=== PATIENT | male | born 1940 | race Caucasian/White ===

== ENCOUNTER → 2018-02-19 | Outpatient (CLI) | payer MEDICARE ==
[2018-02-19 13:50] LABS: ANION GAP 7 MEQ/L (8-16); BLOOD UREA NITROGEN 18 MG/DL (7-18); CARBON DIOXIDE LEVEL 30 MEQ/L (21-32); CHLORIDE LEVEL 108 MEQ/L (98-107); CREATININE FOR GFR 1.25 MG/DL (0.70-1.30); GLOMERULAR FILTRATION RATE 59.5 (>42); GLUCOSE, FASTING 70 MG/DL (70-100); POTASSIUM SERUM 4.5 MEQ/L (3.5-5.1); SODIUM LEVEL 145 MEQ/L (136-145)
== END ==
LOC: M SMT 09:07
DX: Z00.00 Encounter for general adult medical examination without abnormal findings (principal)
CPT/HCPCS: 80048

== ENCOUNTER → 2018-02-23 | Outpatient (CLI) | payer MEDICARE ==
[~2018-02-23] MED LIST: PROHANCE 279.3MG/ML 5ML VIAL (A9576) As Ordered
== END ==
LOC: M RAD 10:58
DX: D07.5 Carcinoma in situ of prostate (principal); K57.30 Diverticulosis of large intestine without perforation or abscess without bleeding; K40.90 Unilateral inguinal hernia, without obstruction or gangrene, not specified as recurrent
CPT/HCPCS: A9576

== ENCOUNTER → 2018-04-23 | Outpatient (CLI) | payer MEDICARE | LOC: M SMT PRO 08:43 | DX: R97.20 Elevated prostate specific antigen [PSA] (principal); D07.5 Carcinoma in situ of prostate | CPT/HCPCS: G0416 ==

== ENCOUNTER → 2018-05-07 | Outpatient (REF) | payer MEDICARE ==
[2018-05-07 17:51] LABS: APPEARANCE, URINE CLEAR (CLEAR); BACTERIA, URINE AUTO NEGATIVE (NEGATIVE); BILIRUBIN, URINE AUTO NEGATIVE (NEGATIVE); BLOOD, URINE BLOOD 2+ (NEGATIVE); COLOR, URINE YELLOW (YELLOW); GLUCOSE, URINE (UA) AUTO NEGATIVE (NEGATIVE); KETONE, URINE AUTO NEGATIVE (NEGATIVE); LEUKOCYTE ESTERASE, URINE AUTO NEGATIVE (NEGATIVE); MUCUS, URINE SMALL (NEGATIVE); NITRITE, URINE AUTO NEGATIVE (NEGATIVE); PROTEIN, URINE AUTO NEGATIVE (NEGATIVE); RBC, URINE AUTO 9 /HPF (0-3); SPECIFIC GRAVITY URINE AUTO 1.017 (1.002-1.035); SQUAMOUS EPITHELIAL CELL UR AU 0 /HPF (0-6); UROBILINOGEN, URINE AUTO 0.2 mg/dL (0.0-2.0); WBC, URINE AUTO 1 /HPF (0-3)
== END ==
LOC: M SMT 16:41
DX: R31.0 Gross hematuria (principal)
CPT/HCPCS: 81001

== ENCOUNTER 2018-07-02 10:32 | Observation (INO) | payer MEDICARE ==
[~2018-07-02] VITALS: Ht 170.2 cm; Wt 79.1 kg
[~2018-07-02 10:32] MED LIST changes: +ACET50TA PO; +ASPI81TA51 PO; +CLOP75TA2 PO; +DOXY100C PO; +FINA5TAB2 PO; +NORCOTAB PO; +OMEP20CA3 PO; -PROHANCE 279.3MG/ML 5ML VIAL (A9576) As Ordered; +RAMI5CAP PO; +SIMV20TA2 PO; +SIMV80TA13 PO; +TERA5CA PO; +ZOCO40TA PO
--- NOTE | 2018-07-02 10:54 | REP ---
Clinical: Acute cerebrovascular accident Comparison: 05/09/2017 . Findings: Age-related atrophy and microvascular ischemic changes are appreciated. The ventricles and sulci are symmetric. Preciado-white differentiation is maintained. There is no evidence for acute intracranial hemorrhage, mass/mass effect, pathology or infarction. No extra-axial fluid collection. Paranasal sinuses are clear. Calvarium is intact. There is a hematoma within the scalp overlying the right posterior occiput. Impression: Age related atrophy and microvascular ischemic changes. No acute intracranial hemorrhage, infarction, or mass/mass effect. Right posterior scalp hematoma. Electronically Signed by Jose Arreguin MD 07/02/2018 10:46 A
[2018-07-02] MEDS ORDERED: TOBRSUS41 (10:56)
[2018-07-02] MEDS ORDERED: RANI-280 (10:56)
[2018-07-02 11:11] LABS: BASO # 0.1 10^3/uL (0.0-0.2); BASO % 0.8 % (0.0-1.0); EOS # 0.3 10^3/uL (0.0-0.50); EOS % 4.4 % (0.0-3.0); HEMATOCRIT 43.1 % (42.0-52.0); HEMOGLOBIN 14.7 g/dl (13.5-17.5); LYMPH # 1.7 10^3/uL (1.5-4.5); LYMPH % 26.3 % (24.0-44.0); MEAN CORPUSCULAR HEMOGLOBIN 32.2 pg (27.0-33.0); MEAN CORPUSCULAR HGB CONC 34.1 g/dl (32.0-36.5); MEAN CORPUSCULAR VOLUME 94.3 fl (80.0-96.0); MONO # 0.7 10^3/uL (0.0-0.8); MONO % 11.3 % (0.0-5.0); NEUTROPHILS # 3.6 10^3/uL (1.8-7.7); NEUTROPHILS % 56.9 % (36.0-66.0); PLATELET COUNT, AUTOMATED 229 10^3/uL (150-450); RED BLOOD COUNT 4.57 10^6/uL (4.30-6.10); WHITE BLOOD COUNT 6.4 10^3/uL (4.0-10.0)
[2018-07-02 11:23] LABS: INR 1.02; PROTHROMBIN TIME 13.5 SECONDS (12.1-14.4)
[2018-07-02 11:24] LABS: PARTIAL THROMBOPLASTIN TIME 30.7 SECONDS (25.4-37.6)
--- NOTE | 2018-07-02 11:33 | ECGEPIP ---
Stationary ECG Study [facility] - ED Test Date: 2018-07-02 Pat Name: FREDY KUNZ Department: Room: - Gender: M [employer] Tr[employer]: TC : 1940 Requested By: Lara Aguilar Order Number: [id number] Reading MD: Antonio Ramírez Measurements Intervals [place] Rate: 52 P: 31 NJ: 233 QRS: -46 QRSD: 95 T: 0 QT: 436 QTc: 408 Interpretive Statements SINUS BRADYCARDIA WITH FIRST DEGREE AV BLOCK LEFT AXIS DEVIATION NSTTW ABNORMALITIES SIMILAR TO 11/25/17 Electronically Signed On 07-02-2018 11:33:04 EST by Antonio Ramírez
[2018-07-02 11:43] LABS: BLOOD UREA NITROGEN 24 MG/DL (7-18); CARBON DIOXIDE LEVEL 28 MEQ/L (21-32); CHLORIDE LEVEL 108 MEQ/L (98-107); CPK CREATINE PHOSPHOKINASE 66 U/L (39-308); CREATININE FOR GFR 1.21 MG/DL (0.70-1.30); GLOMERULAR FILTRATION RATE > 60.0 (>42); GLUCOSE, FASTING 100 MG/DL (70-100); MB/CK RELATIVE INDEX 3.33 (< OR =4); POTASSIUM SERUM 3.9 MEQ/L (3.5-5.1); SODIUM LEVEL 141 MEQ/L (136-145); TROPONIN I < 0.02 NG/ML (< 0.10)
[2018-07-02] MEDS ORDERED: TOBRSUS41 OS (12:36)
[2018-07-02] MEDS ORDERED: CLOP75TA2 PO (12:36)
[2018-07-02] MEDS ORDERED: ASPI1TAB PO (12:36)
[2018-07-02] MEDS ORDERED: RAMI1CAP24 PO (12:36)
[2018-07-02] MEDS ORDERED: RANI1TAB6 PO (12:36)
[2018-07-02] MEDS ORDERED: SIMV40TA2 PO (12:36)
[2018-07-02] MEDS ORDERED: VITAD1000T PO (12:37)
--- NOTE | 2018-07-02 12:41 | REP ---
PORTABLE CHEST X-RAY: Single view. HISTORY: CVA. COMPARISON STUDY: May 09, 2017. FINDINGS: The lungs are symmetrically aerated and free of infiltrate. Pleural angles are sharp. An azygos lobe is noted in the right apex as before. Heart is not enlarged. EKG electrodes are seen. IMPRESSION: No acute disease. Electronically Signed by Javi Sanchez MD 07/02/2018 04:12 P
--- NOTE | 2018-07-02 13:56 | REP ---
MRI BRAIN WITHOUT CONTRAST: HISTORY: Question cerebellar infarct. Comparison is made with today's CT study. TECHNIQUE: Axial and sagittal imaging planes are utilized for T1- and T2-weighted scans. Sequences include spin-echo, fast spin echo, FLAIR, and diffusion weighted sequences. MRI findings: No bony calvarial lesion is seen. The area of soft tissue swelling in the right occipital scalp seen on CT is noted on MR. Craniocervical junction and upper cervical cord are normal in appearance. There is no MR evidence of significant paranasal sinus disease. No intraorbital abnormality is seen. There is mild generalized volume loss. Small vessel atherosclerotic changes are seen in the periventricular white matter of the frontal lobes bilaterally. There is an old lacunar infarct in the left thalamus medially as seen on CT. There is a small old cortical infarct in the left superior cerebellum. This does not show restricted diffusion on the diffusion weighted scans. A right cerebellar hemisphere lacunar infarct is seen inferiorly. This is also old. There is no evidence of restricted diffusion on diffusion-weighted scans to suggest acute ischemia, above or below the tentorium. There is no evidence of intracranial hemorrhage or mass. IMPRESSION: Old lacunar and cortical infarcts in the left thalamus, the left superior cerebellum, and the right inferior cerebellum. No acute infarction seen. Electronically Signed by Javi Sanchez MD 07/02/2018 04:16 P
--- NOTE | 2018-07-02 13:58 | REP ---
MR ANGIOGRAPHY THE BRAIN WITHOUT CONTRAST: HISTORY: Question cerebellar infarction. Comparison is made with today's MRI and CT scans. TECHNIQUE: 3D [id number] MR angiography of the brain is acquired in the usual fashion and maximal intensity projection images were generated in rotational format about the vertical and horizontal axes. In addition, source axial T1-weighted images are viewed in cine mode. MR ANGIOGRAPHIC FINDINGS: The distal vertebral arteries are patent and right dominant. Basilar artery is a little tortuous but widely patent. There is a persistent origin for the left posterior cerebral artery. The P1 segment of the proximal posterior cerebral artery on the left is narrower in association with this. The distal internal carotid arteries are unremarkable. The left A1 segment is quite hypoplastic visible only on source images but patent. The anterior cerebral arteries are both patent from the anterior communicator. Anterior and middle cerebral arteries appear otherwise intact. There is no visible mooney aneurysm or arteriovenous malformation. IMPRESSION: Persistent origin left posterior cerebral, hypoplastic A1 segment on the left. Otherwise unremarkable MR angiography the brain. Electronically Signed by Javi Sanchez MD 07/02/2018 04:16 P
--- NOTE | 2018-07-02 15:12 | HPE ---
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 He had woke up this morning, making a pot of coffee when he had severe temporal headache and with the onset of vertigo. He said that he felt like he was spinning around the room and he caught himself and sat down and came to the emergency room (ER) for evaluation. Initial CT of the head was negative and by the time he was in the ER, he was asymptomatic. Dr. Castro who is our neurologist recommended to keep the patient for an MRI and followup. The patient denies any associated chest pain or palpitations when he had the event and will be admitted for further management. PAST MEDICAL HISTORY: 1. Left cerebellar infarct in May of 2017. 2. History of coronary artery disease status post myocardial infarction (GA). 3. Hypertension. 4. Hyperlipidemia. 5. Gastroesophageal reflux disease (GERD). 6. History of benign prostatic hypertrophy (BPH) status post transurethral resection. ALLERGIES: He has no known drug allergies. FAMILY HISTORY: Noncontributory. SOCIAL HISTORY: The patient denies tobacco, alcohol, or illicit drugs. MEDICATIONS: He takes at home are as follows: - aspirin 81 mg orally daily - Plavix 75 mg orally daily - ramipril 5 mg orally at bedtime - ranitidine one tablet orally twice daily - simvastatin 40 mg orally daily - tobramycin one drop to the left eye four times a day - vitamin D 1000 units orally daily REVIEW OF SYSTEMS: Negative for all 10 major systems except for what is mentioned in the history of present illness (HPI). VITAL SIGNS: Blood pressure is 165/74, heart rate is 54 and regular, respiratory rate 18, temperature 97.3, oxygen saturation 99% on room air. Head is normocephalic, atraumatic. Neck is supple with no jugular venous distention (JVD). Lungs are clear to auscultation. S1, S2 audible. No murmurs appreciated. Abdomen is soft. Positive bowel sounds. No pitting edema. Skin is intact. On neurologic examination, no focal deficits were noted. The patient has no vertical or horizontal nystagmus. LABORATORY DATA: WBC 6.4, hemoglobin 14.7, hematocrit 43.1, platelets are 229,000. Sodium 141, potassium 3.9, chloride 108, CO2 28, anion gap 5, BUN of 24, creatinine 1.21, troponin is less than 0.02, glucose is 100. IMPRESSION: Transient ischemic attack (TIA). PLAN: The patient is to be admitted under observation status to the medical/surgical floor with remote telemetry. We will have neurology see the patient in the morning and we will get the MRI they requested. We will continue his preadmission medications and follow him in the medical/surgical floor.
[2018-07-02 18:13] VITALS: BP 172/92
[2018-07-02] MEDS: TOBRADEX OPHTH SUSP 2.5 ML OS SCH ×2 (19:41→20:54)
[2018-07-02] MEDS: FAMOTIDINE 20 MG TAB PO SCH (20:52)
[2018-07-02] MEDS: RAMIPRIL 5 MG CAP PO SCH (20:54)
[2018-07-02] MEDS: ASPIRIN 81 MG ENTERIC TAB PO SCH (20:54)
[2018-07-02 22:00] VITALS: BP 147/71
[2018-07-03] VITALS (7 sets, daily range): BP systolic 122–156; BP diastolic 63–83
[2018-07-03 06:21] LABS: BLOOD UREA NITROGEN 21 MG/DL (7-18); CALCIUM LEVEL 8.5 MG/DL (8.8-10.2); CARBON DIOXIDE LEVEL 26 MEQ/L (21-32); CHLORIDE LEVEL 109 MEQ/L (98-107); CREATININE FOR GFR 1.13 MG/DL (0.70-1.30); GLOMERULAR FILTRATION RATE > 60.0 (>42); GLUCOSE, FASTING 96 MG/DL (70-100); POTASSIUM SERUM 3.8 MEQ/L (3.5-5.1); SODIUM LEVEL 142 MEQ/L (136-145)
[2018-07-03] MEDS: FAMOTIDINE 20 MG TAB PO SCH ×2 (08:04→20:18)
[2018-07-03] MEDS: CLOPIDOGREL 75 MG TAB PO SCH (08:04)
[2018-07-03] MEDS: VITAMIN D 1,000 INTERNATIONAL UNITS TABLET PO SCH (08:04)
[2018-07-03] MEDS: TOBRADEX OPHTH SUSP 2.5 ML OS SCH ×4 (08:05→20:18)
--- NOTE | 2018-07-03 08:55 | CR ---
DATE OF CONSULTATION: 07/02/2018 REFERRING PHYSICIAN: Dr. Agustina Crane REASON FOR CONSULTATION: Episode of dizziness and imbalance. HISTORY OF PRESENT ILLNESS: Janes Menjivar is a 78-year-old man with history of left cerebellar ischemic stroke in May 2017, coronary artery disease, hypertension, dyslipidemia who woke up around 6:00 a.m. and had no problems. He went to work at [employer]. He was making coffee around 10:00 a.m. and he suddenly felt dizzy and intense sensation of falling and imbalance. He was stumbling. He called his who brought him to emergency department. He also had mild headache at that time. His symptoms resolved after 20 minutes on their own. He denies any seizures, loss of consciousness, neck pain, back pain, dysphagia, dysarthria, diplopia or urinary incontinence. The patient states that he had exactly same symptoms when he had his stroke in May 2017. The patient had stopped taking Plavix for a prostate biopsy and he started taking Plavix 7 days after prostate biopsy, but he started having urethral bleeding. He stopped Plavix for 1 month and restarted taking it around and has been taking Plavix and aspirin since then. The patient has chronically elevated PSA and had multiple biopsies of his prostate gland and they have ruled out prostate cancer. His PSA ranges between 15 - 20. PAST MEDICAL HISTORY: Left cerebellar ischemic stroke in May 2017, coronary artery disease status post capital [place], hypertension, dyslipidemia, acid reflux, benign prostate enlargement with chronically high PSA 15-20 with negative multiple biopsies. ALLERGIES: None. FAMILY HISTORY: Noncontributory. SOCIAL HISTORY: He denies smoking, alcohol or illicit drugs. CURRENT MEDICATIONS: Aspirin 81 mg by mouth daily, Plavix 75 mg by mouth daily, ramipril 5 mg by mouth daily, Zantac 150 mg by mouth twice a day, simvastatin 40 mg by mouth daily, tobramycin one drop left eye four times a day, vitamin D3 1000 units by mouth daily. REVIEW OF SYSTEMS: All systems were reviewed and found to be noncontributory except as mentioned in history of present illness. PHYSICAL EXAMINATION: Temperature 96.7, pulse 64, respiratory 16, blood pressure 167/81, 100% saturation on room air. Heart: Regular rate and rhythm. Lungs: Clear to auscultation. Abdomen: Soft, nontender, nondistended. No pedal edema. No musculoskeletal abnormalities or rash. No signs of meningeal irritation. No tremor, dysmetria or ataxia. The patient is awake, alert, oriented to place, person and time. Normal speech, comprehension and repetition. Extraocular muscles are intact. No facial weakness. Tongue and uvula are midline. Visual fox are full to confrontation. Pupils are 5 mm bilaterally reactive to light. Recent and distant memory is intact. 5/5 strength in all four extremities. Deep tendon flexes are 2+ throughout. Gait is normal. Normal sensation. No dysmetria or ataxia. DIAGNOSTIC STUDIES: His MRI scan of brain was reviewed and showed old bilateral cerebellar ischemic strokes, left thalamic lacunar stroke without acute disease. MRA brain was unremarkable. MRA of neck in May 2017 showed 30% left internal carotid artery stenosis with normal blood vessels otherwise. ASSESSMENT: 1. Suspected transient ischemic attack. 2. History of bilateral cerebellar and left thalamic lacunar strokes. 3. 30% left internal carotid artery based on MRA in May 2017. PLAN: 1. Echocardiogram with bubble study to rule out PFO and atrial septal defect. 2. Continue telemetry monitoring. 3. Aspirin 81 mg by mouth daily and Plavix 75 mg by mouth daily. 4. Simvastatin 40 mg by mouth daily. 5. Carotid ultrasound. 6. Follow with our office in 2-4 weeks after hospital discharge.
[2018-07-03] MEDS ORDERED: PREVNAR 13 VACCINE SYRINGE (CPT CODE:90670) IM ONE (09:00)
--- NOTE | 2018-07-03 11:42 | REP ---
Clinical: Transient ischemic attack . Technique: Preciado scale and color Doppler evaluation using linear high frequency transducer Findings: Two-dimensional preciado scale and color images demonstrate mild atheromatous mixed plaquing along the common carotid arteries extending to the bulbs/ proximal internal carotid arteries. Color Doppler interrogation demonstrates biphasic arterial wave patterns and normal velocities with scattered spectral broadening. Normal flow direction is appreciated in the bilateral vertebral arteries. RIGHT (cm/s) LEFT (cm/s) ICA peak systolic velocity 60.3 75.1 ICA diastolic velocity 20.0 13.4 ECA peak systolic velocity 66.2 128.8 CCA peak systolic velocity 76.9 84.2 ICA/CCA ratio 1.27 0.71 Impression: No hemodynamically significant areas of narrowing or stenosis appreciated. Based on set standards narrowing falls within the less than 50% range. Electronically Signed by Jose Arreguin MD 07/03/2018 11:33 A
--- NOTE | 2018-07-03 15:25 | IPNPDOC ---
Text Note Date of Service The patient was seen on 07/03/18. NOTE Subjective: Pt states dizziness resolved. AGUILAR resolved as well. No weakness. Objective: Vitals: (see below) General: No acute distress, laying comfortably in bed. HEENT: Moist mucous membranes. Neck: No JVD or lymphadenopathy Cardiac: RRR, No murmurs Pulm: Clear to auscultation b/l. No wheezing, rhonchi Abd: NT/ND + BS Ext: No edema or cyanosis Neuro: Strength 5/5 BUE and BLE. CN 2-12 intact. F to N intact Negative pronator drift. Negative Babinki. AAO x 3 Labs (see below) Images: MRI Brain 07/02/18 IMPRESSION: Old lacunar and cortical infarcts in the left thalamus, the left superior cerebellum, and the right inferior cerebellum. No acute infarction seen. Assessment/Plan 1. Dizziness/AGUILAR resolved. ? TIA. States he has not been taking his aspirin consistently at home. Restart ASA, cont plavix/statin. Echo with bubble study per Neuro. Will need outpt f/u with neuro and cardio. 2.H/o CAD s/p PCI cont home meds 3. HTN controlled. cont current meds 4.HLD on statin 5. H/o GERD 6. H/o BPH s/p TURP. DVT prophy: Enoxaparin.a VS,Fishbone, I+O VS, Fishbone, I+O Laboratory Tests 07/03/18 05:21 Calcium Level 8.5 L Vital Signs Date Time Temp Pulse Resp B/P (MAP) Pulse Ox O2 Delivery O2 Flow Rate FiO2 07/03/18 12:05 74 144/77 (99) 73 136/63 (87) 07/03/18 06:00 97.6 16 94 Room Air I&O- Last 24 Hours up to 6 AM 07/03/18 06:00 Intake Total 1110 ml Output Total 100 ml Balance 1010 ml CLARENCE RICH MD Jul 03, 2018 15:25
[2018-07-03] MEDS: ASPIRIN 81 MG ENTERIC TAB PO SCH (20:17)
[2018-07-03] MEDS: RAMIPRIL 5 MG CAP PO SCH (20:18)
[2018-07-03] MEDS ORDERED: SIMVASTATIN 40 MG TAB PO SCH (21:00)
[2018-07-04 04:10] VITALS: BP_SYST 111; BP_SYST 123; BP_SYST 142; BP_DIAS 66; BP_DIAS 72; BP_DIAS 73
[2018-07-04 06:00] VITALS: BP 137/67
[2018-07-04] MEDS ORDERED: NS 1,000 ML IV ONE (08:00)
[2018-07-04] MEDS: CLOPIDOGREL 75 MG TAB PO SCH (08:49)
[2018-07-04] MEDS: TOBRADEX OPHTH SUSP 2.5 ML OS SCH ×2 (08:49→12:45)
[2018-07-04] MEDS: FAMOTIDINE 20 MG TAB PO SCH (08:49)
[2018-07-04] MEDS: VITAMIN D 1,000 INTERNATIONAL UNITS TABLET PO SCH (08:49)
--- NOTE | 2018-07-04 09:24 | ECHO ---
DATE OF PROCEDURE: 07/03/2018 AGE: 78 GENDER: Male HEIGHT: 67 inches WEIGHT: 174 pounds BODY SURFACE AREA: 1.91 meters squared INPATIENT: 4 [facility] 4202 REFERRING PHYSICIAN: Dr. Dany San INDICATION: Transient ischemic attack (TIA), question cardiac source. MEASUREMENTS: 2-D measurements: RV - 4.0 cm LV - 4.2 cm Septum 1.1 cm Posterior wall 1.1 cm Aortic root 4.1 cm LA - 3.7 cm LVEF 75% Doppler measurements: AV - 1.3 meters per second LVOT - 1.1 meters per second LVOT diameter 2.0 cm MV- E 50, A 100, E:E ratio 0.5 E prime 4.5, E/E prime ratio 11.1 PCWP- 11.3 PV - 0.9 meters per second Pulmonary artery acceleration time 92 milliseconds RVSP 38 mmHg IVC - not clearly visualized, estimated central venous pressure of 5-7 mmHg by standard convention. COMMENTS: Normal sinus rhythm without intraventricular conduction disturbance. M-mode and two-dimensional echocardiography was performed with pulsed, continuous wave, color flow, and tissue Doppler studies. We also performed saline contrast bubble study. Normal left ventricular size, wall thickness and hyperkinetic wall motion. Normal left atrial size and assessment of LV diastolic function and estimated mean left atrial pressure. Right heart chambers upper limits of normal with Doppler evidence of mild pulmonary hypertension. Aortic valvular sclerosis without stenosis and only trace insufficiency. Mildly dilated aortic root but normal proximal ascending aortic diameter. Mild mitral annular thickening with adequate leaflet excursion and no mitral regurgitation. No apparent intracardiac mass or pericardial effusion. Contrast bubble study showed no sign of right to left heart shunting on two bolus injections with good contrast and filling of the right heart chambers with imaging the left atrium from the apical long axis projection. Unable to detect any potential cardiac source of embolic material. If a cardiac source is still seriously suspect, would recommend a transesophageal echocardiogram. RICH
--- NOTE | 2018-07-04 14:02 | DS.PDOC ---
Discharge Summary General Date of Admission Jul 02, 2018 at 14:02 Date of Discharge 07/04/18 Attending Physician: CLARENCE RICH MD Specialist/Consultants Involve: LEE ANN ONTIVEROS MD Discharge Summary PROCEDURES PERFORMED DURING STAY: None. ADMITTING/DISCHARGE DIAGNOSES: 1. Dizziness/headache likely secondary to TIA 2. History of CAD status post PCI 3. Hypertension 4. Hyperlipidemia 5. GERD 6. History of BPH status post TURP COMPLICATIONS/CHIEF COMPLAINT: Headache/dizziness HISTORY OF PRESENT ILLNESS/HOSPITAL COURSE: This is a 70-year-old male past history of CAD, hypertension, hyperlipidemia presents with dizziness and headache. Patient states he was ambulating when he developed sudden onset of dizziness as well as left parietal headache. Patient states he has not been taking his aspirin at home. Patient states symptoms have since resolved. He's had multiple TIAs in the past. Patient has been evaluated by neurology with recommendations for continuing aspirin and Plavix. Patient did have an echocardiogram with no PFO or overt thrombus. Patient is hemodynamically stable with no focal deficits. MRI brain negative for CVA. 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 Patient is agreeable. Patient is hemodynamically stable and will be discharged home today. Patient has been seen by physical therapy with recommendations for outpatient vestibular physical therapy. Patient has been given prescription. DISCHARGE MEDICATIONS: Please see below. ALLERGIES: Please see below. PHYSICAL EXAMINATION ON DISCHARGE: Vitals: (see below) General: No acute distress, laying comfortably in bed. HEENT: Moist mucous membranes. Neck: No JVD or lymphadenopathy Cardiac: RRR, No murmurs Pulm: Clear to auscultation b/l. No wheezing, rhonchi Abd: NT/ND + BS Ext: No edema or cyanosis Neuro: Strength 5/5 BUE and BLE. CN 2-12 intact. F to N intact Negative pronator drift. Negative Babinki. AAO x 3 LABORATORY DATA: Please see below. IMAGING: MRI Brain 07/02/18 IMPRESSION: Old lacunar and cortical infarcts in the left thalamus, the left superior cerebellum, and the right inferior cerebellum. No acute infarction seen. PROGNOSIS: Fair ACTIVITY: As tolerated. DIET: Low-sodium DISCHARGE PLAN/DISPOSITION: Home DISCHARGE INSTRUCTIONS: 1. Follow-up with PCP, cardiology, neurology in 1-2 weeks. Return to ED if symptoms worsen. DISCHARGE CONDITION: Stable. TIME SPENT ON DISCHARGE: Greater than 30 minutes. Vital Signs/I&Os Vital Signs Date Time Temp Pulse Resp B/P (MAP) Pulse Ox O2 Delivery O2 Flow Rate FiO2 07/04/18 06:00 98.1 61 15 137/67 (90) 96 Room Air I&O- Last 24 Hours up to 6 AM 07/04/18 06:00 Intake Total 1270 ml Output Total 700 ml Balance 570 ml Discharge Medications Scheduled Aspirin (Aspirin 81) 81 Mg Tab, 81 MG PO QHS, (Reported) Clopidogrel Bisulfate (Clopidogrel) 75 Mg Tab, 75 MG PO DAILY, (Reported) Ramipril (Ramipril) 5 Mg Cap, 5 MG PO QHS, (Reported) Ranitidine HCl (Ranitidine [address]) 150 Mg Tab, 1 TAB PO BID, (Reported) Simvastatin - High Dose (Simvastatin) 40 Mg Tab, 40 MG PO DAILY, (Reported) Tobramycin/Dexamethasone (Tobradex 0.3-0.1 %) 1 Candy Candy, 1 DROP OS QID, (Reported) Vitamin D (Vitamin D3) 1,000 Units Tab, 1,000 UNITS PO DAILY, (Reported) Allergies Coded Allergies: No Known Drug Allergy (Verified Allergy, Unknown, 10/09/12) CLARENCE RICH MD Jul 04, 2018 14:02
== END 2018-07-04 13:40 | disposition home or self-care (01) ==
LOC: M ED 10:32 → M ED INP 14:02 → M MSPAV 18:10
PROVIDERS: ADMIT Internal Medicine; ATTEND Internal Medicine
DX: R42 Dizziness and giddiness (principal); G45.9 Transient cerebral ischemic attack, unspecified; I25.10 Atherosclerotic heart disease of native coronary artery without angina pectoris; Z98.61 Coronary angioplasty status; I10 Essential (primary) hypertension; E78.5 Hyperlipidemia, unspecified; K21.9 Gastro-esophageal reflux disease without esophagitis; Z79.82 Long term (current) use of aspirin; Z79.899 Other long term (current) drug therapy
CPT/HCPCS: 36415; 70450; 70544; 70551; 71045; 80048; 82550; 82553; 84484; 85025; 85610; 85730; 86850; 86900; 86901; 93005; 93041; 93306; 93880; 94760; 97162; 99285; G0378

== ENCOUNTER 2018-08-12 07:56 | Day surgery (SDC) | payer MEDICARE ==
[~2018-08-12] VITALS: Ht 170.2 cm; Wt 80.0 kg
[~2018-08-12 07:56] MED LIST changes: +ASPI1TAB PO; +NS 1,000 ML IV ONE; +RAMI1CAP24 PO; +RANI-280; +RANI1TAB6 PO; +SIMV40TA2 PO; +TOBRSUS41; +TOBRSUS41 OS; +VITAD1000T PO
[2018-08-12] MEDS ORDERED: LIDOCAINE 2% INJ 100 MG/5 ML SDV (FOR ANES.) As Ordered ONE (08:57)
[2018-08-12] MEDS ORDERED: PROPOFOL 200 MG/20 ML VIAL As Ordered ONE (08:57)
--- NOTE | 2018-08-12 09:35 | ROOR ---
Patient Name: Janes Menjivar Procedure Date: 08/12/2018 9:15 AM Date of : 1940 Age: 78 Room: [facility] Gender: Male Note Status: Finalized Procedure: Colonoscopy Indications: Screening for colorectal malignant neoplasm Providers: Monty Linares Jr, MD Referring MD: LORELEI RICH Requesting Provider: Medicines: Propofol per Anesthesia Complications: No immediate complications. Procedure: Pre-Anesthesia Assessment: - Prior to the procedure, a History and Physical was performed, and patient medications and allergies were reviewed. The patient is competent. The risks and benefits of the procedure and the sedation options and risks were discussed with the patient. All questions were answered and informed consent was obtained. Patient identification and proposed procedure were verified by the physician and the nurse in the pre-procedure area and in the procedure room. Mental Status Examination: alert and oriented. Airway Examination: normal oropharyngeal airway and neck mobility. Respiratory Examination: clear to auscultation. CV Examination: normal. ASA Grade Assessment: II - A patient with mild systemic disease. After reviewing the risks and benefits, the patient was deemed in satisfactory condition to undergo the procedure. The anesthesia plan was to use moderate sedation / analgesia (conscious sedation). Immediately prior to administration of medications, the patient was re-assessed for adequacy to receive sedatives. The heart rate, respiratory rate, oxygen saturations, blood pressure, adequacy of pulmonary ventilation, and response to care were monitored throughout the procedure. The physical status of the patient was re-assessed after the procedure. The Colonoscope was introduced through the anus and advanced to the cecum, identified by appendiceal orifice and ileocecal valve. The colonoscopy was performed without difficulty. The patient tolerated the procedure well. The quality of the bowel preparation was adequate. Findings: Multiple small and large-mouthed diverticula were found in the sigmoid colon. A diminutive polyp was found in the ascending colon. The polyp was hyperplastic. The polyp was removed with a cold snare. Resection and retrieval were complete. The rectum, recto-sigmoid colon, descending colon, transverse colon, hepatic flexure, appendiceal orifice and ileocecal valve appeared normal. Impression: - Diverticulosis in the sigmoid colon. - One diminutive polyp in the ascending colon, removed with a cold snare. Resected and retrieved. - The rectum, recto-sigmoid colon, descending colon, transverse colon, hepatic flexure, appendiceal orifice and ileocecal valve are normal. Recommendation: - Discharge patient to home (ambulatory). - Repeat colonoscopy in 5-10 years for surveillance based on pathology results. Mnoty Linares MD Monty Linares Jr, MD 08/12/2018 9:34:47 AM This report has been signed electronically. Number of Addenda: 0 Note Initiated On: 08/12/2018 9:15 AM Estimated Blood Loss: Estimated blood loss: none.
[2018-08-12 09:55] VITALS: BP 145/83
== END 2018-08-12 10:18 | disposition home or self-care (01) ==
LOC: M OPP 07:56
PROVIDERS: ATTEND Surgery
DX: D12.2 Benign neoplasm of ascending colon (principal); K57.30 Diverticulosis of large intestine without perforation or abscess without bleeding; Z12.11 Encounter for screening for malignant neoplasm of colon

== ENCOUNTER → 2018-12-10 | Outpatient (REF) | payer MEDICARE ==
[~2018-12-10] MED LIST changes: -ACET50TA PO; -ASPI1TAB PO; +ASPI81TA26 PO; +HYDR-3715 PO; +MAPA500T17 PO; -NORCOTAB PO; -NS 1,000 ML IV ONE; -TERA5CA PO; +TERA5CAP60 PO
[2018-12-10 19:20] LABS: APPEARANCE, URINE CLEAR (CLEAR); BACTERIA, URINE AUTO NEGATIVE (NEGATIVE); BILIRUBIN, URINE AUTO NEGATIVE (NEGATIVE); BLOOD, URINE BLOOD NEGATIVE (NEGATIVE); COLOR, URINE YELLOW (YELLOW); GLUCOSE, URINE (UA) AUTO NEGATIVE (NEGATIVE); KETONE, URINE AUTO NEGATIVE (NEGATIVE); LEUKOCYTE ESTERASE, URINE AUTO NEGATIVE (NEGATIVE); NITRITE, URINE AUTO NEGATIVE (NEGATIVE); PROTEIN, URINE AUTO NEGATIVE (NEGATIVE); RBC, URINE AUTO 0 /HPF (0-3); SPECIFIC GRAVITY URINE AUTO 1.012 (1.002-1.035); SQUAMOUS EPITHELIAL CELL UR AU 0 /HPF (0-6); UROBILINOGEN, URINE AUTO 0.2 mg/dL (0.0-2.0); WBC, URINE AUTO 1 /HPF (0-3)
== END ==
LOC: M SMT 16:47
PROVIDERS: ATTEND Urology
DX: R31.9 Hematuria, unspecified (principal)
CPT/HCPCS: 81001; 87086; G0463

== ENCOUNTER → 2019-01-28 | Outpatient (REF) | payer MEDICARE ==
[2019-01-28 14:17] LABS: APPEARANCE, URINE CLEAR (CLEAR); BACTERIA, URINE AUTO NEGATIVE (NEGATIVE); BILIRUBIN, URINE AUTO NEGATIVE (NEGATIVE); BLOOD, URINE BLOOD NEGATIVE (NEGATIVE); COLOR, URINE YELLOW (YELLOW); GLUCOSE, URINE (UA) AUTO NEGATIVE (NEGATIVE); KETONE, URINE AUTO NEGATIVE (NEGATIVE); LEUKOCYTE ESTERASE, URINE AUTO NEGATIVE (NEGATIVE); NITRITE, URINE AUTO NEGATIVE (NEGATIVE); PROTEIN, URINE AUTO NEGATIVE (NEGATIVE); RBC, URINE AUTO 0 /HPF (0-3); SQUAMOUS EPITHELIAL CELL UR AU 0 /HPF (0-6); UROBILINOGEN, URINE AUTO 0.2 mg/dL (0.0-2.0); WBC, URINE AUTO 1 /HPF (0-3)
== END ==
LOC: M SMT 13:29
PROVIDERS: ATTEND Urology
DX: N50.812 Left testicular pain (principal)
CPT/HCPCS: 81001; 87086; G0463

== ENCOUNTER → 2019-02-04 | Outpatient (CLI) | payer MEDICARE ==
--- NOTE | 2019-02-04 11:02 | REP ---
Clinical: Left testicular pain. Technique: Real time garcia scale and color Doppler evaluation using linear high frequency transducer. Findings: The bilateral testicles are normal in contour, size, echogenicity, and vascularity without evidence for testicular torsion, infectious/inflammatory process or mass lesion. The bilateral epididymi demonstrate cystic changes with right epididymal cysts measuring up to 2.0 cm and left epididymal cysts measuring up to 5 mm. No hydrocele. No varicocele. Right testicle measures 4.4 x 2.3 x 2.8 cm. Left testicle measures 4.5 x 2.5 x 3.0 cm. There is heterogeneous thickening and echogenicity involving the left spermatic cord raising the possibility of acute / chronic vasitis and correlation may be warranted. Impression: Bilateral epididymal cysts (right greater than left) Cannot exclude left-sided vasitis Electronically Signed by Jose Arreguin MD 02/04/2019 10:54 A
== END ==
LOC: M RAD 10:07
PROVIDERS: ATTEND Urology
DX: N50.812 Left testicular pain (principal); N50.3 Cyst of epididymis

== ENCOUNTER → 2019-09-14 | Outpatient (REF) | payer MEDICARE ==
[~2019-09-14] MED LIST changes: +CHOL100029 PO; +RANI-397 PO; -RANI1TAB6 PO; -SIMV40TA2 PO; +SIMV40TA20 PO; -VITAD1000T PO
[2019-09-14 14:27] LABS: APPEARANCE, URINE CLEAR (CLEAR); BACTERIA, URINE AUTO NEGATIVE (NEGATIVE); BILIRUBIN, URINE AUTO NEGATIVE (NEGATIVE); BLOOD, URINE BLOOD NEGATIVE (NEGATIVE); COLOR, URINE YELLOW (YELLOW); GLUCOSE, URINE (UA) AUTO NEGATIVE (NEGATIVE); KETONE, URINE AUTO NEGATIVE (NEGATIVE); LEUKOCYTE ESTERASE, URINE AUTO NEGATIVE (NEGATIVE); NITRITE, URINE AUTO NEGATIVE (NEGATIVE); PROTEIN, URINE AUTO NEGATIVE (NEGATIVE); RBC, URINE AUTO 0 /HPF (0-3); SPECIFIC GRAVITY URINE AUTO 1.008 (1.002-1.035); SQUAMOUS EPITHELIAL CELL UR AU 0 /HPF (0-6); UROBILINOGEN, URINE AUTO 0.2 mg/dL (0.0-2.0); WBC, URINE AUTO 1 /HPF (0-3)
[2019-09-15 14:07] LABS: PSA TOTAL 16.7 ng/mL (0.0-4.0)
== END ==
LOC: M LABSMT 09:12
PROVIDERS: ATTEND Nurse Practitioner Women's Health
DX: R31.0 Gross hematuria (principal); R97.20 Elevated prostate specific antigen [PSA]

== ENCOUNTER → 2019-11-11 | Outpatient (REF) | payer MEDICARE ==
[2019-11-11 11:09] LABS: CALCIUM LEVEL 9.6 MG/DL (8.8-10.2); CREATININE FOR GFR 1.29 MG/DL (0.70-1.30); GLOMERULAR FILTRATION RATE 57.2 (>42)
== END ==
LOC: M LABSMT 08:25
PROVIDERS: ATTEND Nurse Practitioner Women's Health
DX: R97.20 Elevated prostate specific antigen [PSA] (principal)

== ENCOUNTER → 2019-11-16 | Outpatient (CLI) | payer MEDICARE | LOC: M LABSMTC 12:38 | PROVIDERS: ATTEND Family Medicine | DX: Z20.828 Contact with and (suspected) exposure to other viral communicable diseases (principal) | CPT/HCPCS: C9803; U0003 ==

== ENCOUNTER → 2019-12-01 | Outpatient (REF) | payer MEDICARE ==
[~2019-12-01] MED LIST changes: +FLOM0.4C39 PO
== END ==
LOC: M SMT 18:03
PROVIDERS: ATTEND Urology
DX: R31.0 Gross hematuria (principal)

== ENCOUNTER 2019-12-03 19:07 | Emergency (ER) | payer MEDICARE ==
[~2019-12-03] VITALS: Ht 170.2 cm; Wt 82.0 kg
[~2019-12-03 19:07] MED LIST changes: -FLOM0.4C39 PO
[2019-12-03] MEDS ORDERED: FLOM0.4C39 PO (19:11)
[2019-12-03] MEDS ORDERED: NS 1,000 ML IV ONE (20:00)
[2019-12-03 20:30] LABS: BASO % 0.4 % (0.0-1.0); EOS # 0.2 10^3/uL (0.0-0.5); EOS % 1.6 % (0.0-3.0); HEMATOCRIT 42.2 % (42.0-52.0); HEMOGLOBIN 14.3 g/dl (13.5-17.5); LYMPH # 1.4 10^3/uL (1.5-5.0); LYMPH % 14.7 % (24.0-44.0); MEAN CORPUSCULAR HEMOGLOBIN 31.4 pg (27.0-33.0); MEAN CORPUSCULAR HGB CONC 33.9 g/dl (32.0-36.5); MEAN CORPUSCULAR VOLUME 92.5 fl (80.0-96.0); MONO # 0.8 10^3/uL (0.0-0.8); MONO % 8.8 % (0.0-5.0); NEUTROPHILS # 6.9 10^3/uL (1.5-8.5); NEUTROPHILS % 74.1 % (36.0-66.0); PLATELET COUNT, AUTOMATED 245 10^3/uL (150-450); RED BLOOD COUNT 4.56 10^6/uL (4.30-6.10); WHITE BLOOD COUNT 9.3 10^3/uL (4.0-10.0)
[2019-12-03] MEDS ORDERED: ISOVUE-370 76% 100ML VIAL As Ordered ONE (20:36)
[2019-12-03 20:42] LABS: INR 1.01
[2019-12-03 20:43] LABS: PARTIAL THROMBOPLASTIN TIME 30.7 SECONDS (25.0-38.4)
[2019-12-03 20:55] LABS: ALBUMIN 3.5 GM/DL (3.2-5.2); BILIRUBIN,DIRECT 0.1 MG/DL (0.0-0.2); BILIRUBIN,TOTAL 0.3 MG/DL (0.2-1.0); TOTAL PROTEIN 6.7 GM/DL (6.4-8.2)
--- NOTE | 2019-12-03 21:40 | REPVR ---
PROCEDURE INFORMATION: Exam: CT Abdomen And Pelvis Without And With Contrast Exam date and time: 12/03/2019 9:07 PM Age: 79 years old Clinical indication: Other: Hematuria; Additional info: Nicolás hematuria; With delayed images please TECHNIQUE: Imaging protocol: Computed tomography of the abdomen and pelvis without and with intravenous contrast. Radiation optimization: All CT scans at this facility use at least one of these dose optimization techniques: automated exposure control; mA and/or kV adjustment per patient size (includes targeted exams where dose is matched to clinical indication); or iterative reconstruction. Contrast material: ISOVUE 370; Contrast volume: 100 ml; Contrast route: IV; COMPARISON: CT ABD PELVIS W/O CONTRAST 11/25/2017 11:35 AM FINDINGS: Liver: 2.4 cm fluid density cyst in the left hepatic lobe. Small subcentimeter low density lesion in the right hepatic lobe, too small to characterize though statistically representing cyst. Gallbladder and bile ducts: Unremarkable. No ductal dilation. Pancreas: Unremarkable. No ductal dilation. Spleen: Unremarkable. Adrenals: Unremarkable. Kidneys and ureters: No hydronephrosis or stones. Stomach and bowel: Small to moderate sized hiatal hernia. No small bowel obstruction. Colonic diverticulosis without evidence of acute diverticulitis. Appendix: No evidence of appendicitis. Intraperitoneal space: No pneumoperitoneum. No significant fluid collection. Vasculature: Atherosclerotic calcifications of the aorta and major branches. 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 Ectasia of the infrarenal abdominal aorta measuring up to 2.3 cm in maximal transverse diameter. Lymph nodes: No enlarged lymph nodes. Bladder: Small degree of pneumaturia within the urinary bladder. Mild diffuse wall thickening of the urinary bladder. Small right bladder wall diverticulum. Reproductive: Enlarged prostate gland protruding into the base of the bladder. Bones/joints: Multilevel degenerative changes of the visualized spine. No acute osseous lesion or fracture. Soft tissues: Unremarkable. IMPRESSION: 1. No evidence of hydronephrosis or nephrolithiasis. 2. Mild diffuse wall thickening of the urinary bladder. Correlate clinically with urinalysis to exclude cystitis. 3. Small degree of pneumaturia within the urinary bladder. Correlate clinically with history of recent catheterization. 4. Enlarged prostate gland protruding into the base of the bladder. 5. 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 6. Other findings, as above. Electronically signed by: Atif Hemphill On 12/03/2019 21:40:27 PM
[2019-12-03 21:45] VITALS: BP 159/94
--- NOTE | 2019-12-05 12:01 | ED PDOC ---
Post-Departure Follow-Up dr dyer and gallito faith faxed formal report of ct abd/p for fu Houston Hopkins MD Dec 05, 2019 12:01
[2019-12-08] MEDS ORDERED: PANT40TA3 (03:50)
== END 2019-12-03 22:12 | disposition home or self-care (01) ==
LOC: M ED 19:07
DX: R31.9 Hematuria, unspecified (principal); K21.9 Gastro-esophageal reflux disease without esophagitis; Z79.899 Other long term (current) drug therapy; Z79.82 Long term (current) use of aspirin
CPT/HCPCS: 36415; 74178; 80047; 80076; 81001; 83690; 85025; 85610; 85730; 86850; 86900; 86901; 93041; 96360; 96361; 99284; Q9967

== ENCOUNTER 2019-12-08 03:40 | Emergency (ER) | payer MEDICARE ==
[~2019-12-08] VITALS: Ht 170.2 cm; Wt 77.7 kg
[~2019-12-08 03:40] MED LIST changes: +FLOM0.4C39 PO
[2019-12-08] MEDS ORDERED: CLOP75TA2 (03:50)
[2019-12-08] MEDS ORDERED: PANT40TA29 PO (03:50)
[2019-12-08] MEDS ORDERED: ISOVUE-370 76% 100ML VIAL As Ordered ONE (04:03)
[2019-12-08 04:06] LABS: BASO % 0.5 % (0.0-1.0); EOS # 0.2 10^3/uL (0.0-0.5); EOS % 2.4 % (0.0-3.0); HEMATOCRIT 39.9 % (42.0-52.0); HEMOGLOBIN 13.5 g/dl (13.5-17.5); LYMPH # 1.8 10^3/uL (1.5-5.0); LYMPH % 20.6 % (24.0-44.0); MEAN CORPUSCULAR HEMOGLOBIN 31.6 pg (27.0-33.0); MEAN CORPUSCULAR HGB CONC 33.8 g/dl (32.0-36.5); MEAN CORPUSCULAR VOLUME 93.4 fl (80.0-96.0); MONO # 0.8 10^3/uL (0.0-0.8); MONO % 8.7 % (0.0-5.0); NEUTROPHILS # 5.9 10^3/uL (1.5-8.5); NEUTROPHILS % 67.3 % (36.0-66.0); PLATELET COUNT, AUTOMATED 253 10^3/uL (150-450); RED BLOOD COUNT 4.27 10^6/uL (4.30-6.10); WHITE BLOOD COUNT 8.8 10^3/uL (4.0-10.0)
[2019-12-08 04:19] LABS: INR 1.09; PROTHROMBIN TIME 13.8 SECONDS (11.8-14.0)
[2019-12-08 04:20] LABS: PARTIAL THROMBOPLASTIN TIME 28.9 SECONDS (25.0-38.4)
[2019-12-08 04:30] VITALS: BP 149/80
[2019-12-08] MEDS ORDERED: ONDANSETRON 4MG/2ML VIAL IV ONE (04:30)
--- NOTE | 2019-12-08 04:42 | REPVR ---
PROCEDURE INFORMATION: Exam: CT Angiography Head With Contrast Exam date and time: 12/08/2019 3:53 AM Age: 79 years old Clinical indication: Pain; Headache; Additional info: CVA -headache possible posterior CVA TECHNIQUE: Imaging protocol: Computed tomography angiography of the head with intravenous contrast. 3D rendering: MIP and/or 3D reconstructed images were created by the technologist. Radiation optimization: All CT scans at this facility use at least one of these dose optimization techniques: automated exposure control; mA and/or kV adjustment per patient size (includes targeted exams where dose is matched to clinical indication); or iterative reconstruction. Contrast material: ISO; Contrast volume: 85 ml; Contrast route: AC; COMPARISON: CT Head without contrast 07/02/2018 10:34 AM FINDINGS: Anterior cerebral arteries: Hypoplastic left A1 segment with prominent anterior communicating artery. 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 Right middle cerebral artery: No occlusion or significant stenosis. No aneurysm. Right posterior cerebral artery: No occlusion or significant stenosis. No aneurysm. Right vertebral artery: Dominant right vertebral artery. Left internal carotid artery: Intracranial segment is patent with no significant stenosis or occlusion. No aneurysm. Left middle cerebral artery: No occlusion or significant stenosis. No aneurysm. Left posterior cerebral artery: Hypoplastic left P1 segment with prominent posterior communicating artery. Left vertebral artery: No occlusion or significant stenosis. No aneurysm. Basilar artery: No occlusion or significant stenosis. No aneurysm. IMPRESSION: No occlusion or significant stenosis. 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 Electronically signed by: Atul Sosa On 12/08/2019 04:41:54 AM
--- NOTE | 2019-12-08 04:45 | REPVR ---
PROCEDURE INFORMATION: Exam: CT Angiography Neck With Contrast Exam date and time: 12/08/2019 3:53 AM Age: 79 years old Clinical indication: Pain; Headache; Additional info: Headache, possible posterior CVA TECHNIQUE: Imaging protocol: Computed tomography angiography of the neck with intravenous contrast. 3D rendering: MIP and/or 3D reconstructed images were created by the technologist. Radiation optimization: All CT scans at this facility use at least one of these dose optimization techniques: automated exposure control; mA and/or kV adjustment per patient size (includes targeted exams where dose is matched to clinical indication); or iterative reconstruction. Contrast material: ISO; Contrast volume: 85 ml; Contrast route: AC; COMPARISON: No relevant prior studies available. FINDINGS: Right common carotid artery: No stenosis. No dissection or occlusion. Right internal carotid artery: No stenosis of the extracranial segment. No dissection or occlusion. Right external carotid artery: No occlusion or stenosis of the origin. Right vertebral artery: Dominant right vertebral artery. Left common carotid artery: No stenosis. No dissection or occlusion. Left internal carotid artery: Atherosclerotic disease of the proximal left internal carotid artery without hemodynamically significant stenosis. Left external carotid artery: No occlusion or stenosis of the origin. Left vertebral artery: No stenosis. No dissection or occlusion. Bones/joints: Multilevel degenerative disease and facet hypertrophy of the cervical spine. Mild anterolisthesis of C4 on C5, degenerative in nature. Stenosis of the spinal canal and neural foramina at several levels Soft tissues: Normal. No significant soft tissue swelling. Lungs: Biapical paraseptal emphysema. IMPRESSION: No acute findings. REFERENCES: NASCET CRITERIA. The degree of internal carotid artery stenosis is based on NASCET criteria. Normal is no stenosis. Mild is less than 50% stenosis. Moderate is 50-69% stenosis. Severe is 70% to 99% stenosis. Total occlusion is no detectable patent lumen. Electronically signed by: Atul Sosa On 12/08/2019 04:45:19 AM
--- NOTE | 2019-12-08 04:49 | REPVR ---
PROCEDURE INFORMATION: Exam: CT Head Without Contrast Exam date and time: 12/08/2019 3:53 AM Age: 79 years old Clinical indication: Pain; Headache not specified; Additional info: CVA - nursing interventions must not delay CT TECHNIQUE: Imaging protocol: Computed tomography of the head without contrast. Radiation optimization: All CT scans at this facility use at least one of these dose optimization techniques: automated exposure control; mA and/or kV adjustment per patient size (includes targeted exams where dose is matched to clinical indication); or iterative reconstruction. COMPARISON: CT Head without contrast 07/02/2018 10:34 AM FINDINGS: Brain: Encephalomalacia in the bilateral cerebellar hemispheres, more pronounced on the right. Old lacunar infarct in the left thalamus. Old lacunar infarct is also noted in the right caudate head. Generalized parenchymal atrophy and evidence of microvascular ischemic disease involving the periventricular and subcortical white matter bilaterally. Ventricles: Normal. No ventriculomegaly. Bones/joints: Age-indeterminate bilateral nasal fractures. Sinuses: Visualized sinuses are unremarkable. No fluid levels. Mastoid air cells: Visualized mastoid air cells are well aerated. Soft tissues: Unremarkable. IMPRESSION: No acute intracranial pathology. Chronic changes. Electronically signed by: Atul Sosa On 12/08/2019 04:49:10 AM
[2019-12-08 04:59] LABS: CK-MB VALUE MASS 1.7 NG/ML (<3.6); CPK CREATINE PHOSPHOKINASE 76 U/L (39-308); MB/CK RELATIVE INDEX 2.24 (< OR =4); TROPONIN I < 0.02 NG/ML (< 0.10)
[2019-12-08 05:00] VITALS: BP 149/74
[2019-12-08] MEDS ORDERED: HYDROMORPHONE HCL 0.5 MG/ 0.5 ML SYRINGE (J1170 PER 1) IV PRN (05:15)
[2019-12-08] MEDS ORDERED: METOCLOPRAMIDE INJ 10MG/2ML VIAL (J2765 PER 1) IV ONE (05:15)
[2019-12-08] MEDS ORDERED: ASPIRIN 81 MG CHEW TABLET PO ONE (05:30)
--- NOTE | 2019-12-08 07:08 | REPVR ---
PROCEDURE INFORMATION: Exam: MR Head Without Contrast Exam date and time: 12/08/2019 5:20 AM Age: 79 years old Clinical indication: Dizziness; Additional info: Vertigo/ headache/ posterior CVA TECHNIQUE: Imaging protocol: MR of the head without contrast. COMPARISON: MRI-Brain without Contrast 07/02/2018 1:01 PM FINDINGS: Brain: Restricted diffusion involving right cerebellar hemisphere and right aspect of the cerebellar vermis compatible with acute infarct. Encephalomalacia in the bilateral cerebellar hemispheres. Old lacunar infarct in the left thalamus. Mild generalized parenchymal atrophy and evidence of microvascular ischemic disease involving the periventricular and subcortical white matter bilaterally. Ventricles: Normal. No ventriculomegaly. Bones/joints: Unremarkable. Sinuses: Normal as visualized. No acute sinusitis. Mastoid air cells: Normal as visualized. No mastoid effusion. Orbits: Unremarkable. Soft tissues: Unremarkable. IMPRESSION: Acute right cerebellar are infarct. Electronically signed by: Atul Sosa On 12/08/2019 07:07:48 AM
[2019-12-08 08:00] VITALS: BP 143/83
[2019-12-08 08:47] LABS: ALBUMIN 3.2 GM/DL (3.2-5.2); ALT/SGPT 24 U/L (12-78); BILIRUBIN,DIRECT 0.1 MG/DL (0.0-0.2); BILIRUBIN,TOTAL 0.4 MG/DL (0.2-1.0); TOTAL PROTEIN 6.3 GM/DL (6.4-8.2)
--- NOTE | 2019-12-08 10:14 | REP ---
CHEST, SINGLE VIEW: Single view of the chest is performed and compared to a prior study of 07/02/2018. The heart is upper limits of normal in size. There is no acute infiltrate. There are minor fibrotic changes. There is tortuosity of the thoracic aorta. The mediastinal silhouette is unchanged. Azygos lobe is again noted on the right. IMPRESSION: No acute pulmonary disease. Electronically Signed by Amos Preciado MD 12/08/2019 07:38 P
--- NOTE | 2019-12-08 14:40 | ECGEPIP ---
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
[2020-04-10] MEDS ORDERED: ATOR1TAB21 PO (06:42)
[2020-05-15] MEDS ORDERED: BUTA1CAP PO (18:27)
== END 2019-12-08 08:05 | disposition short-term general hospital (02) ==
LOC: M ED 03:40
DX: I63.9 Cerebral infarction, unspecified (principal); I44.0 Atrioventricular block, first degree; I50.9 Heart failure, unspecified; I10 Essential (primary) hypertension; K21.9 Gastro-esophageal reflux disease without esophagitis; Z79.899 Other long term (current) drug therapy; Z79.82 Long term (current) use of aspirin; Z79.01 Long term (current) use of anticoagulants; Z87.891 Personal history of nicotine dependence
CPT/HCPCS: 70450; 70496; 70498; 70551; 71045; 80047; 80076; 81001; 82550; 82553; 84484; 85025; 85610; 85730; 86850; 86900; 86901; 93005; 93041; 94760; 96374; 96375; 99291; J1170; J2405; J2765; Q9967

== ENCOUNTER 2020-04-10 06:33 | Emergency (ER) | payer MEDICARE ==
[~2020-04-10] VITALS: Ht 170.2 cm; Wt 83.3 kg
[~2020-04-10 06:33] MED LIST changes: +CLOP75TA2; +PANT40TA29
[2020-04-10] MEDS ORDERED: ATOR1TAB21 (06:42)
[2020-04-10] MEDS ORDERED: KETOROLAC 30 MG/ML 1ML VIAL IV ONE (07:45)
[2020-04-10 08:53] LABS: BASO % 0.2 % (0.0-1.0); EOS # 0.1 10^3/uL (0.0-0.5); EOS % 0.9 % (0.0-3.0); HEMATOCRIT 43.6 % (42.0-52.0); HEMOGLOBIN 14.5 g/dl (13.5-17.5); LYMPH # 1.2 10^3/uL (1.5-5.0); LYMPH % 14.5 % (24.0-44.0); MEAN CORPUSCULAR HEMOGLOBIN 30.5 pg (27.0-33.0); MEAN CORPUSCULAR HGB CONC 33.3 g/dl (32.0-36.5); MEAN CORPUSCULAR VOLUME 91.8 fl (80.0-96.0); MONO # 0.7 10^3/uL (0.0-0.8); MONO % 8.6 % (0.0-5.0); NEUTROPHILS # 6.2 10^3/uL (1.5-8.5); NEUTROPHILS % 75.4 % (36.0-66.0); PLATELET COUNT, AUTOMATED 221 10^3/uL (150-450); RED BLOOD COUNT 4.75 10^6/uL (4.30-6.10); WHITE BLOOD COUNT 8.2 10^3/uL (4.0-10.0)
[2020-04-10 09:20] LABS: ALBUMIN 4.2 GM/DL (3.2-5.2); BILIRUBIN,DIRECT 0.2 MG/DL (0.0-0.2); BILIRUBIN,TOTAL 0.7 MG/DL (0.2-1.0); TOTAL PROTEIN 7.7 GM/DL (6.4-8.2)
[2020-04-10] MEDS ORDERED: LIDOCAINE 2% 5ML JELLY UROJET TOP ONE (09:45)
[2020-04-10] MEDS ORDERED: LIDOCAINE 2% 5ML JELLY UROJET TOP PRN (10:15)
--- NOTE | 2020-04-10 10:34 | REPVR ---
PROCEDURE INFORMATION: Exam: CT Abdomen And Pelvis Without Contrast Exam date and time: 04/10/2020 8:49 AM Age: 80 years old Clinical indication: Abdominal pain; Flank; Right; Additional info: R flank pain TECHNIQUE: Imaging protocol: Computed tomography of the abdomen and pelvis without contrast. Radiation optimization: All CT scans at this facility use at least one of these dose optimization techniques: automated exposure control; mA and/or kV adjustment per patient size (includes targeted exams where dose is matched to clinical indication); or iterative reconstruction. COMPARISON: 1. CT ABD PELVIS W/O FOL BY WIT 12/03/2019 8:56 PM 2. MRI PELVIS W/O FOLL WITH CON 02/23/2018 11:42:[address] ABD PELVIS W/O CONTRAST 11/25/2017 11:35:26 AM FINDINGS: Lungs: There is minimal bibasilar atelectasis or scar. Coronary and aortic atherosclerosis is seen. There is a moderate sized hiatal hernia with paraesophageal component. Liver: 2.4 cm subcapsular simple cyst in the left lobe of the liver. 1.0 cm simple cyst in the right liver. Gallbladder and bile ducts: Normal. No calcified stones. No ductal dilation. Pancreas: Normal. No ductal dilation. Spleen: Normal. No splenomegaly. Adrenals: Normal. No mass. Kidneys and ureters: There is bilateral perinephric fat stranding, particularly inferiorly. Mild bilateral hydronephrosis and hydroureter. No ureteral calculi are seen. Stomach and bowel: There is a large amount of stool in the cecum. No bowel dilatation to indicate obstruction. Numerous colonic diverticula without gross focal features of diverticulitis. No bowel dilatation to indicate obstruction. No pneumatosis. Appendix: Appendix is not seen. Mild fat stranding and minimal fluid inferior to the cecum, of uncertain etiology. Intraperitoneal space: Unremarkable. No free air. No significant fluid collection. Vasculature: There is calcified atherosclerotic plaque in the abdominal aorta and medium-sized arteries in the abdomen and pelvis. No aortic aneurysm. Aneurysmal dilatation of the left common iliac artery at 1.8 cm. Aneurysmal dilatation of the left external iliac artery at 1.4 cm Lymph nodes: Unremarkable. No enlarged lymph nodes. Urinary bladder: Bladder is distended. There is a small amount of air located anterior superiorly in the bladder. Minimal fat stranding adjacent to the bladder. Reproductive: The prostate is enlarged, indenting the bladder base. Tiny focus of air in the right prostate of uncertain etiology. Bones/joints: There is multilevel degenerative disc and facet disease. Small sclerotic lesion in the acetabula and right proximal femur, most likely bone islands in the absence of a known primary tumor. Minimal levoconvex thoracolumbar scoliosis. Soft tissues: Small noninflamed fat containing left inguinal hernia. IMPRESSION: 1. Distended bladder with small amount of air again seen in the bladder suggesting recent instrumentation. 2. Enlarged prostate again seen, with tiny focus of air now seen in the right prostate of uncertain etiology. For recommend correlation with recent intervention or biopsy. In the absence of recent intervention or biopsy, prostatitis is possible. 3. Small simple cysts in the liver. 4. Mild bilateral hydronephrosis and hydroureter, but no ureteral calculi are seen. Mild bilateral perinephric fat stranding. 5. Mild fat stranding and minimal fluid inferior to the cecum, of uncertain etiology. 6. Atherosclerosis, with continued aneurysmal dilatation of the left common iliac and external iliac arteries. 7. Moderate sized hiatal hernia with paraesophageal component. Electronically signed by: Kaylin Norman On 04/10/2020 10:33:31 AM
--- NOTE | 2020-04-10 12:09 | SMCUROLCON ---
Urology Consultation General Date of Consultation 04/10/20 Reason For Consultation This patient is seen for Flank Pain. History of Present Illness This is an 80 y/o M w/ a PMH significant for HL, GERD, BPH, elevated PSAs (s/p negative prostate biopsies), CAD (s/p MD), and CVD (s/p CVA), presenting to the ER w/ flank pain and inability to void. The patient notes that he had been fine the past few months w/o gross hematuria. Suddenly he was unable to void. Several attempts were made by nursing in the ED to place coude catheters w/o success. We were called for assistance. Past Medical History Medical History see HPI Surgical Hstory cataract 2008 leg & arm surgery 1997 T&A Cystoscopy and Transurethral resection of the prostate 06/2012 Finger tip reatachment 2012 right eye retina 2013 MRI Fusion Prostate Bx 2016 Medications Current Medications Current Medications Medications (Trade) Dose Ordered Sig/Lenka Route PRN Reason Start Time Stop Time Status Last Admin Dose Admin Lidocaine HCl (Lidocaine 2% Urojet) APPLY TO CATHETER TIP ASDIRECTED PRN TOP FOR EACH CATHETERIZATION 04/10/20 10:15 04/10/20 10:36 Allergies Allergies: Coded Allergies: No Known Drug Allergies (Verified Allergy, Unknown, 12/03/19) Review of Systems General: Reports: Normal Appetite; Denies: Fatigue, Malaise Constitutional: Denies: Fever, Chills, Sweats, Weakness, Malaise Skin: Denies: Rash, Lesions, Breakdown, Nail Changes Pulmonary: Denies: Dyspnea, Cough Cardiovascular: Denies Chest Pain, Denies Palpitations Gastrointestinal: Reports: Abdominal Pain (suprapubic) Genitourinary: Reports: Retention Psych: Reports: Mood Normal Physical Examination General Exam: Alert, Cooperative, Mild Distress Chest Exam: Normal air movement Heart Exam: Regular Rhythm Male Exam circumcised phallus w/ blood at the meatus Skin Exam: Nl turgor and temperature Neuro Exam: Normal Speech Psych Exam: Mood NL Vital Signs/I&O Vital Signs Date Time Temp Pulse Resp B/P (MAP) Pulse Ox O2 Delivery O2 Flow Rate FiO2 04/10/20 11:45 73 162/81 (108) 99 04/10/20 11:30 97.9 04/10/20 06:34 18 Room Air Laboratory Data 24H Labs Laboratory Tests 2 04/10/20 07:13: Immature Granulocyte % (Auto) 0.4, Neutrophils (%) (Auto) 75.4H, Lymphocytes (%) (Auto) 14.5L, Monocytes (%) (Auto) 8.6H, Eosinophils (%) (Auto) 0.9, Basophils (%) (Auto) 0.2, Neutrophils # (Auto) 6.2, Lymphocytes # (Auto) 1.2L, Monocytes # (Auto) 0.7, Eosinophils # (Auto) 0.1, Basophils # (Auto) 0.0, Nucleated Red Blood Cells % (auto) 0.0, Total Bilirubin 0.7, Direct Bilirubin 0.2, Aspartate Amino Transf (AST/SGOT) 22, Alanine Aminotransferase (ALT/SGPT) 27, Alkaline Phosphatase 68, Total Protein 7.7, Albumin 4.2, Albumin/Globulin Ratio 1.2, Lipase 61L 04/10/20 08:31: POC Glucose (Misc Panel) 107H, POC Sodium (Misc Panel) 137, POC Potassium (Misc Panel) 3.9, POC Chloride (Misc Panel) 100, POC Total CO2 (Misc Panel) 23.0, POC Blood Urea Nitrogen (Misc Panel 18, POC Ionized Calcium (Misc Panel) 4.5, POC Creatinine (Misc Panel) 1.7H, POC Hematocrit (Misc Panel) 48.0 CBC/BMP Laboratory Tests 04/10/20 07:13 Assessment This is an 80 y/o M w/ BPH and urinary retention. I attempted to insert an 18Fr coude catheter w/o success, meeting resistance at the level of the prostate. Since I could not place this, I recommended bedside cystoscopy w/ catheter placement over a wire. After a discussion of the risks and benefits, informed consent was signed. After this was done, cystoscopy was performed and an 18Fr [place] tip catheter was placed over a wire (see operative report). The patient tolerated this well. Plan - 18Fr houl[place] tip catheter placed over a wire after cystoscopy performed - assuming catheter drains well, ok for discharge home - patient will need to keep the catheter for 3-4 wks - recommend putting him on 7 days of abx - f/u in urology clinic in 3-4 wks for catheter removal and voiding trial JADON MORALES MD Apr 10, 2020 12:09
[2020-04-10 12:45] VITALS: BP 145/69
--- NOTE | 2020-04-17 08:35 | RO ---
DATE OF OPERATION: 04/10/2020 PREOPERATIVE DIAGNOSIS: Urinary retention. POSTOPERATIVE DIAGNOSIS: Urinary retention, benign prostatic hyperplasia, urethral false passage. PROCEDURE: Cystoscopy, complex Martinez catheter placement over a wire. SURGEON: Ifeanyi Wilkerson MD SALES NEGOTIATOR: None. ANESTHESIA: Local. OPERATIVE INDICATIONS: This is an 80-year-old male who presented to the emergency room with urinary retention. Several attempts were made to place a coude catheter without success. Due to concern for false passage, it was recommended he undergo a cystoscopy. DESCRIPTION OF PROCEDURE: The patient was prepped and draped in the usual sterile fashion in supine position. At this point, a flexible cystoscope was inserted into the urethral meatus and advanced down towards the bladder. Of note, the patient had a posterior false passage. I was able to navigate the cystoscope pass the false passage and through the urethral lumen. Ultimately, at the level of the prostate, he had trilobar benign prostatic hyperplasia with a very prominent median lobe. He had kissing lobes that made it difficult to see my way into the bladder. Ultimately, I was able to navigate past the obstructing lobes of the prostate and into the bladder. Once I was in the bladder, the urine appeared to be clear and the bladder appeared to be severely dilated. At this point, a guidewire was advanced into the bladder and the cystoscope was removed. I utilized the guidewire to advance an 18-[place]-tip catheter over the wire into the bladder. Once the catheter was held, the balloon was filled with 10 mL of sterile water and then the wire was removed. The catheter was connected to gravity drainage and clear urine drained initially. This marked the conclusion of the procedure. Of note, once the bladder had completely drained, the urine did turn a little red from trauma to the prostate from the catheterizations. At this point, the procedure was concluded. ESTIMATED BLOOD LOSS: 10 mL. COMPLICATIONS: None. SPECIMENS: None. PLAN: The patient will be monitored for another hour in the emergency room and if the catheter drains well, he can discharge home with the catheter in place. He should have the catheter in place for at least 3-4 weeks for healing of the urethra. We will have him follow up in the urology clinic for a voiding trial. RICH
== END 2020-04-10 12:55 | disposition home or self-care (01) ==
LOC: M ED 06:33
DX: R33.9 Retention of urine, unspecified (principal); N13.30 Unspecified hydronephrosis; N40.1 Benign prostatic hyperplasia with lower urinary tract symptoms; I70.8 Atherosclerosis of other arteries; K21.9 Gastro-esophageal reflux disease without esophagitis; I11.9 Hypertensive heart disease without heart failure; Z87.891 Personal history of nicotine dependence
CPT/HCPCS: 52000; 74176; 80047; 80076; 83690; 85025; 93041; 99285; J1885

== ENCOUNTER 2020-05-09 19:57 | Emergency (ER) | payer MEDICARE ==
[~2020-05-09] VITALS: Ht 170.2 cm; Wt 80.5 kg
[~2020-05-09 19:57] MED LIST changes: +ATOR1TAB21
[2020-05-09] MEDS ORDERED: CIPR500S PO (20:13)
[2020-05-09] MEDS ORDERED: FLOM0.4C39 PO (20:13)
--- NOTE | 2020-05-09 22:36 | SMCUROLCON ---
Urology Consultation General Date of Consultation 05/09/20 Reason For Consultation This patient is seen for Unable To Pee. History of Present Illness The patient is a 80-year-old male with a past medical history for urinary retention, BPH and difficulty catheterizing. He presented to the hospital about a month ago with difficulty voiding and a Martinez catheter was inserted in the operating room after several failed attempts on the floor. Martinez catheter was left in place for about a month and was removed 2 days ago. Initially, the patient was able to void fairly well but Yesterday the patient began having more problems voiding and presented to the emergency room today and retention. The emergency room staff tried one time to catheterize the patient and when this was not able to be done, they called urology consult. Past Medical History Medical History Cataracts, CVA, cardiac disorder, heart attack, Coronary artery disease Hypercholesterolemia Hypertension Respiratory disorders Pneumonia Gastrointestinal disorders GERD History of diverticulitis History of abdominal surgery Appendectomy Gastric reflux BPH with retention, elevated PSA Prior prostate biopsies Kidney stones Urinary tract infection Nocturia Musculoskeletal disorders Arthritis Orthopedic surgery left arm Previous fractures arm leg and hand Surgical Hstory Orthopedic surgery, TURP Abdominal surgery for appendectomy Social History Drugs: denies Allergies Allergies: Coded Allergies: No Known Drug Allergies (Verified Allergy, Unknown, 12/03/19) Review of Systems General: Reports: Normal Appetite; Denies: Fatigue, Malaise Constitutional: Denies: Fever, Chills, Sweats, Weakness, Malaise Eyes: Denies: Pain, Vision change ENT: Denies: Head Aches, Sore Throat, Epistaxis Skin: Denies: Rash, Lesions, Breakdown, Nail Changes Pulmonary: Denies: Dyspnea, Cough Cardiovascular: Denies Chest Pain, Denies Palpitations Gastrointestinal: Reports: Other Symptoms (GERD) Genitourinary: Reports: Retention, Other Symptoms (nocturia) Hematologic: Denies: Bruising, Bleeding Excessively Endocrine: Denies: Polydipsia, Polyphagia, Polyuria Musculoskeletal: Denies: Neck Pain, Back Pain Neurological: Denies: Weakness, Numbness, Incoordination, Change in Speech Psych: Reports: Mood Normal; Denies: Anxiety, Depression Physical Examination General Exam: Alert, No Acute Distress EYE EXAM: PERRLA, Conjunctiva & lids normal, EOMI; No: Sclera icteric ENT EXAM: Atraumatic, Mucous membr. moist/pink, Pharynx Normal Neck Exam: Supple; No: JVD, thyromegaly Chest Exam: Clear to auscultation, Normal air movement Heart Exam: Rate Normal, Regular Rhythm, Normal S1, Normal S2; No: Murmurs, Rubs Abdomen Exam: Normal Bowel Sounds, Soft; No: Tenderness, Hepatospenomegaly Male Exam: Normal Genital Exam Extremity Exam: Normal Pulses; No: Clubbing, Cyanosis, Edema Skin Exam: Nl turgor and temperature; No: Rash, Breakdown Neuro Exam: Normal Gait, Normal Speech, Cranial Nerves 3-12 NL, Reflexes 2+ Psych Exam: Mental status NL, Mood NL, Oriented x 3 Vital Signs/I&O Vital Signs Date Time Temp Pulse Resp B/P (MAP) Pulse Ox O2 Delivery O2 Flow Rate FiO2 05/09/20 20:44 05/09/20 20:01 99.9 109 20 91 Room Air Assessment Urinary retention with obstructive uropathy Plan Martinez catheter 16 Samoan coud was able to be inserted into the bladder and 800 mL of urine restrained. The patient will be sent home with this catheter and will follow up in the clinic. At some point he will need a cystoscopic evaluation to determine the cause of the retention and evaluate the bladder for hematuria. Time Spent on Consult: Time Spent / Consult (Minutes): 65 GERI CACERES MD May 09, 2020 22:36
[2020-05-09 23:04] VITALS: BP 130/70
== END 2020-05-09 23:06 | disposition home or self-care (01) ==
LOC: M ED 19:57
DX: R33.9 Retention of urine, unspecified (principal); N40.0 Benign prostatic hyperplasia without lower urinary tract symptoms; I25.10 Atherosclerotic heart disease of native coronary artery without angina pectoris; Z79.899 Other long term (current) drug therapy; Z79.82 Long term (current) use of aspirin; Z79.01 Long term (current) use of anticoagulants

== ENCOUNTER 2020-05-15 18:14 | Emergency (ER) | payer MEDICARE ==
[~2020-05-15] VITALS: Ht 170.2 cm; Wt 76.4 kg
[~2020-05-15 18:14] MED LIST changes: +CIPR500S PO
[2020-05-15] MEDS ORDERED: BUTA1CAP (18:27)
--- NOTE | 2020-05-15 19:48 | REPVR ---
PROCEDURE INFORMATION: Exam: US Scrotum Exam date and time: 05/15/2020 7:34 PM Age: 80 years old Clinical indication: Swelling, testicles or scrotum; Scrotum pain; Additional info: Pain swelling left R/O torsion TECHNIQUE: Imaging protocol: Real-time ultrasound of the scrotum and contents with color Doppler and image documentation. COMPARISON: Scrotal, US 02/04/2019 10:27 AM FINDINGS: Right testicle measures 4.4 x 2.5 by 2.4 cm in size. Right testicle appears homogeneous with no focal mass. Normal Doppler flow is present within the right testicle. Left testicle measures 4.4 x 2.1 by 3.1 cm in size. Left testicle appears homogeneous with no focal mass. Normal Doppler flow is present within the left testicle. Right and left epididymis have normal Doppler flow with heterogeneous echotexture. Right epididymal cyst measures 15 mm Physiologic fluid volume within the scrotal sac. No bowel-containing hernia sac within the scrotum. Scrotal dermal edema is suspected. IMPRESSION: No intra testicular pathology or evidence of torsion Heterogeneous echotexture of the epididymi without increased Doppler flow to suggest epididymitis. Incidental right epididymal cyst. Scrotal skin edema on the left side. No evidence of abscess. Electronically signed by: Jerardo Leonard On 05/15/2020 19:48:08 PM
[2020-05-15 20:52] LABS: BASO # 0.1 10^3/uL (0.0-0.2); HEMATOCRIT 37.6 % (42.0-52.0); HEMOGLOBIN 12.2 g/dl (13.5-17.5); LYMPH # 2.2 10^3/uL (1.5-5.0); LYMPH % 31.1 % (24.0-44.0); MEAN CORPUSCULAR HEMOGLOBIN 30.2 pg (27.0-33.0); MEAN CORPUSCULAR HGB CONC 32.4 g/dl (32.0-36.5); MEAN CORPUSCULAR VOLUME 93.1 fl (80.0-96.0); MONO % 14.6 % (0.0-5.0); NEUTROPHILS # 3.5 10^3/uL (1.5-8.5); NEUTROPHILS % 49.5 % (36.0-66.0); PLATELET COUNT, AUTOMATED 230 10^3/uL (150-450); RED BLOOD COUNT 4.04 10^6/uL (4.30-6.10)
[2020-05-15] MEDS ORDERED: ACETAMINOPHEN 500 MG TAB PO ONE (21:00)
[2020-05-15 21:25] LABS: ALBUMIN 3.3 GM/DL (3.2-5.2); BILIRUBIN,DIRECT 0.1 MG/DL (0.0-0.2); BILIRUBIN,TOTAL 0.3 MG/DL (0.2-1.0); CALCIUM LEVEL 8.9 MG/DL (8.8-10.2); CREATININE FOR GFR 1.47 MG/DL (0.70-1.30); GLOMERULAR FILTRATION RATE 49.1 (>35); POTASSIUM SERUM 3.6 MEQ/L (3.5-5.1); TOTAL PROTEIN 6.2 GM/DL (6.4-8.2)
[2020-05-15] MEDS ORDERED: DOXY-350 PO (21:26)
[2020-05-15] MEDS ORDERED: DOXYCYCLINE HYCLATE 100MG TABLET PO ONE (21:30)
[2020-05-15 21:40] VITALS: BP 148/69
== END 2020-05-15 21:41 | disposition home or self-care (01) ==
LOC: M ED 18:14
DX: N50.812 Left testicular pain (principal); I10 Essential (primary) hypertension; E78.5 Hyperlipidemia, unspecified; K21.9 Gastro-esophageal reflux disease without esophagitis; Z79.01 Long term (current) use of anticoagulants; Z87.891 Personal history of nicotine dependence

== ENCOUNTER 2020-05-29 07:35 | Observation (INO) | payer MEDICARE ==
[~2020-05-29] VITALS: Ht 170.2 cm; Wt 77.4 kg
[~2020-05-29 07:35] MED LIST changes: -ATOR1TAB21; +ATOR1TAB21 PO; +BUTA1CAP PO; +DOXY-350 PO; -PANT40TA29; +PANT40TA29 PO
[2020-05-29 08:09] LABS: BASO % 0.3 % (0.0-1.0); EOS # 0.2 10^3/uL (0.0-0.5); EOS % 2.6 % (0.0-3.0); HEMATOCRIT 39.6 % (42.0-52.0); HEMOGLOBIN 12.8 g/dl (13.5-17.5); LYMPH # 1.4 10^3/uL (1.5-5.0); LYMPH % 23.4 % (24.0-44.0); MEAN CORPUSCULAR HEMOGLOBIN 30.3 pg (27.0-33.0); MEAN CORPUSCULAR HGB CONC 32.3 g/dl (32.0-36.5); MEAN CORPUSCULAR VOLUME 93.8 fl (80.0-96.0); MONO # 0.5 10^3/uL (0.0-0.8); NEUTROPHILS # 3.8 10^3/uL (1.5-8.5); NEUTROPHILS % 65.4 % (36.0-66.0); PLATELET COUNT, AUTOMATED 248 10^3/uL (150-450); RED BLOOD COUNT 4.22 10^6/uL (4.30-6.10); WHITE BLOOD COUNT 5.8 10^3/uL (4.0-10.0)
[2020-05-29 08:18] LABS: INR 1.02; PARTIAL THROMBOPLASTIN TIME 27.8 SECONDS (24.2-38.5); PROTHROMBIN TIME 13.6 SECONDS (12.5-14.3)
--- NOTE | 2020-05-29 08:19 | REPVR ---
PROCEDURE INFORMATION: Exam: CT Head Without Contrast Exam date and time: 05/29/2020 7:59 AM Age: 80 years old Clinical indication: Altered mental status/memory loss; Additional info: CVA - nursing interventions must not delay CT TECHNIQUE: Imaging protocol: Computed tomography of the head without contrast. Radiation optimization: All CT scans at this facility use at least one of these dose optimization techniques: automated exposure control; mA and/or kV adjustment per patient size (includes targeted exams where dose is matched to clinical indication); or iterative reconstruction. Other technique: STROKE PROTOCOL was implemented. COMPARISON: CT Head without contrast 12/08/2019 4:16 AM FINDINGS: Brain: There are cortical defects in the cerebellar hemispheres bilaterally, some of which could be acute/subacute, but with most appearing to be chronic infarcts. An additional chronic infarct is seen in the medial left thalamus on image 15 of series 201. 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 [place] Stroke Program Early CT Score (ASPECTS score) = 10. Cerebral ventricles: No ventriculomegaly. Bones/joints: Unremarkable. No acute fracture. Paranasal sinuses: Visualized sinuses are unremarkable. No fluid levels. Mastoid air cells: Visualized mastoid air cells are well aerated. Soft tissues: Unremarkable. Other findings: No acute intracerebral traumatic injury. No acute intracerebral bleed. IMPRESSION: 1. There are cortical defects in the cerebellar hemispheres bilaterally, some of which could be acute/subacute infarcts, but with most appearing to be chronic infarcts. An additional chronic infarct is seen in the medial left thalamus on image 15 of series 201. 2. No acute intracerebral traumatic injury. No acute intracerebral bleed. 3. 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 4. [place] Stroke Program Early CT Score (ASPECTS score) = 10. Electronically signed by: Ty Maria On 05/29/2020 08:19:37 AM
--- NOTE | 2020-05-29 08:21 | REP ---
INDICATION: CVA COMPARISON: 12/08/2019 TECHNIQUE: Portable AP view of the chest FINDINGS: The mediastinum and cardiac silhouette are stable and within normal limits for portable technique. The lung fox are clear without acute consolidation, effusion, or pneumothorax. Skeletal structures are intact. IMPRESSION: No acute cardiopulmonary process appreciated. <Electronically signed by Jose Arreguin > 05/29/20 [id number]
[2020-05-29 08:32] LABS: CK-MB VALUE MASS 1.8 NG/ML (<3.6); CPK CREATINE PHOSPHOKINASE 54 U/L (39-308); MB/CK RELATIVE INDEX 3.33 (< OR =4); TROPONIN I < 0.02 NG/ML (< 0.10)
[2020-05-29] MEDS ORDERED: ASPIRIN 81 MG CHEW TABLET PO ONE (08:45)
[2020-05-29] MEDS ORDERED: ELIQ5TAB PO (08:53)
[2020-05-29] MEDS ORDERED: D200CAP PO (08:53)
[2020-05-29] MEDS ORDERED: OXYB5TAB10 PO (08:53)
[2020-05-29] MEDS ORDERED: RAMI1CAP22 PO (08:53)
[2020-05-29] MEDS: TAMSULOSIN 0.4 MG CAP PO SCH (09:00)
[2020-05-29] MEDS: oxyBUTYnin 5 MG TAB PO SCH ×2 (09:00→20:21)
[2020-05-29] MEDS: PANTOPRAZOLE 40MG TAB (PROTONIX) PO SCH (09:00)
[2020-05-29] MEDS ORDERED: ISOVUE-370 76% 100ML VIAL As Ordered ONE ×2 (10:39→12:34)
--- NOTE | 2020-05-29 11:04 | HPEPDOC ---
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 Brumfield. He presents to the emergency room with similar symptoms that he had last year when he had his cerebellar infarct with dizziness and posterior headaches. He had woke up this morning, and felt dizzy without any prodrome and nauseous at the same time, which lasted for an hour or so. 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 He denied any loss of consciousness. Initial CT of the head showed cortical defects in the cerebellar hemispheres bilaterally, some of which could be acute/subacute infarcts, but with most appearing to be chronic infarcts. An additional chronic infarct is seen in the medial left thalamus on image 15 of series 201. PAST MEDICAL HISTORY: 1. Left cerebellar infarct 2. History of coronary artery disease 3. Hypertension. 4. Hyperlipidemia. 5. Gastroesophageal reflux disease (GERD). 6. History of benign prostatic hypertrophy (BPH) status post transurethral resection, now with a chronic Martinez. 7. A. fib ALLERGIES: He has no known drug allergies. FAMILY HISTORY: Noncontributory. SOCIAL HISTORY: The patient denies tobacco, alcohol, or illicit drugs. MEDICATIONS: He takes at home are as follows: - aspirin 81 mg orally daily -Eliquis 5 twice a day - ramipril 5 mg orally at bedtime - ranitidine one tablet orally twice daily - simvastatin 40 mg orally daily - tobramycin one drop to the left eye four times a day - vitamin D 1000 units orally daily REVIEW OF SYSTEMS: Negative for all 10 major systems except for what is mentioned in the history of present illness (HPI). Physical examination Head is normocephalic, atraumatic. Neck is supple with no jugular venous distention (JVD). Lungs are clear to auscultation.. No rhonchi, no rales S1, S2 audible. No murmurs appreciated., Regular and rhythm Abdomen is soft. Positive bowel sounds., No guarding no rigidity No pitting edema. Skin is intact. On neurologic examination, no focal deficits were noted. The patient has no vertical or horizontal nystagmus. Cranial nerves II-12 are grossly normal. Strength equal bilateral upper and lower extremities LABORATORY DATA: Reviewed Imaging/CT head 1.There are cortical defects in the cerebellar hemispheres bilaterally, some of which could be acute/subacute infarcts, but with most appearing to be chronic infarcts. An additional chronic infarct is seen in the medial left thalamus on image 15 of series 201. 2. No acute intracerebral traumatic injury. No acute intracerebral bleed. 3. 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 Assessment and plan This is a 80-year-old male with a past medical history of multiple CVAs, comes to the hospital because he woke up with dizziness and posterior headaches and he describes these symptoms to the similar symptoms off his cerebellar stroke which she had in 2017. He is currently admitted for possible TIA/CVA 1. TIA. Given his stable symptomatology of up cerebellar stroke 3 years back. [facility]. He has been given aspirin in the ER which will be continued. His Eliquis also will be continued as he has a history of A. fib. Lipid panel will be done along with A1c and TSH. He has been started on high intensity statin. MRI and the CTA of the head has been ordered. He has been put on aspiration, fall precautions. He was not a candidate of TPA because of his symptoms, resolution. Aspiration and fall precautions. Speech and swallow evaluation. PT, OT has been consulted. Asthma. 2. Proximal A. fib. The patient recently had a loop recorder done by Dr. Brumfield and as per him, he was told that he has an abnormal rhythm and has been started on Eliquis. He did not take any of the doses so far and will be started on that here. An EKG has been ordered and a 2-D echo. Also has been ordered. He is likely bradycardic and no need of any rate control medications. 3. Previous history of CVAs. Respective modification and the current workup as documented above. DVT complexes. He is already on full dose and accommodation Restart home medications and not contraindicated Disposition. Anticipate length of stay is less than 2 midnights and he'll be admitted as observation. Vital Signs Vital Signs Date Time Temp Pulse Resp B/P (MAP) Pulse Ox O2 Delivery O2 Flow Rate FiO2 05/29/20 10:20 46 20 96 Room Air 05/29/20 10:15 153/72 (99) 05/29/20 08:11 96.6 Laboratory Data Labs 24H Laboratory Tests 2 05/29/20 07:55: Immature Granulocyte % (Auto) 0.3, Neutrophils (%) (Auto) 65.4, Lymphocytes (%) (Auto) 23.4L, Monocytes (%) (Auto) 8.0H, Eosinophils (%) (Auto) 2.6, Basophils (%) (Auto) 0.3, Neutrophils # (Auto) 3.8, Lymphocytes # (Auto) 1.4L, Monocytes # (Auto) 0.5, Eosinophils # (Auto) 0.2, Basophils # (Auto) 0.0, Nucleated Red Blood Cells % (auto) 0.0, Prothrombin Time 13.6, Prothromb Time International R atio 1.02, Activated Partial Thromboplast Time 27.8, POC Glucose (Misc Panel) 112H, POC Sodium (Misc Panel) 141, POC Potassium (Misc Panel) 4.1, POC Chloride (Misc Panel) 106, POC Total CO2 (Misc Panel) 24.0, POC Blood Urea Nitrogen (Misc Panel 20, POC Ionized Calcium (Misc Panel) 4.9, POC Creatinine (Misc Panel) 1.1, POC Hematocrit (Misc Panel) 39.0, Total Creatine Kinase 54, Creatine Kinase MB 1 .8, Creatine Kinase MB Relative Index 3.33, Troponin I < 0.02 05/29/20 07:58: POC Troponin I (Misc) 0.00 05/29/20 08:57: Coronavirus (COVID-19)(PCR) NEGATIVE CBC/BMP Laboratory Tests 05/29/20 07:55 Home Medications Scheduled Apixaban (Eliquis) 5 Mg Tablet, 5 MG PO BID NEW MED, NOT STARTED Atorvastatin Calcium (Atorvastatin Calcium) 20 Mg Tablet, 20 MG PO DAILY Cholecalciferol (Vitamin D3) (Vitamin D3) 50 Mcg Capsule, 2,000 UNITS PO DAILY Oxybutynin Chloride (Oxybutynin Chloride) 5 Mg Tablet, 5 MG PO BID Pantoprazole Sodium (Pantoprazole Sodium) 40 Mg Tablet.dr, 40 MG PO DAILY Ramipril (Ramipril) 2.5 Mg Capsule, 2.5 MG PO QHS Tamsulosin HCl (Flomax) 0.4 Mg Capsule, 0.4 MG PO DAILY Scheduled PRN Butalb/Acetaminophen/Caffeine (Fdwyaq-Eqqaudjf-Jbhp 50-300-40) 1 Each Capsule, 1 CAP PO TID PRN for HEADACHE Allergies Coded Allergies: No Known Drug Allergies (Verified Allergy, Unknown, 12/03/19) A-FIB/CHADSVASC A-FIB History Current/History of A-Fib/PAF?: Yes Current PO Anticoag Therapy: Yes JD RASCON MD May 29, 2020 11:03
[2020-05-29 12:06] LABS: CHOLESTEROL LEVEL 166 MG/DL (<200); CHOLESTEROL RISK RATIO 3.018 (<5); HDL CHOLESTEROL 55 MG/DL (>40); LDL CHOLESTEROL 92 MG/DL (<100); NON-HDL-C 111 MG/DL; THYROID STIMULATING HORMONE 0.462 uIU/ML (0.358-3.740); TRIGLYCERIDES LEVEL 93 MG/DL (<150)
[2020-05-29 12:22] LABS: HEMOGLOBIN A1c 5.6 %
--- NOTE | 2020-05-29 13:07 | REPVR ---
PROCEDURE INFORMATION: Exam: CT Angiography Neck With Contrast Exam date and time: 05/29/2020 12:36 PM Age: 80 years old Clinical indication: Other: TIA TECHNIQUE: Imaging protocol: Computed tomography angiography of the neck with intravenous contrast. 3D rendering (Not supervised by radiologist): MIP and/or 3D reconstructed images were created by the technologist. Radiation optimization: All CT scans at this facility use at least one of these dose optimization techniques: automated exposure control; mA and/or kV adjustment per patient size (includes targeted exams where dose is matched to clinical indication); or iterative reconstruction. Contrast material: ISOVUE 370; Contrast volume: 75 ml; Contrast route: INTRAVENOUS (IV); COMPARISON: CT ANGIO NECK 12/08/2019 4:18 AM FINDINGS: Right common carotid artery: No stenosis. No dissection or occlusion. Right internal carotid artery: There are calcific atherosclerotic changes of the right carotid bulb. No stenosis of the extracranial segment. No dissection or occlusion. Right external carotid artery: No occlusion or stenosis of the origin. Right vertebral artery: No stenosis. No dissection or occlusion. Left common carotid artery: No stenosis. No dissection or occlusion. Left internal carotid artery: There are calcific atherosclerotic changes of the left carotid bulb. No stenosis of the extracranial segment. No dissection or occlusion. Left external carotid artery: No occlusion or stenosis of the origin. Left vertebral artery: No stenosis. No dissection or occlusion. Thyroid: The thyroid gland appears heterogeneous with a focal 7 mm left lobe hypodensity. Bones/joints: No acute fracture. Soft tissues: Normal. No significant soft tissue swelling. IMPRESSION: No significant intracranial arterial stenosis. COMMENTS: Consistent with the [employer]'s Incidental Findings Committee white paper (J Am Juan Radiol 2015): In patients aged 35 years and older with an incidental thyroid nodule equal to or greater than 1.[address], MRI or extrathyroidal US, further evaluation with dedicated thyroid US is recommended for patients with normal life expectancy and without comorbidities. For smaller nodules without suspicious features, no further evaluation or follow up is recommended. REFERENCES: NASCET CRITERIA. The degree of internal carotid artery stenosis is based on NASCET criteria. Normal is no stenosis. Mild is less than 50% stenosis. Moderate is 50-69% stenosis. Severe is 70% to 99% stenosis. Total occlusion is no detectable patent lumen. Electronically signed by: Elena Patel On 05/29/2020 13:08:07 PM
--- NOTE | 2020-05-29 13:10 | REPVR ---
PROCEDURE INFORMATION: Exam: CT Angiography Head With Contrast Exam date and time: 05/29/2020 12:36 PM Age: 80 years old Clinical indication: Other: TIA TECHNIQUE: Imaging protocol: Computed tomography angiography of the head with intravenous contrast. 3D rendering (Not supervised by radiologist): MIP and/or 3D reconstructed images were created by the technologist. Radiation optimization: All CT scans at this facility use at least one of these dose optimization techniques: automated exposure control; mA and/or kV adjustment per patient size (includes targeted exams where dose is matched to clinical indication); or iterative reconstruction. Contrast material: ISOVUE 370; Contrast volume: 75 ml; Contrast route: INTRAVENOUS (IV); COMPARISON: CT ANGIO HEAD 12/08/2019 4:18 AM FINDINGS: ANTERIOR CIRCULATION: Right internal carotid artery: Unremarkable. Intracranial segment is patent with no significant stenosis. No aneurysm. Right middle cerebral artery: Unremarkable. No occlusion or significant stenosis. No aneurysm. Right anterior cerebral artery: Unremarkable. No occlusion or significant stenosis. No aneurysm. Left internal carotid artery: Unremarkable. Intracranial segment is patent with no significant stenosis. No aneurysm. Left middle cerebral artery: Unremarkable. No occlusion or significant stenosis. No aneurysm. Left anterior cerebral artery: Unremarkable. No occlusion or significant stenosis. No aneurysm. POSTERIOR CIRCULATION: Right vertebral artery: Unremarkable. No occlusion or significant stenosis. No aneurysm. Left vertebral artery: Unremarkable. No occlusion or significant stenosis. No aneurysm. Basilar artery: Unremarkable. No occlusion or significant stenosis. No aneurysm. Right posterior cerebral artery: Unremarkable. No occlusion or significant stenosis. No aneurysm. Left posterior cerebral artery: Unremarkable. No occlusion or significant stenosis. No aneurysm. Brain: No definite mass, mass effect, or midline shift. Cerebral ventricles: No ventriculomegaly. Bones/joints: Unremarkable. No acute fracture. Soft tissues: Unremarkable. IMPRESSION: No large vessel stenosis or occlusion. Electronically signed by: Elena Patel On 05/29/2020 13:10:05 PM
[2020-05-29 13:15] VITALS: BP 156/71
[2020-05-29 14:00] VITALS: BP 130/80
[2020-05-29 14:01] VITALS: BP 145/79
[2020-05-29 18:00] VITALS: BP 132/80
--- NOTE | 2020-05-29 18:33 | REPVR ---
PROCEDURE INFORMATION: Exam: MR Head Without Contrast Exam date and time: 05/29/2020 6:01 PM Age: 80 years old Clinical indication: Altered mental status/memory loss; Other: Acute vs subacute infarct with neurological symptoms TECHNIQUE: Imaging protocol: MR of the head without contrast. COMPARISON: MRI-Brain without Contrast 12/08/2019 6:37 AM FINDINGS: Brain: There is a tiny acute ischemic infarct present in the posterior right cerebellar hemisphere cortex on frame 5 image 1 of series 404 and series 403. Multiple small chronic infarcts are additionally present in both cerebellar hemispheres. No acute intracerebral bleed. Mild age-appropriate cerebral atrophy with mild patchy periventricular leukomalacia in both cerebral hemispheres, consistent most likely with chronic underlying small vessel ischemic disease. The position, size and shape of the cerebellar tonsils are normal. The vestibulocochlear complexes bilaterally are normal. Normal base of skull vasculature flow voids. The mesial temporal lobes and hippocampal regions are normal. Cerebral ventricles: Normal. No ventriculomegaly. Bones/joints: Unremarkable. Paranasal sinuses: Normal as visualized. No acute sinusitis. Mastoid air cells: Normal as visualized. No mastoid effusion. Orbits: Unremarkable. Soft tissues: Unremarkable. IMPRESSION: 1. There is a tiny acute ischemic infarct present in the posterior right cerebellar hemisphere cortex on frame 5 image 1 of series 404 and series 403. Multiple small chronic infarcts are additionally present in both cerebellar hemispheres. 2. No acute intracerebral bleed. 3. Mild age-appropriate cerebral atrophy with mild patchy periventricular leukomalacia in both cerebral hemispheres, consistent most likely with chronic underlying small vessel ischemic disease Electronically signed by: Ty Maria On 05/29/2020 18:33:39 PM
--- NOTE | 2020-05-29 18:43 | REPVR ---
PROCEDURE INFORMATION: Exam: MR Angiogram Head Without Contrast, Arteries Exam date and time: 05/29/2020 6:01 PM Age: 80 years old Clinical indication: Other: Acute vs subacute infarct with neurological symptoms TECHNIQUE: Imaging protocol: MR angiogram head without contrast. Exam focused on the arteries. 3D rendering (Not supervised by radiologist): MIP and/or 3D reconstructed images were created by the technologist. COMPARISON: MRA BRAIN W/O CONTRAST 07/02/2018 12:52 PM FINDINGS: ANTERIOR CIRCULATION: Right internal carotid artery: Intracranial segment is patent with no significant stenosis. No aneurysm. Right middle cerebral artery: No occlusion or significant stenosis. No aneurysm. Right anterior cerebral artery: No occlusion or significant stenosis. No aneurysm. Left internal carotid artery: Intracranial segment is patent with no significant stenosis. No aneurysm. Left middle cerebral artery: No occlusion or significant stenosis. No aneurysm. 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 The remainder of the left anterior cerebral artery is supplied via the anterior communicating artery from the normal right anterior cerebral artery, seen on frame 3 of image 1 series 203. No occlusion or significant stenosis. No aneurysm. POSTERIOR CIRCULATION: Right vertebral artery: No occlusion or significant stenosis. No aneurysm. Left vertebral artery: No occlusion or significant stenosis. No aneurysm. Basilar artery: No occlusion or significant stenosis. No aneurysm. Right posterior cerebral artery: No occlusion or significant stenosis. No aneurysm. Left posterior cerebral artery: No occlusion or significant stenosis. No aneurysm. IMPRESSION: No intracerebral arterial stenosis or occlusion. In particular in spite of the numerous chronic infarcts present in the cerebellar hemispheres bilaterally, the posterior cerebral arteries appear normal. Electronically signed by: Ty Maria On 05/29/2020 18:43:40 PM
[2020-05-29] MEDS: APIXABAN 5 MG TAB (ELIQUIS) PO SCH (20:21)
[2020-05-29] MEDS ORDERED: ATORVASTATIN 20 MG TAB PO SCH (21:00)
--- NOTE | 2020-05-29 21:53 | ECGEPIP ---
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
[2020-05-29 22:00] VITALS: BP 152/87
[2020-05-30] VITALS: BP 136/66
[2020-05-30 04:00] VITALS: BP 137/67
[2020-05-30 08:28] LABS: HEMATOCRIT 40.8 % (42.0-52.0); HEMOGLOBIN 13.6 g/dl (13.5-17.5); MEAN CORPUSCULAR HEMOGLOBIN 31.1 pg (27.0-33.0); MEAN CORPUSCULAR HGB CONC 33.3 g/dl (32.0-36.5); MEAN CORPUSCULAR VOLUME 93.2 fl (80.0-96.0); PLATELET COUNT, AUTOMATED 267 10^3/uL (150-450); RED BLOOD COUNT 4.38 10^6/uL (4.30-6.10); WHITE BLOOD COUNT 6.1 10^3/uL (4.0-10.0)
[2020-05-30] MEDS: TAMSULOSIN 0.4 MG CAP PO SCH (08:34)
[2020-05-30] MEDS: APIXABAN 5 MG TAB (ELIQUIS) PO SCH (08:34)
[2020-05-30] MEDS: PANTOPRAZOLE 40MG TAB (PROTONIX) PO SCH (08:34)
[2020-05-30] MEDS: oxyBUTYnin 5 MG TAB PO SCH (08:35)
[2020-05-30 08:55] LABS: BLOOD UREA NITROGEN 15 MG/DL (7-18); CALCIUM LEVEL 9.3 MG/DL (8.8-10.2); CARBON DIOXIDE LEVEL 25 MEQ/L (21-32); CHLORIDE LEVEL 109 MEQ/L (98-107); CREATININE FOR GFR 1.16 MG/DL (0.70-1.30); GLOMERULAR FILTRATION RATE > 60.0 (>35); GLUCOSE, FASTING 128 MG/DL (70-100); POTASSIUM SERUM 4.1 MEQ/L (3.5-5.1); SODIUM LEVEL 140 MEQ/L (136-145)
[2020-05-30] MEDS ORDERED: ASPIRIN 81 MG ENTERIC TAB PO SCH (09:00)
[2020-05-30] MEDS ORDERED: ATOR1TAB21 PO (10:38)
--- NOTE | 2020-05-30 11:15 | DS.PDOC ---
Discharge Summary General Date of Admission May 29, 2020 at 07:36 Date of Discharge May 30, 2020 Primary Care Physician: Jesús Obrien Attending Physician: JD RASCON MD Discharge Summary PROCEDURES PERFORMED DURING STAY: [None]. ADMITTING DIAGNOSES: 1. TIA 2. Paroxysmal AF 3. Previous Hx CVAs 4. Urinary retention s/p catheter placement DISCHARGE DIAGNOSES: 1. TIA 2. Paroxysmal AF 3. Previous Hx CVAs 4. Urinary retention s/p catheter placement COMPLICATIONS/CHIEF COMPLAINT: Transient Ischemic Attack. 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 Brumfield. He presents to the emergency room with similar symptoms that he had last year when he had his cerebellar infarct with dizziness and posterior headaches. He had woke up this morning, and felt dizzy without any prodrome and nauseous at the same time, which lasted for an hour or so. 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 He denied any loss of consciousness. Initial CT of the head showed cortical defects in the cerebellar hemispheres bilaterally, some of which could be acute/subacute infarcts, but with most appearing to be chronic infarcts. An additional chronic infarct is seen in the medial left thalamus on image 15 of series 201. HOSPITAL COURSE: The patient was admitted for TIA workup. MRI findings were significant for tiny acute ischemic infarct present in the posterior right cerebellar hemisphere cortex consistent with previous CVA in 12/2019. The patient was started on Eliquis and Atorvastatin was increased to 40mg. On hospital day #2 his symptoms had completely improved and he passed occupational therapy evaluation. He was discharged home with plan to follow up with his neuro logist within the next 14 days. DISCHARGE MEDICATIONS: Please see below. ALLERGIES: Please see below. PHYSICAL EXAMINATION ON DISCHARGE: VITAL SIGNS: Please see below. GENERAL: alert and oriented, in no apparent distress, pleasant and conversant in full sentences. HEENT: PERRL, EOMI, Oral mucous membranes are moist without lesions. NECK: The patient has no noted JVD. No adenopathy is appreciated. No thyromegaly CHEST/LUNGS: Lungs are clear bilaterally without rhonchi, rales, or wheezes. The re is no subcutaneous air appreciated. There is no tenderness to the chest wall. HEART:Regular rate and rhythm. No murmurs, rubs, or gallops are appreciated. Distal pulses are 2+. No carotid bruits appreciated. ABDOMEN: Soft, nontender, and nondistended. Bowel sounds are positive. No organomegaly is appreciated. No masses are appreciated. There are no peritoneal signs. There is no [place] sign. EXTREMITIES: No peripheral edema. There is no focal long bone tenderness or deformity. SKIN: The patients skin is warm and dry, without rashes or lesions. PSYCHIATRIC: AAO x 3, normal mood/affect NEUROLOGIC: The patient has 5/5 strength to the upper and lower extremities bilaterally. Sensation is intact throughout. Deep tendon reflexes are 2+ in all four extremities. There are no deficits to the cranial nerves. Pewn-yr-[id number] was without abnormality, gyiukc-[id number] test was normal LABORATORY DATA: Please see below. IMAGING: CT HEAD: IMPRESSION: 1. There are cortical defects in the cerebellar hemispheres bilaterally, some of which could be acute/subacute infarcts, but with most appearing to be chronic infarcts. An additional chronic infarct is seen in the medial left thalamus on image 15 of series 201. 2. No acute intracerebral traumatic injury. No acute intracerebral bleed. 3. 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 4. [place] Stroke Program Early CT Score (ASPECTS score) = 10. CXR: FINDINGS: The mediastinum and cardiac silhouette are stable and within normal limits for portable technique. The lung fox are clear without acute consolidation, effusion, or pneumothorax. Skeletal structures are intact. IMPRESSION: No acute cardiopulmonary process appreciated. MRA BRAIN: FINDINGS: ANTERIOR CIRCULATION: Right internal carotid artery: Intracranial segment is patent with no significant stenosis. No aneurysm. Right middle cerebral artery: No occlusion or significant stenosis. No aneurysm. Right anterior cerebral artery: No occlusion or significant stenosis. No aneurysm. Left internal carotid artery: Intracranial segment is patent with no significant stenosis. No aneurysm. Left middle cerebral artery: No occlusion or significant stenosis. No aneurysm. 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 The remainder of the left anterior cerebral artery is supplied via the anterior communicating artery from the normal right anterior cerebral artery, seen on frame 3 of image 1 series 203. No occlusion or significant stenosis. No aneurysm. POSTERIOR CIRCULATION: Right vertebral artery: No occlusion or significant stenosis. No aneurysm. Left vertebral artery: No occlusion or significant stenosis. No aneurysm. Basilar artery: No occlusion or significant stenosis. No aneurysm. Right posterior cerebral artery: No occlusion or significant stenosis. No aneurysm. Left posterior cerebral artery: No occlusion or significant stenosis. No aneurysm. IMPRESSION: No intracerebral arterial stenosis or occlusion. In particular in spite of the numerous chronic infarcts present in the cerebellar hemispheres bilaterally, the posterior cerebral arteries appear normal. NECK CTA: FINDINGS: Right common carotid artery: No stenosis. No dissection or occlusion. Right internal carotid artery: There are calcific atherosclerotic changes of the right carotid bulb. No stenosis of the extracranial segment. No dissection or occlusion. Right external carotid artery: No occlusion or stenosis of the origin. Right vertebral artery: No stenosis. No dissection or occlusion. Left common carotid artery: No stenosis. No dissection or occlusion. Left internal carotid artery: There are calcific atherosclerotic changes of the left carotid bulb. No stenosis of the extracranial segment. No dissection or occlusion. Left external carotid artery: No occlusion or stenosis of the origin. Left vertebral artery: No stenosis. No dissection or occlusion. Thyroid: The thyroid gland appears heterogeneous with a focal 7 mm left lobe hypodensity. Bones/joints: No acute fracture. Soft tissues: Normal. No significant soft tissue swelling. IMPRESSION: No significant intracranial arterial stenosis. CT ANGIO HEAD: FINDINGS: ANTERIOR CIRCULATION: Right internal carotid artery: Unremarkable. Intracranial segment is patent with no significant stenosis. No aneurysm. Right middle cerebral artery: Unremarkable. No occlusion or significant stenosis. No aneurysm. Right anterior cerebral artery: Unremarkable. No occlusion or significant stenosis. No aneurysm. Left internal carotid artery: Unremarkable. Intracranial segment is patent with no significant stenosis. No aneurysm. Left middle cerebral artery: Unremarkable. No occlusion or significant stenosis. No aneurysm. Left anterior cerebral artery: Unremarkable. No occlusion or significant stenosis. No aneurysm. POSTERIOR CIRCULATION: Right vertebral artery: Unremarkable. No occlusion or significant stenosis. No aneurysm. Left vertebral artery: Unremarkable. No occlusion or significant stenosis. No aneurysm. Basilar artery: Unremarkable. No occlusion or significant stenosis. No aneurysm. Right posterior cerebral artery: Unremarkable. No occlusion or significant stenosis. No aneurysm. Left posterior cerebral artery: Unremarkable. No occlusion or significant stenosis. No aneurysm. Brain: No definite mass, mass effect, or midline shift. Cerebral ventricles: No ventriculomegaly. Bones/joints: Unremarkable. No acute fracture. Soft tissues: Unremarkable. IMPRESSION: No large vessel stenosis or occlusion. MRI BRAIN: FINDINGS: Brain: There is a tiny acute ischemic infarct present in the posterior right cerebellar hemisphere cortex on frame 5 image 1 of series 404 and series 403. Multiple small chronic infarcts are additionally present in both cerebellar hemispheres. No acute intracerebral bleed. Mild age-appropriate cerebral atrophy with mild patchy periventricular leukomalacia in both cerebral hemispheres, consistent most likely with chronic underlying small vessel ischemic disease. The position, size and shape of the cerebellar tonsils are normal. The vestibulocochlear complexes bilaterally are normal. Normal base of skull vasculature flow voids. The mesial temporal lobes and hippocampal regions are normal. Cerebral ventricles: Normal. No ventriculomegaly. Bones/joints: Unremarkable. Paranasal sinuses: Normal as visualized. No acute sinusitis. Mastoid air cells: Normal as visualized. No mastoid effusion. Orbits: Unremarkable. Soft tissues: Unremarkable. IMPRESSION: 1. There is a tiny acute ischemic infarct present in the posterior right cerebellar hemisphere cortex on frame 5 image 1 of series 404 and series 403. Multiple small chronic infarcts are additionally present in both cerebellar hemispheres. 2. No acute intracerebral bleed. 3. Mild age-appropriate cerebral atrophy with mild patchy periventricular leukomalacia in both cerebral hemispheres, consistent most likely with chronic underlying small vessel ischemic disease PROGNOSIS: fair ACTIVITY: [As tolerated]. DIET: as tolerated DISCHARGE PLAN: home DISPOSITION: . DISCHARGE INSTRUCTIONS: 1. follow up with your Neurologist within 14 days ITEMS TO FOLLOWUP ON ON OUTPATIENT: 1. Echocardiogram results DISCHARGE CONDITION: [Stable]. TIME SPENT ON DISCHARGE: Greater than 40 minutes. Vital Signs/I&Os Vital Signs Date Time Temp Pulse Resp B/P (MAP) Pulse Ox O2 Delivery O2 Flow Rate FiO2 05/30/20 04:00 98.7 70 18 137/67 95 Room Air I&O- Last 24 Hours up to 6 AM 05/30/20 06:00 Intake Total 1230 ml Output Total 2050 ml Balance -820 ml Laboratory Data Labs 24H Laboratory Tests 2 05/30/20 08:09: Nucleated Red Blood Cells % (auto) 0.0, Anion Gap 6L, Glomerular Filtration Rate > 60.0, Calcium Level 9.3 CBC/BMP Laboratory Tests 05/30/20 08:09 Discharge Medications Scheduled Apixaban (Eliquis) 5 Mg Tablet, 5 MG PO BID, (Reported) NEW MED, NOT STARTED Atorvastatin Calcium (Atorvastatin Calcium) 20 Mg Tablet, 40 MG PO DAILY Cholecalciferol (Vitamin D3) (Vitamin D3) 50 Mcg Capsule, 2,000 UNITS PO DAILY, (Reported) Oxybutynin Chloride (Oxybutynin Chloride) 5 Mg Tablet, 5 MG PO BID, (Reported) Pantoprazole Sodium (Pantoprazole Sodium) 40 Mg Tablet.dr, 40 MG PO DAILY, (Reported) Ramipril (Ramipril) 2.5 Mg Capsule, 2.5 MG PO QHS, (Reported) Tamsulosin HCl (Flomax) 0.4 Mg Capsule, 0.4 MG PO DAILY, (Reported) Scheduled PRN Butalb/Acetaminophen/Caffeine (Chgpwb-Kvofeges-Fuik 50-300-40) 1 Each Capsule, 1 CAP PO TID PRN for HEADACHE, (Reported) Allergies Coded Allergies: No Known Drug Allergies (Verified Allergy, Unknown, 12/03/19) GME ATTESTATION GME ATTESTATION My faculty preceptor for this patient encounter was physically present during the encounter and was fully available. All aspects of the patient interview, examination, medical decision making process, and medical care plan development were reviewed and approved by the faculty preceptor. The faculty preceptor is aware and concurs with the plan as stated in the body of this note and will a ttest to such by his/her cosignature. ATTENDING NOTE Patient was seen and examined by me personally with the students and the residents. Agree with the above assessment and plan. CHECO PARRA MD May 30, 2020 11:15 JD RASCON MD Jun 01, 2020 11:34
--- NOTE | 2020-05-30 19:26 | ECGEPIP ---
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
--- NOTE | 2020-06-01 12:48 | ECHO ---
DATE OF PROCEDURE: 05/29/2020 Age: 80 Gender: Male Height: 67 inches Weight: 77.4 kg REFERRING PHYSICIAN: Tom Khoury M.D. INDICATION: Syncope. MEASUREMENTS: 2D Measurements: Aortic root 3.9 cm Left atrium 3.5 cm Intraventricular septum 1.11 cm Posterior wall 1.09 cm Left ventricle diastole 4.0 cm Doppler Measurements: Mild aortic regurgitation No aortic stenosis No mitral regurgitation No mitral stenosis Very mild tricuspid regurgitation No pulmonic regurgitation Aortic valve velocity 133 cm/s LVOT velocity 90.2 cm/s Mitral E velocity 68.9 cm/s Mitral A velocity 99.9 cm/s Estimated right ventricular systolic pressure 27-32 mmHg Estimated right atrial pressure 5-10 mmHg Pulmonary artery acceleration time 135 msec MITRAL ANNULAR TISSUE DOPPLER E prime septal 4.9 cm/s, E prime lateral 8.2 cm/s DESCRIPTION: Rhythm was sinus. Image quality was poor to fair. This was a 2D, M- mode, color flow Doppler, and pulsed wave Doppler examination including mitral annular tissue Doppler. CONCLUSIONS: 1. Normal left ventricle internal dimensions and wall thickness. Normal regional left ventricular (LV) wall motion and wall thickening. Normal left ventricular (LV) systolic function. Left ventricular ejection fraction (LVEF) 60% by visual estimate. Grade 1 left ventricular (LV) diastolic dysfunction (impaired relaxation filling pattern). 2. Normal right ventricle size and systolic function. Normal estimated right ventricle systolic pressure. 3. No pericardial effusion. 4. Mild dilatation of the aortic root at the level of the sinus of Valsalva (3.9 cm). 5. Mild aortic valve sclerosis of a 3-cuspid aortic valve. Mild aortic regurgitation. No aortic stenosis. 6. Otherwise normal appearing echocardiogram Doppler findings. [facility]
== END 2020-05-30 11:53 | disposition home or self-care (01) ==
LOC: EDBD 07:35 → M ED 07:35 → M ED INP 07:36 → ENRESERV 12:49 → M MSPAV 13:45
PROVIDERS: ADMIT Internal Medicine; ATTEND Internal Medicine
DX: G45.9 Transient cerebral ischemic attack, unspecified (principal); I48.0 Paroxysmal atrial fibrillation; Z86.73 Personal history of transient ischemic attack (TIA), and cerebral infarction without residual deficits; R33.9 Retention of urine, unspecified; I10 Essential (primary) hypertension; E78.49 Other hyperlipidemia; K21.9 Gastro-esophageal reflux disease without esophagitis; N40.0 Benign prostatic hyperplasia without lower urinary tract symptoms; Z79.01 Long term (current) use of anticoagulants; Z79.82 Long term (current) use of aspirin; Z79.899 Other long term (current) drug therapy; I25.10 Atherosclerotic heart disease of native coronary artery without angina pectoris
CPT/HCPCS: 36415; 70450; 70496; 70498; 70544; 70551; 71045; 80047; 80048; 80061; 82550; 82553; 83036; 84443; 84484; 85025; 85027; 85610; 85730; 92610; 93005; 93041; 93306; 94760; 99285; G0378; Q9967; U0002

== ENCOUNTER → 2020-08-01 | Outpatient (CLI) | payer MEDICARE ==
[~2020-08-01] MED LIST changes: +D200CAP PO; +ELIQ5TAB PO; +OXYB5TAB10 PO; +RAMI1CAP22 PO
[2020-08-01 14:31] LABS: BASO % 0.6 % (0.0-1.0); EOS # 0.2 10^3/uL (0.0-0.5); EOS % 3.4 % (0.0-3.0); HEMATOCRIT 44.3 % (42.0-52.0); HEMOGLOBIN 14.6 g/dl (13.5-17.5); LYMPH # 2.1 10^3/uL (1.5-5.0); LYMPH % 39.6 % (24.0-44.0); MEAN CORPUSCULAR HEMOGLOBIN 31.5 pg (27.0-33.0); MEAN CORPUSCULAR VOLUME 95.7 fl (80.0-96.0); MONO # 0.6 10^3/uL (0.0-0.8); NEUTROPHILS # 2.4 10^3/uL (1.5-8.5); NEUTROPHILS % 44.2 % (36.0-66.0); PLATELET COUNT, AUTOMATED 212 10^3/uL (150-450); RED BLOOD COUNT 4.63 10^6/uL (4.30-6.10); WHITE BLOOD COUNT 5.4 10^3/uL (4.0-10.0)
[2020-08-01 14:49] LABS: CALCIUM LEVEL 9.4 MG/DL (8.8-10.2); CREATININE FOR GFR 1.29 MG/DL (0.70-1.30); GLOMERULAR FILTRATION RATE 57.1 (>35); POTASSIUM SERUM 4.3 MEQ/L (3.5-5.1)
== END ==
LOC: M PLALAB 09:40
PROVIDERS: ATTEND Internal Medicine Cardiovascular Disease
DX: I48.3 Typical atrial flutter (principal)

== ENCOUNTER 2020-09-03 14:25 | Emergency (ER) | payer MEDICARE ==
[~2020-09-03] VITALS: Ht 170.2 cm; Wt 74.1 kg
--- NOTE | 2020-09-03 15:05 | REP ---
INDICATION: fall, blood thinners. COMPARISON: 05/29/2020. TECHNIQUE: CT BRAIN PERFORMED IN THE AXIAL PLANE. CORONAL RECONSTRUCTION IMAGES ARE PERFORMED. FINDINGS: There is stable mild atrophy. There is no midline shift or mass effect. Old left thalamic lacunar infarct is stable. There are periventricular small vessel ischemic changes which are stable. There is no acute intracranial hemorrhage or extra-axial fluid collection. There is no midline shift or mass effect. The calvarium is intact. There are vascular calcifications in the carotid siphons. There is fluid in the superior aspect of the right maxillary sinus. There is a possible fracture of the anterior wall the right maxillary sinus seen on the most inferior image. The inferior aspect of the right maxillary sinus is not visualized. Mild opacification of inferior ethmoid sinuses. IMPRESSION: No acute intracranial hemorrhage. Chronic changes. Fluid in the right maxillary sinus. There is a possible fracture of the anterior wall the right maxillary sinus seen on the most inferior image. Correlate clinically. <Electronically signed by Amos Preciado > 09/03/20 [id number]
--- NOTE | 2020-09-03 15:11 | REP ---
INDICATION: fall, blood thinners. COMPARISON: 09/30/2011. TECHNIQUE: CT cervical spine performed in the axial plane, with sagittal and coronal reconstruction images performed. FINDINGS: There is no acute compression fracture or malalignment. There is no prevertebral soft tissue swelling. There is mild spurring diffusely, with a more moderate degree of spurring of the C5 and C6 vertebral bodies. There is mild disc space narrowing at all levels with a more moderate degree of disc space narrowing at C6-7.. There is normal cervical lordosis. There is no abnormal density in the spinal canal. IMPRESSION: No evidence of acute fracture or dislocation.Degenerative disc changes. <Electronically signed by Amos Preciado > 09/03/20 [id number]
--- NOTE | 2020-09-03 16:07 | REP ---
INDICATION: fall COMPARISON: None. TECHNIQUE: AP, lateral, bilateral oblique views right wrist. FINDINGS: Osteopenia and degenerative changes are appreciated. There is an irregular appearance along the lateral contour of the triquetrum raising the possibility of acute or old injury and correlation with point of tenderness and mechanism of injury is recommended. IMPRESSION: Osteopenia and degenerative changes. Cannot exclude acute versus old injury involving the triquetrum. <Electronically signed by Jose Arreguin > 09/03/20 [id number]
[2020-09-03] MEDS ORDERED: PHENYLEPHRINE 0.5% NASAL SPRAY 15 ML ONE (16:55)
[2020-09-03] MEDS ORDERED: ACETAMINOPHEN 325 MG TAB PO ONE (17:30)
[2020-09-03] MEDS ORDERED: AUGM875T28 PO (17:49)
[2020-09-03 18:15] VITALS: BP 175/88
== END 2020-09-03 18:25 | disposition home or self-care (01) ==
LOC: M ED 14:25
DX: S02.401A Maxillary fracture, unspecified side, initial encounter for closed fracture (principal); S62.111A Displaced fracture of triquetrum [cuneiform] bone, right wrist, initial encounter for closed fracture; W01.0XXA Fall on same level from slipping, tripping and stumbling without subsequent striking against object, initial encounter; Y92.009 Unspecified place in unspecified non-institutional (private) residence as the place of occurrence of the external cause; Y93.9 Activity, unspecified; Y99.9 Unspecified external cause status; M85.831 Other specified disorders of bone density and structure, right forearm; Z87.898 Personal history of other specified conditions; Z79.899 Other long term (current) drug therapy; Z79.01 Long term (current) use of anticoagulants

== ENCOUNTER 2020-11-08 19:14 | Emergency (ER) | payer MEDICARE ==
[~2020-11-08] VITALS: Ht 165.1 cm; Wt 79.2 kg
[~2020-11-08 19:14] MED LIST changes: +AUGM875T28 PO
--- NOTE | 2020-11-08 19:42 | REPVR ---
PROCEDURE INFORMATION: Exam: CT Head Without Contrast Exam date and time: 11/08/2020 7:24 PM Age: 80 years old Clinical indication: Pain; Headache; Additional info: HX stroke/aguilar TECHNIQUE: Imaging protocol: Computed tomography of the head without contrast. Radiation optimization: All CT scans at this facility use at least one of these dose optimization techniques: automated exposure control; mA and/or kV adjustment per patient size (includes targeted exams where dose is matched to clinical indication); or iterative reconstruction. Other technique: STROKE PROTOCOL was implemented. COMPARISON: 1. CT Head without contrast 09/03/2020 2:[address] ANGIO HEAD 05/29/2020 12:28:13 PM FINDINGS: Brain: The brain demonstrates diffuse volume loss. There is white matter hypodensity most consistent with chronic small vessel ischemic change. No visible evolving territorial infarct. No hemorrhage. Chronic bilateral cerebellar infarcts are again demonstrated. Chronic lacunar infarcts in the right caudate nucleus and left thalamus, as before. Cerebral ventricles: The ventricles are mildly enlarged in keeping with volume loss. Bones/joints: Unremarkable. No acute fracture. Paranasal sinuses: Mild polypoid mucosal thickening in the right maxillary sinus. Mastoid air cells: Visualized mastoid air cells are well aerated. Orbital cavity: Thinning of the lenses of the globes consistent with prior lens surgery. Vasculature: Ectatic appearance of the right carotid terminus, stable. Soft tissues: Unremarkable. IMPRESSION: No acute intracranial abnormality seen. ASSESSMENT: ASPECTS ([place] Stroke Program Early CT Score) is 10. Electronically signed by: Monie Valentino On 11/08/2020 19:42:13 PM
--- NOTE | 2020-11-08 20:16 | REPVR ---
PROCEDURE INFORMATION: Exam: XR Chest Exam date and time: 11/08/2020 8:06 PM Age: 80 years old Clinical indication: Other: CVA TECHNIQUE: Imaging protocol: XR of the chest. Views: 1 view. COMPARISON: CR PORTABLE CHEST X-RAY 05/29/2020 8:11 AM FINDINGS: Tubes, catheters and devices: A loop recorder device projects over the heart. Lungs: There is an azygos lobe. No consolidation seen. Pleural spaces: Unremarkable. No pleural effusion. No pneumothorax. Heart/Mediastinum: There is a hiatal hernia. Vasculature: The aorta is tortuous. Stable. Bones/joints: The thoracic spine demonstrates diffuse idiopathic skeletal hyperostosis. IMPRESSION: No evidence of acute cardiopulmonary disease. Electronically signed by: Monie Valentino On 11/08/2020 20:15:48 PM
[2020-11-08 20:20] LABS: BASO % 0.6 % (0.0-1.0); EOS # 0.2 10^3/uL (0.0-0.5); EOS % 3.7 % (0.0-3.0); HEMATOCRIT 40.3 % (42.0-52.0); HEMOGLOBIN 13.6 g/dl (13.5-17.5); LYMPH # 2.2 10^3/uL (1.5-5.0); LYMPH % 34.9 % (24.0-44.0); MEAN CORPUSCULAR HEMOGLOBIN 31.9 pg (27.0-33.0); MEAN CORPUSCULAR HGB CONC 33.7 g/dl (32.0-36.5); MEAN CORPUSCULAR VOLUME 94.4 fl (80.0-96.0); MONO # 0.8 10^3/uL (0.0-0.8); MONO % 13.1 % (2.0-8.0); NEUTROPHILS # 2.9 10^3/uL (1.5-8.5); NEUTROPHILS % 47.4 % (36.0-66.0); PLATELET COUNT, AUTOMATED 222 10^3/uL (150-450); RED BLOOD COUNT 4.27 10^6/uL (4.30-6.10); WHITE BLOOD COUNT 6.2 10^3/uL (4.0-10.0)
[2020-11-08 20:31] LABS: INR 1.03; PROTHROMBIN TIME 13.7 SECONDS (12.5-14.3)
[2020-11-08 20:32] LABS: PARTIAL THROMBOPLASTIN TIME 32.8 SECONDS (24.2-38.5)
[2020-11-08 20:55] LABS: ALBUMIN 3.4 GM/DL (3.2-5.2); ALT/SGPT 21 U/L (12-78); BILIRUBIN,DIRECT < 0.1 MG/DL (0.0-0.2); BILIRUBIN,TOTAL 0.3 MG/DL (0.2-1.0); BLOOD UREA NITROGEN 24 MG/DL (7-18); CALCIUM LEVEL 9.1 MG/DL (8.8-10.2); CARBON DIOXIDE LEVEL 27 MEQ/L (21-32); CHLORIDE LEVEL 111 MEQ/L (98-107); CPK CREATINE PHOSPHOKINASE 79 U/L (39-308); GLOMERULAR FILTRATION RATE 47.9 (>35); GLUCOSE, FASTING 109 MG/DL (70-100); MB/CK RELATIVE INDEX 2.53 (< OR =4); SODIUM LEVEL 143 MEQ/L (136-145); TOTAL PROTEIN 6.3 GM/DL (6.4-8.2); TROPONIN I < 0.02 NG/ML (< 0.10)
[2020-11-08 21:11] LABS: ERYTHROCYTE SEDIMENTATION RATE 5 mm/hr (0-20)
--- NOTE | 2020-11-08 22:19 | REPVR ---
PROCEDURE INFORMATION: Exam: MR Head Without Contrast Exam date and time: 11/08/2020 9:15 PM Age: 80 years old Clinical indication: Pain; Headache; Other: Sharp stabbing; Additional info: Headache, possible recurrent CVA TECHNIQUE: Imaging protocol: MR of the head without contrast. COMPARISON: MRI-Brain without Contrast 05/29/2020 5:14 PM FINDINGS: Brain: Chronic lacunar infarct in the left thalamus and bilateral cerebellum. Mild chronic microvascular ischemic changes. Cerebral ventricles: Normal. No ventriculomegaly. Bones/joints: Unremarkable. Paranasal sinuses: Normal as visualized. No acute sinusitis. Mastoid air cells: Normal as visualized. No mastoid effusion. Orbital cavity: Bilateral cataract surgery. Soft tissues: Unremarkable. Other findings: No hemorrhage. IMPRESSION: No acute intracranial abnormality. Electronically signed by: Edwin Castillo On 11/08/2020 22:18:12 PM
[2020-11-08 23:45] VITALS: BP 158/72
--- NOTE | 2020-11-09 04:21 | ECGEPIP ---
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
== END 2020-11-08 23:49 | disposition home or self-care (01) ==
LOC: M ED 19:14
DX: R51.9 Headache, unspecified (principal); I44.0 Atrioventricular block, first degree; I10 Essential (primary) hypertension; I48.91 Unspecified atrial fibrillation; I25.10 Atherosclerotic heart disease of native coronary artery without angina pectoris; E78.5 Hyperlipidemia, unspecified; Z79.899 Other long term (current) drug therapy; Z79.01 Long term (current) use of anticoagulants

== ENCOUNTER → 2020-11-14 | Outpatient (REF) | payer MEDICARE ==
[2020-11-14 14:01] LABS: APPEARANCE, URINE CLEAR (CLEAR); BACTERIA, URINE AUTO NEGATIVE (NEGATIVE); BILIRUBIN, URINE AUTO NEGATIVE (NEGATIVE); BLOOD, URINE BLOOD NEGATIVE (NEGATIVE); COLOR, URINE YELLOW (YELLOW); GLUCOSE, URINE (UA) AUTO NEGATIVE (NEGATIVE); KETONE, URINE AUTO NEGATIVE (NEGATIVE); LEUKOCYTE ESTERASE, URINE AUTO NEGATIVE (NEGATIVE); NITRITE, URINE AUTO NEGATIVE (NEGATIVE); PROTEIN, URINE AUTO NEGATIVE (NEGATIVE); RBC, URINE AUTO 0 /HPF (0-3); SPECIFIC GRAVITY URINE AUTO 1.009 (1.002-1.035); SQUAMOUS EPITHELIAL CELL UR AU 0 /HPF (0-6); UROBILINOGEN, URINE AUTO 0.2 mg/dL (0.0-2.0); WBC, URINE AUTO 1 /HPF (0-3)
== END ==
LOC: M SMT 13:04
PROVIDERS: ATTEND Nurse Practitioner Women's Health
DX: R31.0 Gross hematuria (principal)
CPT/HCPCS: 81001; 87086; G0463

== ENCOUNTER 2021-04-30 22:25 | Emergency (ER) | payer MEDICARE ==
[~2021-04-30] VITALS: Ht 170.2 cm; Wt 73.6 kg
[~2021-04-30 22:25] MED LIST changes: -DOXY100C PO; +DOXY100C3 PO
--- OUTSIDE RECORDS SUMMARY | 2021-04-30 22:33 | CCD | Continuity of Care Document ---
Author Author Janes OBRIEN RPA Organization Unknown Address [address] [facility] [address] [place] [address] Phone [phone] Problems Active Problems Provider Date Generalized atherosclerosis Arvind Obrien RPA Onset: Mixed hyperlipidemia Arvind Obrien RPA Onset: 9 Gastroesophageal reflux disease Arvind Obrien RPA Onset : 09/21/2009 Malignant tumor of prostate Arvind Obrien RPA Onset: Vitamin D deficiency Arvind Obrien RPA Onset: 0 Impaired renal function disorder Arvind Obrien RPA Onse t: 06/12/2011 Old myocardial infarction Arvind Obrien RPA Onset: 03/2017 Erectile dysfunction due to general medical condition Arvind Obrien RPA Onset: 05/14/2017 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 kelsie mary grace Arvind Obrien RPA Onset: 05/14/2017 Note: 05/09/17 Transient cerebral ischemia Arvind Obrien RPA Onset: Social History Type Date Description Comments Sex Unknown ETOH Use alcohol use: never used Tobacco Use Start: Unknown End: Unknown Patient is a former smoker Seat Belt/Car Seat yes Allergies and adverse reactions Description No Known Drug Allergies Medications Active Medications SIG Qnty Indications Ordering Provide r Date Fioricet 50-300-40mg Capsules 1-2 tablets three x day as needed 30caps Hola Astorga D.O., FAA FP 05/11/2020 Clotrimazole 1% Cream Apply Topically To Penis Head Twice Daily For 2 Weeks 30units Hola min D.O., FAAFP 03/13/2020 Tums 500mg Chewtabs 1 PO tid 100units Hola J. Fish, D.O., FAAFP 12/19/2019 Vitamin D 1000Unit Tablets 1 by mouth every day OTC [facility] Pantoprazole Sodium 40mg Tablets D R Take 1 Tablet By Mouth Daily 90tabs Hola Astorga D.O., FA [facility] 10/12/2019 Prevnar 13 Suspension injection x 1 .500ml Hola Astorga D.O., FAAFP 12/04/2017 Shingrix 50mcg Suspension Rec injection 1units Hola Atsorga D.O., FAAFP 12/04/2017 Viagra 100mg Tablets 1 by mouth every day as needed 14tabs Hola Astorga D.O., [facility] 03/2017 Ramipril 5mg Capsules 1 by mouth every day Unknown Aspirin [address] 1 by mouth every day Unknown Flomax 0.4mg Capsules take one capsule by mouth at bedtime Unknown Eliquis 5mg Tablets 1 by mouth twice a day Unknown Atorvastatin Calcium 20mg Tablets 1 by mouth every day Unknown Medications Administered in Office Medication SIG Qnty Indications Ordering Provider Date Injection (SC)/(Im) Injection Arvind Obrien, [place] 03/15/2019 Injection (SC)/(Im) Injection Arvind Obrien, RPA 04/24/2010 Injection (SC)/(Im) Injection Arvind Obrien, RPA 02/05/2010 Injection (SC)/(Im) Injection Hola Astorga D.O., [facility] 05/07/2009 Immunizations CPT Code Status Date Vaccine Lot # [id number] Given 03/13/2020 Influenza Virus Vaccine, Quadrivalent, Slit Virus, Im Use 3Y & Up [id number] 04631 Given 03/15/2019 Influenza Virus Vaccine, Quadrivalent, Slit Virus, Im Use 3Y & Up [id number] 64917 Given 04/13/2017 Influenza Virus Vaccine, Quadrivalent, Slit Virus, Im Use 3Y & Up [id number] 66727 Given 04/30/2016 Pneumococcal Immunization [id number] 63173 Given 04/30/2016 Influenza Virus Vaccine, Quadrivalent, Slit Virus, Im Use 3Y & Up [id number] 26086 Given 04/24/2010 Influenza Virus Vac. Split Virus Individuals 3 Years And Above [id number] 11180 Given 02/05/2010 Tdap Tetanus,Dip htheria Toxoids/Acellular Pertussis 7Yrs Or Older [id number] 44130 Given 05/07/2009 Influenza Virus Vac. Split Virus Individuals 3 Years And Above [id number] Vital Signs Date Vital Result Comment 09/07/2020 9:29am BP Systolic 130 mmHg BP Diastolic 64 mmHg Body Temperature 97.5 F Heart Rate 77 /min Respiratory Rate 16 /min Height 67 inches 5'7" Weight 175.00 lb Leonard Body Weight 148 lb BMI (Body Mass Index) 27.4 kg/m2 O2 % BldC Oximetry 96 % 07/30/2020 10:44am BP Systolic 138 mmHg BP Diastolic 80 mmHg Body Temperature 97.7 F Heart Rate 93 /min Respiratory Rate 16 /min Height 67 inches 5'7" Weight 171.00 lb Leonard Body Weight 148 lb BMI (Body Mass Index) 26.8 kg/m2 O2 % BldC Oximetry 97 % Results Test Acquired Date Facility Test Result H/L Range Note Prothrombin Time/Inr 11/08/2020 [facility] ( Interface) [phone] Prothrombin Time 13.7 seconds Normal 12.5-14.3 Inr 1.03 Normal 1 Laboratory test finding 11/08/2020 [facility] (Interface) [phone] Partial Thromboplastin Time 32.8 seconds Normal 24 .2-38.5 Cardiac Marker Panel 11/08/2020 [facility] ( Interface) [phone] CPK Creatine Phosphokinase 79 U/L Normal 39-30 8 CK-MB Value Mass 2.0 NG/ML Normal <3.6 MB/CK Relative Index 2.53 Normal < Or =4 2 Troponin I < 0.02 NG/ML Normal < 0.10 3 Liver Profile 11/08/2020 [facility] (I nterface) [phone] Ast/Sgot 16 U/L Normal 7-37 Alt/SGPT 21 U/L Normal 12-78 Alkaline Phosphatase 50 U/L Normal 45-117 Bilirubin,Total 0.3 mg/dL Normal 0.2-1.0 Bilirubin,Direct < 0.1 mg/dL Normal 0.0-0.2 Total Protein 6.3 GM/DL Low 6.4-8.2 Albumin 3.4 GM/DL Normal 3.2-5.2 Albumin/Globulin Ratio 1.2 Normal Basic Metabolic Profile 11/08/2020 [facility] (Interface) [phone] Glucose, Fasting 109 mg/dL High 70-100 Blood Urea Nitrogen 24 mg/dL High 7-18 Creatinine For GFR 1.50 mg/dL High 0.70-1.30 Glomerular Filtration Rate 47.9 Normal >35 4 Sodium Level 143 mEq/L Normal 136-145 Potassium Serum 4.0 mEq/L Normal 3.5-5.1 Chloride Level 111 mEq/L High 98-107 Carbon Dioxide Level 27 mEq/L Normal 21-32 Anion Gap 5 mEq/L Low 8-16 Calcium Level 9.1 mg/dL Normal 8.8-10.2 CBC With Differential 11/08/2020 [facility] (Interface) [phone] White Blood Count 6.2 10 Normal 4.0-10.0 Red Blood Count 4.27 10 Low 4.30-6.10 Hemoglobin 13.6 g/dL Normal 13.5-17.5 Hematocrit 40.3 % Low 42.0-52.0 Mean Corpuscular Volume 94.4 fl Normal 80.0-96.0 Mean Corpuscular Hemoglobin 31.9 pg Normal 27.0-33.0 Mean Corpuscular HGB Conc 33.7 g/dL Normal 32.0-36.5 Red Cell Distribution Width 13.1 % Normal 11.5-14.5 Platelet Count, Automated 222 10 Normal 150-450 Neutrophils % 47.4 % Normal 36.0-66.0 Lymph % 34.9 % Normal 24.0-44.0 [facility] [place] % 13.1 % High 2.0-8.0 Eos % 3.7 % High 0.0-3.0 Baso % 0.6 % Normal 0.0-1.0 Immature Granulocyte % 0.3 % Normal 0-3.0 Nucleated Red Blood Cell % 0.0 % Normal 0-0 Neutrophils # 2.9 10 Normal 1.5-8.5 Lymph # 2.2 10 Normal 1.5-5.0 [facility] [place] [facility] # 0.8 10 Normal 0.0-0.8 Eos # 0.2 10 Normal 0.0-0.5 Baso # 0.0 10 Normal 0.0-0.2 Laboratory test finding 11/08/2020 [facility] (Interface) [phone] Erythrocyte Sedimentation Rate 5 mm/hr Normal 0 -20 1 THERAPUTIC HUMAN INR VALUES INDICATIONS NORMAL RANGES PROPHYLAXIS/TREATMENT OF: VENOUS THROMBOSIS 2.0-3.0 PULMONARY EMBOLISM 2.0-3.0 PREVENTION OF SYSTEMIC EMBOLISM FROM: TISSUE HEART VALVES 2.0-3.0 ACUTE MYOCARDIAL INFARCTION 2.0-3.0 VALVULAR HEART DISEASE 2.0-3.0 ATRIAL FIBRILLATION 2.0-3.0 MECHANICAL VALVES(HIGH RISK) 2.5-3.5 RECURRENT MYOCARDIAL INFARCTION 2.5-3.5 2 DIAGNOSIS CRITERIA MMB ng/ml Relative Index (RI) NON-AMI < or = 5 N/A MARTIN ZONE > 5 < or = 4 AMI > 5 > 4 3 Troponin I Reference Interva l for Sambazon LOCI: 99th Percentile= 0.00-0.045 ng/ml Risk Stratification: <= 0.10 ng/ml Decreased Risk for Adverse Clinical Events. 0.10-1.50 ng/ml Increased Risk for Adv erse Clinical Events. Evaluation of additional criterion and/or repeat testing in 2-6 hours is suggested to rule out myocardial damage. >= 1.50 ng/ml Indicative of Myocardial Injury. 4 Units are mL/min/1.73 m2 Chronic Kidney Disease Staging per NKF: Stage I & II GFR >=60 Normal to Mildly Decreased Stage III GFR 30-59 Moderately Decreased Stage IV GFR 15-29 Severely Decreased Stage V GFR <15 Very Little GFR Left ESRD GFR <15 on HOSPITAL ATTENDANT Procedures Date Code Description Status 04/12/2021 02163 Destruction Benign L esion Other Than Skin Tags(Actinic Keratoses) Completed Medical Devices Description No Information Available Encounters Description No Information Available Assessments Date Code Description Provider 04/12/2021 B07.0 Plantar wart Arvind Obrien, RPA 04/12/2021 M67.40 Ganglion cyst Arvind Obrien, [place] Plan of Treatment No Information Available Functional Status Description No Information Available Mental Status Description No Information Available Referrals Description No Information Available
--- OUTSIDE RECORDS SUMMARY | 2021-04-30 22:33 | CCD | Continuity of Care Document ---
Author Author Janes OBRIEN RPA Organization Unknown Address [address] [facility] [address] [place] [address] Phone [phone] Problems Active Problems Provider Date Generalized atherosclerosis Arvind Obrein RPA Onset: Mixed hyperlipidemia Arvind Obrien RPA Onset: 9 Gastroesophageal reflux disease Arvind Obrien RPA Onset : 09/21/2009 Malignant tumor of prostate Arvind Obrien RPA Onset: Vitamin D deficiency Arvind Obrien RPA Onset: 0 Impaired renal function disorder Arvind Obrein RPA Onse t: 06/12/2011 Old myocardial infarction [...] Twice Daily For 2 Weeks 30units Hola imn D.O., FAAFP 03/13/2020 Tums 500mg Chewtabs 1 PO tid 100units [facility] 12/19/2019 Vitamin D 1000Unit Tablets 1 by mouth every day OTC [facility]., [facility] Pantoprazole Sodium 40mg Tablets D R Take 1 Tablet By Mouth Daily 90tabs Hola Astorga D.O., [facility] 10/12/2019 Prevnar 13 Suspension injection x 1 .500ml Hola Astorga D.O., FAAFP 12/04/2017 Shingrix 50mcg Suspension Rec injection 1units Hola Astorga D.O., FAAFP 12/04/2017 Viagra 100mg Tablets 1 by mouth every day as needed 14tabs Hola Astorga D.O., [facility] 03/2017 Ramipril 5mg Capsules 1 by mouth [...] 02/05/2010 Injection (SC)/(Im) Injection Hola Astorga D.O., [facility] 05/07/2009 Immunizations CPT Code Status Date Vaccine Lot # [id number] Given 04/12/2021 Influenza Virus Vaccine, Quadrivalent, Slit Virus, Im Use 3Y & Up [id number] 44364 Given 03/13/2020 Influenza Virus Vaccine, Quadrivalent, Slit Virus, Im Use 3Y & Up [id number] 99086 Given 03/15/2019 Influenza Virus Vaccine, Quadrivalent, Slit Virus, Im Use 3Y & Up [id number] 60881 Given 04/13/2017 Influenza Virus Vaccine, Quadrivalent, Slit Virus, Im Use 3Y & Up [id number] 80844 Given 04/30/2016 Pneumococcal Immunization [id number] 63511 Given 04/30/2016 Influenza Virus Vaccine, Quadrivalent, Slit Virus, Im Use 3Y & Up [id number] 47852 Given 04/24/2010 Influenza Virus Vac. Split Virus Individuals 3 Years And Above [id number] 48448 Given 02/05/2010 Tdap Tetanus,Dip htheria Toxoids/Acellular Pertussis 7Yrs Or Older [id number] 80669 Given 05/07/2009 Influenza Virus Vac. Split Virus Individuals 3 Years And Above [id number] Vital Signs Date Vital Result Comment 04/29/2021 1:34pm BP Systolic 130 mmHg BP Diastolic 74 mmHg Body Temperature 97.0 F Heart Rate 66 /min Respiratory Rate 16 /min Height 67 inches 5'7" Weight 171.00 lb [place] Body Weight 148 lb BMI (Body Mass Index) 26.8 kg/m2 04/12/2021 9:56am BP Systolic 110 mmHg BP Diastolic 72 mmHg Body Temperature 97.2 F Heart Rate 73 /min Respiratory Rate 16 /min Height 67 inches 5'7" Weight 170.00 lb [place] Body Weight 148 lb BMI (Body Mass Index) 26.6 kg/m2 O2 % BldC Oximetry 97 % Results Test Acquired Date Facility Test Result H/L Range Note Prothrombin Time/Inr 11/08/2020 [facility] ( Interface) [phone] Prothrombin Time 13.7 seconds Normal 12.5-14.3 Inr 1.03 Normal 1 Laboratory test finding 11/08/2020 [facility] (Interface) [phone] Partial Thromboplastin Time 32.8 seconds Normal 24 .2-38.5 Cardiac Marker Panel 11/08/2020 [facility] ( Interface) [phone] CPK Creatine Phosphokinase 79 U/L Normal 39-30 8 CK-MB Value Mass 2.0 NG/ML Normal <3.6 MB/CK Relative Index 2.53 Normal < Or =4 2 Troponin I < 0.02 NG/ML Normal < 0.10 3 Liver Profile 11/08/2020 [facility] (I nterface) [phone] Ast/Sgot 16 U/L Normal 7-37 Alt/SGPT 21 U/L Normal 12-78 Alkaline Phosphatase 50 U/L Normal 45-117 Bilirubin,Total 0.3 mg/dL Normal 0.2-1.0 Bilirubin,Direct < 0.1 mg/dL Normal 0.0-0.2 Total Protein 6.3 GM/DL Low 6.4-8.2 Albumin 3.4 GM/DL Normal 3.2-5.2 Albumin/Globulin Ratio 1.2 Normal Basic Metabolic Profile 11/08/2020 [facility] (Interface) [phone] Glucose, Fasting 109 mg/dL High 70-100 Blood [...] mg/dL Normal 8.8-10.2 CBC With Differential 11/08/2020 [facility] (Interface) [phone] White Blood Count 6.2 10 Normal 4.0-10.0 [...] 36.0-66.0 Lymph % 34.9 % Normal 24.0-44.0 [place]ble % 13.1 % High 2.0-8.0 Eos % 3.7 % High 0.0-3.0 Baso % 0.6 % Normal 0.0-1.0 Immature Granulocyte % 0.3 % Normal 0-3.0 Nucleated Red Blood Cell % 0.0 % Normal 0-0 Neutrophils # 2.9 10 Normal 1.5-8.5 Lymph # 2.2 10 Normal 1.5-5.0 Kimble # 0.8 10 Normal 0.0-0.8 Eos # 0.2 10 Normal 0.0-0.5 Baso # 0.0 10 Normal 0.0-0.2 Laboratory test finding 11/08/2020 [facility] ([facility]) [phone] Erythrocyte Sedimentation Rate 5 mm/hr Normal 0 [...] 3 Troponin I Reference Interva l for Car Throttle LOCI: 99th Percentile= 0.00-0.045 ng/ml Risk Stratification: [...] Little GFR Left ESRD GFR <15 on LEATHER TACKER Procedures Date Code Description Status 04/12/2021 21565 Destruction Benign L esion Other Than Skin Tags(Actinic Keratoses) Completed Medical Devices Description No Information Available Encounters Description No Information Available Assessments Date Code Description Provider 04/29/2021 B07.0 Arvind Paz, RPA 04/12/2021 B07.0 Arvind Paz, RPA 04/12/2021 M67.40 Ganglion cyst Arvind Obrien, [place] 04/12/2021 Z23 Encounter for immunization Arvind Go, RPA Plan of Treatment No Information Available Functional Status Description No Information Available Mental Status Description No Information Available Referrals Description No Information Available
--- OUTSIDE RECORDS SUMMARY | 2021-04-30 22:33 | CCD ---
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 Active confirmed 076655492 Problem Elevated PSA R97.20 Active confirmed 5603974 05 Problem 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 Active confirmed 93776 01 Problem Penile irritation N48.89 Active confirmed 37 2906181 Problem Erectile dysfunction N52.9 Active confirmed 469651610 Problem Gross hematuria R31.0 Active confirmed 1979 70728 Problem Seborrheic keratoses L82.1 Active confirmed 552309091 Problem Urinary retention R33.9 Active confirmed 26 9277788 Problem Melanocytic nevi of trunk D22.5 Active confirmed 804612752 Problem Hematuria R31.9 Active confirmed 65237568 Problem Erectile dysfunction due to diseases classified elsewhere N52.1 Active confirmed 015336121 Problem Left testicular pain N50.812 Active confirmed 73500382 Problem Benign prostatic hyperplasia without lower urina ry tract symptoms N40.0 Active confirmed 981889208 ALLERGIES No Known Allergies ENCOUNTERS from 1940 to 2021-01-29 Encounter Location Date Provider Diagnosis [facility] [address] [phone] [place] [address] Jan, Willa Seals IMMUNIZATIONS No Information SOCIAL HISTORY Sex Assigned At : Social History Observation Description Sex Assigned At Unknown REASON FOR REFERRAL No Information VITAL SIGNS No information MEDICATIONS Medication SIG (Take, Route, Frequency, Duration) Notes Start Da te End Date Status Aspirin 81 81 MG 1 tablet Orally Once a day for 30 day(s) Active Finasteride 5 MG 1 tablet Orally Once a day for 90 day(s) November, Active Vitamin D 1000 UNIT 1 tablet Orally Once a day for 30 day(s) Active Flomax 0.4 MG 1 capsule Orally Once a day Sep, Active Cipro 500 MG 1 tablet 1 hr prior to your cystoscopy Orally as directe d Not-Taking Gentamicin Sulfate 40 MG/ML as directed 80 mg/2 ml Inj ection prior to MRI Fusion Bx Apr, Not-Taking Vitamin B12 100 MCG as directed Orally Active Nystatin 741092 UNIT/GM 1 application to affected area Externall y Twice a day Dec, Not-Taking Atorvastatin Calcium 20 MG 1 tablet Orally Once a day for 30 day(s) Not-Taking Omeprazole 40 MG 1 capsule Orally Once a day Sep, Not-Taking Zantac 150 MG 1 tablet at bedtime Orally twice a day 2018 Not-Taking Tums 500 MG 1 tablet Orally Once a day for 30 day(s) Active Sildenafil Citrate 100 MG 1 tablet as needed Orally Once a day Dec, Not-Taking Plavix 75 MG 1 tablet Orally Once a day Sep, Not-Taking Ramipril 5 MG 1 capsule Orally Once a day Active Pantoprazole Sodium 40 MG 1 tablet Orally Once a day for 30 day(s) Active Eliquis 5 MG as directed Orally twice daily Active PROCEDURES No Information RESULTS No Results REASON FOR VISIT appt MEDICAL (GENERAL) HISTORY Type Description Date Medical History [place] Medical History hypercholsterolemeia Medical History GERD Medical History Impotence of organic origin Medical History Impaired renal function Medical History Vitamin D Deficiency Medical History BPH Medical History Generalized Atherosclerosis Medical History Blood Poisoning Medical History Left leg and ar fx 1997 Medical History Kidney Stone Medical History TIA'S Medical History ABLASION Surgical History cataract 2008 Surgical History leg & arm surgery 1997 Surgical History T&A Surgical History Cystoscopy and Transurethral resection o f the prostate 06/2012 Surgical History Finger tip reatachment 2012 Surgical History right eye retina 2013 Surgical History mri fusion bx 04/25/16 Surgical History MRI Fusion Bx [id number] Surgical History cystoscopy 12/02/2019 Hospitalization History surgery related Hospitalization History [place] 08/08/1982 Hospitalization History Infection post-prostate biopsy 1999 Hospitalization History TIA 05/2017 Hospitalization History TIA 06/2018 Goals Section No Information Health Concerns No Information MEDICAL EQUIPMENT No Information MENTAL STATUS No Information FUNCTIONAL STATUS No Information ASSESSMENTS No Information PLAN OF TREATMENT Medication Medication Name Sig Start Date Stop Date Finasteride 5 MG 1 tablet Orally Once a day for 90 day(s) November Insurance Providers Payer Name Payer Address Payer Phone Insured Name Patient Relati onship to Insured Coverage Start Date Coverage End Date MEDICARE COMPLETE [employer] [address] [address] [facility] [id number] FREDY MENJIVAR self
--- OUTSIDE RECORDS SUMMARY | 2021-04-30 22:33 | CCD | Continuity of Care Document ---
Author Author Pacer/Icd Janes Cunningham Organization Unknown Address [address] [place] [address], [place] [address] Phone Unavailable Care Team Providers Care Detacher Name Role Phone Arvind Obrien AUTM [phone] Lobito Pelaez MD AUTM [phone] Ki Merlos MD AUTM [phone] Problems Active Problems Provider Date Coronary arteriosclerosis Iris Jones PA-C Onset: 2010 Old myocardial infarction Iris Jones PA-C Onset: 2010 Electrocardiogram abnormal Iris Jones PA-C Onset: 06/09 Pure hypercholesterolemia Iris Jones PA-C Onset: 2010 Dietary management surveillance Iris Jones PA-C Onset: 01/20/2018 Cerebral artery occlusion Iris Jones PA-C Onset: 2019 Atrial flutter Onset: 07/19/2020 Electrocardiogram abnormal Onset: 2020 Transient cerebral ischemia Onset: 07/19 Social History Type Date Description Comments Sex Unknown ETOH Use Does not consume alcohol Tobacco Use Start: Unknown End: Unknown Patient is a former smoker up to 1ppd for 25 years, quit 1982 Smoking Status Reviewed: 01/10/21 Patient is a former smoker up to 1ppd for 25 years, quit 1982 Exercise Type/Frequency Walks daily 4 hours x 5days a week, 5 to 7 miles a day Exercise Type/Frequency Does yardwork sporadical ly snow blowing and shoveling Exercise Limitations Joint Pain left knee, left ankle, right shoulder Allergies and adverse reactions Description No Known Drug Allergies Medications Active Medications SIG Qnty Indications Ordering Provide r Date Eliquis 5mg Tablets Take 1 Tablet By Mouth Twice Daily 180tabs I48.3 Ryan Brumfield MD 05/28/2020 Ramipril 2.5mg Capsules Take 1 Capsule By Mouth Every Night AT Bedtime 90caps I25.10 Ryan Brumfield MD 04/27/2020 Atorvastatin Calcium 20mg Tablets 1 by mouth every night at bedtime Unknown 04/2020 Calcium Carbonate 1250(500Ca) mg C hewtabs chew one tab as needed Unknown 0 Vitamin D (Cholecalciferol) 25mcg (1000 Ut) Tablets 1 by mouth every day Unknown 020 Pantoprazole Sodium 40mg Tablets D R 1 by mouth every day Unknown 01/18/2020 Nitrostat 0.4mg Tablets Sub 1 sl every 5min x3 as needed for chest pain 25tabs I25.10 Reji Whitehead MD 04/04/2010 Aspir-[address] 1 po qd Ryan Brumfield MD 03/22/2009 Immunizations Description No Information Available Vital Signs Date Vital Result Comment 01/10/2021 11:36am Weight 169.00 lb Home Weight 163lb Height 67 inches 5'7" BMI (Body Mass Index) 26.5 kg/m2 Heart Rate 52 /min Regular Respiratory Rate 16 /min BP Systolic Right Arm 128 mmHg sitting, regular c uff BP Diastolic Right Arm 74 mmHg sitting, regular cuff BP Systolic Left Arm 132 mmHg sitting BP Diastolic Left Arm 74 mmHg sitting 09/05/2020 11:12am Weight 173.00 lb Home Weight 168lb home weight Height 67 inches 5'7" BMI (Body Mass Index) 27.1 kg/m2 Heart Rate 76 /min Regular Respiratory Rate 16 /min BP Systolic Right Arm 124 mmHg sitting, regular c uff BP Diastolic Right Arm 74 mmHg sitting, regular cuff Results Description No Information Available Procedures Date Code Description Status 04/24/2021 57482 Implantable Loop Recorder System , Review And Report Completed 03/20/2021 41046 Implantable Loop Recorder System , Review And Report Completed 02/14/2021 34549 Implantable Loop Recorder System , Review And Report Completed 01/14/2021 28814 Implantable Loop Recorder System , Review And Report Completed 01/10/2021 45164 Office/Outpatient Established Mo d MDM 30-39 Min Completed 01/10/2021 73090 ECG 12-Lead Completed 11/09/2020 87224 Implantable Loop Recorder System , Review And Report Completed Medical Devices Description No Information Available Encounters Type Date Location Provider Dx Diagnosis Office Visit 01/10/2021 11:30a Main Office Iris Jones PA-C I25.1 0 Athscl heart disease of [place] coronary artery w/o ang pctrs I25.2 Old myocardial infarction I48.3 Typical atrial flutter I63.9 Cerebral infarction, unspeci fied 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 R94.31 Abnormal electrocardiogram [ ECG] [EKG] E78.00 Pure hypercholesterolemia, u nspecified Assessments Date Code Description Provider 04/24/2021 Z95.818 Presence of other cardiac implan ts and grafts [facility] 03/20/2021 Z95.818 Presence of other cardiac implan ts and grafts [facility] 02/14/2021 Z95.818 Presence of other cardiac implan ts and grafts [facility] 01/14/2021 Z95.818 Presence of other cardiac implan ts and grafts [facility] 01/10/2021 I25.10 Atherosclerotic heart disease of [place] coronary artery with Iris Jones PA-C 01/10/2021 I25.2 Old myocardial infarction Iris Jones PA-C 01/10/2021 I48.3 Typical atrial flutter Iris mariscal PA-C 01/10/2021 I63.9 Cerebral infarction, unspecified Iris Jones PA-C 01/10/2021 Z95.818 Presence of other cardiac implan ts and grafts GERBER WongC 01/10/2021 R94.31 Abnormal electrocardiogram [ECG] [EKG] Iris Jones PA-C 01/10/2021 E78.00 Pure hypercholesterolemia, unspe cified GERBER WongC 11/09/2020 Z95.818 Presence of other cardiac implan ts and grafts [facility] Plan of Treatment Future Appointment(s):* 05/28/2021 7:00 am - [facility] at Main Office * 07/15/2021 10:45 am - Iris Jones PA-C at Main Office 01/10/2021 - Iris Jones PA-C* I25.10 Atherosclerotic heart disease of [place] coronary artery with* New Labs:* Comprehensive Metabolic Profil, Scheduled: 01/10/21 * Complete Blood Count, Scheduled: 01/10/21 * Lipid Panel, Scheduled: 01/10/21 * I25.2 Old myocardial infarction * I48.3 Typical atrial flutter* New Labs:* Comprehensive Metabolic Profil, Scheduled: 01/10/21 * Complete Blood Count, Scheduled: 01/10/21 * Magnesium Level, Scheduled: 01/10/21 * I63.9 Cerebral infarction, unspecified * Z95.818 Presence of other cardiac implants and grafts * R94.31 Abnormal electrocardiogram [ECG] [EKG] * E78.00 Pure hypercholesterolemia, unspecified* New Labs:* Comprehensive Metabolic Profil, Scheduled: 01/10/21 * Lipid Panel, Scheduled: 01/10/21 * All * Follow up:* 6 month follow up. Functional Status Functional Condition Comment Date Status Independent with all ADL's Activ e Mental Status Description No Information Available Referrals Description No Information Available
--- OUTSIDE RECORDS SUMMARY | 2021-04-30 22:33 | CCD | Continuity of Care Document ---
Author Author Janes OBRIEN RPA Organization Unknown Address [address] [facility] [address] [place] [address] Phone [phone] Problems Active Problems Provider Date Generalized atherosclerosis [...] PO tid 100units [facility] 12/19/2019 Vitamin D 1000Unit Tablets 1 by mouth every day OTC [facility] Astorga [facility]., [facility] Pantoprazole Sodium 40mg Tablets D R Take 1 Tablet By Mouth Daily 90tabs Hola Astorga D.O., [facility] 10/12/2019 Prevnar 13 Suspension injection x 1 .500ml Hola Astorga D.O., [facility] 12/04/2017 Shingrix 50mcg Suspension Rec injection 1units Hola Astorga D.O., [facility] 12/04/2017 Viagra 100mg Tablets 1 by mouth every day as needed 14tabs Hola Astorga D.O., [facility] 03/2017 Ramipril 5mg Capsules 1 by [...] 02/05/2010 Injection (SC)/(Im) Injection Hola Astorga D.O., [facility] 05/07/2009 Immunizations CPT Code Status Date Vaccine Lot # 13087 Given 04/12/2021 Influenza Virus Vaccine, Quadrivalent, Slit Virus, Im Use 3Y & Up [id number] 93241 Given 03/13/2020 Influenza Virus Vaccine, Quadrivalent, Slit Virus, Im Use 3Y & Up [id number] 37208 Given 03/15/2019 Influenza Virus Vaccine, Quadrivalent, Slit Virus, Im Use 3Y & Up [id number] 57355 Given 04/13/2017 Influenza Virus Vaccine, Quadrivalent, Slit Virus, Im Use 3Y & Up [id number] 72179 Given 04/30/2016 Pneumococcal Immunization [id number] 78059 Given 04/30/2016 Influenza Virus Vaccine, Quadrivalent, Slit Virus, Im Use 3Y & Up [id number] 47181 Given 04/24/2010 Influenza Virus Vac. Split Virus Individuals 3 Years And Above [id number] 36966 Given 02/05/2010 Tdap Tetanus,Dip htheria Toxoids/Acellular Pertussis 7Yrs Or Older [id number] 82246 Given 05/07/2009 Influenza Virus Vac. Split Virus Individuals 3 Years And Above [id number] Vital Signs Date Vital Result Comment 04/29/2021 1:34pm BP Systolic 130 mmHg BP Diastolic 74 mmHg Body Temperature 97.0 F Heart Rate 66 /min Respiratory Rate 16 /min Height 67 inches 5'7" Weight 171.00 lb [place] Body Weight 148 lb BMI (Body Mass Index) 26.8 kg/m2 04/12/2021 9:56am BP Systolic 110 mmHg BP Diastolic 72 mmHg Body Temperature 97.2 F Heart Rate 73 /min Respiratory Rate 16 /min Height 67 inches 5'7" Weight 170.00 lb [place] Body Weight 148 lb BMI (Body Mass Index) 26.6 kg/m2 O2 % BldC Oximetry 97 % Results Test Acquired Date Facility Test Result H/L Range Note Prothrombin Time/Inr 11/08/2020 [facility] ( Interface) [phone] Prothrombin Time 13.7 seconds Normal 12.5-14.3 Inr 1.03 Normal 1 Laboratory test finding 11/08/2020 [facility] (Interface) [phone] Partial Thromboplastin Time 32.8 seconds Normal 24 .2-38.5 Cardiac Marker Panel 11/08/2020 [facility] ( Interface) [phone] CPK Creatine Phosphokinase 79 U/L Normal 39-30 8 CK-MB Value Mass 2.0 NG/ML Normal <3.6 MB/CK Relative Index 2.53 Normal < Or =4 2 Troponin I < 0.02 NG/ML Normal < 0.10 3 Liver Profile 11/08/2020 [facility] (I nterface) [phone] Ast/Sgot 16 U/L Normal 7-37 Alt/SGPT 21 U/L Normal 12-78 Alkaline Phosphatase 50 U/L Normal 45-117 Bilirubin,Total 0.3 mg/dL Normal 0.2-1.0 Bilirubin,Direct < 0.1 mg/dL Normal 0.0-0.2 Total Protein 6.3 GM/DL Low 6.4-8.2 Albumin 3.4 GM/DL Normal 3.2-5.2 Albumin/Globulin Ratio 1.2 Normal Basic Metabolic Profile 11/08/2020 [facility] (Interface) [phone] Glucose, Fasting 109 mg/dL High 70-100 Blood [...] mg/dL Normal 8.8-10.2 CBC With Differential 11/08/2020 [facility] (Interface) [phone] White Blood Count 6.2 10 Normal 4.0-10.0 [...] 36.0-66.0 Lymph % 34.9 % Normal 24.0-44.0 [place] % 13.1 % High 2.0-8.0 Eos % 3.7 % High 0.0-3.0 Baso % 0.6 % Normal 0.0-1.0 Immature Granulocyte % 0.3 % Normal 0-3.0 Nucleated Red Blood Cell % 0.0 % Normal 0-0 Neutrophils # 2.9 10 Normal 1.5-8.5 Lymph # 2.2 10 Normal 1.5-5.0 [place] # 0.8 10 Normal 0.0-0.8 Eos # 0.2 10 Normal 0.0-0.5 Baso # 0.0 10 Normal 0.0-0.2 Laboratory test finding 11/08/2020 [facility] ([facility]) [phone] Erythrocyte Sedimentation Rate 5 mm/hr Normal 0 [...] 3 Troponin I Reference Interva l for [address] LOCI: 99th Percentile= 0.00-0.045 ng/ml Risk Stratification: [...] Little GFR Left ESRD GFR <15 on CLINICAL REHABILITATION LIAISON Procedures Date Code Description Status 04/12/2021 38210 Destruction Benign L esion Other Than Skin [...]
--- OUTSIDE RECORDS SUMMARY | 2021-04-30 22:33 | CCD | Continuity of Care Document ---
Author Author Janes [facility] Organization Unknown Address [address], [address] [place] [address] Phone [phone] Care Team Providers Care Nurse Transplant Name Role Phone Arvind Obrien AUTM [phone] Problems Description No Information Available Social History Type Date Description Comments Sex Unknown ETOH Use Denies alcohol use Tobacco Use Start: Unknown End: Unknown Patient is a former smoker quit 1982 Sun Exposure minimum amount of sun exposure Sun Exposure Has never used tanning bed Sun Exposure Has experienced blistering from sunburns Sun Exposure Uses > 30 SPF Allergies, Adverse Reactions, Alerts Description No Known Drug Allergies Medications Active Medications SIG Qnty Indications Ordering Provide r Date Doxycycline Hyclate 100mg Tablets 2 tabs by mouth today 2tabs S80.862A Yoana Portillo, F.N.P. 2018 Ramipril Unknown Simvastatin Unknown Ranitidine HCL Unknown Clopidogrel Bisulfate Unknown Aspirin Unknown Vitamin D3 Unknown Tylenol Unknown Immunizations Description No Information Available Vital Signs Date Vital Result Comment 01/23/2021 5:54pm BP Systolic 122 mmHg BP Diastolic 70 mmHg Weight 166.00 lb Respiratory Rate 18 /min 02/14/2020 7:56am BP Systolic 132 mmHg BP Diastolic 66 mmHg Body Temperature 98.3 F Results Description No Information Available Procedures Date Code Description Status 01/23/2021 84459 Destruction Benign L esions Other Than Skin Tags Or Cutan Vascular Completed Medical Devices Description No Information Available Encounters Description No Information Available Assessments Date Code Description Provider 01/23/2021 L82.1 Other seborrheic keratosis Phyl ANGELO Tobar 01/23/2021 R20.8 Other disturbances of skin sensa tion ANGELO Balderas Plan of Treatment Future Appointment(s):* 01/28/2022 10:00 am - NURA Prasad at Main Office 01/23/2021 - ANGELO Balderas* L82.1 Other seborrheic keratosis* Comments: * LN2 today to 3 SK's due to tenderness.Discussed that the areas treated will get red, bubble up/blister, maybe get a little weepy, form a scab then heal. * R20.8 Other disturbances of skin sensation* Comments:* See above. * Follow up:* Yearly/PRN - [facility] Functional Status Description No Information Available Mental Status Description No Information Available Referrals Description No Information Available
--- OUTSIDE RECORDS SUMMARY | 2021-04-30 22:33 | CCD | Continuity of Care Document ---
Author Author Pacer/Icd Janes Cunningham Organization Unknown Address [address] [place] [address], [facility] [place] [address] Phone Unavailable Care Team Providers Care Tire Regrooving Machine Operator Name Role Phone Arvind Obrien AUTM [phone] Lobito Pelaez MD AUTM [phone] Ki Merlos MD AUTM [phone] Problems Active Problems Provider Date Coronary arteriosclerosis [...] Pain left knee, left ankle, right shoulder Allergies, Adverse Reactions, Alerts Description No Known Drug Allergies Medications Active Medications SIG Qnty Indications Ordering Provide r Date Eliquis 5mg Tablets 1 by mouth twice a day 180tabs I48.3 Ryan Brumfield MD 05/28/2020 Ramipril [...] Information Available Procedures Date Code Description Status 03/20/2021 12347 Implantable Loop Recorder System , Review And Report Completed 02/14/2021 52938 Implantable Loop Recorder System , Review And Report Completed 01/14/2021 50697 Implantable Loop Recorder System , Review And Report Completed 01/10/2021 36788 Office/Outpatient Established Mo d MDM 30-39 Min Completed 01/10/2021 11609 ECG 12-Lead Completed 11/09/2020 63479 Implantable Loop Recorder System , Review And Report Completed Medical Devices Description No Information Available Encounters Type Date Location Provider Dx Diagnosis Office Visit 01/10/2021 11:30a Main Office Iris Jones PA-C I25.1 0 Athscl heart disease of [place] coronary artery w/o ang pctrs I25.2 Old myocardial infarction I48.3 Typical atrial flutter I63.9 Cerebral infarction, unspeci fied 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 R94.31 Abnormal electrocardiogram [ ECG] [EKG] E78.00 Pure hypercholesterolemia, u nspecified Assessments Date Code Description Provider 03/20/2021 Z95.818 Presence of other cardiac implan ts and grafts [facility] 02/14/2021 Z95.818 Presence of other cardiac implan ts and grafts [facility] 01/14/2021 Z95.818 Presence of other cardiac implan ts and grafts [facility] 01/10/2021 I25.10 Atherosclerotic heart disease of [place] coronary artery with Iris Jones PA-C 01/10/2021 I25.2 Old myocardial infarction Iris Jones PA-C 01/10/2021 I48.3 Typical atrial flutter Iris mariscal PA-C 01/10/2021 I63.9 Cerebral infarction, unspecified GERBER WongC 01/10/2021 Z95.818 Presence of other cardiac implan ts and grafts GERBER WongC 01/10/2021 R94.31 Abnormal electrocardiogram [ECG] [EKG] Iris Jones PA-C 01/10/2021 E78.00 Pure hypercholesterolemia, unspe cified GERBER WongC 11/09/2020 Z95.818 Presence of other cardiac implan ts and grafts [facility] Plan of Treatment Future Appointment(s):* 04/23/2021 7:00 am - [facility] at Main Office * 07/15/2021 10:45 am - Iris Jones PA-C at Main Office 01/10/2021 - Iris Jones PA-C* I25.10 Atherosclerotic heart disease of [place] coronary artery with* New Labs:* Comprehensive Metabolic [...]
--- OUTSIDE RECORDS SUMMARY | 2021-04-30 22:33 | CCD | Continuity of Care Document ---
Author Author Pacer/Icd Janes Cunningham Organization Unknown Address [address] [place] [address], [facility] [place] [address] Phone Unavailable Care Team Providers Care Drafter Civil (Cad) Name Role Phone Arvind Obrien AUTM [phone] Lobito Pelaez MD AUTM [phone] Ki Merlos MD AUTM [phone] Problems Active Problems Provider Date Coronary arteriosclerosis [...] Ryan Brumfield MD 05/28/2020 Ramipril 2.5mg Capsules 1 by mouth every night at bedtime 90caps I25.10 Ryan Brumfield MD 04/27/2020 Atorvastatin [...] Information Available Procedures Date Code Description Status 02/14/2021 10624 Implantable Loop Recorder System , Review And Report Completed 01/14/2021 30803 Implantable Loop Recorder System , Review And Report Completed 01/10/2021 66328 Office/Outpatient Established Mo d MDM 30-39 Min Completed 01/10/2021 38719 ECG 12-Lead Completed 11/09/2020 05286 Implantable Loop Recorder System , Review And Report Completed 09/05/2020 22913 Office/Outpatient Established Lo w MDM 20-29 Min Completed 09/05/2020 80513 ECG 12-Lead Completed 08/28/2020 78643 Implantable Loop Recorder System , Review And Report Completed Medical Devices Description No Information Available Encounters Type Date Location Provider Dx Diagnosis Office Visit 01/10/2021 11:30a Main Office Iriskamryn Jones PA-C I25.1 0 Athscl heart disease of [place] coronary artery w/o ang pctrs I25.2 Old myocardial infarction I48.3 Typical atrial flutter I63.9 Cerebral infarction, unspeci fied 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 R94.31 Abnormal electrocardiogram [ ECG] [EKG] E78.00 Pure hypercholesterolemia, u nspecified Office Visit 09/05/2020 11:15a Main Office Iriskamryn Jones PA-C I48.3 Typical atrial flutter Assessments Date Code Description Provider 02/14/2021 Z95.818 Presence of other cardiac implan ts and grafts [facility] 01/14/2021 Z95.818 Presence of other cardiac implan ts and grafts [facility] 01/10/2021 I25.10 Atherosclerotic heart disease of [place] coronary artery with Iris Jones, PA-C 01/10/2021 I25.2 Old myocardial infarction Iris Jones, PA-C 01/10/2021 I48.3 Typical atrial flutter Iriskamryn mariscal, PA-C 01/10/2021 I63.9 Cerebral infarction, unspecified Iris Jones, PA-C 01/10/2021 Z95.818 Presence of other cardiac implan ts and grafts Iris Jiang Symmarlynw, PA-C 01/10/2021 R94.31 Abnormal electrocardiogram [ECG] [EKG] Iris Grantw, PA-C 01/10/2021 E78.00 Pure hypercholesterolemia, unspe cified Iris Jones, PA-C 11/09/2020 Z95.818 Presence of other cardiac implan ts and grafts [facility] 09/05/2020 I48.3 Typical atrial flutter Iris Kamryn Raza menow, PA-C 08/28/2020 Z95.818 Presence of other cardiac implan ts and grafts [facility] Plan of Treatment Future Appointment(s):* 03/20/2021 7:00 am - [facility] at Main Office * 07/15/2021 10:45 am - Iris Jones PA-C at Main Office 01/10/2021 - Iris Jones PA-C* I25.10 Atherosclerotic heart disease of [place] coronary artery with* New Labs:* Comprehensive Metabolic [...]
--- OUTSIDE RECORDS SUMMARY | 2021-04-30 22:33 | CCD | Continuity of Care Document ---
Author Author Janes OBRIEN RPA Organization Unknown Address [address] [facility] [address] [place] [address] Phone [phone] Problems Active Problems Provider Date Generalized atherosclerosis [...] PO tid 100units Hola J. Fish, D.O., [facility] 12/19/2019 Vitamin D 1000Unit Tablets 1 by mouth every day OTC Hola Astorga D.O., [facility] Pantoprazole Sodium 40mg Tablets D R Take 1 Tablet By Mouth Daily 90tabs Hola Astorga D.O., [facility] 10/12/2019 Prevnar 13 Suspension injection x 1 .500ml Hola Astorga D.O., [facility] 12/04/2017 Shingrix 50mcg Suspension Rec injection 1units Hola Astorga D.O., [facility] 12/04/2017 Viagra 100mg Tablets 1 by mouth every day as needed 14tabs Hola Astorga D.O., [facility] 03/2017 Ramipril 5mg Capsules 1 by mouth [...] 02/05/2010 Injection (SC)/(Im) Injection Hola Astorga D.O., [facility] 05/07/2009 Immunizations CPT Code Status Date Vaccine Lot # 12571 Given 04/12/2021 Influenza Virus Vaccine, Quadrivalent, Slit Virus, Im Use 3Y & Up [id number] 05340 Given 03/13/2020 Influenza Virus Vaccine, Quadrivalent, Slit Virus, Im Use 3Y & Up [id number] 15861 Given 03/15/2019 Influenza Virus Vaccine, Quadrivalent, Slit Virus, Im Use 3Y & Up [id number] 31961 Given 04/13/2017 Influenza Virus Vaccine, Quadrivalent, Slit Virus, Im Use 3Y & Up [id number] 10354 Given 04/30/2016 Pneumococcal Immunization [id number] 68321 Given 04/30/2016 Influenza Virus Vaccine, Quadrivalent, Slit Virus, Im Use 3Y & Up [id number] 80036 Given 04/24/2010 Influenza Virus Vac. Split Virus Individuals 3 Years And Above [id number] 60336 Given 02/05/2010 Tdap Tetanus,Dip htheria Toxoids/Acellular Pertussis 7Yrs Or Older [id number] 73769 Given 05/07/2009 Influenza Virus Vac. Split Virus Individuals 3 Years And Above [id number] Vital Signs Date Vital Result Comment 04/12/2021 9:56am BP Systolic 110 mmHg BP Diastolic 72 mmHg Body Temperature 97.2 F Heart Rate 73 /min Respiratory Rate 16 /min Height 67 inches 5'7" Weight 170.00 lb [place] Body Weight 148 lb BMI (Body Mass Index) 26.6 kg/m2 O2 % BldC Oximetry 97 % 09/07/2020 9:29am BP Systolic 130 mmHg BP Diastolic 64 mmHg Body Temperature 97.5 F Heart Rate 77 /min Respiratory Rate 16 /min Height 67 inches 5'7" Weight 175.00 lb [place] Body Weight 148 lb BMI (Body Mass Index) 27.4 kg/m2 O2 % BldC Oximetry 96 % Results Test Acquired Date Facility Test Result H/L Range Note Prothrombin Time/Inr 11/08/2020 [facility] ( Interface) [phone] Prothrombin Time 13.7 seconds Normal 12.5-14.3 Inr 1.03 Normal 1 Laboratory test finding 11/08/2020 [facility] (Interface) [phone] Partial Thromboplastin Time 32.8 seconds Normal 24 .2-38.5 Cardiac Marker Panel 11/08/2020 [facility] ( Interface) [phone] CPK Creatine Phosphokinase 79 U/L Normal 39-30 8 CK-MB Value Mass 2.0 NG/ML Normal <3.6 MB/CK Relative Index 2.53 Normal < Or =4 2 Troponin I < 0.02 NG/ML Normal < 0.10 3 Liver Profile 11/08/2020 [facility] (I nterface) [phone] Ast/Sgot 16 U/L Normal 7-37 Alt/SGPT 21 U/L Normal 12-78 Alkaline Phosphatase 50 U/L Normal 45-117 Bilirubin,Total 0.3 mg/dL Normal 0.2-1.0 Bilirubin,Direct < 0.1 mg/dL Normal 0.0-0.2 Total Protein 6.3 GM/DL Low 6.4-8.2 Albumin 3.4 GM/DL Normal 3.2-5.2 Albumin/Globulin Ratio 1.2 Normal Basic Metabolic Profile 11/08/2020 [facility] (Interface) [phone] Glucose, Fasting 109 mg/dL High 70-100 Blood [...] mg/dL Normal 8.8-10.2 CBC With Differential 11/08/2020 [facility] (Interface) [phone] White Blood Count 6.2 10 Normal 4.0-10.0 [...] 36.0-66.0 Lymph % 34.9 % Normal 24.0-44.0 Emanuel % 13.1 % High 2.0-8.0 Eos % 3.7 % High 0.0-3.0 Baso % 0.6 % Normal 0.0-1.0 Immature Granulocyte % 0.3 % Normal 0-3.0 Nucleated Red Blood Cell % 0.0 % Normal 0-0 Neutrophils # 2.9 10 Normal 1.5-8.5 Lymph # 2.2 10 Normal 1.5-5.0 Emanuel # 0.8 10 Normal 0.0-0.8 Eos # 0.2 10 Normal 0.0-0.5 Baso # 0.0 10 Normal 0.0-0.2 [facility] [phone] Erythrocyte Sedimentation Rate 5 mm/hr Normal 0 [...] 3 Troponin I Reference Interva l for [employer] LOCI: 99th Percentile= 0.00-0.045 ng/ml Risk Stratification: [...] Little GFR Left ESRD GFR <15 on FLIGHT PARAMEDIC Procedures Date Code Description Status 04/12/2021 28826 Destruction Benign L esion Other Than Skin Tags(Actinic Keratoses) Completed Medical Devices Description No Information Available Encounters Description No Information Available Assessments Date Code Description Provider 04/12/2021 B07.0 Plantar wart Arvind Obrien, [place] 04/12/2021 M67.40 Ganglion cyst Arvind Obrien RPA 04/12/2021 Z23 Encounter for immunization Arvind Go RPA Plan of Treatment Future Appointment(s):* 04/26/2021 9:30 am - Arvind Obrien RPA at [facility] Functional Status Description No Information Available Mental Status Description No Information Available Referrals Description No Information Available
--- OUTSIDE RECORDS SUMMARY | 2021-04-30 22:35 | CCD ---
Author Author [facility] Organization [facility] Address Unknown Phone Unavailable Care Team Providers Care Screedman/Laborer Name Role Phone RudywAllison Unavailable Unavailable Symenow, Allison Simmons PA Unavailable Unavailable Symenow, Allison MOSELEY Unavailable Unavailable Symenow, Allison MOSELEY Unavailable Unavailable Symenow, Allison Simmons PA Unavailable Unavailable SymenowAllison PA Unavailable Unavailable SymenowAllison PA Unavailable Unavailable SymenowAllison Unavailable Unavailable SymenowAllison PA Unavailable Unavailable Symenow, Allison Simmons PA Unavailable Unavailable SymenoAllison bal PA Unavailable Unavailable SymenoAllison bal PA Unavailable Unavailable ChenteenoAllison bal PA Unavailable Unavailable SymenoAllison bal PA Unavailable Unavailable Symenow, Allison Simmons PA Unavailable Unavailable SymenoAllison bal PA Unavailable Unavailable SymenoAllison bal PA Unavailable Unavailable SymenowAllison PA Unavailable Unavailable Symenow, Allison Simmons PA Unavailable Unavailable Symenow, Allison Iris PA Unavailable Unavailable Symenow, Allison Iris PA Unavailable Unavailable Symenow, Allison Iris PA Unavailable Unavailable Symenow, Allison Iris PA Unavailable Unavailable Symenow, Allison Iris PA Unavailable Unavailable Symenow, Allison Iris PA Unavailable Unavailable Symenow, Allison Iris PA Unavailable Unavailable Symenow, Allison Iris PA Unavailable Unavailable Symenow, Allison Iris PA Unavailable Unavailable Symenow, Allison Iris PA Unavailable Unavailable Symenow, Allison Iris PA Unavailable Unavailable Symenow, Allison Iris PA Unavailable Unavailable Symenow, Allison Iris PA Unavailable Unavailable Symenow, Allison Iris PA Unavailable Unavailable Symenow, Allison Iris PA Unavailable Unavailable Blankenship, Kaylin Maricruz PA Unavailable Unavailable Blankenship, Kaylin Maricruz PA Unavailable Unavailable Blankenship, Kaylin Maricruz PA Unavailable Unavailable Blankenship, Kaylin Maricruz PA Unavailable Unavailable Blankenship, Kaylin Maricruz PA Unavailable Unavailable Blankenship, Kaylin Maricruz PA Unavailable Unavailable Blankenship, Kaylin Maricruz PA Unavailable Unavailable Blankenship, Kaylin Maricruz PA Unavailable Unavailable Blankenship, Kaylin Maricruz PA Unavailable Unavailable Blankenship, Kaylin Maricruz PA Unavailable Unavailable Lobito Pelaez MD Unavailable Unavailable Lobito Pelaez MD Unavailable Unavailable Lobito Pelaez MD Unavailable Unavailable Lobito Pelaez MD Unavailable Unavailable Lobito Pelaez MD Unavailable Unavailable Lobito Pelaez MD Unavailable Unavailable Lobito Pelaez MD Unavailable Unavailable Lobito Pelaez MD Unavailable Unavailable Lobito Pelaez MD Unavailable Unavailable Lobito Pelaez MD Unavailable Unavailable Lobito Pelaez MD Unavailable Unavailable Lobito Pelaez MD Unavailable Unavailable Lobito Pelaez MD Unavailable Unavailable Lobito Pelaez MD Unavailable Unavailable Lobito Pelaez MD Unavailable Unavailable Lobito Pelaez MD Unavailable Unavailable Lobito Pelaez MD Unavailable Unavailable Lobito Pelaez MD Unavailable Unavailable Lobito Pelaez MD Unavailable Unavailable Lobito Pelaez MD Unavailable Unavailable Lobito Pelaez MD Unavailable Unavailable Lobito Pelaez MD Unavailable Unavailable Lobito Pelaez MD Unavailable Unavailable Lobito Pelaez MD Unavailable Unavailable Lobito Pelaez MD Unavailable Unavailable Lobito Pelaez MD Unavailable Unavailable Lobito Pelaez MD Unavailable Unavailable Lobito Pelaez MD Unavailable Unavailable Lobito Pelaez MD Unavailable Unavailable Lobito Pelaez MD Unavailable Unavailable Lobito Pelaez MD Unavailable Unavailable Lobito Pelaez MD Unavailable Unavailable Lobito Pelaez MD Unavailable Unavailable Lobito Pelaez MD Unavailable Unavailable Lobito Pelaez MD Unavailable Unavailable Lobito Pelaez MD Unavailable Unavailable Lobito Pelaez MD Unavailable Unavailable Lobito Pelaez MD Unavailable Unavailable Lobito Pelaez MD Unavailable Unavailable Lobito Pelaez MD Unavailable Unavailable Lobito Pelaez MD Unavailable Unavailable Lobito Pelaez MD Unavailable Unavailable Lobito Pelaez MD Unavailable Unavailable Lobito Pelaez MD Unavailable Unavailable Lobito Pelaez MD Unavailable Unavailable Lobito Pelaez MD Unavailable Unavailable Lobito Pelaez MD Unavailable Unavailable Lobito Pelaez MD Unavailable Unavailable Lobito Pelaez MD Unavailable Unavailable Lobito Pelaez MD Unavailable Unavailable MigKi alfred MD Unavailable Unavaila ble MigeedKi MD Unavailable Unavaila ble MigeedKi MD Unavailable Unavaila ble MigeedKi MD Unavailable Unavaila ble MigeedKi MD Unavailable Unavaila ble MigeedKi MD Unavailable Unavaila ble MigeedKi MD Unavailable Unavaila ble MigeedKi MD Unavailable Unavaila ble MigeedKi MD Unavailable Unavaila ble MigeedKi MD Unavailable Unavaila ble MigeedKi MD Unavailable Unavaila ble MigeedKi MD Unavailable Unavaila ble MigeedKi MD Unavailable Unavaila ble MigeedKi MD Unavailable Unavaila ble MigeedKi MD Unavailable Unavaila alina MigKi alfred MD Unavailable Unavaila ble MigKi alfred MD Unavailable Unavaila ble MigeedKi MD Unavailable Unavaila alina MigeedKi MD Unavailable Unavaila ble MigeedKi MD Unavailable Unavaila ble MigeedKi MD Unavailable Unavaila ble MigeedKi MD Unavailable Unavaila ble MigeedKi MD Unavailable Unavaila ble MigeedKi MD Unavailable Unavaila ble MigeedKi MD Unavailable Unavaila ble MigeedKi MD Unavailable Unavaila ble MigeedKi MD Unavailable Unavaila ble MigeedKi MD Unavailable Unavaila ble MigeedKi MD Unavailable Unavaila ble MigeedKi MD Unavailable Unavaila ble MigeedKi MD Unavailable Unavaila ble MigeedKi MD Unavailable Unavaila ble MigeedKi MD Unavailable Unavaila ble MigeedKi MD Unavailable Unavaila ble MigeedKi MD Unavailable Unavaila ble MigeedKi MD Unavailable Unavaila ble MigeedKi MD Unavailable Unavaila ble MigeedKi MD Unavailable Unavaila ble MigeedKi MD Unavailable Unavaila ble MigeedKi MD Unavailable Unavaila ble MigeedKi MD Unavailable Unavaila ble MigeedKi MD Unavailable Unavaila ble MigeedKi MD Unavailable Unavaila ble MigeedKi MD Unavailable Unavaila ble MigeedKi MD Unavailable Unavaila ble MigeedKi MD Unavailable Unavaila ble MigeedKi MD Unavailable Unavaila ble MigeedKi MD Unavailable Unavaila ble MigeedKi MD Unavailable Unavaila ble TOWNSEND, Jeanmarie EDWARD RPA Unavailable Unavailable TOWNSEND, G EDWARD RPA Unavailable Unavailable TOWNSEND, G EDWARD RPA Unavailable Unavailable TOWNSEND, G EDWARD RPA Unavailable Unavailable TOWNSEND, G EDWARD RPA Unavailable Unavailable TOWNSEND, G EDWARD RPA Unavailable Unavailable TOWNSEND, G EDWARD RPA Unavailable Unavailable TOWNSEND, G EDWARD RPA Unavailable Unavailable TOWNSEND, G EDWARD RPA Unavailable Unavailable TOWNSEND, G EDWARD RPA Unavailable Unavailable TOWNSEND, G EDWARD RPA Unavailable Unavailable TOWNSEND, G EDWARD RPA Unavailable Unavailable TOWNSEND, G EDWARD RPA Unavailable Unavailable TOWNSEND, G EDWARD RPA Unavailable Unavailable TOWNSEND, G EDWARD RPA Unavailable Unavailable TOWNSEND, G EDWARD RPA Unavailable Unavailable TOWNSEND, G EDWARD RPA Unavailable Unavailable TOWNSEND, G EDWARD RPA Unavailable Unavailable TOWNSEND, G EDWARD RPA Unavailable Unavailable TOWNSEND, G EDWARD RPA Unavailable Unavailable TOWNSEND, G EDWARD RPA Unavailable Unavailable TOWNSEND, G EDWARD RPA Unavailable Unavailable TOWNSEND, G EDWARD RPA Unavailable Unavailable TOWNSEND, G EDWARD RPA Unavailable Unavailable TOWNSEND, G EDWARD RPA Unavailable Unavailable TOWNSEND, G EDWARD RPA Unavailable Unavailable TOWNSEND, G EDWARD RPA Unavailable Unavailable TOWNSEND, G EDWARD RPA Unavailable Unavailable TOWNSEND, G EDWARD RPA Unavailable Unavailable TOWNSEND, G EDWARD RPA Unavailable Unavailable TOWNSEND, G EDWARD RPA Unavailable Unavailable TOWNSEND, G EDWARD RPA Unavailable Unavailable TOWNSEND, G EDWARD RPA Unavailable Unavailable TOWNSEND, G EDWARD RPA Unavailable Unavailable TOWNSEND, G EDWARD RPA Unavailable Unavailable ANTECOL, Gerhard PATEL MD Unavailable Unavailable ANTECOL, Gerhard PATEL MD Unavailable Unavailable ANTECOL, Gerhard PATEL MD Unavailable Unavailable ANTECOL, Gerhard PATEL MD Unavailable Unavailable ANTECOL, Gerhard PATEL MD Unavailable Unavailable ANTECOL, Gerhard PATEL MD Unavailable Unavailable ANTECOL, Gerhard PATEL MD Unavailable Unavailable ANTECOLGerhard MD Unavailable Unavailable ANTECOL, Gerhard PATEL MD Unavailable Unavailable ANTECOLGerhard MD Unavailable Unavailable ANTECOL, Gerhard PATEL MD Unavailable Unavailable ANTECOL, Gerhard PATEL MD Unavailable Unavailable ANTECOL, Gerhard PATEL MD Unavailable Unavailable ANTECOLGerhard MD Unavailable Unavailable ANTECOLGerhard MD Unavailable Unavailable ANTECOLGerhard MD Unavailable Unavailable ANTECOLGerhard MD Unavailable Unavailable ANTECOLGerhard MD Unavailable Unavailable ANTECOLGerhard MD Unavailable Unavailable ANTECOL, Gerhard PATEL MD Unavailable Unavailable ANTECOL, Gerhard PATEL MD Unavailable Unavailable ANTECOL, Gerhard PATEL MD Unavailable Unavailable ANTECOL, Gerhard PATEL MD Unavailable Unavailable ANTECOLGerhard MD Unavailable Unavailable ANTECOL, Gerhard PATEL MD Unavailable Unavailable ANTECOL, Gerhard PATEL MD Unavailable Unavailable ANTECOLGerhard MD Unavailable Unavailable ANTECOL, Gerhard PATEL MD Unavailable Unavailable ANTECOL, Gerhard PATEL MD Unavailable Unavailable ANTECOL, Gerhard PATEL MD Unavailable Unavailable ANTECOL, Gerhard PATEL MD Unavailable Unavailable ANTECOL, Gerhard PATEL MD Unavailable Unavailable ANTECOL, Gerhard PATEL MD Unavailable Unavailable ANTECOL, Gerhard PATEL MD Unavailable Unavailable ANTECOL, Gerhard PATEL MD Unavailable Unavailable ANTECOL, Gerhard PATEL MD Unavailable Unavailable ANTECOL, Gerhard PATEL MD Unavailable Unavailable ANTECOL, Gerhard PATEL MD Unavailable Unavailable ANTECOL, Gerhard PATEL MD Unavailable Unavailable ANTECOL, Gerhard PATEL MD Unavailable Unavailable ANTECOL, Gerhard PATEL MD Unavailable Unavailable ANTECOL, Gerhard PATEL MD Unavailable Unavailable ANTECOL, Gerhard PATEL MD Unavailable Unavailable ANTECOL, Gerhard PATEL MD Unavailable Unavailable ANTECOL, Gerhard PATEL MD Unavailable Unavailable ANTECOL, Gerhard PATEL MD Unavailable Unavailable ANTECOL, Gerhard PATEL MD Unavailable Unavailable ANTECOL, Gerhard PATEL MD Unavailable Unavailable ANTECOL, Gerhard PATEL MD Unavailable Unavailable ANTECOL, Gerhard PATEL MD Unavailable Unavailable ANTECOL, Gerhard PATEL MD Unavailable Unavailable ANTECOL, Gerhard PATEL MD Unavailable Unavailable ANTECOL, Gerhard PATEL MD Unavailable Unavailable ANTECOL, Gerhard PATEL MD Unavailable Unavailable Camille, D Arvind PA Unavailable Unavailable Camille, D Arvind PA Unavailable Unavailable Camille, D Arvind PA Unavailable Unavailable Camille, D Arvind PA Unavailable Unavailable Camille, D Arvind PA Unavailable Unavailable Camille, D Arvind PA Unavailable Unavailable Camille, D Arvind PA Unavailable Unavailable Camille, D Arvind PA Unavailable Unavailable Camille, D Arvind PA Unavailable Unavailable Camille, D Arvind PA Unavailable Unavailable Camille, D Arvind PA Unavailable Unavailable Camille, D Arvind PA Unavailable Unavailable Camille, D Arvind PA Unavailable Unavailable Camille, D Arvind PA Unavailable Unavailable Camille, D Arvind PA Unavailable Unavailable Camille, D Arvind PA Unavailable Unavailable Camille, D Arvind PA Unavailable Unavailable Camille, D Arvind PA Unavailable Unavailable Camille, D Arvind PA Unavailable Unavailable Camille, D Arvind PA Unavailable Unavailable Camille, D Arvind PA Unavailable Unavailable Camille, D Arvind PA Unavailable Unavailable Camille, D Arvind PA Unavailable Unavailable Camille, D Arvind PA Unavailable Unavailable Camille, D Arvind PA Unavailable Unavailable Camille, D Arvind PA Unavailable Unavailable Camille, D Arvind PA Unavailable Unavailable Camille, D Arvind PA Unavailable Unavailable Camille, D Arvind PA Unavailable Unavailable Camille, D Arvind PA Unavailable Unavailable Camille, D Arvind PA Unavailable Unavailable Camille, D Arvind PA Unavailable Unavailable Camille, D Arvind PA Unavailable Unavailable Camille, D Arvind PA Unavailable Unavailable Camille, D Arvind PA Unavailable Unavailable Camille, D Arvind PA Unavailable Unavailable Camille, D Arvind PA Unavailable Unavailable Camille, D Arvind PA Unavailable Unavailable Camille, D Arvind PA Unavailable Unavailable Camille, D Arvind PA Unavailable Unavailable Camille, D Arvind PA Unavailable Unavailable Camilel, D Arvind PA Unavailable Unavailable Camille, D Arvind PA Unavailable Unavailable Camille, D Arvind PA Unavailable Unavailable Camille, D Arvind PA Unavailable Unavailable Camille, D Arvind PA Unavailable Unavailable Camille, D Arvind PA Unavailable Unavailable Camille, D Arvind PA Unavailable Unavailable Camille, D Arvind PA Unavailable Unavailable Camille, D Arvind PA Unavailable Unavailable Camille, D Arvind PA Unavailable Unavailable Camille, D Arvind PA Unavailable Unavailable Camille, D Arvind PA Unavailable Unavailable Camille, D Arvind PA Unavailable Unavailable Camille, D Arvind PA Unavailable Unavailable Camille, D Arvind PA Unavailable Unavailable Camille, D Arvind PA Unavailable Unavailable Camille, D Arvind PA Unavailable Unavailable Cmaille, D Arvind PA Unavailable Unavailable Camille, D Arvind PA Unavailable Unavailable Camille, D Arvind PA Unavailable Unavailable Camille, D Arvind PA Unavailable Unavailable Camille, D Arvind PA Unavailable Unavailable Camille, D Arvind PA Unavailable Unavailable Camille, D Arvind PA Unavailable Unavailable Camille, D Arvind PA Unavailable Unavailable Camille, D Arvind PA Unavailable Unavailable Loveless, A Eva GUARD RAIL INSTALLER Unavailable Unavailable Loveless, A Eva GUARD RAIL INSTALLER Unavailable Unavailable Loveless, A Eva GUARD RAIL INSTALLER Unavailable Unavailable Loveless, A Eva GUARD RAIL INSTALLER Unavailable Unavailable Loveless, A Eva GUARD RAIL INSTALLER Unavailable Unavailable Loveless, A Eva GUARD RAIL INSTALLER Unavailable Unavailable Loveless, A Eva GUARD RAIL INSTALLER Unavailable Unavailable Loveless, A Eva GUARD RAIL INSTALLER Unavailable Unavailable Loveless, A Eva GUARD RAIL INSTALLER Unavailable Unavailable Loveless, A Eva GUARD RAIL INSTALLER Unavailable Unavailable Loveless, A Eva GUARD RAIL INSTALLER Unavailable Unavailable Loveless, A Eva GUARD RAIL INSTALLER Unavailable Unavailable Loveless, A Eva GUARD RAIL INSTALLER Unavailable Unavailable Loveless, A Eva GUARD RAIL INSTALLER Unavailable Unavailable Loveless, A Eva GUARD RAIL INSTALLER Unavailable Unavailable Loveless, A Eva GUARD RAIL INSTALLER Unavailable Unavailable Loveless, A Eva GUARD RAIL INSTALLER Unavailable Unavailable Loveless, A Eva GUARD RAIL INSTALLER Unavailable Unavailable Loveless, A Eva GUARD RAIL INSTALLER Unavailable Unavailable Loveless, A Eva GUARD RAIL INSTALLER Unavailable Unavailable Loveless, A Eva GUARD RAIL INSTALLER Unavailable Unavailable Loveless, A Eva GUARD RAIL INSTALLER Unavailable Unavailable Loveless, A Eva GUARD RAIL INSTALLER Unavailable Unavailable Loveless, A Eva GUARD RAIL INSTALLER Unavailable Unavailable Loveless, A Eva GUARD RAIL INSTALLER Unavailable Unavailable Loveless, A Eva GUARD RAIL INSTALLER Unavailable Unavailable Loveless, A Eva GUARD RAIL INSTALLER Unavailable Unavailable Loveless, A Eva GUARD RAIL INSTALLER Unavailable Unavailable Loveless, A Eva GUARD RAIL INSTALLER Unavailable Unavailable Loveless, A Eva GUARD RAIL INSTALLER Unavailable Unavailable Loveless, A Eva GUARD RAIL INSTALLER Unavailable Unavailable Re-disclosure Warning The records that you are about to access may contain information from federally-assisted alcohol or drug abuse programs. If such information is present, then the following federally mandated warning applies: This information has been disclosed to you from records protected by federal confidentiality rules (42 CFR part 2). The federal rules prohibit you from making any further disclosure of this information unless further disclosure is expressly permitted by the written consent of the person to whom it pertains or as otherwise permitted by 42 CFR part 2. A general authorization for the release of medical or other information is NOT sufficient for this purpose. The Federal rules restrict any use of the information to criminally investigate or prosecute any alcohol or drug abuse patient.The records that you are about to access may contain highly sensitive health information, the redisclosure of which is protected by Article 27-F of the [facility] Public Health law. If you continue you may have access to information: Regarding HIV / AIDS; Provided by facilities licensed or operated by the [facility] Office of Mental Health; or Provided by the [facility] Office for People With Developmental Disabilities. If such information is present, then the following [facility] mandated warning applies: This information has been disclosed to you from confidential records which are protected by state law. State law prohibits you from making any further disclosure of this information without the specific written consent of the person to whom it pertains, or as otherwise permitted by law. Any unauthorized further disclosure in violation of state law may result in a fine or mcfp sentence or both. A general authorization for the release of medical or other information is NOT sufficient authorization for further disc losure. Allergies and Adverse Reactions Type Description Substance Reaction Status Data Source(s ) Propensity to adverse reactions NO KNOWN ALLERGIES NO KNOWN ALLERGIES [facility] Family History Family Member Name Family Member Gender Family Member Status Date o f Status Description Data Source(s) Unknown Unknown Problem MEDENT ([facility] Unknown Unknown Problem [facility]ENT ([facility]) Unknown Unknown Problem [facility] ([facility] Unknown Male Problem MEDENT ([facility]) Encounters Encounter Providers Location Date Indications Data Source(s ) Outpatient Attender: Germaine Merlos MDAdmitter: Germaine velez MD ES1-[email or web address].CVAU 04/30/2021 07:49:00 AM EDT - 04/30/2021 04:50:00 PM EDT [facility] Patient discharged. Outpatient Attender: Germaine Merlos MDReferrer: Germaine MORE.PAT 04/25/2021 09:42:31 AM EDT - 04/25/2021 10:54:36 AM EDT [facility] Outpatient Referrer: Germaine MORE.PAT 09:26:12 AM EDT - 04/25/2021 09:26:21 AM EDT [facility] Outpatient Attender: SOLIS TOWNSEND RPA 02/09 09:03:09 AM EDT - 02/09/2021 09:36:49 AM EDT [facility] ([facility] ) [place] [address] [facility] [facility] [address] 01/29/2021 12:00:00 AM EDT eCW1 ([facility]) Outpatient Attender: Germaine Merlos MDAdmitter: Germaine velez MD [id number].CVLISSETH 01/14/2021 07:54:21 AM EDT [facility] Outpatient Attender: Iris MOSELEY Main Office 01/10/2021 11:30:00 AM EDT MEDENT ([facility]) Outpatient Attender: Germaine Merlos MDAdmitter: Germaine velez MD ES1-SJ.CVAU 12/20/2020 10:49:56 AM EDT [facility] Outpatient Attender: Germaine Merlos MDAdmitter: Germaine velez MD ES1-SJ.CVAU 12/05/2020 12:13:05 PM EDT [facility] Unknown [address] [facility] [address] 11/15/2020 12:00:00 AM EDT eCW1 ([facility]) Outpatient [address] [facility] [place] [address] 11/14/2020 12:00:00 AM EDT eCW1 ([facility]) Outpatient Attender: Maricruz Land essie 09/25/2020 08:50:00 AM EDT MEDENT ([facility]) Outpatient Attender: Iris MOSELEY Main Office 09/05/2020 10:15:00 AM EST [facility] ([facility]) [place] [address] [place] [address] 08/24/2020 12:00:00 AM EST eCW1 ([facility]) Outpatient Attender: Germaine Merlos MDAdmitter: Germaine velez MD ES1-SJ.CVAU 08/20/2020 05:39:00 AM EST - 08/20/2020 01:30:00 PM EST [facility] Patient discharged. Outpatient Referrer: Germaine Merlos MD MOB-MOB.PAT 04/2021 09:07:42 AM EST - 08/15/2020 09:07:46 AM EST [facility] Outpatient [address] [place] [address] 08/10/2020 12:00:00 AM EST eCW1 ([facility]) Unknown [address] [place] [address] 08/01/2020 12:00:00 AM EST eCW1 ([facility]) Outpatient Attender: Arvind MOSELEY [place] Office 09:40:00 AM EST MEDENT ([facility] Outpatient Attender: rIis MOSELEY Main Office 07/23/2020 12:00:00 PM EST MEDENT ([facility]) Outpatient Attender: Lobito Pelaez MD Main office - [place] 07/13/2020 12:45:00 PM EST MEDENT ([facility] Outpatient [address] [facility], [facility] [address] 07/04/2020 12:00:00 AM EST [facility]CW1 [facility] (Cysto1) Urology [address] [place] [address] 06/04/2020 12:00:00 AM EST eCW1 ([facility] Outpatient Attender: Arvind MOSELEY [place] Office 10:00:00 AM EST [facility] ([facility] Outpatient Attender: JORGE BRUMFIELD MD Main Office 05/28/2020 07:15:00 AM EST MEDENT ([facility]) Outpatient Attender: Arvind MOSELEY [place] Office 08:15:00 AM EST [facility] ([facility] [place] [address] [facility] [address] [place] [address] 05/15/2020 12:00:00 AM EST eCW1 ([facility] Outpatient Attender: Arvind MOSELEY [place] Office 12/2019 12:00:00 PM EST [facility] ([facility] Unknown [address] [facility] [facility] [address] 05/10/2020 12:00:00 AM EST eCW1 ([facility]) Outpatient Attender: Arvind MOSELEY [place] Office 10/2019 10:00:00 AM EST [facility] ([facility] [place] [address] [facility] [address] [place] [address] 05/07/2020 12:00:00 AM EST eCW1 ([facility]) Unknown [address] [facility] [address] 05/07/2020 12:00:00 AM EST eCW1 ([facility]) [place] [address] [facility] [address] 04/23/2020 12:00:00 AM EDT eCW1 ([facility]) Outpatient Attender: Arvind MOSELEY [place] Office 06/2020 03:45:00 PM EDT MEDENT ([facility] Outpatient Attender: Arvind MOSELEY [place] Office 01/2020 02:00:00 PM EDT MEDENT ([facility] Outpatient Attender: Eva Lopes NP [id number] 03/15/2020 12:00:00 AM EDT - 03/15/2020 02:30:32 PM EDT 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 IIV4 04/12/2021 09:55:00 AM EDT completed [facility] ([facility] 207 10/09/2020 12:00:00 AM EDT completed <td I D="[id number]">Covid-19 (Moderna)</td><td>10/09/2020, 09/07/2020</td><td></td> [facility] COVID-19 VACCINE Moderna 10/09/2020 12:00:00 AM EDT completed [employer] Vaccine Series Complete: YESThis Data wa s Submitted to [facility] Via [employer]. COVID-19 VACCINE, [id number], LNP-S (MODERNA)/PF 10/09/2020 1 2:00:00 AM EDT completed [facility] 207 09/07/2020 12:00:00 AM EST completed <td I D="[id number]">Covid-19 (Moderna)</td><td>10/09/2020, 09/07/2020</td><td></td> [facility] COVID-19 VACCINE Moderna 09/07/2020 12:00:00 AM EST completed [facility] Vaccine Series Complete: NOThis Data was Submitted to [facility]. COVID-19 VACCINE, MRNA-1273, LNP-S (MODERNA)/PF 09/07/2020 1 2:00:00 AM EST completed [facility] New in 2013. IIV4 03/13/2020 09:37:00 AM EDT completed MEDENT ([facility] Medications Medication Brand Name Start Date Product Form Dose Route Admi nistrative Instructions Pharmacy Instructions Status Indications Reaction Description Data Source(s) Finasteride 5 MG Oral Tablet Finasteride 5 MG 11/14/2020 12:00:00 A M EDT 1.0 {tablet} active Finasteride 5 MG eCW1 ( [facility]) Finasteride 5 MG Oral Tablet Finasteride 5 MG 11/14/2020 12:00:00 A M EDT 1.0 {tablet} active Finasteride 5 MG eCW1 ( [facility]) Finasteride 5 MG Oral Tablet Finasteride 5 MG 11/14/2020 12:00:00 A M EDT 1.0 {tablet} active Finasteride 5 MG eCW1 ( [facility]) lidocaine (PF) (XYLOCAINE-MPF) 1 % injection [id number] 07:53:26 AM EST active As needed, Start ing Thu08/20/20 at 0753, Intra-Procedure [facility] Medication administered onsite 2 ML Midazolam 1 MG/ML Injection midazolam (VERSED) in jection midazolam (VERSED) injection 08/20/2020 07:40:44 AM EST active As needed, Starting Thu08/20/20 at 0740, Intra-Procedure [facility] Medication administered onsite fentaNYL Citrate (PF) (SUBLIMAZE) injection 3056-6406-03 08/20/2020 07:40:36 AM EST active As neede d, Starting 08/20/20 at 0740, Intra-Procedure [facility] Medication administered onsite Doxycycline Monohydrate 100 MG Oral Capsule Doxycycline Pocahontas hydrate 07/30/2020 12:00:00 AM EST ORAL completed [facility] ([facility] apixaban 5 MG Oral Tablet [Eliquis] Eliquis 05/28/2020 12:00:00 AM EST active [facility] ([facility]) Acetaminophen 300 MG / butalbital 50 MG / Caffeine 40 MG Oral Capsule [Fioricet] Fioricet 05/11/2020 12:00:00 AM EST active MED[facility] ([facility] Ciprofloxacin 500 MG Oral Tablet Ciprofloxacin HCL 05/09/2020 12:00 :00 AM EST ORAL completed [facility] ([facility] Ramipril 2.5 MG Oral Capsule Ramipril 04/27/2020 12:00:00 AM EDT active MED[facility] ([facility]) Bardia Leg Bag 04/23/2020 12:00:00 AM EDT com pleted MEDENT ([facility] Sulfamethoxazole 800 MG / Trimethoprim 160 MG Oral Tablet [B actrim] Bactrim DS 04/16/2020 12:00:00 AM EDT ORAL completed MED[facility] ([facility] Fluconazole 150 MG Oral Tablet [Diflucan] Diflucan 04/16/2020 1 2:00:00 AM EDT ORAL completed [facility] ([facility] Clotrimazole 10 MG/ML Topical Cream Clotrimazole 03/13/2020 12:00:00 AM EDT active MEDENT ([facility] Oxybutynin chloride 5 MG Oral Tablet Oxybutynin Chloride 02/2020 12:00:00 AM EDT ORAL completed MED[facility] ([facility] atorvastatin 20 MG Oral Tablet Atorvastatin Calcium 20 MG Oral Tablet (LIPITOR) Atorvastatin Calcium 20 MG Oral Tablet (LIPITOR) 01/17/2020 12:00:00 AM EDT 20 mg Oral active Take 1 tablet by mouth e [facility] atorvastatin 20 MG Oral Tablet Atorvastatin Calcium 20 MG Oral Tablet (LIPITOR) Atorvastatin Calcium 20 MG Oral Tablet (LIPITOR) 12/12/2019 12:00:00 AM EDT 20 mg Oral active Take 1 tablet by mouth e [facility] Insurance Providers Payer name Policy type / Coverage type Policy ID Covered alliance party ID Covered alliance party's relationship to villa Policy Villa Plan Information UHC UNITED MEDICARE COMPLETE G [id number] Self [id number] [facility] - Medicare Blue Ppo Commercial [id number] Self [facility] Medicare Blue U/W Commercial [id number] Self [id number] [facility] Medicare Blue U/W Commercial [id number] Self [facility] Medicare Blue U/W Commercial [id number] Self [id number] [facility] Medicare Blue U/W Commercial [id number] Self [id number] [facility] Medicare Blue U/W Commercial [id number] Self [id number] [employer] Commercial [id number] Self [id number] [employer] Commercial [id number] Self [facility] MEDICARE [id number] 1 [facility] MEDICARE [id number] Chyna [id number] [facility] Commercial [id number] Self [facility] Commercial [id number] Self [id number] MEDICARE COMPLETE [id number] UHC UNITED MEDICARE COMPLETE G [id number] Self [id number] Medicare Advantage Medigap Part B [id number] Self [id number] Medicare Advantage Commercial [id number] Self [id number] MEDICARE COMPLETE [id number] SP [id number] [facility] MEDICARE [id number] xxxxxxxxx [id number] [facility] MEDICARE [id number] Chyna [id number] INSURANCE COVID-19 COVID Chyna C OVID [employer] [id number] Self [id number] INSURANCE COVID-19 [id number] xOVID 2 [id number] INSURANCE COVID-19 COVID [facility] C OVID [facility] Commercial [id number] Self [id number] MEDICARE [id number] SP [id number] A [facility] Commercial [id number] Self [id number] [facility] Commercial [id number] Self [id number] MEDICARE COMPLETE-[facility] O [id number] S [id number] [facility] Commercial [id number] Self [facility] O [id number] S [id number] MEDICARE COMPLETE [id number] SP [id number] MEDICARE COMPLETE [id number] SP [id number] [employer] P [id number] S [id number] [employer] P [id number] S [id number] MEDICARE COMPLETE [id number] SP [id number] MEDICARE COMPLETE [id number] SP [id number] MEDICARE COMPLETE-[facility] O [id number] S [id number] [facility] [id number] Self [id number] ANS-Medicare Part B [id number] ANSI-Medicare Part B [id number] ANS-Medicare Part B [id number] ANSI-Medicare Part B [id number] [employer] Medicare Commercial [id number] Self [id number] [facility] [employer] Commercial [id number] Self [id number] [facility] Commercial [id number] Self [id number] ANS-Medicare Part B [id number] ANSI-Medicare Part B [id number] ANSI-Medicare Part B [id number] ANSI-Medicare Part B [id number] ANSI-Medicare Part B [id number] ANSI-Medicare Part B [id number] ANSI-Medicare Part B [id number] ANSI-Medicare Part B [id number] ANSI-Medicare Part B [id number] [facility]) Commercial [id number] Self [id number] [facility]) Commercial [id number] Self [id number] [facility]/Medicare Solu Commercial [id number] Self [id number] [facility]/Medicare Solu Commercial [id number] Self [id number] Problems, Conditions, and Diagnoses Code Display Name Description Problem Type Effective Dates Data Source(s) I48.0 Paroxysmal atrial fibrillation Paroxysmal atrial fibri llation Diagnosis 04/30/2021 07:49:00 AM EDT [facility] U07.1 COVID-19 COVID-19 Diagnosis 04/25/2021 09:26:12 AM ED T [facility] I48.4 Atypical atrial flutter Atypical atrial flutter Diagno sis 02/13/2021 10:06:37 AM EDT [facility] I48.3 Typical atrial flutter Typical atrial flutter Diagnosi s 12/14/2020 08:17:40 AM EDT [facility] I63.50 Cerebral infarction due to u nspecified occlusion or stenosis of unspecified cerebral artery Cerebral infarction due to unspecified o cclusion or stenosis of unspecified cerebral artery Diagnosis 03/16/2020 11:13:59 AM EDT [facility] I48.3 Typical atrial flutter Typical atrial flutter [id number] 08/03/2020 12:00:00 AM EST [facility] [id number] Transient cerebral ischemia Transient cerebral ischemi a Problem 07/19/2020 12:00:00 AM EST MED[facility] ([facility]) [id number] Electrocardiogram abnormal Electrocardiogram abnormal Problem 07/19/2020 12:00:00 AM EST MED[facility] ([facility]) [id number] Atrial flutter Atrial flutter Problem 07/19/2020 12:00: 00 AM EST MED[facility] ([facility]) [id number] Paroxysmal atrial fibrillation Paroxysmal atrial fibri llation Problem 07/13/2020 12:00:00 AM EST MEDENT ([facility], ) R33.9 Urinary retention Urinary retention Problem 05/07/2020 12:00:00 AM EST eCW1 ([facility]) Surgeries/Procedures Procedure Description Date Indications Data Source(s) ECG ROUTINE ECG W/LEAST 12 LDS TRCG ONLY W/O I&R <td>E CG 12- LEAD</td><td>Routine</td><td>04/25/2021 10:46 AM EDT</td><td> Paroxysmal atrial fibrillation</td><td></td> 04/25/2021 10:46:53 AM EDT Paroxysmal atrial fibrillation [facility] Paroxysmal atrial fibrillation BLOOD COUNT COMPLETE AUTOMATED <td>CBC</td><td>Routine </td><td>04/25/2021 10:40 AM EDT</td><td> Paroxysmal atrial fibrillation</td><td> </td> 04/25/2021 10:40:00 AM EDT Paroxysmal atrial fibrillation [facility] Paroxysmal atrial fibrillation BLOOD TYPING ABO <td>TYPE AND SCREEN</td><td> Routine</td><td>04/25/2021 10:40 AM EDT</td><td> Paroxysmal atrial fibrillation</td><td> </td> 04/25/2021 10:40:00 AM EDT Paroxysmal atrial fibrillation [facility] Paroxysmal atrial fibrillation BASIC METABOLIC PANEL CALCIUM TOTAL <td>BASIC METABOLI C PANEL</td><td>Routine</td><td>04/25/2021 10:40 AM EDT</td><td> Paroxysmal atrial fibrillation</td><td> </td> 04/25/2021 10:40:00 AM EDT Paroxysmal atrial fibrillation [facility] Paroxysmal atrial fibrillation Implantable Loop Recorder System, Review And Report 04/24/2021 12:00:00 AM EDT MEDENT ([facility]) Destruction Benign Lesion Other Than Skin Tags(Actinic Kerat oses) 04/12/2021 12:00:00 AM EDT [facility] ([facility] Implantable Loop Recorder System, Review And Report 03/20/2021 12:00:00 AM EDT [facility] ([facility]) Implantable Loop Recorder System, Review And Report 02/14/2021 12:00:00 AM EDT [facility] ([facility]) DESTRUCTION BENIGN LESIONS UP TO 14 01/23/2021 12:00:0 0 AM EDT MEDENT ([facility]) Implantable Loop Recorder System, Review And Report 01/14/2021 12:00:00 AM EDT [facility] ([facility]) ECG ROUTINE ECG W/LEAST 12 LDS W/I&R 01/10/2021 12:00: 00 AM EDT MED[facility] ([facility]) OFFICE OUTPATIENT VISIT 25 MINUTES 01/10/2021 12:00:00 AM EDT MED[facility] ([facility]) Implantable Loop Recorder System, Review And Report 11/09/2020 12:00:00 AM EDT [facility] ([facility]) ECG ROUTINE ECG W/LEAST 12 LDS W/I&R 09/05/2020 12:00: 00 AM EST [facility] ([facility]) OFFICE OUTPATIENT VISIT 15 MINUTES 09/05/2020 12:00:00 AM EST [facility] ([facility]) Implantable Loop Recorder System, Review And Report 08/28/2020 12:00:00 AM EST [facility] ([facility]) EP STUDY <td>EP STUDY</td><td>Routine </td><td>08/20/2020 8:18 AM EST</td><td> Typical atrial flutter</td><td> </td> 08/20/2020 01:18:29 PM EST Typical atrial flutter [facility] Typical atrial flutter ECG ROUTINE ECG W/LEAST 12 LDS TRCG ONLY W/O I&R <td>E CG 12- LEAD</td><td>Routine</td><td>08/20/2020 6:17 AM EST</td><td></td><td></td> 08/20/2020 11:17:54 AM EST [facility] Implantable Loop Recorder System, Review And Report 07/24/2020 12:00:00 AM EST [facility] ([facility]) ECG ROUTINE ECG W/LEAST 12 LDS W/I&R 07/23/2020 12:00: 00 AM EST [facility] ([facility]) OFFICE OUTPATIENT VISIT 25 MINUTES 07/23/2020 12:00:00 AM EST [facility] ([facility]) uro PVR (Post Voiding Residual) Bladder Scan 12:00:00 AM EST eCW1 ([facility]) Implantable Loop Recorder System, Review And Report 06/22/2020 12:00:00 AM EST [facility] ([facility]) Medication: Lidocaine HCl 2% Jelly 5mL Intravesically 06/04/2020 12:00:00 AM EST eCW1 ([facility]) Implantable Loop Recorder System, Review And Report 05/21/2020 12:00:00 AM EST [facility] ([facility]) Implantable Loop Recorder System, Review And Report 04/18/2020 12:00:00 AM EDT [facility] ([facility]) Implantable Loop Recorder System, Review And Report 03/16/2020 12:00:00 AM EDT [facility] ([facility]) Results ID Date Data Source [id number] 04/30/2021 11:58:50 AM EDT [facility] Name Value Range Interpretation Code Description Data Patricio rce(s) Supporting Document(s) &PDF [facility] [id number]/[id number]GfxQVQMFe3LLpueSZgPUEBNMXIz 0b3 [file] [id number]+ZNplcHTbaBguFXLHWdMsBGM5BZqbRKGZSr3P ID Date Data Source [id number] 04/30/2021 10:20:05 AM EDT [facility] INFORMATIONPatient MRN Name Date of Age Gend*PT [id number] Fredy Kunz 1940 81 years M HOPPT Location Admission Date/Time Visit ID Attending Provider --- --- --- --- EPI ID CSN Admitting Provider [id number] ---Arterial Line PlacementPatient location during procedure: ORIndications for arterial line: hemodynamic monitoringStaffingPerformed by: Robbie MillerApproved by: Arvind Ken, DOCompleted: patient identified, risks and benefits discussed, surgical consentobtained, anesthesia consent obtained, monitors and equipment checked, pre-opevaluation completed, timeout performed, patient was prepped and draped in usualsterile fashion,Arterial Line InsertionSite prep: chlorhexidineAnesthesia: noneLaterality: leftLocation: radial arteryNeedle gauge: 20 GTechnique: Seldinger technique used and landmark techniqueNumber of attempts: 1AssessmentSutured: noDressing: dressing appliedPatient tolerance: tolerated well Name Value Range Interpretation Code Description Data [facility] rce(s) Supporting Document(s) ID Date Data Source [id number] 04/30/2021 10:19:18 AM EDT [facility] INFORMATIONPatient MRN Name Date of Age Gend*PT [id number] Fredy Kunz 1940 81 years M HOPPT Location Admission Date/Time Visit ID Attending Provider --- --- --- --- EPI ID CSN Admitting Provider [id number] ---AirwayPatient location during procedure: ORUrgency: electiveDifficult airway: noAdvanced airway equipment used: noStaffingPerformed by: Robbie MillerAnesthesiologist: Arvind Ken, DOIndications and Patient ConditionIndications for airway management: anesthesiaPreoxygenated: yesPatient position: sniffingIn-line stabilization: noMask ventilation: 1 - vent by maskFinal Airway/ApproachesFinal airway type: ETTNumber of attempts at final approach: 1Number of other approaches attempted: 0Final Airway DetailsFinal ETT airway: ETT - singleCuffed: yesTechnique used for successful ETT placement: direct laryngoscopy and regularstyletCricoid pressure: noRSI: noInsertion site: oralBlade type/size: MAC 3.5ETT size: 7.5 mmMeasured from: lipsETT to lips: 21 cmPlacement verified by: + [id number] view: grade I - full view of glottis Name Value Range Interpretation Code Description Data Patricio e(s) Supporting Document(s) ID Date Data Source [id number] 04/25/2021 04:27:33 PM EDT [facility] INFORMATIONPatient MRN Name Date of Age Gend*PT [id number] Fredy Kunz 1940 81 years M OPPT Location Admission Date/Time Visit ID Attending Provider --- --- --- Baldemar Merlos MD([id number]) EPI ID CSN Admitting Provider [id number] ---OUTPATIENT / OBSERVATIONAL SURGICAL OR INVASIVE PROCEDUREName: Fredy Kunz : 1940 Sex: male Care Provider: Radha ADAM Physician: Dr. Merlos.HISTORY OF PRESENT ILLNESS: 81 years old white male with a history of stroke,TIAs, BPH, CAD, osteoarthritis, atrial flutter s/p ablation on 08/20/2020 andparoxysmal atrial fibrillation who has been anticoagulated with Eliquis.Patient follows by Dr. Brumfield cardiology. He has implanted loop recorder.Patient tells me he is asymptomatic. Denies any palpitations, shortness ofbreath, chest pain, chest tightness, lightheadedness, dizziness, peripheraledema, PND or orthopnea. Subsequently he was referred to Dr. Merlos for cardiacintervention. All treatment options have been reviewed and he elected toundergo ABLATION, ARRHYTHMOGENIC FOCUS, FOR ATRIAL FIBRILLATION ECHOCARDIOGRAM,TRANSESOPHAGEAL on 04/30/2021.PAST MEDICAL HISTORY:Past Medical History:Diagnosis Date Atrial flutter, paroxysmal Blind right eye BPH (benign prostatic hyperplasia) Coronary artery disease Diverticulitis GERD (gastroesophageal reflux disease) Myocardial infarction 1982 Osteoarthritis Paroxysmal atrial fibrillation Status post placement of implantable loop recorder Stroke some memory loss TIA (transient ischemic attack) Tinnitus aurium, bilateralPAST SURGICAL HISTORY:Past Surgical History:Procedure Laterality Date ADENOIDECTOMY Bilateral APPENDECTOMY CATARACT EXTRACTION EXTRACAPSULAR W/ INTRAOCULAR LENS IMPLANTATION Bilateral EP STUDY N/A 08/20/2020 Procedure: ABLATION A-FLUTTER- Typical; Pt has T ILR; Surgeon: Baldemar Montana MD; Laterality: N/A; IMPLANT/EXPLANT LOOP RECORDER ORIF ANKLE FRACTURE Left ORIF WRIST FRACTURE Left PROSTATE BIOPSY TONSILLECTOMY TRANSURETHRAL RESECTION OF PROSTATEALLERGIES: No Known Drug AllergiesMEDICATIONS:Prior to Admission medicationsMedication Sig Start Date End Date Taking? Authorizing ProviderApixaban (ELIQUIS) 5 MG TABS tablet Take 5 mg by mouth 2 (two) times a dayHistorical Provider, Dimasalcium carbonate (TUMS) 500 MG chewable tablet Chew 1 tablet daily as neededfor heartburn Historical Provider, DIMASholecalciferol (Vitamin D3) 25 MCG (1000 UT) CAPS Take 1,000 Units by mouthdaily Historical Provider, finasteride (PROSCAR) 5 MG tablet Take 5 mg by mouth daily HistoricalProvider, ZACHultiple Vitamin (MULTI-VITAMIN DAILY PO) Take 1 tablet by mouth dailyHistorical Provider, nitroglycerin (NITROSTAT) 0.[address] 0.4 mg under the tongue every 5(five) minutes as needed for chest pain Historical Provider, MDpantoprazole (PROTONIX) 40 MG tablet Take 40 mg by mouth daily HistoricalProvider, MDramipril (ALTACE) 2.5 MG capsule Take 2.5 mg by mouth daily HistoricalProvider, MDtamsulosin (FLOMAX) 0.4 MG CAPS Take 0.4 mg by mouth daily HistoricalProvider, MDaspirin EC 81 MG EC tablet Take 81 mg by mouth daily 04/25/21 HistoricalProvider, MDatorvastatin (LIPITOR) 20 MG tablet Take 20 mg by mouth daily 04/25/21Historical Provider, Dimasalcium carbonate (OS-EMILY) 1250 (500 Ca) MG tablet Take 1 tablet by mouth daily04/25/21 Historical Provider, ROSARIOocial HistoryTobacco Use Smoking status: Former Smoker Packs/day: 1.00 Years: 25.00 Pack years: 25.00 Types: Cigarettes Quit date: 1982 Years since quittin.8 Smokeless tobacco: Never UsedSubstance Use Topics Alcohol use: Not Currently Drug use: NeverFamily HistoryProblem Relation Age of Onset Malig Hyperthermia Neg HxREVIEW OF SYSTEMS:Respiratory: Denies any shortness of breath, cough, yellow sputum production orwheezing.Cardiovascular: Denies any chest pain, pressure or tightness. Denies anyparoxysmal nocturnal dyspnea or orthopnea.GI: Denies nausea, vomiting, diarrhea, constipation or melena.Neurologic: Denies any numbness, tingling, tremors or syncope.Vascular: Denies any edema. Denies claudication.PHYSICAL EXAM:GENERAL: He is a 81 years old, pleasant white male, in no acute distress at timeof examination. Vitals on arrival to the office are BP 152/82 (BP Location: Leftupper arm, Patient Position: Sitting) | Pulse 57 | Ht 1.702 m (5' 7") | Wt77.8 kg (171 lb 9.6 oz) | SpO2 98% | BMI 26.88 kg/m Body mass index is 26.88kg/m ..Skin is pink, warm, and dry.NECK: He has a grade 3 airway. Neck is supple, midline, without cervicaladenopathy. No thyromegaly. No carotid bruits.MENTAL / NEUROLOGICAL STATUS: [id number]: Clear to auscultation. No wheezes, rhonchi or crackles.HEART: Rate bradycardic rhythm regular. S1, S2. No murmur, rub or gallop. Looprecorder and chest intact.ABDOMEN: Bowel sounds positive times four. Soft, non tender. No reboundtenderness. No hepatosplenomegaly. Negative CVAT.EXTREMITIES: Pulses are symmetrical. No edema.Anesthesia complications: [facility] :: 3/10 Managing Well (medical problems are well controlled,but are not regularly active beyond routine walking).Stop Bang Questionnaire - Total Score: 4ASSESSMENT: Primary Diagnosis/Indication: Paroxysmal atrial fibrillation.PLAN: Procedure: ABLATION, ARRHYTHMOGENIC FOCUS, FOR ATRIAL FIBRILLATIONECHOCARDIOGRAM, TRANSESOPHAGEAL on 04/30/2021.04/25/2021 4:27 Angie Shaikh document or parts of this document, were dictated using IdeaString software. A reasonable attempt at proofreading has beenmade to minimize errors. Please call with any questions or corrections. Name Value Range Interpretation Code Description Data Patricio rce(s) Supporting Document(s) ID Date Data Source [id number] 04/25/2021 10:53:03 AM EDT [facility] Name Value Range Interpretation Code Description Data Patricio rce(s) Supporting Document(s) [facility] [id number]6qFBlY8CcsPFpm4iuL8PnQ2BtDQBiNREQXN0BvHKz jb2 [file] eJjyplmTaxalmmTaxilmkTa/I4pRJy7uO8zKyHHHs9 sRWuqN0Yll2nM+B5Wu4TyuaFt4ZRD6Zgc1yQZQRdftKgKR6JP7hjN/HF3fiuPsgPhDmuPyiK93mHgmB6 jVlV1gWkWfgykXl1MVDJagqJsf0yQ0Bnq/fwSsIqAy5lVweAOzmJNOcna8r7FaEts0lUyJRgIIi0U1LO kOosDBpvfbJUnnXHe7Rq3b/1Gq6p9m/4zq27rM0V+d bl/ln3vx+d3Zffq+JgBTbgBezAAbwb/9dcg0qMZmvDSfxUXpyJVOsib/wn63L/3hM//DOOP/t/8Pm/de rFT+7bCM66ShgmK2CIP5RICsPj0deVUSEDujlYq2MluHYybv3wqn8fFuyy2yoU95kyaFU3y+lubE//R8 P/LEHqeF246gd9e8H+8D34taXOq/9ArL129cqqv5mk E08qssV/V7WSJiTXY1x2s97hS7km5sAZq0/rD/AAhlyHXIdcN+AF7K2/4//41yWGAE6k+hv9diy7vzRb 3zMMn6/aggm3Vmvt07A0IoVQ/mF/Y/3+TwuCTOsjz3Acf8/+5M6/5Splc9g2iR6/4ybuGVRjPQZ+pu03 Ik9OOAk/fqug/iR66U6a5/FfRvH8+0Vg/AeKf2r1wo QP/rlEpHtWk9g7oaQYZv+3Pj//t35rb9+pWPIkQ3h/lVpr7Q025I72usnWmpHTiEB2Rrrbfuxx2GAZ4Q ZkjIDvI8UaRCBAsA1T3Q4zN3P3S32wsOiTqUH6F878Mi1a5SCchsMJv/pROQ0lVNgpzpXmlZ35tQhMD+ 1Cm66rg7tHVtrRPZvNC0lhO0Cpcsnu5oN7Woc3bb8I EneFEKmUEy1Vf+Adf687B4kJ+VK4gz8Hbc4qLU1Nhi//8X6bY4pfjS56CZouHPA6zui5piSiPHvHaJwv 4+fYKx/5+VEMXEV0R4cvS0l63aa9T/Yqn+uzv3Fu/J+gs41n84swO5/fLX09Dxpy+vHYq+u3A48yvCfH s/f05Psm0Hod3OAcsgHp5pxfBaMsImenjH7fSjR5ry 9A7cTikvOipu0gK+IVB1kLX/07E4EnjsDicOF987+eLYz6/DwuwOkRQ7XBG+7T//drEPU4aJ2RW+/G4w VqgTS243q/KvLz9q/sgB1fohHjhnIQMF126WJ/NWUAC/IXbeue9SVhuMRdns5IsHmq0T7TsMR8IIsK1x QbFvlDfuldRqNu1HmyJjBv4FoxJmJq5NzhIoNxi0K7 ZwNYgNG/hzUVeXEqxG7SnZnO8C/ctu8aWfvo+L8L/1cxPJ93aPfi6M/Ue/NnK1FbJFwF5Z41pm/1bjp7 D+CEmr7ZS90zLAttvha2i/I2N6c4DjinYx91/tlwuOM/ck7zV4VCx0V0LnuN3Qr6GeAkq/M2y80ozCN0 tLMe+2L8VmJvNCzrYcz6uhJw+9Vv9izXY8zFvyxfAw RJkJLTfDPmFZH257MVqAgnYRa/atqrwgpswAvY+3+Nfi/kjQ2S570670Cjq/D3Uj2/HdnAt22b7uX+Xl ZZr/snd5/ng3ZRsmJpxja/xjjv+PTgkKY6zDkkSVx6SF4BEc8ygJf/qsv9i/E2L6H4q4O+/6ou94t/ck wC4r15L2d/dezVzDrMaa+yg7jdC5d76eivF/t9pNrz J0UzL5rzg/OMq/h7J1HfOU3UOcrTmbMreJpyWxJes1fOS0Fsxy9Pfjvz+00zi5Yd63VW6XY+fq2NbRcW nBDVVB63KPOctBFj5mg4ecL/gTgjjo1zt5Qvf1n6Eck99u3xl2pDy0l8cD8na+uPXM/Uo8adn1won735 vZrhtdi1V0h0B6U0r1p8VvRx008puUU8i4VI+b1nH+ THB9nEwu/kanBuHR7b3BJApy97Tu3mppKBfu2FWKf/TFd9uZn8y+aVZ/n/bpb8yUIz4vEU4ETYb/Rffu 9Z+S+5Z+G/9Dzr/vVcn2X/8nXPqn+2d6f6q3fuiP+c8oBwF06Edh7iz/vXRs/MzLN5eBs/F2z0+9dG+7 E22q+utLpPZ5a9UDp/iwINCpS0Nf92c5Vp2/qGyQJ2 9VEojx873U8UX4QKqsO2DmUyjSvQXFSN5/jT2FFfwPP3yMYCiCK/ro15919iyUDgUo5waXjGS2zZJdJ0 n8UiHXBuHD0/suJv6UjUSmnTBQug0xVHeHgLD0o+gDiOzqrOFUwjrS3T8e6G66tT34z2nWHqfO9dFMhh TWyV5ZaiKLI5rm5P2g4n3TUL2NZWh9cWQW30pZza2/ 1kHzul5moul8CpnuxkCK090FwQA/zpUbXvRRZ3jtBV6EmlxPrvS3kzg/M1bje7Wzv406A3nzGU9yrlFg 3+SUdKPxb0Z4c2d4NhcJL8QS/R42pJt/WMi8G1IaP6KmpdW2WAE49O2y7aetQzHWUgcxl4S4hUuEmNXA ye447IJrMA3NTYlSby3ZwiBs2c5nuhzlBPnDUfwS+j cF78jpB9fHj2N9i0gc7z/SqvP+/j06jki0HmXF35qjwJ5I+71AJCpJ4RuqqChaNf4c/TXuXYPvZqHl/l SEU2HffhDojkLybf3jK+2gP0s3fmH6M98fNOtQl1ztg5n/8645hX4vxJ9/d5gGEmjvmkVE9iFZz0/bvS q4ta4y7KLdddAl758QBzp08M9wxiKSDS02rhRSmqmZ v6vX29WbX5L35LMNv6L/AEVuCc/o8IboS4oSN2q+NP7x/50/tH/vT+kT/tx/rTfqynvfL8/Mj1/NyBj9 kMj3VEFG+I0rKOyM/jm21fdlDYeKt1h1aCGzfb/Jrv5oP9iXvjfo1u/9shf307shUhep416hnJ09gBfE p/6ZthZE1v77tqlg7lMkm6qsHetGzv1AgyiH9vU/Oa 86kibg09xsLmgPwOhmD/I6Hwlimlv1RK3Z+cj23Zlu/V5S6//BrjlTum5Mpcr9kod4lq9ipX4sysjt8X /PMJ8jjYKlxbNuvenIZSnv+58pWo8ebEpm2xzzt82VaQMClR4/Za4qBVp3/l8K8c/qMir8Z8xT/jawAL cPtXDv/Kl+StEwwRMbcpIdx577iFpJ/Ibep4tzXypV vwAm5/w9O/mxEawQV5grLr/cqj3/clN6vVLXf3D+1veARw+brewer+H+ABLK/qi9hip61sgVT2V7SOT9CkqL tc4QMhfYXZzQ24ZNrpLQXd4OSZiL5FF4ZzhLZ1QvDEMfbNQjjeh4R+YGB/MESAIVcgt/YHE/z8MUWpA1 PbS4rW4BleEu7ESqD8WEX/rXCC8owNzJ0/RINLY2D8 BjKZ5Z4v2ibqv8hXOXiUlzg9W9E/sFeh+L/ueSKc4fqeOJ7Ccx1mnV02dY4Me/57IK2Y3KfsqNeSBbza QnWgLupEuyimfIpLKrm7hwK8pPL3wPw3W2CYLMQZfxdYf2A0OriliFiD1R1qdMtQ+76A0TVp5h7elrAh /vg6914FZvF+PQcoyZ/F+Fd1uf/Gbt4n/djxr+pynw 55wiwdwrIWLj172ag5gJtll0RFR3/sX9Xl/mXY/ro09U4yYd2QEu1TrHR7gR7Y4E+qLvcvL+1f1eX+5T s4p8ezjkktq5EWb5gp/fT8dz+6f5LjhpVHD4+C7yiYTRbjd/fi7ocmUa4w1ijMazE8FFILHhV0K/dYwA 6yiM40moLf0SvvOkklIBBuI05W/scXnlCo7bgabJn2 H+Dx2p+e2xiz0i7VqOLtWkK7AEx2D7Qpq1eYDrp22/K7y54k6ECc0vu3ArMDNQnbxLN+2DkHqdYhzzFI jRN9YxDy5/QtxqMcqNq8M04XmI85r5/Y1xqyuVFnYOgags7gw/KcflS+15R51Cn5JV3lFqgt/KOh1zM6 ihZxL138aW3ra+2A3AoNK3G46SiUaS45JQlvYz4s8P nw6Oq/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/R0hsvtaWPj9/fGc+Jzje2O9x01m634tlkDd2Z7MSc0uHdbv1X/93xHGE+uLE/tJPWg7bMoq [file] WkNNNULc2Lg429VTWiGEVWEph+FxjifJHtiCtfWNTCMLXzPOvUVQQUT1C= ID Date Data Source [id number] 04/25/2021 07:37:02 PM EDT [facility] SPEC EXP DATE 05/01/2021ATI ENT ABO/Rh A POSITIVEANTIBODY SCREEN NEGATIVETESTING SITE PERFORMED AT [address] [place] [id number] Name Value Range Interpretation Code Description Data Patricio rce(s) Supporting Document(s) TYPE AND SCREEN [facility] ID Date Data Source [id number] 04/25/2021 04:10:19 PM EDT [facility] Name Value Range Interpretation Code Description Data Patricio rce(s) Supporting Document(s) SODIUM 142 mmol/L (136-145) [facility] POTASSIUM 4.4 mmol/L (3.6-5.2) [facility] CHLORIDE 108 mmol/L (100-108) [facility] CO2 28 mmol/L (22-31) [facility] ANION GAP 6 mmol/L (7-16) L [facility] UREA NITROGEN 24 mg/dL (7-24) [facility] CREATININE 1.25 mg/dL (0.80-1.30) [facility] BUN/CREAT RATIO 19.2 RATIO (10.0-20.0) [facility] GLUCOSE 96 mg/dL (70-99) [facility] CALCIUM 9.5 mg/dL (8.4-10.2) [facility] GFR 55 ml/min/1.73m2 (>59) L [facility] GFR ( AMER) >60 ml/min/1.73m2 (>59) [facility] GFR INTERPRETATION [facility] --NORMAL KIDNEY FUNCTION OR MILD DISEASE - GFR >OR= 60CHRONIC KIDNEY DISEASE - GFR 15 - 59RENAL FAILURE - GFR <15 Est. GFR calculation based on the MDRDstudy equation, which assumes a steadystate for creatinine. Est. GFR should notbe used for medication dosing. ID Date Data Source [id number] 04/25/2021 04:02:51 PM EDT [facility] Name Value Range Interpretation Code Description Data Patricio rce(s) Supporting Document(s) WBC 6.1 10*3/uL (4.1-11.0) [facility] [place] RBC 4.51 10*6/uL (4.60-6.10) L [facility] HGB 14.7 g/dL (13.5-18.0) [facility] HCT 43.3 % (41.0-53.0) [facility] MCV 96.0 fL (80.0-95.0) H [facility] MCH 32.7 pg (27.0-32.0) H [facility] MCHC 34.1 g/dL (32.0-36.0) [facility] RDW 13.4 % (10.5-14.5) [facility] PLT 253 10*3/uL (150-450) [facility] MPV 8.5 fL (7.1-10.7) [facility] ID Date Data Source [id number] 04/26/2021 06:57:07 AM EDT [facility] Name Value Range Interpretation Code Description Data Patricio rce(s) Supporting Document(s) SPECIMEN DESCRIPTION [facility] COVID 19 RESULT (NDET) [facility] NEGATIVE COVID-19 RESULTS DONOT PRECLUDE COVID-2019 INFECTION ANDSHOULD NOT BE USED THE SOLE BASISFOR PATIENT MANAGEMENT DECISIONS. COMMENT [facility] THE [place] 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- MEDIATEDAMPLIFICATIONTESTING PERFORMED ON [employer] FIRST TEST [facility] EMPLOYED IN [employer] [facility] SYMPTOMATIC [facility] DATE OF SYMPT ONSET [facility] H[facility]ED [facility] [place] [facility] CONGREGATE CARE SET [facility] ID Date Data Source URINE CULTURE 11/14/2020 12:00:00 AM EDT eC1 ([facility]) Name Value Range Interpretation Code Description Data Patricio rce(s) Supporting Document(s) Laboratory studies (set) URINE CULTU RE eCW1 ([facility]) ID Date Data Source UA URINALYSIS 11/14/2020 12:00:00 AM EDT eCW1 ([facility]) Name Value Range Interpretation Code Description Data Patricio rce(s) Supporting Document(s) Laboratory studies (set) UA URINALYS IS eCW1 ([facility]) ID Date Data Source [id number] 11/08/2020 07:59:00 PM EDT [facility] ([facility] Name Value Range Interpretation Code Description Data Patricio rce(s) Supporting Document(s) Erythrocyte sedimentation rate by Westergren method 5 mm/hr 0-20 Normal (applies to non-numeric results) [facility] ([facility] ID Date Data Source [id number] 11/08/2020 07:59:00 PM EDT [facility] ([facility] Name Value Range Interpretation Code Description Data Patricio rce(s) Supporting Document(s) White Blood Count 6.2 10 4.0-10.0 Normal (applies to non-numeri c results) [facility] ([facility] Red Blood Count 4.27 10 4.30-6.10 Below low normal MED [facility] ([facility] Hemoglobin 13.6 g/dL 13.5-17.5 Normal (applies to non-numeric resul ts) [facility] ([facility] Hematocrit 40.3 % 42.0-52.0 Below low normal [facility] ( [facility] Mean Corpuscular Volume 94.4 fl 80.0-96.0 Normal ( applies to non-numeric results) [facility] ([facility] ) Mean Corpuscular Hemoglobin 31.9 pg 27.0-33.0 Norm al (applies to non-numeric results) [facility] ([facility] ) Red Cell Distribution Width 13.1 % 11.5-14.5 Norm al (applies to non-numeric results) [facility] ([facility] ) Mean Corpuscular HGB Conc 33.7 g/dL 32.0-36.5 Normal (applies to non-numeric results) [facility] ([facility] ) Platelet Count, Automated 222 10 150-450 Normal (applies to non-numeric results) [facility] ([facility] ) Lymph % 34.9 % 24.0-44.0 Normal (applies to non-numeric resul ts) [facility] ([facility] Neutrophils % 47.4 % 36.0-66.0 Normal (applies to non-numeric re sults) [facility] ([facility] P[place] % 13.1 % 2.0-8.0 Above high normal [facility] ([facility] Eos % 3.7 % 0.0-3.0 Above high normal [facility] ([facility] Baso % 0.6 % 0.0-1.0 Normal (applies to non-numeric resul ts) [facility] ([facility] Nucleated Red Blood Cell % 0.0 % 0-0 Normal (applies to n on-numeric results) [facility] ([facility] Immature Granulocyte % 0.3 % 0-3.0 Normal (applies to non-n umeric results) [facility] ([facility] Neutrophils # 2.9 10 1.5-8.5 Normal (applies to non-numeric re sults) [facility] ([facility] Lymph # 2.2 10 1.5-5.0 Normal (applies to non-numeric resul ts) [facility] ([facility] [place] # 0.8 10 0.0-0.8 Normal (applies to non-numeric resul ts) [facility] ([facility] Eos # 0.2 10 0.0-0.5 Normal (applies to non-numeric resul ts) [facility] ([facility] Baso # 0.0 10 0.0-0.2 Normal (applies to non-numeric resul ts) [facility] ([facility] ID Date Data Source [id number] 11/08/2020 07:59:00 PM EDT [facility] ([facility] Name Value Range Interpretation Code Description Data Patricio rce(s) Supporting Document(s) Glucose, Fasting 109 mg/dL 70-100 Above high normal [facility] ([facility] Blood Urea Nitrogen 24 mg/dL 7-18 Above high normal [facility] ([facility] Glomerular Filtration Rate 47.9 Normal (applies to n on-numeric results) [facility] ([facility] <content>Units are mL/min/1.73 m2</content>
<content></content>
<content>Chronic Kidney Disease Staging per NKF:</content>
<content></content>
<content>Stage I & II GFR >=60 Normal to Mildly Decreased</content>
<content>Stage III GFR 30- 59 Moderately Decreased</content>
<content>Stage IV GFR 15-29 Severely Decreased</content>
<content>Stage V GFR <15 Very Little GFR Left</content>
<content>ESRD GFR <15 on SHEET METAL PATTERN CUTTER</content>
<content></content> Creatinine For GFR 1.50 mg/dL 0.70-1.30 Above high normal [facility] ([facility] Sodium Level 143 meq/L 136-145 Normal (applies to non-numeric res ults) [facility] ([facility] Potassium Serum 4.0 meq/L 3.5-5.1 Normal (applies to non-numeric results) [facility] ([facility] Chloride Level 111 meq/L 98-107 Above high normal [facility] ([facility] Carbon Dioxide Level 27 meq/L 21-32 Normal (applies to non-num antoine results) [facility] ([facility] Anion Gap 5 meq/L 8-16 Below low [facility] Calcium Level 9.1 mg/dL 8.8-10.2 Normal (applies to non-numeric re sults) [facility] ID Date Data Source [id number] 11/08/2020 07:59:00 PM EDT [facility] ([facility] Name Value Range Interpretation Code Description Data Patricio rce(s) Supporting Document(s) Alt/SGPT 21 U/L 12-78 Normal (applies to non-numeric resul ts) [facility] ([facility] Ast/Sgot 16 U/L 7-37 Normal (applies to non-numeric resul ts) [facility] ([facility] Bilirubin,Total 0.3 mg/dL 0.2-1.0 Normal (applies to non-numeric results) [facility] ([facility] Bilirubin,Direct Laboratory test result 0.0-0.2 Normal ( applies to non-numeric results) [facility] ([facility] Alkaline Phosphatase 50 U/L 45-117 Normal (applies to non-num antoine results) [facility] ([facility] Total Protein 6.3 GM/DL 6.4-8.2 Below low normal [facility] ([facility] Albumin 3.4 GM/DL 3.2-5.2 Normal (applies to non-numeric resul ts) [facility] Albumin/Globulin Ratio 1.2 Normal (applies to non-n umeric results) [facility] ID Date Data Source [id number] 11/08/2020 07:59:00 PM EDT [facility] ([facility] Name Value Range Interpretation Code Description Data Patricio rce(s) Supporting Document(s) CPK Creatine Phosphokinase 79 U/L 39-308 Lyly l (applies to non-numeric results) [facility] ([facility] CK-MB Value Mass 2.0 ng/mL Normal (applies to non-numeric results) [facility] ([facility] MB/CK Relative Index 2.53 Normal (applies to non-num antoine results) [facility] ([facility] <content>DIAGNOSIS CRITERIA</content>
<content>MMB ng/ml Relative Index (RI)</content>
<content>NON-AMI < or = 5 N/A</content>
<content>MARTIN ZONE > 5 < or = 4</content>
<content>AMI > 5 > 4</content>
<content></content> Troponin I Laboratory test result Normal (applies to non-n umeric results) [facility] ([facility] <content>Troponin I Reference Interval f or Siemens [place] LOCI:</content>
<content></content>
<content>99th Percentile= 0.00-0.045 ng/ml</content>
<content></content>
<content>Risk Stratification:</content>
<content><= 0.10 ng/ml Decreased Risk for Adverse Clinical</content>
<content>Events.</content>
<content>0.10-1.50 ng/ml Increased Risk for Adverse Clinical</content>
<content>Events. Evaluation of additional</content>
<content>criterion and/or repeat testing in 2-6</content>
<content>hours is suggested to rule out myocardial</content>
<content>damage.</content>
<content>>= 1.50 ng/ml Indicative of Myocardial Injury.</content>
<content></content> ID Date Data Source [id number] 11/08/2020 07:59:00 PM EDT [facility] Name Value Range Interpretation Code Description Data Patricio rce(s) Supporting Document(s) aPTT in Platelet poor plasma by Coagulation assay 32.8 s 24.2-38.5 Normal (applies to non-numeric results) [facility] ID Date Data Source [id number] 11/08/2020 07:59:00 PM EDT [facility] ([facility] Name Value Range Interpretation Code Description Data Patricio rce(s) Supporting Document(s) Inr 1.03 Normal (applies to non-numeric resul ts) [facility] THERAPUTIC HUMAN INR VALUES INDICATIONS NORMAL RANGES PROPHYLAXIS/TREATMENT OF: VENOUS THROMBOSIS 2.0-3.0 PULMONARY EMBOLISM 2.0-3.0 PREVENTION OF SYSTEMIC EMBOLISM FROM: TISSUE HEART VALVES 2.0-3.0 ACUTE MYOCARDIAL INFARCTION 2.0-3.0 VALVULAR HEART DISEASE 2.0-3.0 ATRIAL FIBRILLATION 2.0-3.0 MECHANICAL VALVES(HIGH RISK) 2.5-3.5 RECURRENT MYOCARDIAL INFARCTION 2.5-3.5 Prothrombin Time 13.7 s 12.5-14.3 Normal (applies to non-numeric results) [facility] ([facility] ID Date Data Source [id number] 08/23/2020 12:00:00 AM EST [facility] Willa Seals Np Patient Name: FREDY KUNZ [id number] Date of : 1940[address] Date of Exam: 08/23/2020JUANITA Lay [id number]#: Fax: [phone] EXAM: US PELVIC COMPLETECLINICAL INFORMATION: Left groin pain while lifting. Evaluate for leftinguinal hernia.FINDINGS:Exam performed with and without Valsalva maneuver.In the left inguinal canal, the canal diameter was 1.1 cm at rest and 1.2cm during Valsalva in AP dimension. No bowel herniation or visible mass.There is no adenopathy evident.IMPRESSION:No evidence of inguinal hernia. Only 1 mm change in AP diameter of theinguinal canal with Valsalva maneuver. No mass, bowel loop or otherfinding in the region of the inguinal canal.Accredited by the [place] in General Ultrasound.Jason Maria, MANJEET/Korin you for referring FREDY KUNZ to our office. Electronically Signed - JASON MARIA MD 08/24/20 12:37 Name Value Range Interpretation Code Description Data Patricio rce(s) Supporting Document(s) ID Date Data Source [id number] 08/20/2020 08:45:27 AM EST [facility] Name Value Range Interpretation Code Description Data Patricio rce(s) Supporting Document(s) &PDF [facility] RBZZGq4dLkGWLfXj64/IFVsvFLAlt1HtAUetVKg7ULhzSBLzY9GwrSkzFEIBXo7DKfidRQwCIYXDSYKb vci [file] AR4R9TNXfvE0tJAX2cOUr2/6i7tkYYEDp/v9//8 [file] supervisor intermediates/ZKPdLBM5/lEgTDCzPRfpZhdqrPsFvwN4X5FlgS0 +T4jxUOwTHlFxNhesmXGOf33Ahfd+i825p2Hf+S7+/7Wmkv+56DuU9bVxG89h9vo/WLUZ0btlpQyaa2k vefldH+Staci/z30amLDeNNaOo4tJZzsJ+20yEcWVy58lhGHStSbzwBKIu/YOz/DntWhF+W20L4AAtFX4U [file] YkSzOW1YDp9GCgT5CVA4hBTbQt8RNIMtPIYSUmIdHO7ISLp= ID Date Data Source [id number] 08/20/2020 08:24:19 AM EST [facility] NT INFORMATIONPatient MRN Name Date of Age Gend*PT [id number] Fredy Kunz 1940 80 years M HOPPT Location Admission Date/Time Visit ID Attending Provider08/20/20 0539 --- Baldemar Merlos MD([id number]) EPI ID CSN Admitting Provider [id number] Baldemar Merlos MD([id number])Inpatient History & PhysicalThomas Carlton KunzMRN:[id number]: Here for flutter RFAPast Medical History:Past Medical History:Diagnosis Date Arthritis right shoulder and left knee Stroke 11 TIAs, 2 classified strokes per patientPast Surgical History:No past surgical history on file.Medications:No medications prior to admission.Allergies:Patient has no known drug allergies.Family History:No family history on file.Social History:Social HistoryTobacco Use Smoking status: Not on fileSubstance Use Topics Alcohol use: Not on file Drug use: Not on fileReview of Systems:Pertinent positives as mentioned in the HPI. Denies recent fever, chills, orchange in appetite. Denies unilateral weakness, numbness, slurred speech, orfacial droop. Denies any hematemesis, hematochezia, or melena. Denies nausea,vomiting, diarrhea, or abdominal pain. All other systems were reviewed and theremainder are negative.Physical Exam:Vital Signs: Temp: [97.6 F] 97.6 FHeart Rate: [69] 69Resp: [16] 16BP: (163)/(82) 163/82A 9 body area/organ physical examination was performed.General: patient in NAD.HEENT: NC/AT, sclerae anicteric, moist mucous membranes.Neck: Supple. No thyromegaly was appreciated.Lungs: CTAB, without rales, rhonchi, or wheezes.CV: Regular rate & rhythm, no murmurs, rubs, or gallops. Normal S1/S2. The JVPis <8 cm while sitting upright.Abd: Soft, NT, ND.Extremities: No pitting edema, cyanosis or clubbing.Skin: Warm & dry, without jaundice or bruising.Psych: A&O x3, affect appropriate.Assessment:Highly sx typical atrial flutterCVAHematuriaSp ILRPlan:1. Atrial fluter RFAProcedure was discussed with patient / family risks, benefits, andalternatives explained. Potential risks include but not limited to pain,bleeding, infection, injury to any body system or organ between the skin andheart (including the skin, subcutaneous tissue, blood vessels, abdominal organs,heart, and lungs), phrenic nerve injury and diaphragmatic paralysis, possibleneed for a heart surgery or pacemaker implantation, heart attack, stroke, oreven .Signature: Baldemar Merlos, MDDate: August 20, 2020Time: 6:35 AM Name Value Range Interpretation Code Description Data Patricio e(s) Supporting Document(s) ID Date Data Source [id number] 08/20/2020 07:36:24 AM EST [facility] Name Value Range Interpretation Code Description [facility] EKG [facility] [id number] [file] [id number]= ID Date Data Source [id number] 08/15/2020 08:55:00 AM EST [facility] Name Value Range Interpretation Code Description Data Patricio rce(s) Supporting Document(s) SARS coronavirus 2 RNA Not Detected [place] This lab was ordered by [facility] and reported by [facility]. ID Date Data Source [id number] 08/16/2020 03:08:29 PM EST [facility] iv[facility] KIM Name Value Range Interpretation Code Description Data Patricio rce(s) Supporting Document(s) SARS-COV-2 [facility] JUDY Not DetectedReference range: Not Detecte d This nucleic acid amplification test was developed and its performance characteristics determined by [employer]. Nucleic acid amplification tests include RT-PCR and TMA. This test has not been FDA cleared or approved. This test has been authorized by FDA under an Emergency Use Authorization (EUA). This test is only authorized for the duration of time the declaration that circumstances exist justifying the authorization of the emergency use of in vitro diagnostic tests for detection of SARS-CoV-2 virus and/or diagnosis of COVID-19 infection under section 564(b)(1) of the Act, 21 U.S.C. 360bbb-3(b) (1), unless the authorization is terminated or revoked sooner. When diagnostic testing is negative, the possibility of a false negative result should be considered in the context of a patient's recent exposures and the presence of clinical signs and symptoms consistent with COVID- 19. An individual without symptoms of COVID- 19 and who is not shedding S ARS-CoV-2 virus would expect to have a negative (not detected) result in this assay. Performed At: [employer] [facility] [place] [place] [id number] Alvin Vincent PhD Ph:[phone] ID Date Data Source [id number] 08/01/2020 05:48:00 PM EST [facility] ([facility]) Name Value Range Interpretation Code Description Data Patricio rce(s) Supporting Document(s) White Blood Count 5.4 4.0-10.0 [facility] ([facility]) Red Blood Count 4.63 4.30-10.6 [facility] ([facility]) Platelets 212 172-450 [facility] Hemoglobin 14.6 [facility] ([facility]) Hematocrit 44.3 [facility] ([facility]) ID Date Data Source [id number] 08/01/2020 05:48:00 PM EST [facility] ([facility]) Name Value Range Interpretation Code Description Data Patricio rce(s) Supporting Document(s) Glucose 95 70-100 [facility] Blood Urea Nitrogen 24 7-18 [facility] ([facility]) Creatinine 1.29 0.70-1.30 [facility] ([facility]) Sodium 142 136-145 [facility] Potassium 4.3 3.5-5.1 [facility] ([facility] Calcium 9.4 8.2-9.6 [facility] ([facility]) Chloride 105 98-107 [facility] ([facility] Carbon Dioxide 31 21-32 [facility] ([facility]) Glomerular filtration rate/1.73 sq M.pre dicted [Volume Rate/Area] in Serum or Plasma by Creatinine-based formula (MDRD) 57.1 [facility] ([facility]) ID Date Data Source [id number] 08/01/2020 12:00:00 AM EST [facility] Arvind Obrien Rpa Patient Name: FREDY KUNZ [id number] [facility] Date of : 1940[place] [address] Date of Exam: 08/01/2020#: Fax: [phone] EXAM: US SCROTUM & CONTENTSCLINICAL INFORMATION: Persistent left- sided pain.Comparison 05/15/2020 which showed mild left scrotal edema.The right testicle measures 3.6 x 2.6 x 3.1 cm and the left measures 4.7 x2 x 2.6 cm.The right right testicular parenchymal echo pattern appears somewhathypoechoic compared to the left. This represents a subtle change comparedto the prior exam. In addition, color Doppler imaging shows decreasedDoppler signal on the right compared to the left, also representing achange from the prior exam. There is an unchanged right-sidedspermatocele. There is no evidence of hydrocele or varicocele.The right testicular RI is .55 and the left is .56.IMPRESSION:The right testicle has decreased in size compared to the prior exam. Inaddition, Doppler signal on the right is decreased compared to the leftwith a hypoechoic appearing echo pattern compared to the left and comparedto the prior exam. The finding is somewhat confusing since the patien hasleft- sided pain. I suppose the abnormality could be on the left consistentwith left- sided orchitis, however, I am equally concerned over theright-sided findings which indicate a decrease blood supply compared to theprior exam. This all needs to be correlated clinically with considerationmade for urological consultation. A STAT report was generated at the timeof this dictation and sent to the attention of the the patient's healthcareprovider, MrSharonda Samuels Trent day.Accredited by the [employer] in General Ultrasound.CJ Handy/Korin arciniega for referring FREDY KUNZ to our office. Electronically Signed - ALDAIR GARG DO 08/01/20 10:02 Name Value Range Interpretation Code Description Data Patricio rce(s) Supporting Document(s) ID Date Data Source [id number] 07/30/2020 10:56:00 AM EST [facility] Name Value Range Interpretation Code Description Data Patricio rce(s) Supporting Document(s) Color Urine Laboratory test result M EDSAV ([facility] Appearance of Urine Laboratory test result [facility] ([facility] PH Urine 5.5 5.0-8.0 [facility] Glucose Urine Laboratory test result [facility] ([facility] Specific [place] 1.020 1.00-1.03 [facility] ([facility] Blood Urine Laboratory test result M ALISON ([facility] Bilirubin.total [Presence] in Urine by Test strip Laboratory test res ult [facility] ([facility] Ketones Laboratory test result [facility] ([facility] Urobilinogen 0.2 EU/dl 0.2-1.0 [facility] ([facility] Nitrite Laboratory test result [facility] ([facility] Protein Urine Laboratory test result [facility] ([facility] Leukocytes Laboratory test result ME DENT [facility] ID Date Data Source [id number] 05/30/2020 10:06:00 AM EST [facility] ([facility]) Name Value Range Interpretation Code Description Data Patricio rce(s) Supporting Document(s) Calcium [Mass/volume] in Serum or Plasma 9.3 [facility] ([facility]) Sodium 140 [facility] Carbon dioxide, total [Moles/volume] in Serum or Plasma 25 [facility] ([facility]) Chloride [Moles/volume] in Serum or Plasma 109 [facility] ([facility]) Glucose 128 70-100 [facility] ([facility] Potassium [Moles/volume] in Serum or Plasma 4.1 [facility] ([facility]) Blood Urea Nitrogen 15 7-18 [facility] ([facility]) Creatinine 1.16 0.70-1.30 [facility] ([facility]) Glomerular filtration rate/1.73 sq M.pre dicted [Volume Rate/Area] in Serum or Plasma by Creatinine-based formula (MDRD) Laboratory test result [facility] ([facility]) ID Date Data Source [id number] 05/30/2020 10:06:00 AM EST [facility] ([facility]) Name Value Range Interpretation Code Description Data Patricio rce(s) Supporting Document(s) Red Blood Count 4.38 4.30-6.10 [facility] ([facility] White Blood Count 6.1 4.0-10.0 [facility] ([facility]) Platelets 267 150-450 [facility] ([facility]) Hemoglobin 13.6 [facility] ([facility]) Hematocrit 40.8 [facility] ([facility]) ID Date Data Source [id number] 05/29/2020 08:57:00 AM EST [facility] ([facility] Name Value Range Interpretation Code Description Data Patricio rce(s) Supporting Document(s) Laboratory test finding (navigational concept) Laboratory test r esult Normal (applies to non-numeric results) [facility] ([facility] A false negative result may occur if a s pecimen is improperly collected, transported or handled. False negative results may also occur if inadequate numbers of organisms are present in the specimen. As with any molecular test, mutations within the target regions of Xpert Xpress SARS-CoV-2 could affect primer and/or probe binding resulting in failure to detect the presence of virus. This test cannot rule out diseases caused by other bacterial or viral pathogens. DISCLAIMER: Testing was performed using the [employer] SARS-CoV-2 test. This test was developed and its performance characteristics determined by [employer]. This test has not been FDA cleared or approved. This test has been authorized by FDA under an Emergency Use Authorization (EUA). This test is only authorized for the duration of time the declaration that circumstances exist justifying the authorization of the emergency use of in vitro diagnostic tests for detection of SARS-CoV-2 virus and/or diagnosis of COVID-19 infection under section 564(b)(1) of the Act, 21 U.S.C. 360bbb-3(b)(1), unless the authorization is terminated or revoked sooner. ID Date Data Source [id number] 05/29/2020 08:57:00 AM EST [facility] ([facility] Name Value Range Interpretation Code Description Data Patricio rce(s) Supporting Document(s) Laboratory test finding (navigational concept) Laboratory test r esult Normal (applies to non-numeric results) [facility] ([facility] A false negative result may occur if a s pecimen is improperly collected, transported or handled. False negative results may also occur if inadequate numbers of organisms are present in the specimen. As with any molecular test, mutations within the target regions of Xpert Xpress SARS-CoV-2 could affect primer and/or probe binding resulting in failure to detect the presence of virus. This test cannot rule out diseases caused by other bacterial or viral pathogens. DISCLAIMER: Testing was performed using the [employer] SARS-CoV-2 test. This test was developed and its performance characteristics determined by [employer]. This test has not been FDA cleared or approved. This test has been authorized by FDA under an Emergency Use Authorization (EUA). This test is only authorized for the duration of time the declaration that circumstances exist justifying the authorization of the emergency use of in vitro diagnostic tests for detection of SARS-CoV-2 virus and/or diagnosis of COVID-19 infection under section 564(b)(1) of the Act, 21 U.S.C. 360bbb-3(b)(1), unless the authorization is terminated or revoked sooner. Coronavirus 2019 Nasopharygeal Laboratory test result [facility] ([facility] ID Date Data Source [id number] 05/29/2020 07:58:00 AM EST [facility] ([facility] Name Value Range Interpretation Code Description Data Patricio rce(s) Supporting Document(s) Laboratory test finding (navigational concept) 0.00 ng/mL 0 .00-0.08 Normal (applies to non-numeric results) [facility] ([facility] ID Date Data Source [id number] 05/29/2020 07:58:00 AM EST [facility] ([facility] Name Value Range Interpretation Code Description Data Patricio rce(s) Supporting Document(s) Laboratory test finding (navigational concept) 0.00 ng/mL 0 .00-0.08 Normal (applies to non-numeric results) [facility] ([facility] Troponin I.cardiac [Mass/volume] in Serum or Plasma Laboratory test result [facility] ([facility] ID Date Data Source [id number] 05/29/2020 07:55:00 AM EST [facility] ([facility] Name Value Range Interpretation Code Description Data Patricio rce(s) Supporting Document(s) Laboratory test finding (navigational concept) 39.0 % 3 8.0-51.0 Normal (applies to non-numeric results) [facility] ([facility] Laboratory test finding (navigational concept) 141 meq/L 1 36-145 Normal (applies to non-numeric results) [facility] ([facility] Laboratory test finding (navigational concept) 4.1 meq/L 3 .5-5.1 Normal (applies to non-numeric results) [facility] ([facility] Laboratory test finding (navigational concept) 112 mg/dL 7 0-105 Above high normal [facility] ([facility] ) Laboratory test finding (navigational concept) 24.0 MM/L 2 3.0-27.0 Normal (applies to non-numeric results) [facility] ([facility] Laboratory test finding (navigational concept) 106 meq/L 9 8-109 Normal (applies to non-numeric results) [facility] ([facility] Laboratory test finding (navigational concept) 4.9 mg/dL 4 .5-5.3 Normal (applies to non-numeric results) [facility] ([facility] Laboratory test finding (navigational concept) 1.1 mg/dL 0 .6-1.3 Normal (applies to non-numeric results) [facility] ([facility] Laboratory test finding (navigational concept) 20 mg/dL 8 -26 Normal (applies to non-numeric results) [facility] ([facility]) ID Date Data Source [id number] 05/29/2020 07:55:00 AM EST [facility] ([facility] Name Value Range Interpretation Code Description Data Patricio rce(s) Supporting Document(s) White Blood Count 5.8 10 4.0-10.0 Normal (applies to non-numeri c results) [facility] ([facility] Hemoglobin 12.8 g/dL 13.5-17.5 Below low normal [facility] ( [facility] Red Blood Count 4.22 10 4.30-6.10 Below low normal MED [facility] ([facility] Hematocrit 39.6 % 42.0-52.0 Below low normal [facility] ( [facility] Mean Corpuscular Hemoglobin 30.3 pg 27.0-33.0 Norm al (applies to non-numeric results) [facility] ([facility] ) Mean Corpuscular HGB Conc 32.3 g/dL 32.0-36.5 Normal (applies to non-numeric results) [facility] ([facility] ) Mean Corpuscular Volume 93.8 fl 80.0-96.0 Normal ( applies to non-numeric results) [facility] ([facility] ) Platelet Count, Automated 248 10 150-450 Normal (applies to non-numeric results) [facility] ([facility] ) Red Cell Distribution Width 13.5 % 11.5-14.5 Norm al (applies to non-numeric results) [facility] ([facility] ) Neutrophils % 65.4 % 36.0-66.0 Normal (applies to non-numeric re sults) [facility] ([facility] Lymph % 23.4 % 24.0-44.0 Below low normal [facility] ( [facility] Eos % 2.6 % 0.0-3.0 Normal (applies to non-numeric resul ts) [facility] ([facility] [place] % 8.0 % 0.0-5.0 Above high normal [facility] ([facility] Nucleated Red Blood Cell % 0.0 % 0-0 Normal (applies to n on-numeric results) [facility] ([facility] Immature Granulocyte % 0.3 % 0-3.0 Normal (applies to non-n umeric results) [facility] ([facility] Baso % 0.3 % 0.0-1.0 Normal (applies to non-numeric resul ts) [facility] ([facility] Lymph # 1.4 10 1.5-5.0 Below low normal [facility] ( [facility] [place] # 0.5 10 0.0-0.8 Normal (applies to non-numeric resul ts) [facility] ([facility] Neutrophils # 3.8 10 1.5-8.5 Normal (applies to non-numeric re sults) [facility] ([facility] Eos # 0.2 10 0.0-0.5 Normal (applies to non-numeric resul ts) [facility] ([facility] Baso # 0.0 10 0.0-0.2 Normal (applies to non-numeric resul ts) [facility] ([facility] ID Date Data Source [id number] 05/29/2020 07:55:00 AM EST [facility] ([facility] Name Value Range Interpretation Code Description Data Patricio rce(s) Supporting Document(s) Inr 1.02 Normal (applies to non-numeric resul ts) [facility] ([facility] THERAPUTIC HUMAN INR VALUES INDICATIONS NORMAL RANGES PROPHYLAXIS/TREATMENT OF: VENOUS THROMBOSIS 2.0-3.0 PULMONARY EMBOLISM 2.0-3.0 PREVENTION OF SYSTEMIC EMBOLISM FROM: TISSUE HEART VALVES 2.0-3.0 ACUTE MYOCARDIAL INFARCTION 2.0-3.0 VALVULAR HEART DISEASE 2.0-3.0 ATRIAL FIBRILLATION 2.0-3.0 MECHANICAL VALVES(HIGH RISK) 2.5-3.5 RECURRENT MYOCARDIAL INFARCTION 2.5-3.5 Prothrombin Time 13.6 s 12.5-14.3 Normal (applies to non-numeric results) [facility] ([facility] ID Date Data Source [id number] 05/29/2020 07:55:00 AM EST [facility] ([facility] Name Value Range Interpretation Code Description Data Patricio rce(s) Supporting Document(s) aPTT in Platelet poor plasma by Coagulation assay 27.8 s 24.2-38.5 Normal (applies to non-numeric results) [facility] ([facility] ID Date Data Source [id number] 05/29/2020 07:55:00 AM EST [facility] ([facility] Name Value Range Interpretation Code Description Data Patricio rce(s) Supporting Document(s) CK-MB Value Mass 1.8 ng/mL Normal (applies to non-numeric results) [facility] ([facility] CPK Creatine Phosphokinase 54 U/L 39-308 Lyly l (applies to non-numeric results) [facility] ([facility] ) MB/CK Relative Index 3.33 Normal (applies to non-num antoine results) JOSE ALEJANDRO ([facility] <content>DIAGNOSIS CRITERIA</content>
<content>MMB ng/ml Relative Index (RI)</content>
<content>NON-AMI < or = 5 N/A</content>
<content>MARTIN ZONE > 5 < or = 4</content>
<content>AMI > 5 > 4</content>
<content></content> Troponin I Laboratory test result Normal (applies to non-n umeric results) JOSE ALEJANDRO ([facility] <content>Troponin I Reference Interval f or Siemens [place] LOCI:</content>
<content></content>
<content>99th Percentile= 0.00-0.045 ng/ml</content>
<content></content>
<content>Risk Stratification:</content>
<content><= 0.10 ng/ml Decreased Risk for Adverse Clinical</content>
<content>Events.</content>
<content>0.10-1.50 ng/ml Increased Risk for Adverse Clinical</content>
<content>Events. Evaluation of additional</content>
<content>criterion and/or repeat testing in 2-6</content>
<content>hours is suggested to rule out myocardial</content>
<content>damage.</content>
<content>>= 1.50 ng/ml Indicative of Myocardial Injury.</content>
<content></content> ID Date Data Source [id number] 05/28/2020 11:23:00 AM EST JOSE ALEJANDRO ([facility] Name Value Range Interpretation Code Description Data Patricio rce(s) Supporting Document(s) Urine Culture, Routine Laboratory test result JOSE ALEJANDRO ([facility] SRC:URINE Bacteria identified in Urine by Culture Laboratory test result JOSE ALEJANDRO ([facility] SRC:URINE ID Date Data Source [id number] 05/28/2020 11:21:00 AM EST [facility] ([facility] Name Value Range Interpretation Code Description Data Patricio rce(s) Supporting Document(s) Color Urine Laboratory test result M EDENT ([facility] Appearance of Urine Laboratory test result [facility] ([facility] PH Urine 5.5 5.0-8.0 [facility] Specific [place] 1.020 1.00-1.03 [facility] ([facility] Bilirubin.total [Presence] in Urine by Test strip Laboratory test res ult [facility] ([facility] Glucose Urine Laboratory test result [facility] ([facility] Ketones Laboratory test result [facility] ([facility] Urobilinogen 0.2 EU/dl 0.2-1.0 [facility] ([facility] Blood Urine Laboratory test result M EDENT ([facility] Protein Urine Laboratory test result [facility] ([facility] Nitrite Laboratory test result [facility] ([facility] Leukocytes Laboratory test result Above high normal [facility] ([facility] ID Date Data Source [id number] 05/15/2020 08:44:00 PM EST [facility] ([facility] Name Value Range Interpretation Code Description Data Patricio rce(s) Supporting Document(s) Blood Urea Nitrogen 13 mg/dL 7-18 Normal (applies to non-nume alix results) [facility] ([facility] Glucose, Fasting 87 mg/dL 70-100 Normal (applies to non-numeric results) [facility] ([facility] Sodium Level 142 meq/L 136-145 Normal (applies to non-numeric res ults) [facility] ([facility] Creatinine For GFR 1.47 mg/dL 0.70-1.30 Above high normal [facility] ([facility] Glomerular Filtration Rate 49.1 Normal (applies to n on-numeric results) [facility] ([facility] <content>Units are mL/min/1.73 m2</content>
<content></content>
<content>Chronic Kidney Disease Staging per NKF:</content>
<content></content>
<content>Stage I & II GFR >=60 Normal to Mildly Decreased</content>
<content>Stage III GFR 30- 59 Moderately Decreased</content>
<content>Stage IV GFR 15-29 Severely Decreased</content>
<content>Stage V GFR <15 Very Little GFR Left</content>
<content>ESRD GFR <15 on SHEET METAL PATTERN CUTTER</content>
<content></content> Potassium Serum 3.6 meq/L 3.5-5.1 Normal (applies to non-numeric results) [facility] ([facility] Carbon Dioxide Level 26 meq/L 21-32 Normal (applies to non-num antoine results) [facility] ([facility] Chloride Level 109 meq/L 98-107 Above high normal [facility] ([facility] Anion Gap 7 meq/L 8-16 Below low normal [facility] ( [facility] Calcium Level 8.9 mg/dL 8.8-10.2 Normal (applies to non-numeric re sults) [facility] ([facility] ID Date Data Source [id number] 05/15/2020 08:44:00 PM EST [facility] ([facility] Name Value Range Interpretation Code Description Data Patricio rce(s) Supporting Document(s) Ast/Sgot 24 U/L 7-37 Normal (applies to non-numeric resul ts) [facility] ([facility] Alkaline Phosphatase 66 U/L 45-117 Normal (applies to non-num antoine results) [facility] ([facility] Alt/SGPT 28 U/L 12-78 Normal (applies to non-numeric resul ts) [facility] ([facility] Bilirubin,Total 0.3 mg/dL 0.2-1.0 Normal (applies to non-numeric results) [facility] ([facility] Total Protein 6.2 GM/DL 6.4-8.2 Below low normal MEDEN T ([facility] Bilirubin,Direct 0.1 mg/dL 0.0-0.2 Normal (applies to non-numeric results) [facility] ([facility] Albumin 3.3 GM/DL 3.2-5.2 Normal (applies to non-numeric resul ts) [facility] ([facility] Albumin/Globulin Ratio 1.1 Normal (applies to non-n umeric results) [facility] ([facility] ID Date Data Source [id number] 05/15/2020 08:44:00 PM EST [facility] ([facility] Name Value Range Interpretation Code Description Data Patricio rce(s) Supporting Document(s) White Blood Count 7.0 10 4.0-10.0 Normal (applies to non-numeri c results) [facility] ([facility] Hemoglobin 12.2 g/dL 13.5-17.5 Below low normal [facility] ( [facility] Hematocrit 37.6 % 42.0-52.0 Below low normal [facility] ( [facility] Red Blood Count 4.04 10 4.30-6.10 Below low normal [facility] ([facility] Mean Corpuscular HGB Conc 32.4 g/dL 32.0-36.5 Normal (applies to non-numeric results) [facility] ([facility] ) Red Cell Distribution Width 13.0 % 11.5-14.5 Norm al (applies to non-numeric results) [facility] ([facility] ) Mean Corpuscular Volume 93.1 fl 80.0-96.0 Normal ( applies to non-numeric results) [facility] ([facility] ) Mean Corpuscular Hemoglobin 30.2 pg 27.0-33.0 Norm al (applies to non-numeric results) [facility] ([facility] ) Platelet Count, Automated 230 10 150-450 Normal (applies to non-numeric results) [facility] ([facility] ) Neutrophils % 49.5 % 36.0-66.0 Normal (applies to non-numeric re sults) [facility] ([facility] [place] % 14.6 % 0.0-5.0 Above high normal [facility] ([facility] Eos % 0.0 % 0.0-3.0 Normal (applies to non-numeric resul ts) [facility] ([facility] Lymph % 31.1 % 24.0-44.0 Normal (applies to non-numeric resul ts) [facility] ([facility] Immature Granulocyte % 3.8 % 0-3.0 Above high normal [facility] ([facility] Neutrophils # 3.5 10 1.5-8.5 Normal (applies to non-numeric re sults) [facility] ([facility] Baso % 1.0 % 0.0-1.0 Normal (applies to non-numeric resul ts) [facility] ([facility] Nucleated Red Blood Cell % 0.0 % 0-0 Normal (applies to n on-numeric results) [facility] ([facility] [place] # 1.0 10 0.0-0.8 Above high normal [facility] ([facility] Lymph # 2.2 10 1.5-5.0 Normal (applies to non-numeric resul ts) [facility] ([facility] Eos # 0.0 10 0.0-0.5 Normal (applies to non-numeric resul ts) [facility] ([facility] Baso # 0.1 10 0.0-0.2 Normal (applies to non-numeric resul ts) MEDENT ([facility] ID Date Data Source [id number] 05/09/2020 11:07:00 AM EST MEDENT ([facility] Name Value Range Interpretation Code Description Data Patricio rce(s) Supporting Document(s) Bacteria identified in Urine by Culture Laboratory test result MEDENT ([facility] SRC: URINE Urine Culture, Routine Laboratory test result MEDENT ([facility] SRC: URINE ID Date Data Source [id number] 05/09/2020 10:59:00 AM EST MEDENT ([facility] Name Value Range Interpretation Code Description Data Patricio rce(s) Supporting Document(s) Specific [place] 1.015 1.00-1.03 MEDENT ([facility] Color Urine Laboratory test result M EDENT ([facility] Appearance of Urine Laboratory test result MEDENT ([facility] PH Urine 5.5 5.0-8.0 MEDENT ([facility] Glucose Urine Laboratory test result MEDENT ([facility] Bilirubin.total [Presence] in Urine by Test strip Laboratory test res ult MEDENT ([facility] Protein Urine Laboratory test result Above high normal MEDENT ([facility] Blood Urine Laboratory test result Above high normal MEDENT ([facility] Ketones Laboratory test result MEDENT ([facility] Nitrite Laboratory test result MEDENT ([facility] Urobilinogen 0.2 EU/dl 0.2-1.0 MEDENT ([facility] Leukocytes Laboratory test result Above high normal MEDENT ([facility] ID Date Data Source [id number] 04/16/2020 03:45:00 PM EDT MEDENT ([facility] Name Value Range Interpretation Code Description Data Patricio rce(s) Supporting Document(s) Urine Culture, Routine Laboratory test result Ab normal (applies to non-numeric results) MEDENT ([facility] ) SRC:PENILE DISCHARGE Bacteria identified in Urine by Culture Laboratory test result Abnormal (applies to non-numeric results) MED[facility] ([facility] SRC:PENILE DISCHARGE Antimicrobial Susceptibility Laboratory test result MEDENT ([facility] SRC:PENILE DISCHARGE ID Date Data Source [id number] 04/16/2020 03:45:00 PM EDT MEDENT ([facility] Name Value Range Interpretation Code Description Data Patricio rce(s) Supporting Document(s) Bacteria identified in Unspecified specimen by Culture Laborator y test result Abnormal (applies to non-numeric results) [facility] SRC:PENILE DISCHARGE Bacteria identified in Unspecified specimen by Aerobe culture Laboratory test result Abnormal (applies to non-numeric results) MEDENT ([facility] SRC:PENILE DISCHARGE Bacteria identified in Unspecified specimen by Culture Laborator y test result MEDENT ([facility] ) SRC:PENILE DISCHARGE Bacteria identified in Unspecified specimen by Culture Laborator y test result Abnormal (applies to non-numeric results) MEDENT ([facility] SRC:PENILE DISCHARGE Other Antibiotic [Susceptibility] Laboratory test result [facility] SRC:PENILE DISCHARGE ID Date Data Source [id number] 04/16/2020 03:45:00 PM EDT MEDENT ([facility] Name Value Range Interpretation Code Description Data Patircio rce(s) Supporting Document(s) Bacteria identified in Unspecified specimen by Aerobe culture Laboratory test result MEDENT ([facility] ID Date Data Source [id number] 04/16/2020 03:39:00 PM EDT MEDENT ([facility] Name Value Range Interpretation Code Description Data Patricio rce(s) Supporting Document(s) Appearance of Urine Laboratory test result MEDENT ([facility] Color Urine Laboratory test result M EDENT ([facility] Glucose Urine Laboratory test result MEDENT ([facility] Specific [place] 1.030 1.00-1.03 MEDENT ([facility] PH Urine 5.5 5.0-8.0 [facility] Ketones Laboratory test result MEDENT ([facility] Bilirubin.total [Presence] in Urine by Test strip Laboratory melissa t result Above high normal MEDENT ([facility] ) Blood Urine Laboratory test result Above high normal MEDENT ([facility] Urobilinogen 0.2 EU/dl 0.2-1.0 MEDENT ([facility] Nitrite Laboratory test result Above high normal MEDENT ([facility] Protein Urine Laboratory test result Above high normal MEDENT ([facility] Leukocytes Laboratory test result Above high normal MEDENT ([facility] ID Date Data Source [id number] 04/10/2020 08:31:00 AM EDT MEDENT ([facility] Name Value Range Interpretation Code Description Data Patricio rce(s) Supporting Document(s) Laboratory test finding (navigational concept) 107 mg/dL 7 0-105 Above high normal MEDENT ([facility] ) Laboratory test finding (navigational concept) 48.0 % 3 8.0-51.0 Normal (applies to non-numeric results) MEDENT ([facility] Laboratory test finding (navigational concept) 3.9 meq/L 3 .5-5.1 Normal (applies to non-numeric results) MEDENT ([facility] Laboratory test finding (navigational concept) 4.5 mg/dL 4 .5-5.3 Normal (applies to non-numeric results) MEDENT ([facility] Laboratory test finding (navigational concept) 137 meq/L 1 36-145 Normal (applies to non-numeric results) MEDENT ([facility] Laboratory test finding (navigational concept) 18 mg/dL 8 -26 Normal (applies to non-numeric results) MEDENT ([facility]) Laboratory test finding (navigational concept) 100 meq/L 9 8-109 Normal (applies to non-numeric results) MEDENT ([facility] Laboratory test finding (navigational concept) 23.0 MM/L 2 3.0-27.0 Normal (applies to non-numeric results) MEDENT ([facility] Laboratory test finding (navigational concept) 1.7 mg/dL 0 .6-1.3 Above high normal MEDENT ([facility] ) ID Date Data Source [id number] 03/16/2020 11:22:[address] [facility] Name Value Range Interpretation Code Description Data Patricio rce(s) Supporting Document(s) Progress Note [facility] [id number] lbm [file] [id number]+Anne [id number] [file] [id number] ID Date Data Source [id number] 03/13/2020 09:49:00 AM EDT JOSE ALEJANDRO ([facility] Name Value Range Interpretation Code Description Data Patricio rce(s) Supporting Document(s) Glu 90 mg/dL 70-110 [facility]SAV [facility] CHRONIC KIDNEY DISEASE STAGING PER NKF: MALE GFR INTERPRETATION: 20-49 YRS: >60 mL/min Normal 50-59 YRS: >56 mL/min Normal 60-69 YRS: >49 mL/min Normal 70-79 YRS: >42 mL/min Normal 80 and above >35 mL/min Normal FEMALE GRF INTERPRETATION: 20-39 YRS: >60 mL/min Normal 40-49 YRS: >58 mL/min Normal 50-59 YRS: >51 mL/min Normal 60-69 YRS: >45 mL/min Normal 70-79 YRS: >39 mL/min Normal 80 and above >32 mL/min Normal Creat 1.4 mg/dL 0.7-1.2 Above high normal MEDENT ([facility] CHRONIC KIDNEY DISEASE STAGING PER NKF: MALE GFR INTERPRETATION: 20-49 YRS: >60 mL/min Normal 50-59 YRS: >56 mL/min Normal 60-69 YRS: >49 mL/min Normal 70-79 YRS: >42 mL/min Normal 80 and above >35 mL/min Normal FEMALE GRF INTERPRETATION: 20-39 YRS: >60 mL/min Normal 40-49 YRS: >58 mL/min Normal 50-59 YRS: >51 mL/min Normal 60-69 YRS: >45 mL/min Normal 70-79 YRS: >39 mL/min Normal 80 and above >32 mL/min Normal BUN 21 mg/dL 02-25 MEDENT ([facility] CHRONIC KIDNEY DISEASE STAGING PER NKF: MALE GFR INTERPRETATION: 20-49 YRS: >60 mL/min Normal 50-59 YRS: >56 mL/min Normal 60-69 YRS: >49 mL/min Normal 70-79 YRS: >42 mL/min Normal 80 and above >35 mL/min Normal FEMALE GRF INTERPRETATION: 20-39 YRS: >60 mL/min Normal 40-49 YRS: >58 mL/min Normal 50-59 YRS: >51 mL/min Normal 60-69 YRS: >45 mL/min Normal 70-79 YRS: >39 mL/min Normal 80 and above >32 mL/min Normal BUN/Creatinine Ratio 15.6 CALC MEDENT ([facility] CHRONIC KIDNEY DISEASE STAGING PER NKF: MALE GFR INTERPRETATION: 20-49 YRS: >60 mL/min Normal 50-59 YRS: >56 mL/min Normal 60-69 YRS: >49 mL/min Normal 70-79 YRS: >42 mL/min Normal 80 and above >35 mL/min Normal FEMALE GRF INTERPRETATION: 20-39 YRS: >60 mL/min Normal 40-49 YRS: >58 mL/min Normal 50-59 YRS: >51 mL/min Normal 60-69 YRS: >45 mL/min Normal 70-79 YRS: >39 mL/min Normal 80 and above >32 mL/min Normal CL 105.5 mmol/L 98.0-107.0 MEDENT ([facility] CHRONIC KIDNEY DISEASE STAGING PER NKF: MALE GFR INTERPRETATION: 20-49 YRS: >60 mL/min Normal 50-59 YRS: >56 mL/min Normal 60-69 YRS: >49 mL/min Normal 70-79 YRS: >42 mL/min Normal 80 and above >35 mL/min Normal FEMALE GRF INTERPRETATION: 20-39 YRS: >60 mL/min Normal 40-49 YRS: >58 mL/min Normal 50-59 YRS: >51 mL/min Normal 60-69 YRS: >45 mL/min Normal 70-79 YRS: >39 mL/min Normal 80 and above >32 mL/min Normal Na 143 mmol/L 136-145 MEDENT ([facility] CHRONIC KIDNEY DISEASE STAGING PER NKF: MALE GFR INTERPRETATION: 20-49 YRS: >60 mL/min Normal 50-59 YRS: >56 mL/min Normal 60-69 YRS: >49 mL/min Normal 70-79 YRS: >42 mL/min Normal 80 and above >35 mL/min Normal FEMALE GRF INTERPRETATION: 20-39 YRS: >60 mL/min Normal 40-49 YRS: >58 mL/min Normal 50-59 YRS: >51 mL/min Normal 60-69 YRS: >45 mL/min Normal 70-79 YRS: >39 mL/min Normal 80 and above >32 mL/min Normal K 4.2 mmol/L 3.5-5.1 MEDENT ([facility] CHRONIC KIDNEY DISEASE STAGING PER NKF: MALE GFR INTERPRETATION: 20-49 YRS: >60 mL/min Normal 50-59 YRS: >56 mL/min Normal 60-69 YRS: >49 mL/min Normal 70-79 YRS: >42 mL/min Normal 80 and above >35 mL/min Normal FEMALE GRF INTERPRETATION: 20-39 YRS: >60 mL/min Normal 40-49 YRS: >58 mL/min Normal 50-59 YRS: >51 mL/min Normal 60-69 YRS: >45 mL/min Normal 70-79 YRS: >39 mL/min Normal 80 and above >32 mL/min Normal Co2 25.0 mmol/L 22.0-29.0 MEDENT ([facility] CHRONIC KIDNEY DISEASE STAGING PER NKF: MALE GFR INTERPRETATION: 20-49 YRS: >60 mL/min Normal 50-59 YRS: >56 mL/min Normal 60-69 YRS: >49 mL/min Normal 70-79 YRS: >42 mL/min Normal 80 and above >35 mL/min Normal FEMALE GRF INTERPRETATION: 20-39 YRS: >60 mL/min Normal 40-49 YRS: >58 mL/min Normal 50-59 YRS: >51 mL/min Normal 60-69 YRS: >45 mL/min Normal 70-79 YRS: >39 mL/min Normal 80 and above >32 mL/min Normal TP 6.5 g/dL 6.6-8.7 Below low normal [facility] ( [facility] CHRONIC KIDNEY DISEASE STAGING PER NKF: MALE GFR INTERPRETATION: 20-49 YRS: >60 mL/min Normal 50-59 YRS: >56 mL/min Normal 60-69 YRS: >49 mL/min Normal 70-79 YRS: >42 mL/min Normal 80 and above >35 mL/min Normal FEMALE GRF INTERPRETATION: 20-39 YRS: >60 mL/min Normal 40-49 YRS: >58 mL/min Normal 50-59 YRS: >51 mL/min Normal 60-69 YRS: >45 mL/min Normal 70-79 YRS: >39 mL/min Normal 80 and above >32 mL/min Normal CA 10.2 mg/dL 8.6-10.2 [facility] ([facility] CHRONIC KIDNEY DISEASE STAGING PER NKF: MALE GFR INTERPRETATION: 20-49 YRS: >60 mL/min Normal 50-59 YRS: >56 mL/min Normal 60-69 YRS: >49 mL/min Normal 70-79 YRS: >42 mL/min Normal 80 and above >35 mL/min Normal FEMALE GRF INTERPRETATION: 20-39 YRS: >60 mL/min Normal 40-49 YRS: >58 mL/min Normal 50-59 YRS: >51 mL/min Normal 60-69 YRS: >45 mL/min Normal 70-79 YRS: >39 mL/min Normal 80 and above >32 mL/min Normal A/G Ratio 1.9 CALC [facility] ([facility] CHRONIC KIDNEY DISEASE STAGING PER NKF: MALE GFR INTERPRETATION: 20-49 YRS: >60 mL/min Normal 50-59 YRS: >56 mL/min Normal 60-69 YRS: >49 mL/min Normal 70-79 YRS: >42 mL/min Normal 80 and above >35 mL/min Normal FEMALE GRF INTERPRETATION: 20-39 YRS: >60 mL/min Normal 40-49 YRS: >58 mL/min Normal 50-59 YRS: >51 mL/min Normal 60-69 YRS: >45 mL/min Normal 70-79 YRS: >39 mL/min Normal 80 and above >32 mL/min Normal Alb 4.3 g/dL 3.5-5.2 MEDENT ([facility] CHRONIC KIDNEY DISEASE STAGING PER NKF: MALE GFR INTERPRETATION: 20-49 YRS: >60 mL/min Normal 50-59 YRS: >56 mL/min Normal 60-69 YRS: >49 mL/min Normal 70-79 YRS: >42 mL/min Normal 80 and above >35 mL/min Normal FEMALE GRF INTERPRETATION: 20-39 YRS: >60 mL/min Normal 40-49 YRS: >58 mL/min Normal 50-59 YRS: >51 mL/min Normal 60-69 YRS: >45 mL/min Normal 70-79 YRS: >39 mL/min Normal 80 and above >32 mL/min Normal Alp 59.0 U/L 40-129 MEDENT ([facility] CHRONIC KIDNEY DISEASE STAGING PER NKF: MALE GFR INTERPRETATION: 20-49 YRS: >60 mL/min Normal 50-59 YRS: >56 mL/min Normal 60-69 YRS: >49 mL/min Normal 70-79 YRS: >42 mL/min Normal 80 and above >35 mL/min Normal FEMALE GRF INTERPRETATION: 20-39 YRS: >60 mL/min Normal 40-49 YRS: >58 mL/min Normal 50-59 YRS: >51 mL/min Normal 60-69 YRS: >45 mL/min Normal 70-79 YRS: >39 mL/min Normal 80 and above >32 mL/min Normal Alt (SGPT) 15 U/L 0-41 MEDENT ([facility] CHRONIC KIDNEY DISEASE STAGING PER NKF: MALE GFR INTERPRETATION: 20-49 YRS: >60 mL/min Normal 50-59 YRS: >56 mL/min Normal 60-69 YRS: >49 mL/min Normal 70-79 YRS: >42 mL/min Normal 80 and above >35 mL/min Normal FEMALE GRF INTERPRETATION: 20-39 YRS: >60 mL/min Normal 40-49 YRS: >58 mL/min Normal 50-59 YRS: >51 mL/min Normal 60-69 YRS: >45 mL/min Normal 70-79 YRS: >39 mL/min Normal 80 and above >32 mL/min Normal Globulin 2.2 CALC [facility] ([facility] CHRONIC KIDNEY DISEASE STAGING PER NKF: MALE GFR INTERPRETATION: 20-49 YRS: >60 mL/min Normal 50-59 YRS: >56 mL/min Normal 60-69 YRS: >49 mL/min Normal 70-79 YRS: >42 mL/min Normal 80 and above >35 mL/min Normal FEMALE GRF INTERPRETATION: 20-39 YRS: >60 mL/min Normal 40-49 YRS: >58 mL/min Normal 50-59 YRS: >51 mL/min Normal 60-69 YRS: >45 mL/min Normal 70-79 YRS: >39 mL/min Normal 80 and above >32 mL/min Normal Osmolality-Calculated 287.2 CALC MED ENT ([facility] CHRONIC KIDNEY DISEASE STAGING PER NKF: MALE GFR INTERPRETATION: 20-49 YRS: >60 mL/min Normal 50-59 YRS: >56 mL/min Normal 60-69 YRS: >49 mL/min Normal 70-79 YRS: >42 mL/min Normal 80 and above >35 mL/min Normal FEMALE GRF INTERPRETATION: 20-39 YRS: >60 mL/min Normal 40-49 YRS: >58 mL/min Normal 50-59 YRS: >51 mL/min Normal 60-69 YRS: >45 mL/min Normal 70-79 YRS: >39 mL/min Normal 80 and above >32 mL/min Normal Tbili 0.43 mg/dL 0.0-1.2 [facility] ([facility] CHRONIC KIDNEY DISEASE STAGING PER NKF: MALE GFR INTERPRETATION: 20-49 YRS: >60 mL/min Normal 50-59 YRS: >56 mL/min Normal 60-69 YRS: >49 mL/min Normal 70-79 YRS: >42 mL/min Normal 80 and above >35 mL/min Normal FEMALE GRF INTERPRETATION: 20-39 YRS: >60 mL/min Normal 40-49 YRS: >58 mL/min Normal 50-59 YRS: >51 mL/min Normal 60-69 YRS: >45 mL/min Normal 70-79 YRS: >39 mL/min Normal 80 and above >32 mL/min Normal Ast (Sgot) 18 U/L 0-40 MEDENT ([facility] CHRONIC KIDNEY DISEASE STAGING PER NKF: MALE GFR INTERPRETATION: 20-49 YRS: >60 mL/min Normal 50-59 YRS: >56 mL/min Normal 60-69 YRS: >49 mL/min Normal 70-79 YRS: >42 mL/min Normal 80 and above >35 mL/min Normal FEMALE GRF INTERPRETATION: 20-39 YRS: >60 mL/min Normal 40-49 YRS: >58 mL/min Normal 50-59 YRS: >51 mL/min Normal 60-69 YRS: >45 mL/min Normal 70-79 YRS: >39 mL/min Normal 80 and above >32 mL/min Normal eGFR 55 # MEDENT ( [facility] CHRONIC KIDNEY DISEASE STAGING PER NKF: MALE GFR INTERPRETATION: 20-49 YRS: >60 mL/min Normal 50-59 YRS: >56 mL/min Normal 60-69 YRS: >49 mL/min Normal 70-79 YRS: >42 mL/min Normal 80 and above >35 mL/min Normal FEMALE GRF INTERPRETATION: 20-39 YRS: >60 mL/min Normal 40-49 YRS: >58 mL/min Normal 50-59 YRS: >51 mL/min Normal 60-69 YRS: >45 mL/min Normal 70-79 YRS: >39 mL/min Normal 80 and above >32 mL/min Normal Anion Gap 16 mmol/L [facility] CHRONIC KIDNEY DISEASE STAGING PER NKF: MALE GFR INTERPRETATION: 20-49 YRS: >60 mL/min Normal 50-59 YRS: >56 mL/min Normal 60-69 YRS: >49 mL/min Normal 70-79 YRS: >42 mL/min Normal 80 and above >35 mL/min Normal FEMALE GRF INTERPRETATION: 20-39 YRS: >60 mL/min Normal 40-49 YRS: >58 mL/min Normal 50-59 YRS: >51 mL/min Normal 60-69 YRS: >45 mL/min Normal 70-79 YRS: >39 mL/min Normal 80 and above >32 mL/min Normal eGFR Non-Afr. Bolivian 47 # MEDENT ([facility] CHRONIC KIDNEY DISEASE STAGING PER NKF: MALE GFR INTERPRETATION: 20-49 YRS: >60 mL/min Normal 50-59 YRS: >56 mL/min Normal 60-69 YRS: >49 mL/min Normal 70-79 YRS: >42 mL/min Normal 80 and above >35 mL/min Normal FEMALE GRF INTERPRETATION: 20-39 YRS: >60 mL/min Normal 40-49 YRS: >58 mL/min Normal 50-59 YRS: >51 mL/min Normal 60-69 YRS: >45 mL/min Normal 70-79 YRS: >39 mL/min Normal 80 and above >32 mL/min Normal ID Date Data Source [id number] 03/13/2020 09:48:00 AM EDT MEDSAV ([facility] Name Value Range Interpretation Code Description Data Patricio rce(s) Supporting Document(s) Appearance of Urine Laboratory test result MEDENT ([facility] Color Urine Laboratory test result M EDENT ([facility] PH Urine 5.5 5.0-8.0 [facility] Specific [place] 1.020 1.00-1.03 MEDENT ([facility] Bilirubin.total [Presence] in Urine by Test strip Laboratory test res ult MEDENT ([facility] Glucose Urine Laboratory test result MEDENT ([facility] Ketones Laboratory test result MEDENT ([facility] Blood Urine Laboratory test result M EDENT ([facility] Protein Urine Laboratory test result MEDENT ([facility] Urobilinogen 0.2 EU/dl 0.2-1.0 MEDENT ([facility] Leukocytes Laboratory test result ME DENT ([facility] Nitrite Laboratory test result MEDENT ([facility] Procedure Social History Code Duration Value Status Description Data Source(s ) Alcohol intake 04/25/2021 12:00:00 AM EDT Ex-drinker (finding) comp leted Ex- drinker (finding) [facility] Smoking 01/10/2021 12:00:00 AM EDT Patient is a former smoker completed Patient is a former smoker MEDENT ([facility]) Smoking 09/25/2020 12:00:00 AM EDT Patient is a former smoker completed Patient is a former smoker MEDENT ([facility]) Tobacco use and exposure 08/20/2020 12:00:00 AM EST Never used co mpleted Never used [facility] Cigarette pack-years 08/20/2020 12:00:00 AM EST UNK completed [facility] Cigarettes smoked current (pack per day) - Reported 08/20/19 12:00:00 AM EST UNK completed [facility] Smoking 08/20/2020 12:00:00 AM EST Former smoker completed Former smoker [facility] Alcohol intake 08/20/2020 12:00:00 AM EST Not Currently completed [facility] Smoking 08/20/2020 12:00:00 AM EST Former smoker completed Former smoker [facility] Alcohol intake 03/16/2020 12:00:00 AM EDT Lifetime non-drinker (finding) completed Lifetime non-drinker (finding) [facility] Tobacco use and exposure 03/16/2020 12:00:00 AM EDT Never used co mpleted Never used [facility] Smoking 03/16/2020 12:00:00 AM EDT Never smoker completed Never s [facility] Vital Signs ID Date Data Source UNK Name Value Range Interpretation Code Description Data Source(s) Systolic blood pressure 130 mm[Hg] 130 mm[Hg] M ALISON ([facility] Diastolic blood pressure 74 mm[Hg] 74 mm[Hg] MEDENT ([facility] Body temperature 97.0 [degF] 97.0 [degF] MEDENT ([facility] Heart rate 66 /min 66 /min MEDENT ([facility] Respiratory rate 16 /min 16 /min MEDENT ( [facility] Body height 67 [in_i] 67 [in_i] MEDENT ([facility] 5'7" Body weight 171.00 [lb_av] 171.00 [lb_av] MEDEN T ([facility] [place] body weight 148 [lb_av] 148 [lb_av] MEDEN T ([facility] Body mass index (BMI) [Ratio] 26.8 kg/m2 26.8 k g/m2 MEDENT ([facility] Systolic blood pressure 152 mm[Hg] 152 mm[Hg] [facility] Diastolic blood pressure 82 mm[Hg] 82 mm[Hg] [facility] Heart rate 57 /min 57 /min [facility] Body height 170.2 cm 170.2 cm [facility] Body weight 77.837 kg 77.837 kg [facility] Body mass index (BMI) [Ratio] 26.88 kg/m2 26.88 kg/m2 [facility] Oxygen saturation in Arterial blood by Pulse oximetry 98 % 98 % [facility] Systolic blood pressure 110 mm[Hg] 110 mm[Hg] M EDENT ([facility] Diastolic blood pressure 72 mm[Hg] 72 mm[Hg] MEDENT ([facility] Body temperature 97.2 [degF] 97.2 [degF] MEDENT ([facility] Heart rate 73 /min 73 /min MED[facility] ([facility] Respiratory rate 16 /min 16 /min MEDENT ( [facility] Body height 67 [in_i] 67 [in_i] MEDENT ([facility] 5'7" Body weight 170.00 [lb_av] 170.00 [lb_av] MEDEN T ([facility] [place] body weight 148 [lb_av] 148 [lb_av] MEDEN T ([facility] Body mass index (BMI) [Ratio] 26.6 kg/m2 26.6 k g/m2 MEDENT ([facility] Oxygen saturation in Arterial blood by Pulse oximetry 97 % 97 % MEDENT ([facility] Systolic blood pressure 122 mm[Hg] 122 mm[Hg] M EDENT ([facility] Diastolic blood pressure 70 mm[Hg] 70 mm[Hg] MEDENT ([facility] Body weight 166.00 [lb_av] 166.00 [lb_av] MEDEN T ([facility]) Respiratory rate 18 /min 18 /min MEDENT ( [facility] Body mass index (BMI) [Ratio] 26.5 kg/m2 26.5 k g/m2 MEDENT ([facility]) Systolic blood pressure 132 mm[Hg] 132 mm[Hg] M EDENT ([facility]) sitting Body weight 169.00 [lb_av] 169.00 [lb_av] MEDEN T ([facility]) Body height 67 [in_i] 67 [in_i] [facility] [facility] Diastolic blood pressure 74 mm[Hg] 74 mm[Hg] MEDENT ([facility]) sitting, regular cuff Diastolic blood pressure 74 mm[Hg] 74 mm[Hg] MEDENT ([facility]) sitting Heart rate 52 /min 52 /min MEDENT ([facility]) Regular Respiratory rate 16 /min 16 /min MEDENT ( [facility]) Systolic blood pressure 128 mm[Hg] 128 mm[Hg] M EDENT ([facility]) sitting, regular cuff Body weight 171 [lb_av] 171 [lb_av] eCW1 ([facility]) Systolic blood pressure 175 mm[Hg] 175 mm[Hg] e CW1 ([facility]) Respiratory rate 18 /min 18 /min eCW1 ([facility]) Body temperature 98 [degF] 98 [degF] eCW1 ([facility]) Diastolic blood pressure 94 mm[Hg] 94 mm[Hg] eCW1 ([facility]) Body height 67 [in_i] 67 [in_i] eCW1 ([facility]) Body mass index (BMI) [Ratio] 26.78 kg/m2 26.78 kg/m2 eCW1 ([facility]) Heart rate 61 /min 61 /min eCW1 ([facility]) Body weight 162.00 [lb_av] 162.00 [lb_av] MEDEN T ([facility], [facility]) Body height 67 [in_i] 67 [in_i] MEDENT ([facility]) 5'7" Oxygen saturation in Arterial blood by Pulse oximetry 93 % 93 % MEDENT ([facility], [facility]) Body temperature 97.3 [degF] 97.3 [degF] MEDENT ([facility], [facility]) Body mass index (BMI) [Ratio] 25.4 kg/m2 25.4 k g/m2 MEDENT ([facility], [facility]) Heart rate 60 /min 60 /min MEDENT ([facility], [facility]) Respiratory rate 16 /min 16 /min MEDENT ( [facility], [facility]) Systolic blood pressure 160 mm[Hg] 160 mm[Hg] M EDENT ([facility], [facility]) Diastolic blood pressure 90 mm[Hg] 90 mm[Hg] MEDENT ([facility], [facility]) Systolic blood pressure 130 mm[Hg] 130 mm[Hg] M EDENT ([facility] Diastolic blood pressure 64 mm[Hg] 64 mm[Hg] MEDENT ([facility] Body temperature 97.5 [degF] 97.5 [degF] MEDENT ([facility] Heart rate 77 /min 77 /min MEDENT ([facility] Respiratory rate 16 /min 16 /min MEDENT ( [facility] Body height 67 [in_i] 67 [in_i] MEDENT ([facility] 5'7" Body weight 175.00 [lb_av] 175.00 [lb_av] MEDEN T ([facility] [place] body weight 148 [lb_av] 148 [lb_av] MEDEN T ([facility] Body mass index (BMI) [Ratio] 27.4 kg/m2 27.4 k g/m2 [facility] ([facility] Oxygen saturation in Arterial blood by Pulse oximetry 96 % 96 % [facility] ([facility] Body height 67 [in_i] 67 [in_i] [facility] ([facility]) 5'7" Body weight 75.298 kg 75.298 kg [facility] ([facility]) Body weight 166.00 [lb_av] 166.00 [lb_av] MEDEN T ([facility]) Body mass index (BMI) [Ratio] 26.0 kg/m2 26.0 k g/m2 [facility] ([facility]) [place] body weight 148 [lb_av] 148 [lb_av] MEDEN T ([facility]) Body surface area Derived from formula 1.87 m2 1.87 m2 [facility] ([facility]) Body weight 173.00 [lb_av] 173.00 [lb_av] MEDEN T ([facility]) Body height 67 [in_i] 67 [in_i] MEDENT ([facility]) 5'7" Body mass index (BMI) [Ratio] 27.1 kg/m2 27.1 k g/m2 [facility] Heart rate 76 /min 76 /min MEDENT ([facility]) Regular Respiratory rate 16 /min 16 /min MEDENT ( [facility]) Systolic blood pressure 124 mm[Hg] 124 mm[Hg] M EDENT ([facility]) sitting, regular cuff Diastolic blood pressure 74 mm[Hg] 74 mm[Hg] MEDENT ([facility]) sitting, regular cuff Systolic blood pressure 173 mm[Hg] 173 mm[Hg] [facility] Diastolic blood pressure 85 mm[Hg] 85 mm[Hg] [facility] Heart rate 99 /min 99 /min [facility] Body temperature 36.67 Michelle 36.67 Michelle [facility] Respiratory rate 16 /min 16 /min [facility] Oxygen saturation in Arterial blood by Pulse oximetry 95 % 95 % [facility] Body weight 74.39 kg 74.39 kg [facility] Body mass index (BMI) [Ratio] 25.69 kg/m2 25.69 kg/m2 [facility] Body height 170.2 cm 170.2 cm [facility] Body weight 171 [lb_av] 171 [lb_av] eCW1 ([facility]) Body height 67 [in_i] 67 [in_i] eCW1 ([facility]) Body mass index (BMI) [Ratio] 26.78 kg/m2 26.78 kg/m2 eCW1 ([facility]) Heart rate 66 /min 66 /min eCW1 ([facility]) Respiratory rate 18 /min 18 /min eCW1 ([facility]) Body temperature 96.5 [degF] 96.5 [degF] eCW1 ( [facility]) Systolic blood pressure 140 mm[Hg] 140 mm[Hg] e CW1 ([facility]) Diastolic blood pressure 78 mm[Hg] 78 mm[Hg] eCW1 ([facility]) Systolic blood pressure 138 mm[Hg] 138 mm[Hg] M EDENT ([facility] Diastolic blood pressure 80 mm[Hg] 80 mm[Hg] MEDENT ([facility] Body temperature 97.7 [degF] 97.7 [degF] MEDENT ([facility] Heart rate 93 /min 93 /min MEDENT ([facility] Respiratory rate 16 /min 16 /min MEDENT ( [facility] Body height 67 [in_i] 67 [in_i] MEDENT ([facility] 5'7" Body weight 171.00 [lb_av] 171.00 [lb_av] MEDEN T ([facility] [place] body weight 148 [lb_av] 148 [lb_av] MEDEN T ([facility] Body mass index (BMI) [Ratio] 26.8 kg/m2 26.8 k g/m2 MEDENT ([facility] Oxygen saturation in Arterial blood by Pulse oximetry 97 % 97 % MEDSAV ([facility] Diastolic blood pressure 78 mm[Hg] 78 mm[Hg] MEDENT ([facility]) sitting, regular cuff Systolic blood pressure 128 mm[Hg] 128 mm[Hg] M EDENT ([facility]) sitting Body weight 161.00 [lb_av] 161.00 [lb_av] MEDEN T ([facility]) Body height 67 [in_i] 67 [in_i] MEDENT ([facility]) 5'7" Body mass index (BMI) [Ratio] 25.2 kg/m2 25.2 k g/m2 MEDENT ([facility]) Heart rate 64 /min 64 /min MEDENT ([facility]) Regular Respiratory rate 16 /min 16 /min MEDENT ( [facility]) Systolic blood pressure 134 mm[Hg] 134 mm[Hg] M EDENT ([facility]) sitting, regular cuff Diastolic blood pressure 76 mm[Hg] 76 mm[Hg] MEDENT ([facility]) sitting Body weight 171 [lb_av] 171 [lb_av] eCW1 ([facility]) Body height 67 [in_i] 67 [in_i] eCW1 ([facility]) Body mass index (BMI) [Ratio] 26.78 kg/m2 26.78 kg/m2 eCW1 ([facility]) Heart rate 57 /min 57 /min eCW1 ([facility]) Respiratory rate 18 /min 18 /min eCW1 ([facility]) Body temperature 96.6 [degF] 96.6 [degF] eCW1 ( [facility]) Systolic blood pressure 142 mm[Hg] 142 mm[Hg] e CW1 ([facility]) Diastolic blood pressure 80 mm[Hg] 80 mm[Hg] eCW1 ([facility]) Body weight 171 [lb_av] 171 [lb_av] eCW1 ([facility]) Body height 67 [in_i] 67 [in_i] eCW1 ([facility]) Body mass index (BMI) [Ratio] 26.78 kg/m2 26.78 kg/m2 eCW1 ([facility]) Heart rate 80 /min 80 /min eCW1 ([facility]) Respiratory rate 18 /min 18 /min eCW1 ([facility]) Body temperature 97.4 [degF] 97.4 [degF] eCW1 ( [facility]) Systolic blood pressure 160 mm[Hg] 160 mm[Hg] e CW1 ([facility]) Diastolic blood pressure 76 mm[Hg] 76 mm[Hg] eCW1 ([facility]) Diastolic blood pressure 68 mm[Hg] 68 mm[Hg] MEDENT ([facility] Systolic blood pressure 126 mm[Hg] 126 mm[Hg] M EDENT ([facility] Body temperature 97.4 [degF] 97.4 [degF] MEDENT ([facility] [place] body weight 148 [lb_av] 148 [lb_av] MEDEN T ([facility] Heart rate 79 /min 79 /min MEDENT ([facility] Respiratory rate 16 /min 16 /min MEDENT ( [facility] Body height 67 [in_i] 67 [in_i] MEDENT ([facility] 5'7" Body mass index (BMI) [Ratio] 27.1 kg/m2 27.1 k g/m2 MEDENT ([facility] Oxygen saturation in Arterial blood by Pulse oximetry 95 % 95 % MEDENT ([facility] Body weight 173.00 [lb_av] 173.00 [lb_av] MEDEN T ([facility] Systolic blood pressure 130 mm[Hg] 130 mm[Hg] M EDENT ([facility] Diastolic blood pressure 68 mm[Hg] 68 mm[Hg] MEDENT ([facility] Heart rate 84 /min 84 /min MEDENT ([facility] Respiratory rate 16 /min 16 /min MEDENT ( [facility] Body height 67 [in_i] 67 [in_i] MEDENT ([facility] 5'7" Body weight 174.00 [lb_av] 174.00 [lb_av] MEDEN T ([facility] Body temperature 98.5 [degF] 98.5 [degF] MEDENT ([facility] Body mass index (BMI) [Ratio] 27.2 kg/m2 27.2 k g/m2 MEDENT ([facility] Oxygen saturation in Arterial blood by Pulse oximetry 95 % 95 % MEDENT ([facility] [place] body weight 148 [lb_av] 148 [lb_av] MEDEN T ([facility] Respiratory rate 16 /min 16 /min MEDENT ( [facility] Body height 67 [in_i] 67 [in_i] MEDENT ([facility] 5'7" Body weight 176.00 [lb_av] 176.00 [lb_av] MEDEN T ([facility] [place] body weight 148 [lb_av] 148 [lb_av] MEDEN T ([facility] Body mass index (BMI) [Ratio] 27.6 kg/m2 27.6 k g/m2 MEDENT ([facility] Oxygen saturation in Arterial blood by Pulse oximetry 97 % 97 % MEDENT ([facility] Systolic blood pressure 116 mm[Hg] 116 mm[Hg] M EDENT ([facility] Diastolic blood pressure 60 mm[Hg] 60 mm[Hg] MEDENT ([facility] Body temperature 98.3 [degF] 98.3 [degF] MEDENT ([facility] Heart rate 92 /min 92 /min MEDENT ([facility] Respiratory rate 16 /min 16 /min MEDENT ( [facility] Body weight 175.00 [lb_av] 175.00 [lb_av] MEDEN T ([facility] [place] body weight 148 [lb_av] 148 [lb_av] MEDEN T ([facility] Body mass index (BMI) [Ratio] 27.4 kg/m2 27.4 k g/m2 MEDENT ([facility] Oxygen saturation in Arterial blood by Pulse oximetry 96 % 96 % MEDENT ([facility] Heart rate 100 /min 100 /min MEDENT ([facility] Systolic blood pressure 108 mm[Hg] 108 mm[Hg] M EDENT ([facility] Diastolic blood pressure 64 mm[Hg] 64 mm[Hg] MEDENT ([facility] Body temperature 98.0 [degF] 98.0 [degF] MEDENT ([facility] Body height 67 [in_i] 67 [in_i] MEDENT ([facility] 5'7" Body weight 177 [lb_av] 177 [lb_av] eCW1 ([facility]) Body height 67 [in_i] 67 [in_i] eCW1 ([facility]) Body mass index (BMI) [Ratio] 27.72 kg/m2 27.72 kg/m2 eCW1 ([facility]) Heart rate 59 /min 59 /min eCW1 ([facility]) Respiratory rate 17 /min 17 /min eCW1 ([facility]) Body temperature 97.2 [degF] 97.2 [degF] eCW1 ( [facility]) Systolic blood pressure 118 mm[Hg] 118 mm[Hg] e CW1 ([facility]) Diastolic blood pressure mm[Hg] eCW1 ([facility]) Body height 67 [in_i] 67 [in_i] MEDENT ([facility] 5'7" Respiratory rate 16 /min 16 /min MEDENT ( [facility] Body weight 178.00 [lb_av] 178.00 [lb_av] MEDEN T ([facility] [place] body weight 148 [lb_av] 148 [lb_av] MEDEN T ([facility] Systolic blood pressure 112 mm[Hg] 112 mm[Hg] M EDENT ([facility] Heart rate 79 /min 79 /min MEDENT ([facility] Diastolic blood pressure 70 mm[Hg] 70 mm[Hg] MEDENT ([facility] Body temperature 98.2 [degF] 98.2 [degF] MEDENT ([facility] Body mass index (BMI) [Ratio] 27.9 kg/m2 27.9 k g/m2 MEDENT ([facility] Oxygen saturation in Arterial blood by Pulse oximetry 98 % 98 % MEDENT ([facility] Body weight 178.00 [lb_av] 178.00 [lb_av] MEDEN T ([facility] Systolic blood pressure 140 mm[Hg] 140 mm[Hg] M EDENT ([facility] Diastolic blood pressure 80 mm[Hg] 80 mm[Hg] MEDENT ([facility] Body height 67 [in_i] 67 [in_i] MEDENT ([facility] 5'7" [place] body weight 148 [lb_av] 148 [lb_av] MEDEN T ([facility] Body mass index (BMI) [Ratio] 27.9 kg/m2 27.9 k g/m2 MEDENT ([facility] Oxygen saturation in Arterial blood by Pulse oximetry 97 % 97 % MEDENT ([facility] Body temperature 98.3 [degF] 98.3 [degF] MEDENT ([facility] Heart rate 102 /min 102 /min MEDENT ([facility] Respiratory rate 16 /min 16 /min MEDENT ( [facility] Systolic blood pressure 130 mm[Hg] 130 mm[Hg] M EDENT ([facility] Diastolic blood pressure 70 mm[Hg] 70 mm[Hg] MEDENT ([facility] Body temperature 97.5 [degF] 97.5 [degF] MEDSAV ([facility] Heart rate 74 /min 74 /min MEDSAV ([facility] Respiratory rate 16 /min 16 /min MEDSAV ( [facility] Body height 67 [in_i] 67 [in_i] MEDENT ([facility] 5'7" Body weight 178.00 [lb_av] 178.00 [lb_av] MEDEN T ([facility] Oxygen saturation in Arterial blood by Pulse oximetry 98 % 98 % JOSE ALEJANDRO ([facility] [place] body weight 148 [lb_av] 148 [lb_av] MEDEN T ([facility] Body mass index (BMI) [Ratio] 27.9 kg/m2 27.9 k g/m2 JOSE ALEJANDRO ([facility] ID Date Data Source [id number] 03/26/2020 10:07:28 AM [facility] Name Value Range Interpretation Code Description Data Source(s) WEIGHT RECORDED 181 lb 181 lb [facility] Body height Measured 67 in 67 in [facility] Patient Treatment Plan of Care Planned Activity Planned Date Details Description Data Source (s) Finasteride 5 MG Oral Tablet 11/14/2020 12:00:00 AM EDT [facility] ([facility]) Finasteride 5 MG Oral Tablet 11/14/2020 12:00:00 AM EDT [facility] ([facility]) Finasteride 5 MG Oral Tablet 11/14/2020 12:00:00 AM [place] [id number] ([facility]) atorvastatin 20 MG Oral Tablet 01/17/2020 12:00:00 AM [facility] atorvastatin 20 MG Oral Tablet 12/12/2019 12:00:00 AM [facility]
[2021-04-30 22:56] VITALS: BP 143/84
--- OUTSIDE RECORDS SUMMARY | 2021-04-30 23:22 | CCD ---
Author Author [facility] Organization [facility] Address Unknown Phone Unavailable Care Team Providers Care Medical Art Therapist Name Role Phone RudywAllison Unavailable Unavailable Symenow, Allison Simmons PA Unavailable Unavailable Symenow, Allison MOSELEY Unavailable Unavailable Symenow, Allison MOSELEY Unavailable Unavailable Symenow, Allison Simmons PA Unavailable Unavailable SymenowAllison PA Unavailable Unavailable SymenowAlilson PA Unavailable Unavailable SymenowAllison Unavailable Unavailable SymenowAllison [...] Allison Iris PA Unavailable Unavailable Symenow, Allison Irsi PA Unavailable Unavailable Symenow, Allison Iris PA [...] Unavailable TOWNSEND, G EDWARD RPA Unavailable Unavailable TWONSEND, G EDWARD RPA Unavailable Unavailable TOWNSEND, G [...] Arvind PA Unavailable Unavailable Loveless, A Eva VIDEO PHOTOGRAPHER Unavailable Unavailable Loveless, A Eva VIDEO PHOTOGRAPHER Unavailable Unavailable Loveless, A Eva VIDEO PHOTOGRAPHER Unavailable Unavailable Loveless, A Eva VIDEO PHOTOGRAPHER Unavailable Unavailable Loveless, A Eva VIDEO PHOTOGRAPHER Unavailable Unavailable Loveless, A Eva VIDEO PHOTOGRAPHER Unavailable Unavailable Loveless, A Eva VIDEO PHOTOGRAPHER Unavailable Unavailable Loveless, A Eva VIDEO PHOTOGRAPHER Unavailable Unavailable Loveless, A Eva VIDEO PHOTOGRAPHER Unavailable Unavailable Loveless, A Eva VIDEO PHOTOGRAPHER Unavailable Unavailable Loveless, A Eva VIDEO PHOTOGRAPHER Unavailable Unavailable Loveless, A Eva VIDEO PHOTOGRAPHER Unavailable Unavailable Loveless, A Eva VIDEO PHOTOGRAPHER Unavailable Unavailable Loveless, A Eva VIDEO PHOTOGRAPHER Unavailable Unavailable Loveless, A Eva VIDEO PHOTOGRAPHER Unavailable Unavailable Loveless, A Eva VIDEO PHOTOGRAPHER Unavailable Unavailable Loveless, A Eva VIDEO PHOTOGRAPHER Unavailable Unavailable Loveless, A Eva VIDEO PHOTOGRAPHER Unavailable Unavailable Loveless, A Eva VIDEO PHOTOGRAPHER Unavailable Unavailable Loveless, A Eva VIDEO PHOTOGRAPHER Unavailable Unavailable Loveless, A Eva VIDEO PHOTOGRAPHER Unavailable Unavailable Loveless, A Eva VIDEO PHOTOGRAPHER Unavailable Unavailable Loveless, A Eva VIDEO PHOTOGRAPHER Unavailable Unavailable Loveless, A Eva VIDEO PHOTOGRAPHER Unavailable Unavailable Loveless, A Eva VIDEO PHOTOGRAPHER Unavailable Unavailable Loveless, A Eva VIDEO PHOTOGRAPHER Unavailable Unavailable Loveless, A Eva VIDEO PHOTOGRAPHER Unavailable Unavailable Loveless, A Eva VIDEO PHOTOGRAPHER Unavailable Unavailable Loveless, A Eva VIDEO PHOTOGRAPHER Unavailable Unavailable Loveless, A Eva VIDEO PHOTOGRAPHER Unavailable Unavailable Loveless, A Eva VIDEO PHOTOGRAPHER Unavailable Unavailable Re-disclosure Warning The records that [...] is protected by Article 27-F of the [facility] Public Health law. If you continue you may have access to information: Regarding HIV / AIDS; Provided by facilities licensed or operated by the [facility] Office of Mental Health; or Provided by the [facility] Office for People With Developmental Disabilities. If such information is present, then the following [facility] mandated warning applies: This information has been [...] law may result in a fine or usp sentence or both. A general authorization for the release of medical or other information is NOT sufficient authorization for further disc losure. Allergies and Adverse Reactions Type Description Substance Reaction Status Data Source(s ) Propensity to adverse reactions NO KNOWN ALLERGIES NO KNOWN ALLERGIES [facility] Family History Family Member Name Family Member Gender Family Member Status Date o f Status Description Data Source(s) Unknown Unknown Problem MEDENT ([facility]) Unknown Unknown Problem MEDENT ([facility]) Unknown Unknown Problem [facility] ([facility]) Unknown Male Problem MEDENT ([facility]) Encounters Encounter Providers Location Date Indications Data Source(s ) Outpatient Attender: Germaine Merlos MDAdmitter: Germaine velez MD ES1-SJ.CVAU 04/30/2021 07:49:00 AM EDT - 04/30/2021 04:50:00 PM EDT [facility] Patient discharged. Outpatient Attender: Germaine Merlos MDReferrer: Germaine MORE.PAT 04/25/2021 09:42:31 AM EDT - 04/25/2021 10:54:36 AM EDT [facility] Outpatient Referrer: Germaine MORE.PAT 09:26:12 AM EDT - 04/25/2021 09:26:21 AM EDT [facility] Outpatient Attender: SOLIS TOWNSEND RPA 02/09 09:03:09 AM EDT - 02/09/2021 09:36:49 AM EDT [facility] ([facility] ) Unknown [address] [facility] [address] 01/29/2021 12:00:00 AM EDT eCW1 ([facility]) Outpatient Attender: Germaine Merlos MDAdmitter: Germaine velez MD ES1-SJ.CVLISSETH 01/14/2021 07:54:21 AM EDT [facility] Outpatient Attender: Iris MOSELEY Main Office 01/10/2021 11:30:00 AM EDT MEDENT ([facility]) Outpatient Attender: Germaine Merlos MDAdmitter: Germaine velez MD ES1-SJ.CVAU 12/20/2020 10:49:56 AM EDT [facility] Outpatient Attender: Germaine Merlos MDAdmitter: Germaine velez MD ES1-SJ.CVAU 12/05/2020 12:13:05 PM EDT [facility] Unknown [address] [facility] [address] 11/15/2020 12:00:00 AM EDT eCW1 ([facility]) Outpatient [address] [facility] [address] 11/14/2020 12:00:00 AM EDT eCW1 ([facility]) Outpatient Attender: Maricruz Land essie 09/25/2020 08:50:00 AM EDT MEDENT ([facility]) Outpatient Attender: Iris MOSELEY Main Office 09/05/2020 10:15:00 AM EST MEDENT ([facility]) Unknown [address] [facility] [place] [address] 08/24/2020 12:00:00 AM EST eCW1 ([facility]) Outpatient Attender: Germaine Merlos MDAdmitter: Germaine velez MD ES1-SJ.CVAU 08/20/2020 05:39:00 AM EST - 08/20/2020 01:30:00 PM EST [facility] Patient discharged. Outpatient Referrer: Germaine Merlos MD MOB-MOB.PAT 04/2021 09:07:42 AM EST - 08/15/2020 09:07:46 AM EST [facility] Outpatient [address] [facility] [place] [address] 08/10/2020 12:00:00 AM EST eCW1 ([facility]) Unknown [address] [facility] [place] [address] 08/01/2020 12:00:00 AM EST eCW1 ([facility]) Outpatient Attender: Arvind MOSELEY [facility] 09:40:00 AM EST MEDENT ([facility] Outpatient Attender: Iris MOSELEY Main Office 07/23/2020 12:00:00 PM EST MEDENT ([facility]) Outpatient Attender: Lobito Pelaez MD Main office - [facility] 07/13/2020 12:45:00 PM EST MEDENT ([facility] Outpatient [address] [facility] [address] 07/04/2020 12:00:00 AM EST [facility]CW1 [facility] (Cysto1) Urology [address] [place] [address] 06/04/2020 12:00:00 AM EST eCW1 ([facility]) Outpatient Attender: Arvind MOSELEY [place] [facility] 10:00:00 AM EST MEDENT ([facility] Outpatient Attender: JORGE BRUMFIELD MD Main Office 05/28/2020 07:15:00 AM EST MEDENT ([facility]) Outpatient Attender: Arvind MOSELEY [place] [facility] 08:15:00 AM EST [facility] ([facility] [place] [address] [facility] [place] [address] 05/15/2020 12:00:00 AM EST eCW1 ([facility]) Outpatient Attender: Arvind MOSELEY [place] [facility] 12/2019 12:00:00 PM EST MEDENT ([facility] Unknown [address] [facility] [address] 05/10/2020 12:00:00 AM EST eCW1 ([facility]) Outpatient Attender: Arvind MOSELEY [place] [facility] 10/2019 10:00:00 AM EST [facility] ([facility] [place]patient [address] [facility] [place] [address] 05/07/2020 12:00:00 AM EST eCW1 ([facility]) Unknown [address] [facility] [address] 05/07/2020 12:00:00 AM EST eCW1 ([facility]) Unknown [address] [facility] [address] 04/23/2020 12:00:00 AM EDT eCW1 ([facility]) Outpatient Attender: Arvind MOSELEY [place] [facility] 06/2020 03:45:00 PM EDT MEDENT ([facility] Outpatient Attender: Arvind MOSELEY [place] [facility] 01/2020 02:00:00 PM EDT MEDENT ([facility] Outpatient Attender: Eva Lopes NP [id number] 03/15/2020 12:00:00 AM EDT - 03/15/2020 02:30:32 PM EDT 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 IIV4 04/12/2021 09:55:00 AM EDT completed MEDENT ([facility] 207 10/09/2020 12:00:00 AM EDT completed <td I D="[id number]">Covid-19 (Moderna)</td><td>10/09/2020, 09/07/2020</td><td></td> [facility] COVID-19 VACCINE Moderna 10/09/2020 12:00:00 AM EDT completed [facility] Vaccine Series Complete: YESThis Data wa s Submitted to [facility] Via [employer]. COVID-19 VACCINE, MRNA-1273, LNP-S (MODERNA)/PF 10/09/2020 1 2:00:00 AM EDT completed [facility] 207 09/07/2020 12:00:00 AM EST completed <td I D="[id number]">Covid-19 (Moderna)</td><td>10/09/2020, 09/07/2020</td><td></td> [facility] COVID-19 VACCINE Moderna 09/07/2020 12:00:00 AM EST completed [facility] Vaccine Series Complete: NOThis Data was Submitted to [facility] Via [employer] COVID-19 VACCINE, MRNA-1273, LNP-S (MODERNA)/PF 09/07/2020 1 2:00:00 AM EST completed [facility] New in 2013. IIV4 03/13/2020 09:37:00 AM EDT completed MEDENT ([facility] Medications Medication Brand Name Start Date Product Form Dose Route Admi nistrative Instructions Pharmacy Instructions Status Indications Reaction Description Data Source(s) Finasteride 5 MG Oral Tablet Finasteride 5 MG 11/14/2020 12:00:00 A M EDT 1.0 {tablet} active Finasteride 5 MG eCW1 ( [facility]) Finasteride 5 MG Oral Tablet Finasteride 5 MG 11/14/2020 12:00:00 A M EDT 1.0 {tablet} active Finasteride 5 MG eCW1 ( [facility]) Finasteride 5 MG Oral Tablet Finasteride 5 MG 11/14/2020 12:00:00 A M EDT 1.0 {tablet} active Finasteride 5 MG eCW1 ( [facility]) lidocaine (PF) (XYLOCAINE-MPF) 1 % injection [id number] 07:53:26 AM EST active As needed, Start ing Thu08/20/20 at 0753, Intra-Procedure [facility] Medication administered onsite 2 ML Midazolam 1 MG/ML Injection midazolam (VERSED) in jection midazolam (VERSED) injection 08/20/2020 07:40:44 AM EST active As needed, Starting Thu08/20/20 at 0740, Intra-Procedure [facility] Medication administered onsite fentaNYL Citrate (PF) (SUBLIMAZE) injection 4994-3558-75 08/20/2020 07:40:36 AM EST active As neede d, Starting 08/20/20 at 0740, Intra-Procedure [facility] Medication administered onsite Doxycycline Monohydrate 100 MG Oral Capsule Doxycycline Rosebud hydrate 07/30/2020 12:00:00 AM EST ORAL completed MEDENT ([facility] apixaban 5 MG Oral Tablet [Eliquis] Eliquis 05/28/2020 12:00:00 AM EST active MEDENT ([facility]) Acetaminophen 300 MG / butalbital 50 MG / Caffeine 40 MG Oral Capsule [Fioricet] Fioricet 05/11/2020 12:00:00 AM EST active MED[facility] ([facility] Ciprofloxacin 500 MG Oral Tablet Ciprofloxacin HCL 05/09/2020 12:00 :00 AM EST ORAL completed [facility] ([facility] Ramipril 2.5 MG Oral Capsule Ramipril 04/27/2020 12:00:00 AM EDT active MEDENT ([facility]) Bardia Leg Bag 04/23/2020 12:00:00 AM EDT [...] Clotrimazole 03/13/2020 12:00:00 AM EDT active MEDENT ([facility] Oxybutynin chloride 5 MG Oral Tablet Oxybutynin Chloride 02/2020 12:00:00 AM EDT ORAL completed MEDENT ([facility] atorvastatin 20 MG Oral Tablet Atorvastatin Calcium 20 MG Oral Tablet (LIPITOR) Atorvastatin Calcium 20 MG Oral Tablet (LIPITOR) 01/17/2020 12:00:00 AM EDT 20 mg Oral active Take 1 tablet by mouth e [facility] atorvastatin 20 MG Oral Tablet Atorvastatin Calcium 20 MG Oral Tablet (LIPITOR) Atorvastatin Calcium 20 MG Oral Tablet (LIPITOR) 12/12/2019 12:00:00 AM EDT 20 mg Oral active Take 1 tablet by mouth e [facility] Insurance Providers Payer name Policy type / Coverage type Policy ID Covered constitution party ID Covered constitution party's relationship to villa Policy Villa Plan Information UHC UNITED MEDICARE COMPLETE G [id number] Self [id number] [facility] - Medicare Blue Ppo Commercial [id number] Self [facility] Medicare Blue U/W Commercial [id number] Self [id number] [facility] Medicare Blue U/W Commercial [id number] Self [facility] Medicare Blue U/W Commercial [id number] Self [id number] [facility] Medicare Blue U/W Commercial [id number] Self [id number] [facility] Medicare Blue U/W Commercial [id number] Self [id number] [employer] Commercial [id number] Self [id number] [employer] Commercial [id number] Self [facility] MEDICARE [id number] 1 [facility] MEDICARE [id number] Chyna [id number] 60 [facility] Commercial [id number] Self [facility] Commercial [id number] Self [id number] MEDICARE COMPLETE [id number] 93 [id number] UHC UNITED MEDICARE COMPLETE G [id number] Self [id number] Medicare Advantage Medigap Part B [id number] Self [id number] Medicare Advantage Commercial [id number] Self [id number] MEDICARE COMPLETE [id number] SP [id number] [facility] MEDICARE [id number] xxxxxxxxx [id number] 1 [facility] MEDICARE [id number] Chyna [id number] INSURANCE COVID-19 COVID Chyna C OVID [employer] [id number] Self [id number] INSURANCE COVID-19 [id number] xOVID 2 [id number] INSURANCE COVID-19 COVID Chyna C OVID [facility]/Medicare Solu Commercial [id number] Self [id number] MEDICARE [id number] SP [id number] A [facility]-Medicare Solutions Commercial [id number] Self [id number] [facility]-Medicare [employer] Commercial [id number] Self [id number] MEDICARE COMPLETE-[facility] O [id number] S [id number] [facility]-Medicare Solutions Commercial [id number] Self [facility] O [id number] S [id number] MEDICARE COMPLETE [id number] SP [id number] MEDICARE COMPLETE [id number] SP [id number] [employer] P [id number] S [id number] [employer] P [id number] S [id number] MEDICARE COMPLETE [id number] SP [id number] MEDICARE COMPLETE [id number] SP [id number] MEDICARE COMPLETE-[facility] O [id number] S [id number] [facility]Medicare Solu Commercial [id number] Self [id number] ANS-Medicare Part B [id number] ANSI-Medicare Part B [id number] ANS-Medicare Part B [id number] ANSI-Medicare Part B [id number] [employer] Medicare Commercial [id number] Self [id number] [employer]-Medicare [id number] Commercial [id number] Self [id number] [facility]-Medicare [id number] Commercial [id number] Self [id number] ANS-Medicare Part B [id number] ANSI-Medicare Part B [id number] ANSI-Medicare Part B [id number] ANSI-Medicare Part B [id number] ANSI-Medicare Part B [id number] ANSI-Medicare Part B [id number] ANSI-Medicare Part B [id number] ANSI-Medicare Part B [id number] ANSI-Medicare Part B [id number] [facility]) Commercial [id number] Self [id number] [facility]) Commercial [id number] Self [id number] [facility]/Medicare Solu Commercial [id number] Self [id number] [facility]/Medicare Solu Commercial [id number] Self [id number] Problems, Conditions, and Diagnoses Code Display Name Description Problem Type Effective Dates Data Source(s) I48.0 Paroxysmal atrial fibrillation Paroxysmal atrial fibri llation Diagnosis 04/30/2021 07:49:00 AM EDT [facility] U07.1 COVID-19 COVID-19 Diagnosis 04/25/2021 09:26:12 AM ED T [facility] I48.4 Atypical atrial flutter Atypical atrial flutter Diagno sis 02/13/2021 10:06:37 AM EDT [facility] I48.3 Typical atrial flutter Typical atrial flutter Diagnosi s 12/14/2020 08:17:40 AM EDT [facility] I63.50 Cerebral infarction due to u nspecified occlusion or stenosis of unspecified cerebral artery Cerebral infarction due to unspecified o cclusion or stenosis of unspecified cerebral artery Diagnosis 03/16/2020 11:13:59 AM EDT [facility] I48.3 Typical atrial flutter Typical atrial flutter [id number] 08/03/2020 12:00:00 AM EST [facility] [id number] Transient cerebral ischemia Transient cerebral ischemi a Problem 07/19/2020 12:00:00 AM EST MEDENT ([facility]) [id number] Electrocardiogram abnormal Electrocardiogram abnormal Problem 07/19/2020 12:00:00 AM EST MEDENT ([facility]) [id number] Atrial flutter Atrial flutter Problem 07/19/2020 12:00: 00 AM EST MEDENT ([facility]) [id number] Paroxysmal atrial fibrillation Paroxysmal atrial fibri llation Problem 07/13/2020 12:00:00 AM EST MEDENT ([facility] ) R33.9 Urinary retention Urinary retention Problem 05/07/2020 12:00:00 AM EST eCW1 ([facility]) Surgeries/Procedures Procedure Description Date Indications Data Source(s) ECG ROUTINE ECG W/LEAST 12 LDS TRCG ONLY W/O I&R <td>E CG 12- LEAD</td><td>Routine</td><td>04/25/2021 10:46 AM EDT</td><td> Paroxysmal atrial fibrillation</td><td></td> 04/25/2021 10:46:53 AM EDT Paroxysmal atrial fibrillation [facility] Paroxysmal atrial fibrillation BLOOD COUNT COMPLETE AUTOMATED <td>CBC</td><td>Routine </td><td>04/25/2021 10:40 AM EDT</td><td> Paroxysmal atrial fibrillation</td><td> </td> 04/25/2021 10:40:00 AM EDT Paroxysmal atrial fibrillation [facility] Paroxysmal atrial fibrillation BLOOD TYPING ABO <td>TYPE AND SCREEN</td><td> Routine</td><td>04/25/2021 10:40 AM EDT</td><td> Paroxysmal atrial fibrillation</td><td> </td> 04/25/2021 10:40:00 AM EDT Paroxysmal atrial fibrillation [facility] Paroxysmal atrial fibrillation BASIC METABOLIC PANEL CALCIUM TOTAL <td>BASIC METABOLI C PANEL</td><td>Routine</td><td>04/25/2021 10:40 AM EDT</td><td> Paroxysmal atrial fibrillation</td><td> </td> 04/25/2021 10:40:00 AM EDT Paroxysmal atrial fibrillation [facility] Paroxysmal atrial fibrillation Implantable Loop Recorder System, Review And Report 04/24/2021 12:00:00 AM EDT MEDENT ([facility]) Destruction Benign Lesion Other Than Skin Tags(Actinic Kerat oses) 04/12/2021 12:00:00 AM EDT [facility] ([facility] Implantable Loop Recorder System, Review And Report 03/20/2021 12:00:00 AM EDT MEDENT ([facility]) Implantable Loop Recorder System, Review And Report 02/14/2021 12:00:00 AM EDT MEDENT ([facility] Inst[facility]) DESTRUCTION BENIGN LESIONS UP TO 14 01/23/2021 12:00:0 0 AM EDT MEDENT ([facility]) Implantable Loop Recorder System, Review And Report 01/14/2021 12:00:00 AM EDT MEDENT ([facility]) ECG ROUTINE ECG W/LEAST 12 LDS W/I&R 01/10/2021 12:00: 00 AM EDT MEDENT ([facility]) OFFICE OUTPATIENT VISIT 25 MINUTES 01/10/2021 12:00:00 AM EDT MEDENT ([facility]) Implantable Loop Recorder System, Review And Report 11/09/2020 12:00:00 AM EDT MEDENT ([facility] Inst[facility]) ECG ROUTINE ECG W/LEAST 12 LDS W/I&R 09/05/2020 12:00: 00 AM EST MEDENT ([facility]) OFFICE OUTPATIENT VISIT 15 MINUTES 09/05/2020 12:00:00 AM EST MEDENT ([facility]) Implantable Loop Recorder System, Review And Report 08/28/2020 12:00:00 AM EST MEDENT ([facility]) EP STUDY <td>EP STUDY</td><td>Routine </td><td>08/20/2020 8:18 AM EST</td><td> Typical atrial flutter</td><td> </td> 08/20/2020 01:18:29 PM EST Typical atrial flutter [facility] Typical atrial flutter ECG ROUTINE ECG W/LEAST 12 LDS TRCG ONLY W/O I&R <td>E CG 12- LEAD</td><td>Routine</td><td>08/20/2020 6:17 AM EST</td><td></td><td></td> 08/20/2020 11:17:54 AM EST [facility] Implantable Loop Recorder System, Review And Report 07/24/2020 12:00:00 AM EST MEDENT ([facility] Inst[facility]) ECG ROUTINE ECG W/LEAST 12 LDS W/I&R 07/23/2020 12:00: 00 AM EST MEDENT ([facility]) OFFICE OUTPATIENT VISIT 25 MINUTES 07/23/2020 12:00:00 AM EST [facility] ([facility]) uro PVR (Post Voiding Residual) Bladder Scan 12:00:00 AM EST eCW1 ([facility]) Implantable Loop Recorder System, Review And Report 06/22/2020 12:00:00 AM EST MEDENT (Assembly Instructions Writer s of [facility]) Medication: Lidocaine HCl 2% Jelly 5mL Intravesically 06/04/2020 12:00:00 AM EST eCW1 ([facility]) Implantable Loop Recorder System, Review And Report 05/21/2020 12:00:00 AM EST MEDENT (Assembly Instructions Writer s of [facility]) Implantable Loop Recorder System, Review And Report 04/18/2020 12:00:00 AM EDT MEDENT (Assembly Instructions Writer s of [facility]) Implantable Loop Recorder System, Review And Report 03/16/2020 12:00:00 AM EDT MEDENT (Assembly Instructions Writer s of [facility]) Results ID Date Data Source [id number] 04/30/2021 11:58:50 AM EDT [facility] Name Value Range Interpretation Code Description Data Patricio rce(s) Supporting Document(s) &PDF [facility] EETSVu5pMfSJGbMm53/IICsaENOve0RmNSomKQf9XEbnDSFuH4FphTvdISUJCn4PKvqiNQfZGJYBAGNd 0b3 [file] OmYuAlK1FB3zQUFFUs3+RDduhKUszQwgAZVSOzEsNNR8VWkyOYZRPa2P ID Date Data Source [id number] 04/30/2021 10:20:05 AM [facility]T [facility] Name Date of Age Gend*PT [id number] Fredy Kunz 1940 81 years M HOPPT Location Admission Date/Time Visit ID Attending Provider --- --- --- --- EPI ID CSN Admitting Provider [id number] ---Arterial Line PlacementPatient location during procedure: ORIndications [...] Name Value Range Interpretation Code Description Data [facility] rce(s) Supporting Document(s) ID Date Data Source [id number] 04/30/2021 10:19:18 AM EDT [facility]FORMATIONPatient [facility] Name Date of Age Gend*PT [id number] Fredy Kunz 1940 81 years M HOPPT Location Admission Date/Time Visit ID Attending Provider --- --- --- --- EPI ID CSN Admitting Provider [id number] ---AirwayPatient location during procedure: ORUrgency: electiveDifficult airway: [...] to lips: 21 cmPlacement verified by: + [id number] view: grade I - full view of glottis Name Value Range Interpretation Code Description Data Patricio e(s) Supporting Document(s) ID Date Data Source [id number] 04/25/2021 04:27:33 PM EDT [facility] Name Date of Age Gend*PT [id number] Fredy Kunz 1940 81 years M OPPT Location Admission Date/Time Visit ID Attending Provider --- --- --- Baldemar Merlos MD([id number]) EPI ID CSN Admitting Provider [id number] ---OUTPATIENT / OBSERVATIONAL SURGICAL OR INVASIVE PROCEDUREName: [...] thyromegaly. No carotid bruits.MENTAL / NEUROLOGICAL STATUS: [id number]: Clear to auscultation. No wheezes, rhonchi or crackles.HEART: Rate bradycardic rhythm regular. S1, S2. No murmur, rub or gallop. Looprecorder and chest intact.ABDOMEN: Bowel sounds positive times four. Soft, non tender. No reboundtenderness. No hepatosplenomegaly. Negative CVAT.EXTREMITIES: Pulses are symmetrical. No edema.Anesthesia complications: [facility] :: 3/10 Managing Well (medical problems are well controlled,but are not regularly active beyond routine walking).Stop Bang Questionnaire - Total Score: 4ASSESSMENT: Primary Diagnosis/Indication: Paroxysmal atrial fibrillation.PLAN: Procedure: ABLATION, ARRHYTHMOGENIC FOCUS, FOR ATRIAL FIBRILLATIONECHOCARDIOGRAM, TRANSESOPHAGEAL on 04/30/2021.04/25/2021 4:27 Angie Shaikh document or parts of this document, were dictated using [employer] software. A reasonable attempt at proofreading has beenmade to minimize errors. Please call with any questions or corrections. Name Value Range Interpretation Code Description Data Patricio rce(s) Supporting Document(s) ID Date Data Source [id number] 04/25/2021 10:53:03 AM EDT [facility] Name Value Range Interpretation Code Description Data Patricio rce(s) Supporting Document(s) [facility] UJHNRw6rAhKFGrPtq3GnEkXdIIXxRG3yxqz0M6D3fAJiG2EalJWpp9nzB2QgS5ZwFHJsAJFJAK4ZcVPs jb2 [file] eJjyplmTaxalmmTaxilmkTa/G2xMLr0iL1vAfXCLd0 cNPxfW7Ynv3pN+M3En1FlrhDc2AEL9Mvh1fJECDlxrQeSF4KQ4fnF/QC6asvIskWxFscUejS79wQbnN8 hVhK6jUkCpsbqYe8NOVNbwhBne3cP0Olj/sqKrEiQv3xDqyNFwpEITjzv1s0KuNzt5aNsJEbTAl0J4PZ aEqiIPjgknNAsdJBc0La8m/8Ka0e1b/7jf11zV8Y+d bl/ln3vx+d3Zffq+JgBTbgBezAAbwb/5fmm3rDRdzOSwnDWwwWPOvot/wn63L/3hM//DOOP/t/8Pm/de rFT+4zQD57EixcM1TFD4NYGnMc9vqFOBMLzflWg2RpgLYpyz2dhl7vKajx2fwK41gkzPL3h+lubE//R8 P/QPQjeY027xw4t8Q+9J64dpHSi/1YsV815ivnm5nw G03jflJ/F9UYOdJYN0f5r03lZ7px1dNYr7/rD/AAhlyHXIdcN+AF7K2/4//32uVNWU7p+do4ikv5kvMi 3zMMn6/pjnk2Mrib90T7LoTX/mF/Y/3+CygLIJirm7Fts9/+5M6/3Xwlg4j7qG7/4ybuGVRjPQZ+pu03 Lw4QVJw/fqug/xM59T2r4/FfRvH8+0Vg/VrHz7b6ed QP/piAxXaUn6u4frAHHg+3Pj//t35rb9+gGDGcT4w/mQhn5Y329K35gxsRfvGMcFK4Lbnvfdgh3WSB3C VgcCWnN9VuOJRVbJ3G7S7kC2S5X38epWnPtAF9O554Mh3m9IEohoMMp/uOWK6xECbbzwJxaS51hVpAH+ 2Mc34uw7sWSefVEEhNK2mbQ5Ksvzhs7yG1Iui0cc5X RpjKSKpHIu8Dn+Kcj626L5rN+ST8ud2Qxf7kWB8Hnn//2S3zI1lrxV44HBxaTPW5yzf6neVsFVzTmRnl 4+fYKx/5+SPJWJY0B6suW2d75fn2Y/Yqn+uzv3Fu/J+wv35f41eeP3/tDQ62Rvpg+vHYq+g8U28gkNkQ s/k48Twf9Ayb3YNoqjDz8mdsSjNyAohqxJ1fGvO0oc 3X6tWluzBeca7gV+RMT7pBG/78I8SdynRmvDD076+eLYz6/FjxaKcSI7ARF+7T//soVMF9xF2DG+/G4w HfoNO433x/KvLz9q/pmJ8afhFuxbXRHV370QC/NWUAC/SMytqg5QWlaGUwqs9HgSew5U3HxRE3TFuR7h OuOwdAkypnDpEz5GniTrNh8ZftJtDq8CqcLgKcq9D6 ZwNYgNG/jqTWlMWfrA1TcZnF6Y/bqw9rBrpx+L8L/4lqXE02mTzh1N/Ue/DtU0PvGZxV0E02cx/1bjp7 D+RHho1OK35kRYovgth5a/P4Y9n8WqhdBh11/tlwuOM/hb3aC6UBj2W5GjaZ6Px2OzPkq/X7s03ztYZ9 tLMe+4H4VcEvSJwnFpo7svQe+8Jb3ezKN3pVddhiHt KCpWVYrELfDXH536NNmNhcBRn/atqrwgpswAvY+3+Nfi/rrU4J950350Exb/D3Uj2/JvxCr09p4lK+Xl ZZr/snd5/ki4GEyeVusvi/xjjv+JSqcZO7zWufKQj6ST3PFb4giSg/qsv9i/S1U5A1k7R+/6ou94t/ck yN4o80G2p/dezVzDrMaa+du6ifZ7f74fadQ/t9pNrz F1MoM3hjr/OMq/x8H7IcVK4JYptJckIdhJgqBbIms0kFT0Ktik5Mnjxg+63vi4Go41VR6JI+po0TlQoW uEQHWR89FNTwyEYg3tp2jlD/gSteza9cj1Pvt2x0Acm26e6up6tOi0t9nR7rm+uPXM/Bo3iba0jey008 mExtuya2W8m5P9I8h5y9SkSw013miEQ1q0OL+b1nH+ HCB2dYcv/zvlOuYJ3h6IECpc23Yb1sisPEaw8ZDOq/UVp8gAg0n+aVZ/n/czz1bZQs2jOZ7EPOd/Rffu 9Z+S+5Z+G/9Dzr/vVcn2X/8nXPqn+6l6d9k3bmkP+i8iUhZ58Omi1op/vXRs/UjHQ6qMn/F2z0+9dG+7 E22q+zwLjKZ1t1ASz/vcEXBuJ8Km76t3Uu2/qGyQJ2 4MSdto996B6HW2DYveR7GnDdkHaEXPQR7/aE4ZLgrLH8fJCFbVL/dh22732aoBMtMb4qiBcTF7yOXuZ0 l3VvALDmTM2/kbYz6VkFChxCYKyq0yJPkXaGZ4g+dVePmmwYLNvcqS2K9w2K18sL94e0dYIzhY4mSVqj QUmA8TamREN1ea3Y5n1u2TXY2IVRk1mSRU38uVto0/ 6gAaea6ullj6BfmrluJV906MyQN/fqYqAhNLE7clZW5FweuGxvC4wib/P7ecp3Pze362L3jzRL2cpbYb 3+FXoSQjj4V2l3s6OcgID6IC/R42pJt/SFy8J6FwH6MnlvW1ZXH38S3a2xszSxOSHdcbu1Q7eUkAdONF qd981LXaHB3RMCaGif4XqfMb8r2emnpwEHqUQvtP+j gW67bpK4yWy3Q3o7jk0i/SqvP+/x10jue1JcMI27czpZ0B+07VROdR8TjhwEzePr9a/TXuXYPvZqHl/l ZOZ0FmzuYcojOedo5bO+3gK2d3knM1D13yFTnYm4jdy5h/6979cD7veL6/b7eOQkiupuOB2jMLs1/bvS w8is7b1ITmfwJd868LGjy28Y3wucVKZR56gpWHdupU k5bO09BwM0D96WCQc2D/AEVuCc/w7LjzP1dDK6t+NP7x/50/tH/vT+kT/tx/rTfqynvfL8/Mj1/NyBj9 mJu6FDQM+A3jKEkC/pm52gyxUZzJy7j8uFWbpi/Zig6yG4nJdrwr8x/6obh629ahCbxj645yuD31gEjP p/6GxfQC4p28foro5uGns1tpWdbVeo1UalzE5zK/Oa 68mxps43qgYrhUrNoeY/U4Lawqvco7UM4B+dx65Hwo/V5S6//JrksNyb9Gsof4rbz6lh6zfS6vpdeh2N /OJG8imJNiybQdiloRJGgg+99hSo7pxWmm0ivdq39JdDPGmN7/Rc6cWNm2/l8K8c/zLkg1X0tC/jawAL cPtXDv/Kl+UnEjuSAvfcDyy354oXoR/Rfkn5arEmmD vwAm5/w9O/xtZxiYF0ryIx/cqj3/fzA2fXKIk4A+1veARw+brewer+H+ABLK/lt9sim27tiNH2Q0OKH8LteW gf3TRojWGOqN88LVueOLMt8DQRrE0BA7JlfNP7NmDQQqwFKpvxr7R+YGB/MESAIVcgt/YHE/s1GDJxK6 ZuJ5cU6LfdTd4JLjP4MEE/pTWU6xqHwU0/JTZZB5C0 CdFK7W6w0byeb3sIYMtQgxe2X0R/sFeh+L/wlPAw6mvwYX2Lrm5gqA97bW1Gt/87ZV4O5MrmtCyBJjoj YlLuFweEpvqpqClUTtp5mxK5gOQ2mSr3X2AJHSGKzqhVb2Q6JszdqDkD3Q2csLeR+24X4GId6k3tkbXo /he0521BDjH+PQcoyZ/F+Fd1uf/Gbt4n/djxr+pynw 35fmexxaKTWf156oc6vBhjg5EEU5/sX9Xl/mXY/by98P9fEs0JSa0YxXW7bV9Y9K+qLvcvL+1f1eX+5T l9d8puxshon8TEd8se/fT8dz+0f8YskiJRX7+E6wfKWXpdn/ub8zydIp8k1cjIluN5KPNNXwI0A/dYwA 5liJ49ruDp2ApuKzumRYRsW23C/woItcHz4avhvOe4 H+Dx2p+d3rdp9n8RpCZxZcX7VHf9K4Nyu9iDNqn67/Y1s07x9TKu7lu8MhMUKQklgNW+2DkHqdYhzzFI bJU0PzLw6/BcjbHanUc8N64GbF72p7/W8nqvcLFrXKfeha9ak/KcflS+58V34Ca4CM4wCmbg/PYx6kE1 aiMeB471uF5pr+9I6CdCY9L08UtPdJ99GPpvLw1f8H nw6Oq/cold storage supervisor/D5rolpnWGr6/fGc+Gmao6I5w44b384jneCe5E5YWg4hGyax4S/93xHGE+uLE/iOFZc7rFew [file] JzRNZYYk6Ww081XTNoHCUGSqa+GbgomYTlwPvxXVBKMKZtRYnMZYAUT3U= ID Date Data Source [id number] 04/25/2021 07:37:02 PM EDT [facility] SPEC EXP DATE 05/01/2021ATI ENT ABO/Rh A POSITIVEANTIBODY SCREEN NEGATIVETESTING SITE PERFORMED AT [address] [place] [id number] Name Value Range Interpretation Code Description Data Patricio rce(s) Supporting Document(s) TYPE AND SCREEN [facility] ID Date Data Source [id number] 04/25/2021 04:10:19 PM EDT [facility] Name Value Range Interpretation Code Description Data Patricio rce(s) Supporting Document(s) SODIUM 142 mmol/L (136-145) [facility] POTASSIUM 4.4 mmol/L (3.6-5.2) [facility] CHLORIDE 108 mmol/L (100-108) [facility] CO2 28 mmol/L (22-31) [facility] ANION GAP 6 mmol/L (7-16) L [facility] UREA NITROGEN 24 mg/dL (7-24) [facility] CREATININE 1.25 mg/dL (0.80-1.30) [facility] BUN/CREAT RATIO 19.2 RATIO (10.0-20.0) [facility] GLUCOSE 96 mg/dL (70-99) [facility] CALCIUM 9.5 mg/dL (8.4-10.2) [facility] GFR 55 ml/min/1.73m2 (>59) L [facility] GFR ( AMER) >60 ml/min/1.73m2 (>59) [facility] GFR INTERPRETATION [facility] --NORMAL KIDNEY FUNCTION OR MILD DISEASE - GFR >OR= 60CHRONIC KIDNEY DISEASE - GFR 15 - 59RENAL FAILURE - GFR <15 Est. GFR calculation based on the MDRDstudy equation, which assumes a steadystate for creatinine. Est. GFR should notbe used for medication dosing. ID Date Data Source [id number] 04/25/2021 04:02:51 PM EDT [facility] Name Value Range Interpretation Code Description Data Patricio rce(s) Supporting Document(s) WBC 6.1 10*3/uL (4.1-11.0) [facility] RBC 4.51 10*6/uL (4.60-6.10) L [facility] HGB 14.7 g/dL (13.5-18.0) [facility] HCT 43.3 % (41.0-53.0) [facility] MCV 96.0 fL (80.0-95.0) H [facility] MCH 32.7 pg (27.0-32.0) H [facility] MCHC 34.1 g/dL (32.0-36.0) [facility] RDW 13.4 % (10.5-14.5) [facility] PLT 253 10*3/uL (150-450) [facility] MPV 8.5 fL (7.1-10.7) [facility] ID Date Data Source [id number] 04/26/2021 06:57:07 AM EDT [facility] Name Value Range Interpretation Code Description Data Patricio rce(s) Supporting Document(s) SPECIMEN DESCRIPTION [facility] COVID 19 RESULT (NDET) [facility] NEGATIVE COVID-19 RESULTS DONOT PRECLUDE COVID-2019 INFECTION ANDSHOULD NOT BE USED THE SOLE BASISFOR PATIENT MANAGEMENT DECISIONS. COMMENT [facility] THE [place] FDA HAS MADE THIS TEST AVAILABL EUNDER AN EMERGENCY USE AUTHORIZATION(EUA) FOR THE DETECTION AND/OR DIAGNOSISOF THE VIRUS THAT CAUSES COVID-19.THIS ASSAY AMPLIFIES AND DETECTS TARGETDNA USING AIR TRAFFIC CONTROL OPERATOR- MEDIATEDAMPLIFICATIONTESTING PERFORMED ON CEYX FIRST TEST [facility] EMPLOYED IN [employer] SYMP[facility]OMATIC [facility] DATE OF SYMPT ONSET [facility] H[facility]IZED [facility] [place] ICU [facility] CONGREGATE CARE SET [facility] ID Date Data Source URINE CULTURE 11/14/2020 12:00:00 AM EDT eC1 ([facility]) Name Value Range Interpretation Code Description Data Patricio rce(s) Supporting Document(s) Laboratory studies (set) URINE CULTU RE eCW1 ([facility]) ID Date Data Source UA URINALYSIS 11/14/2020 12:00:00 AM EDT eCW1 ([facility]) Name Value Range Interpretation Code Description Data Patricio rce(s) Supporting Document(s) Laboratory studies (set) UA URINALYS IS eCW1 ([facility]) ID Date Data Source [id number] 11/08/2020 07:59:00 PM EDT [facility] ([facility] Name Value Range Interpretation Code Description Data Patricio rce(s) Supporting Document(s) Erythrocyte sedimentation rate by Westergren method 5 mm/hr 0-20 Normal (applies to non-numeric results) MEDENT ([facility] ID Date Data Source [id number] 11/08/2020 07:59:00 PM EDT MEDENT ([facility] Name Value Range Interpretation Code Description Data Patricio rce(s) Supporting Document(s) White Blood Count 6.2 10 4.0-10.0 Normal (applies to non-numeri c results) MED[facility] ([facility] Red Blood Count 4.27 10 4.30-6.10 Below low normal MED ENT ([facility] Hemoglobin 13.6 g/dL 13.5-17.5 Normal (applies to non-numeric resul ts) MED[facility] ([facility] Hematocrit 40.3 % 42.0-52.0 Below low normal MED[facility] ( [facility] Mean Corpuscular Volume 94.4 fl 80.0-96.0 Normal ( applies to non-numeric results) [facility] ([facility] ) Mean Corpuscular Hemoglobin 31.9 pg 27.0-33.0 Norm al (applies to non-numeric results) [facility] ([facility] ) Red Cell Distribution Width 13.1 % 11.5-14.5 Norm al (applies to non-numeric results) [facility] ([facility] ) Mean Corpuscular HGB Conc 33.7 g/dL 32.0-36.5 Normal (applies to non-numeric results) MED[facility] ([facility] ) Platelet Count, Automated 222 10 150-450 Normal (applies to non-numeric results) MED[facility] ([facility] ) Lymph % 34.9 % 24.0-44.0 Normal (applies to non-numeric resul ts) MED[facility] ([facility] Neutrophils % 47.4 % 36.0-66.0 Normal (applies to non-numeric re sults) MED[facility] ([facility] Rosebud % 13.1 % 2.0-8.0 Above high normal MED[facility] ([facility] Eos % 3.7 % 0.0-3.0 Above high normal MED[facility] ([facility] Baso % 0.6 % 0.0-1.0 Normal (applies to non-numeric resul ts) [facility] ([facility] Nucleated Red Blood Cell % 0.0 % 0-0 Normal (applies to n on-numeric results) [facility] ([facility] Immature Granulocyte % 0.3 % 0-3.0 Normal (applies to non-n umeric results) [facility] ([facility] Neutrophils # 2.9 10 1.5-8.5 Normal (applies to non-numeric re sults) [facility] ([facility] Lymph # 2.2 10 1.5-5.0 Normal (applies to non-numeric resul ts) [facility] ([facility] Rosebud # 0.8 10 0.0-0.8 Normal (applies to non-numeric resul ts) [facility] ([facility] Eos # 0.2 10 0.0-0.5 Normal (applies to non-numeric resul ts) [facility] ([facility] Baso # 0.0 10 0.0-0.2 Normal (applies to non-numeric resul ts) [facility] ([facility] ID Date Data Source [id number] 11/08/2020 07:59:00 PM EDT MEDENT ([facility] Name Value Range Interpretation Code Description Data Patricio rce(s) Supporting Document(s) Glucose, Fasting 109 mg/dL 70-100 Above high normal M EDENT ([facility] Blood Urea Nitrogen 24 mg/dL 7-18 Above high normal MED[facility] ([facility] Glomerular Filtration Rate [...] Little GFR Left</content>
<content>ESRD GFR <15 on GLOBAL PROJECT MANAGER</content>
<content></content> Creatinine For GFR 1.50 mg/dL 0.70-1.30 Above high normal [facility] ([facility] Sodium Level 143 meq/L 136-145 Normal (applies to non-numeric res ults) [facility] ([facility] Potassium Serum 4.0 meq/L 3.5-5.1 Normal (applies to non-numeric results) [facility] ([facility] Chloride Level 111 meq/L 98-107 Above high normal MED ENT ([facility] Carbon Dioxide Level 27 meq/L 21-32 Normal (applies to non-num antoine results) [facility] ([facility] Anion Gap 5 meq/L 8-16 Below low normal [employer] ( [facility] Calcium Level 9.1 mg/dL 8.8-10.2 Normal (applies to non-numeric re sults) [facility] ID Date Data Source [id number] 11/08/2020 07:59:00 PM EDT MED[facility] ([facility] Name Value Range Interpretation Code Description Data Patricio rce(s) Supporting Document(s) Alt/SGPT 21 U/L 12-78 Normal (applies to non-numeric resul ts) [facility] ([facility] Ast/Sgot 16 U/L 7-37 Normal (applies to non-numeric resul ts) [facility] ([facility] Bilirubin,Total 0.3 mg/dL 0.2-1.0 Normal (applies to non-numeric results) [facility] ([facility] Bilirubin,Direct Laboratory test result 0.0-0.2 Normal ( applies to non-numeric results) [facility] ([facility] Alkaline Phosphatase 50 U/L 45-117 Normal (applies to non-num antoine results) [facility] ([facility] Total Protein 6.3 GM/DL 6.4-8.2 Below low normal [facility] ([facility] Albumin 3.4 GM/DL 3.2-5.2 Normal (applies to non-numeric resul ts) [facility] ([facility] Albumin/Globulin Ratio 1.2 Normal (applies to non-n umeric results) [facility] ([facility] ID Date Data Source [id number] 11/08/2020 07:59:00 PM EDT [facility] ([facility] Name Value Range Interpretation Code Description Data Patricio rce(s) Supporting Document(s) CPK Creatine Phosphokinase 79 U/L 39-308 Lyly l (applies to non-numeric results) [facility] ([facility] CK-MB Value Mass 2.0 ng/mL Normal (applies to non-numeric results) [facility] ([facility] MB/CK Relative Index 2.53 Normal (applies to non-num antoine results) [facility] ([facility] <content>DIAGNOSIS CRITERIA</content>
<content>MMB ng/ml Relative Index (RI)</content>
<content>NON-AMI < or = 5 N/A</content>
<content>MARTIN ZONE > 5 < or = 4</content>
<content>AMI > 5 > 4</content>
<content></content> Troponin I Laboratory test result Normal (applies to non-n umeric results) [facility] ([facility] <content>Troponin I Reference Interval f or Siemens [place] LOCI:</content>
<content></content>
<content>99th Percentile= 0.00-0.045 ng/ml</content>
<content></content>
<content>Risk Stratification:</content>
<content><= 0.10 ng/ml Decreased Risk for Adverse Clinical</content>
<content>Events.</content>
<content>0.10-1.50 ng/ml Increased Risk for Adverse Clinical</content>
<content>Events. Evaluation of additional</content>
<content>criterion and/or repeat testing in 2-6</content>
<content>hours is suggested to rule out myocardial</content>
<content>damage.</content>
<content>>= 1.50 ng/ml Indicative of Myocardial Injury.</content>
<content></content> ID Date Data Source [id number] 11/08/2020 07:59:00 PM EDT [facility] ([facility] Name Value Range Interpretation Code Description Data Patricio rce(s) Supporting Document(s) aPTT in Platelet poor plasma by Coagulation assay 32.8 s 24.2-38.5 Normal (applies to non-numeric results) [facility] ID Date Data Source [id number] 11/08/2020 07:59:00 PM EDT [facility] ([facility] Name Value Range Interpretation Code Description Data Patricio rce(s) Supporting Document(s) Inr 1.03 Normal (applies to non-numeric resul ts) [facility] ([facility] THERAPUTIC HUMAN INR VALUES INDICATIONS NORMAL RANGES PROPHYLAXIS/TREATMENT OF: VENOUS THROMBOSIS 2.0-3.0 PULMONARY EMBOLISM 2.0-3.0 PREVENTION OF SYSTEMIC EMBOLISM FROM: TISSUE HEART VALVES 2.0-3.0 ACUTE MYOCARDIAL INFARCTION 2.0-3.0 VALVULAR HEART DISEASE 2.0-3.0 ATRIAL FIBRILLATION 2.0-3.0 MECHANICAL VALVES(HIGH RISK) 2.5-3.5 RECURRENT MYOCARDIAL INFARCTION 2.5-3.5 Prothrombin Time 13.7 s 12.5-14.3 Normal (applies to non-numeric results) [facility] ([facility] ID Date Data Source [id number] 08/23/2020 12:00:00 AM EST [facility] Willa Seals Np Patient Name: FREDY KUNZ [id number] Date of : 1940[address] Date of Exam: 08/23/2020JUANITA Lay [id number]#: Fax: [phone] EXAM: US PELVIC COMPLETECLINICAL INFORMATION: [...] region of the inguinal canal.Accredited by the [employer] in General Ultrasound.Jason Maria, MANJEET/Korin you for referring FREDY KUNZ to our office. Electronically Signed - JASON MARIA MD 08/24/20 12:37 Name Value Range Interpretation Code Description Data Patricio rce(s) Supporting Document(s) ID Date Data Source [id number] 08/20/2020 08:45:27 AM EST [facility] Name Value Range Interpretation Code Description Data Patricio rce(s) Supporting Document(s) &PDF [facility] KTZIGv3dPoWREvWx70/BQLabSWBnm8PkSAtoCMq7UBtiJCTeN8MvxMdnOPQZEv5GVhnzHMjDTEHHNEDw vci [file] QD3N7OXKldV2eVQY6vCQv8/1j3heLRZUc/v9//8 [file] utilities manager/ZKPdLBM5/yXaFPFfHRmlOajbgVbUcaH4U3LzqU9 +U5dwDYhNOrIqMqtjbNUWe87Jkpg+e741f8Ql+S7+/7Wmkv+09VrP9nOfN27i9rs/DSRX7nkviDowd0s vefldH+Staci/a22fdHBbBYyTe7gCXwzM+35xBcMDq65odSDKgSeriBYYv/YOz/DntWhF+H13R4ETaIM7O [file] NnZyPF4AAc4MNkM7WOT3oYZjZb9CVXKlLLRXJpBxOC4TBBf= ID Date Data Source [id number] 08/20/2020 08:24:19 AM EST [facility]FORMATIONPatient MRN Name Date of Age Gend*PT [id number] Fredy Kunz 1940 80 years M HOPPT Location Admission Date/Time Visit ID Attending Provider08/20/20 0539 --- Baldemar Merlos MD([id number]) EPI ID CSN Admitting Provider [id number] Baldemar Merlos MD([id number])Inpatient History & PhysicalThomas Carlton KunzMRN:[id number]: Here for flutter RFAPast Medical History:Past Medical [...] e(s) Supporting Document(s) ID Date Data Source [id number] 08/20/2020 07:36:24 AM EST [facility] Name Value Range Interpretation Code Description [facility] EGDGCq9kWwERJsHcx9GxZnBsDCUtZP1khok2R0N4yRMvP0ZsfUTpd4gcT2KrG2BuXPFbDYLPTK7GgYFe jb2 [file] RUUmAXnVAFOTL9P= ID Date Data Source [id number] 08/15/2020 08:55:00 AM EST [facility] Name Value Range Interpretation Code Description Data Patricio rce(s) Supporting Document(s) SARS coronavirus 2 RNA Not Detected [place] This lab was ordered by [facility] and reported by [facility]. ID Date Data Source [id number] 08/16/2020 03:08:29 PM EST [facility] Name Value Range Interpretation Code Description Data Patricio rce(s) Supporting Document(s) SARS-COV-2 [facility] JUDY Not DetectedReference range: Not Detecte d This nucleic acid amplification test was developed and its performance characteristics determined by [facility]. Nucleic acid amplification tests include RT-PCR and [...] detected) result in this assay. Performed At: [facility] [place], [place] [id number] Alvin Vincent PhD Ph:[phone] ID Date Data Source [id number] 08/01/2020 05:48:00 PM EST [facility] ([facility]) Name Value Range Interpretation Code Description Data Patricio rce(s) Supporting Document(s) White Blood Count 5.4 4.0-10.0 [facility] ([facility]) Red Blood Count 4.63 4.30-10.6 [facility] ([facility]) Platelets 212 172-450 [facility] ([facility]) Hemoglobin 14.6 [facility] ([facility]) Hematocrit 44.3 [facility] ([facility]) ID Date Data Source [id number] 08/01/2020 05:48:00 PM EST MED[facility] (Cardi ology [facility]) Name Value Range Interpretation Code Description Data Patricio rce(s) Supporting Document(s) Glucose 95 70-100 [facility] ([facility]) Blood Urea Nitrogen 24 7-18 [facility] (Ca [facility]) Creatinine 1.29 0.70-1.30 [facility] ([facility]) Sodium 142 136-145 [facility] ([facility]) Potassium 4.3 3.5-5.1 [facility] ([facility]) Calcium 9.4 8.2-9.6 [facility] ([facility]) Chloride 105 98-107 [facility] ([facility]) Carbon Dioxide 31 21-32 [facility] ([facility]iol [facility]gy [facility]) Glomerular filtration rate/1.73 sq M.pre dicted [Volume Rate/Area] in Serum or Plasma by Creatinine-based formula (MDRD) 57.1 [facility] ([facility]) ID Date Data Source [id number] 08/01/2020 12:00:00 AM EST [facility] Imaging Arvind Obrien Rpa Patient Name: FREDY KUNZ [id number] [facility] Date of : 1940[place] [address] Date of Exam: 08/01/2020#: Fax: [phone] EXAM: [...] healthcareprovider, MrSharonda Samuels Trent day.Accredited by the [employer] in General Ultrasound.CJ Handy/Korin arciniega for referring FREDY KUNZ to our office. Electronically Signed - ALDAIR GARG DO 08/01/20 10:02 Name Value Range Interpretation Code Description Data Patircio rce(s) Supporting Document(s) ID Date Data Source [id number] 07/30/2020 10:56:00 AM EST MEDENT (Famil y [...] result [facility] ([facility] Specific [place] 1.020 1.00-1.03 [facility] ([facility] Blood Urine Laboratory test result M ALISON ([facility] Bilirubin.total [Presence] in Urine by Test strip Laboratory test res ult [facility] ([facility] Ketones Laboratory test result [facility] ([facility] Urobilinogen 0.2 EU/dl 0.2-1.0 MED[facility] ([facility] Nitrite Laboratory test result MED[facility] ([facility] Protein Urine Laboratory test result MED[facility] ([facility] Leukocytes Laboratory test result ME DENT ([facility] ID Date Data Source [id number] 05/30/2020 10:06:00 AM EST [facility] Name Value Range Interpretation Code Description Data Patricio rce(s) Supporting Document(s) Calcium [Mass/volume] in Serum or Plasma 9.3 [facility] ([facility]) Sodium 140 [facility] ([facility]) Carbon dioxide, total [Moles/volume] in Serum or Plasma 25 [facility] ([facility]) Chloride [Moles/volume] in Serum or Plasma 109 [facility] ([facility]) Glucose 128 70-100 [facility] ([facility]) Potassium [Moles/volume] in Serum or Plasma 4.1 [facility] ([facility]) Blood Urea Nitrogen 15 7-18 [facility] ([facility]) Creatinine 1.16 0.70-1.30 [facility] ([facility]) Glomerular filtration rate/1.73 sq M.pre dicted [Volume Rate/Area] in Serum or Plasma by Creatinine-based formula (MDRD) Laboratory test result [facility] ([facility]) ID Date Data Source [id number] 05/30/2020 10:06:00 AM EST [facility] ([facility]) Name Value Range Interpretation Code Description Data Patricio rce(s) Supporting Document(s) Red Blood Count 4.38 4.30-6.10 [facility] ([facility]) White Blood Count 6.1 4.0-10.0 [facility] ([facility]) Platelets 267 150-450 [facility] ([facility]) Hemoglobin 13.6 [facility] ([facility]) Hematocrit 40.8 [facility] ([facility]) ID Date Data Source [id number] 05/29/2020 08:57:00 AM EST [facility] ([facility] Name Value Range Interpretation Code Description Data Patricio rce(s) Supporting Document(s) Laboratory test finding (navigational concept) Laboratory test r esult Normal (applies to non-numeric results) [facility] ([facility] A false negative [...] pathogens. DISCLAIMER: Testing was performed using the [employer] SARS-CoV-2 test. This test was developed and its performance characteristics determined by [email or web address]. This test has not been FDA cleared [...] or revoked sooner. ID Date Data Source [id number] 05/29/2020 08:57:00 AM EST [facility] ([facility] Name Value Range Interpretation Code Description Data Patricio rce(s) Supporting Document(s) Laboratory test finding (navigational concept) Laboratory test r esult Normal (applies to non-numeric results) [facility] A false negative [...] pathogens. DISCLAIMER: Testing was performed using the [employer] SARS-CoV-2 test. This test was developed and its performance characteristics determined by [email or web address]. This test has not been FDA cleared [...] Coronavirus 2019 Nasopharygeal Laboratory test result [facility] ([facility] ID Date Data Source [id number] 05/29/2020 07:58:00 AM EST [facility] ([facility] Name Value Range Interpretation Code Description Data Patricio rce(s) Supporting Document(s) Laboratory test finding (navigational concept) 0.00 ng/mL 0 .00-0.08 Normal (applies to non-numeric results) [facility] ([facility] ID Date Data Source [id number] 05/29/2020 07:58:00 AM EST [facility] ([facility] Name Value Range Interpretation Code Description Data Patricio rce(s) Supporting Document(s) Laboratory test finding (navigational concept) 0.00 ng/mL 0 .00-0.08 Normal (applies to non-numeric results) [facility] ([facility] Troponin I.cardiac [Mass/volume] in Serum or Plasma Laboratory test result [facility] ([facility] ID Date Data Source [id number] 05/29/2020 07:55:00 AM EST [facility] ([facility] Name Value Range Interpretation Code Description Data Patricio rce(s) Supporting Document(s) Laboratory test finding (navigational concept) 39.0 % 3 8.0-51.0 Normal (applies to non-numeric results) [facility] ([facility] Laboratory test finding (navigational concept) 141 meq/L 1 36-145 Normal (applies to non-numeric results) [facility] ([facility] Laboratory test finding (navigational concept) 4.1 meq/L 3 .5-5.1 Normal (applies to non-numeric results) [facility] ([facility] Laboratory test finding (navigational concept) 112 mg/dL 7 0-105 Above high normal [facility] ([facility] ) Laboratory test finding (navigational concept) 24.0 MM/L 2 3.0-27.0 Normal (applies to non-numeric results) [facility] ([facility] Laboratory test finding (navigational concept) 106 meq/L 9 8-109 Normal (applies to non-numeric results) [facility] ([facility] Laboratory test finding (navigational concept) 4.9 mg/dL 4 .5-5.3 Normal (applies to non-numeric results) [facility] ([facility] Laboratory test finding (navigational concept) 1.1 mg/dL 0 .6-1.3 Normal (applies to non-numeric results) [facility] ([facility] Laboratory test finding (navigational concept) 20 mg/dL 8 -26 Normal (applies to non-numeric results) [facility] ([facility]) ID Date Data Source [id number] 05/29/2020 07:55:00 AM EST [facility] ([facility] Name Value Range Interpretation Code Description Data Patricio rce(s) Supporting Document(s) White Blood Count 5.8 10 4.0-10.0 Normal (applies to non-numeri c results) [facility] ([facility] Hemoglobin 12.8 g/dL 13.5-17.5 Below low normal [facility] ( [facility] Red Blood Count [...] resul ts) [facility] ([facility] [place] % 8.0 % 0.0-5.0 Above high normal [...] normal [facility] ( [facility] [place] # 0.5 10 0.0-0.8 Normal (applies to non-numeric resul ts) [facility] ([facility] Neutrophils # 3.8 10 1.5-8.5 Normal (applies to non-numeric re sults) [facility] ([facility] Eos # 0.2 10 0.0-0.5 Normal (applies to non-numeric resul ts) [facility] ([facility] Baso # 0.0 10 0.0-0.2 Normal (applies to non-numeric resul ts) [facility] ([facility] ID Date Data Source [id number] 05/29/2020 07:55:00 AM EST MED[facility] ([facility] Name Value Range Interpretation Code Description Data Patricio rce(s) Supporting Document(s) Inr 1.02 Normal (applies to non-numeric resul ts) [facility] ([facility] THERAPUTIC HUMAN INR VALUES INDICATIONS NORMAL RANGES PROPHYLAXIS/TREATMENT OF: VENOUS THROMBOSIS 2.0-3.0 PULMONARY EMBOLISM 2.0-3.0 PREVENTION OF SYSTEMIC EMBOLISM FROM: TISSUE HEART VALVES 2.0-3.0 ACUTE MYOCARDIAL INFARCTION 2.0-3.0 VALVULAR HEART DISEASE 2.0-3.0 ATRIAL FIBRILLATION 2.0-3.0 MECHANICAL VALVES(HIGH RISK) 2.5-3.5 RECURRENT MYOCARDIAL INFARCTION 2.5-3.5 Prothrombin Time 13.6 s 12.5-14.3 Normal (applies to non-numeric results) [facility] ([facility] ID Date Data Source [id number] 05/29/2020 07:55:00 AM EST [facility] ([facility] Name Value Range Interpretation Code Description Data Patricio rce(s) Supporting Document(s) aPTT in Platelet poor plasma by Coagulation assay 27.8 s 24.2-38.5 Normal (applies to non-numeric results) [facility] ([facility] ID Date Data Source [id number] 05/29/2020 07:55:00 AM EST [facility] ([facility] Name Value Range Interpretation Code Description Data Patricio rce(s) Supporting Document(s) CK-MB Value Mass 1.8 ng/mL Normal (applies to non-numeric results) [facility] ([facility] CPK Creatine Phosphokinase 54 U/L 39-308 Lyly l (applies to non-numeric results) [facility] ([facility] ) MB/CK Relative Index 3.33 Normal (applies to non-num antoine results) JOSE ALEJANDRO ([facility] <content>DIAGNOSIS CRITERIA</content>
<content>MMB ng/ml Relative Index (RI)</content>
<content>NON-AMI < or = 5 N/A</content>
<content>MARTIN ZONE > 5 < or = 4</content>
<content>AMI > 5 > 4</content>
<content></content> Troponin I Laboratory test result Normal (applies to non-n umeric results) JOSE ALEJANDRO ([facility] <content>Troponin I Reference Interval f or Siemens [place] LOCI:</content>
<content></content>
<content>99th Percentile= 0.00-0.045 ng/ml</content>
<content></content>
<content>Risk Stratification:</content>
<content><= 0.10 ng/ml Decreased Risk for Adverse Clinical</content>
<content>Events.</content>
<content>0.10-1.50 ng/ml Increased Risk for Adverse Clinical</content>
<content>Events. Evaluation of additional</content>
<content>criterion and/or repeat testing in 2-6</content>
<content>hours is suggested to rule out myocardial</content>
<content>damage.</content>
<content>>= 1.50 ng/ml Indicative of Myocardial Injury.</content>
<content></content> ID Date Data Source [id number] 05/28/2020 11:23:00 AM EST JOSE ALEJANDRO ([facility] Name Value Range Interpretation Code Description Data Patricio rce(s) Supporting Document(s) Urine Culture, Routine Laboratory test result JOSE ALEJANDRO ([facility] SRC:URINE Bacteria identified in Urine by Culture Laboratory test result JOSE ALEJANDRO ([facility] SRC:URINE ID Date Data Source [id number] 05/28/2020 11:21:00 AM EST [facility] ([facility] Name Value Range Interpretation Code Description Data Patricio rce(s) Supporting Document(s) Color Urine Laboratory test result M EDENT ([facility] Appearance of Urine Laboratory test result MED[facility] ([facility] PH Urine 5.5 5.0-8.0 [facility] Specific [place] 1.020 1.00-1.03 [facility] ([facility] Bilirubin.total [Presence] in Urine by Test strip Laboratory test res ult MED[facility] ([facility] Glucose Urine Laboratory test result MED[facility] ([facility] Ketones Laboratory test result MED[facility] ([facility] Urobilinogen 0.2 EU/dl 0.2-1.0 MED[facility] ([facility] Blood Urine Laboratory test result M EDENT ([facility] Protein Urine Laboratory test result MED[facility] ([facility] Nitrite Laboratory test result MED[facility] ([facility] Leukocytes Laboratory test result Above high normal [facility] ([facility] ID Date Data Source [id number] 05/15/2020 08:44:00 PM EST MEDENT (Famil y [...] Little GFR Left</content>
<content>ESRD GFR <15 on [employer]LOBAL [employer]</content>
<content></content> Potassium Serum 3.6 meq/L 3.5-5.1 Normal (applies to non-numeric results) [facility] ([facility] Carbon Dioxide Level 26 meq/L 21-32 Normal (applies to non-num antoine results) [facility] ([facility] Chloride Level 109 meq/L 98-107 Above high normal [facility] ([facility] Anion Gap 7 meq/L 8-16 Below low normal [facility] ( [facility] Calcium Level 8.9 mg/dL 8.8-10.2 Normal (applies to non-numeric re sults) [facility] ([facility] ID Date Data Source [id number] 05/15/2020 08:44:00 PM EST MED[facility] ([facility] Name Value Range Interpretation Code Description Data Patricio rce(s) Supporting Document(s) Ast/Sgot 24 U/L 7-37 Normal (applies to non-numeric resul ts) [facility] ([facility] Alkaline Phosphatase 66 U/L 45-117 Normal (applies to non-num antoine results) [facility] ([facility] Alt/SGPT 28 U/L 12-78 Normal (applies to non-numeric resul ts) [facility] ([facility] Bilirubin,Total 0.3 mg/dL 0.2-1.0 Normal (applies to non-numeric results) [facility] ([facility] Total Protein 6.2 GM/DL 6.4-8.2 Below low normal MEDEN T ([facility] Bilirubin,Direct 0.1 mg/dL 0.0-0.2 Normal (applies to non-numeric results) [facility] ([facility] Albumin 3.3 GM/DL 3.2-5.2 Normal (applies to non-numeric resul ts) [facility] ([facility] Albumin/Globulin Ratio 1.1 Normal (applies to non-n umeric results) [facility] ([facility] ID Date Data Source [id number] 05/15/2020 08:44:00 PM EST MED[facility] ([facility] Name Value Range [...] 150-450 Normal (applies to non-numeric results) [facility] ([facility] ) Neutrophils % 49.5 % 36.0-66.0 Normal (applies to non-numeric re sults) [facility] ([facility] [place] % 14.6 % 0.0-5.0 Above high normal [facility] ([facility] Eos % 0.0 % 0.0-3.0 Normal (applies to non-numeric resul ts) [facility] ([facility] Lymph % 31.1 % 24.0-44.0 Normal (applies to non-numeric resul ts) [facility] ([facility] Immature Granulocyte % 3.8 % 0-3.0 Above high normal [facility] ([facility] Neutrophils # 3.5 10 1.5-8.5 Normal (applies to non-numeric re sults) [facility] ([facility] Baso % 1.0 % 0.0-1.0 Normal (applies to non-numeric resul ts) [facility] ([facility] Nucleated Red Blood Cell % 0.0 % 0-0 Normal (applies to n on-numeric results) [facility] ([facility] [place] # 1.0 10 0.0-0.8 Above high normal [facility] ([facility] Lymph # 2.2 10 1.5-5.0 Normal (applies to non-numeric resul ts) [facility] ([facility] Eos # 0.0 10 0.0-0.5 Normal (applies to non-numeric resul ts) [facility] ([facility] Baso # 0.1 10 0.0-0.2 Normal (applies to non-numeric resul ts) [facility] ([facility] ID Date Data Source [id number] 05/09/2020 11:07:00 AM EST [facility] ([facility] Name Value Range Interpretation Code Description Data Patricio rce(s) Supporting Document(s) Bacteria identified in Urine by Culture Laboratory test result MED[facility] ([facility] SRC: URINE Urine Culture, Routine Laboratory test result MED[facility] ([facility] SRC: URINE ID Date Data Source [id number] 05/09/2020 10:59:00 AM EST [facility] ([facility] Name Value Range Interpretation Code Description Data Patricio rce(s) Supporting Document(s) Specific [place] 1.015 1.00-1.03 [facility] ([facility] Color Urine Laboratory test result M EDENT ([facility] Appearance of Urine Laboratory test result MED[facility] ([facility] PH Urine 5.5 5.0-8.0 [facility] ([facility] Glucose Urine Laboratory test result MED[facility] ([facility] Bilirubin.total [Presence] in Urine by Test strip Laboratory test res ult MED[facility] ([facility] Protein Urine Laboratory test result Above high normal [facility] ([facility] Blood Urine Laboratory test result Above high normal [facility] ([facility] Ketones Laboratory test result MED[facility] ([facility] Nitrite Laboratory test result MED[facility] ([facility] Urobilinogen 0.2 EU/dl 0.2-1.0 [facility] ([facility] Leukocytes Laboratory test result Above high normal [facility] ([facility] ID Date Data Source [id number] 04/16/2020 03:45:00 PM EDT MED[facility] ([facility] Name Value Range Interpretation Code Description Data Patricio rce(s) Supporting Document(s) Urine Culture, Routine Laboratory test result Ab normal (applies to non-numeric results) [facility] ([facility] ) SRC:PENILE DISCHARGE Bacteria identified in Urine by Culture Laboratory test result Abnormal (applies to non-numeric results) [facility] ([facility] SRC:PENILE DISCHARGE Antimicrobial Susceptibility Laboratory test result [facility] ([facility] SRC:PENILE DISCHARGE ID Date Data Source [id number] 04/16/2020 03:45:00 PM EDT [facility] ([facility] Name Value Range Interpretation Code Description Data Patricio rce(s) Supporting Document(s) Bacteria identified in Unspecified specimen by Culture Laborator y test result Abnormal (applies to non-numeric results) [facility] SRC:PENILE DISCHARGE Bacteria identified in Unspecified specimen by Aerobe culture Laboratory test result Abnormal (applies to non-numeric results) [facility] ([facility] SRC:PENILE DISCHARGE Bacteria identified in Unspecified specimen by Culture Laborator y test result [facility] ([facility] ) SRC:PENILE DISCHARGE Bacteria identified in Unspecified specimen by Culture Laborator y test result Abnormal (applies to non-numeric results) [facility] ([facility] SRC:PENILE DISCHARGE Other Antibiotic [Susceptibility] Laboratory test result [facility] ([facility] SRC:PENILE DISCHARGE ID Date Data Source [id number] 04/16/2020 03:45:00 PM EDT MED[facility] ([facility] Name Value Range Interpretation Code Description Data Patricio rce(s) Supporting Document(s) Bacteria identified in Unspecified specimen by Aerobe culture Laboratory test result [facility] ([facility] ID Date Data Source [id number] 04/16/2020 03:39:00 PM EDT MED[facility] ([facility] Name Value Range Interpretation Code Description Data Patricio rce(s) Supporting Document(s) Appearance of Urine Laboratory test result MED[facility] ([facility] Color Urine Laboratory test result M EDENT ([facility] Glucose Urine Laboratory test result MED[facility] ([facility] Specific [place] 1.030 1.00-1.03 [facility] ([facility] PH Urine 5.5 5.0-8.0 [facility] Ketones Laboratory test result MED[facility] ([facility] Bilirubin.total [Presence] in Urine by Test strip Laboratory melissa t result Above high normal [facility] ([facility] ) Blood Urine Laboratory test result Above high normal [facility] ([facility] Urobilinogen 0.2 EU/dl 0.2-1.0 [facility] ([facility] Nitrite Laboratory test result Above high normal [facility] ([facility] Protein Urine Laboratory test result Above high normal [facility] ([facility] Leukocytes Laboratory test result Above high normal [facility] ([facility] ID Date Data Source [id number] 04/10/2020 08:31:00 AM EDT MED[facility] ([facility] Name Value Range Interpretation Code Description Data Patricio rce(s) Supporting Document(s) Laboratory test finding (navigational concept) 107 mg/dL 7 0-105 Above high normal [facility] ([facility] ) Laboratory test finding (navigational concept) 48.0 % 3 8.0-51.0 Normal (applies to non-numeric results) [facility] ([facility] Laboratory test finding (navigational concept) 3.9 meq/L 3 .5-5.1 Normal (applies to non-numeric results) [facility] ([facility] Laboratory test finding (navigational concept) 4.5 mg/dL 4 .5-5.3 Normal (applies to non-numeric results) [facility] ([facility] Laboratory test finding (navigational concept) 137 meq/L 1 36-145 Normal (applies to non-numeric results) [facility] ([facility] Laboratory test finding (navigational concept) 18 mg/dL 8 -26 Normal (applies to non-numeric results) [facility] ([facility]) Laboratory test finding (navigational concept) 100 meq/L 9 8-109 Normal (applies to non-numeric results) [facility] ([facility] Laboratory test finding (navigational concept) 23.0 MM/L 2 3.0-27.0 Normal (applies to non-numeric results) [facility] ([facility] [facility] Laboratory test finding (navigational concept) 1.7 mg/dL 0 .6-1.3 Above high normal MEDENT ([facility] ID Date Data Source [id number] 03/16/2020 11:22:46 AM EDT [facility] Name Value Range Interpretation Code Description Data Patricio rce(s) Supporting Document(s) Progress Note [facility] [id number] lbm [file] [id number] [file] [id number] ID Date Data Source [id number] 03/13/2020 09:49:00 AM EDT JOSE ALEJANDRO ([facility] Name Value Range Interpretation Code Description Data Patricio rce(s) Supporting Document(s) Glu 90 mg/dL 70-110 [facility]SA[facility] CHRONIC KIDNEY DISEASE STAGING [...] 1.4 mg/dL 0.7-1.2 Above high normal MEDENT ([facility] CHRONIC KIDNEY DISEASE [...] mL/min Normal BUN 21 mg/dL 02-25 MEDENT ([facility] CHRONIC KIDNEY DISEASE STAGING PER [...] mL/min Normal BUN/Creatinine Ratio 15.6 CALC MEDENT ([facility] CHRONIC KIDNEY DISEASE STAGING [...] mL/min Normal CL 105.5 mmol/L 98.0-107.0 MEDENT ([facility] CHRONIC KIDNEY [...] mL/min Normal Na 143 mmol/L 136-145 MEDENT ([facility] CHRONIC KIDNEY [...] mL/min Normal K 4.2 mmol/L 3.5-5.1 MEDENT ([facility] CHRONIC KIDNEY [...] mL/min Normal Co2 25.0 mmol/L 22.0-29.0 MEDENT ([facility] CHRONIC KIDNEY [...] mL/min Normal Alb 4.3 g/dL 3.5-5.2 MEDENT ([facility] CHRONIC KIDNEY [...] mL/min Normal Alp 59.0 U/L 40-129 MEDENT ([facility] CHRONIC KIDNEY [...] Normal Alt (SGPT) 15 U/L 0-41 MEDENT ([facility] CHRONIC KIDNEY [...] >32 mL/min Normal Globulin 2.2 CALC [facility] ([facility] CHRONIC KIDNEY DISEASE STAGING [...] Normal Ast (Sgot) 18 U/L 0-40 MEDENT ([facility] CHRONIC KIDNEY [...] mL/min Normal Anion Gap 16 mmol/L [facility] ([facility] CHRONIC KIDNEY DISEASE STAGING [...] and above >32 mL/min Normal eGFR Non-Afr. [place] 47 # [facility] ([facility] [...] >32 mL/min Normal ID Date Data Source [id number] 03/13/2020 09:48:00 AM EDT MEDSAV ([facility] Name Value Range Interpretation Code Description Data Patricio rce(s) Supporting Document(s) Appearance of Urine Laboratory test result MEDENT ([facility] Color Urine Laboratory test result M EDENT ([facility] PH Urine 5.5 5.0-8.0 [facility] Specific [place] 1.020 1.00-1.03 MEDENT ([facility] Bilirubin.total [Presence] in [...] [facility] Urobilinogen 0.2 EU/dl 0.2-1.0 MEDENT ([facility] Leukocytes Laboratory test result ME DENT ([facility] Nitrite Laboratory test result MEDENT ([facility] Procedure Social History Code Duration Value Status Description Data Source(s ) Alcohol intake 04/25/2021 12:00:00 AM EDT Ex-drinker (finding) comp leted Ex- drinker (finding) [facility] Smoking 01/10/2021 12:00:00 AM EDT Patient is a former smoker completed Patient is a former smoker MEDENT ([facility]) Smoking 09/25/2020 12:00:00 AM EDT Patient is a former smoker completed Patient is a former smoker MEDENT ([facility]) Tobacco use and exposure 08/20/2020 12:00:00 AM EST Never used co mpleted Never used [facility] Cigarette pack-years 08/20/2020 12:00:00 AM EST UNK completed [facility] Cigarettes smoked current (pack per day) - Reported 08/20/19 12:00:00 AM EST UNK completed [facility] Smoking 08/20/2020 12:00:00 AM EST Former smoker completed Former smoker [facility] Alcohol intake 08/20/2020 12:00:00 AM EST Not Currently completed [facility] Smoking 08/20/2020 12:00:00 AM EST Former smoker completed Former smoker [facility] Alcohol intake 03/16/2020 12:00:00 AM EDT Lifetime non-drinker (finding) completed Lifetime non-drinker (finding) [facility] Tobacco use and exposure 03/16/2020 12:00:00 AM EDT Never used co mpleted Never used [facility] Smoking 03/16/2020 12:00:00 AM EDT Never smoker completed Never s [facility] Vital Signs ID Date Data Source [...] Body height 67 [in_i] 67 [in_i] MEDENT ([facility] 5'7" Body weight 171.00 [lb_av] 171.00 [lb_av] MEDEN T ([facility] [place] body weight 148 [lb_av] 148 [lb_av] MEDEN T ([facility] Body mass index (BMI) [Ratio] 26.8 kg/m2 26.8 k g/m2 MEDENT ([facility] Systolic blood pressure 152 mm[Hg] 152 mm[Hg] [facility] Diastolic blood pressure 82 mm[Hg] 82 mm[Hg] [facility] Heart rate 57 /min 57 /min [facility] Body height 170.2 cm 170.2 cm [facility] Body weight 77.837 kg 77.837 kg [facility] Body mass index (BMI) [Ratio] 26.88 kg/m2 26.88 kg/m2 [facility] Oxygen saturation in Arterial blood by Pulse oximetry 98 % 98 % [facility] Systolic blood pressure 110 mm[Hg] 110 mm[Hg] [...] Body height 67 [in_i] 67 [in_i] MEDENT ([facility] 5'7" Body weight 170.00 [lb_av] 170.00 [lb_av] MEDEN T ([facility] [place] body weight 148 [lb_av] 148 [lb_av] MEDEN T ([facility] Body mass index (BMI) [Ratio] 26.6 kg/m2 26.6 k g/m2 MEDENT ([facility] Oxygen saturation in Arterial blood by Pulse oximetry 97 % 97 % MEDENT ([facility] Systolic blood pressure 122 mm[Hg] 122 mm[Hg] M EDENT ([facility]) Diastolic blood pressure 70 mm[Hg] 70 mm[Hg] MEDENT ([facility]) Body weight 166.00 [lb_av] 166.00 [lb_av] MEDEN T ([facility]) Respiratory rate 18 /min 18 /min MEDENT ( [facility]) Body mass index (BMI) [Ratio] 26.5 kg/m2 26.5 k g/m2 MEDENT ([facility]) Diastolic blood pressure 74 mm[Hg] 74 mm[Hg] MEDENT ([facility]) sitting, regular cuff Body weight 169.00 [lb_av] 169.00 [lb_av] MEDEN T ([facility]) Body height 67 [in_i] 67 [in_i] MEDENT ([facility]) 5'7" Systolic blood pressure 132 mm[Hg] 132 mm[Hg] M EDENT ([facility]) sitting Diastolic blood pressure 74 mm[Hg] 74 mm[Hg] MEDENT ([facility]) sitting Heart rate 52 /min 52 /min MEDENT ([facility]) Regular Respiratory rate 16 /min 16 /min MEDENT ( [facility]) Systolic blood pressure 128 mm[Hg] 128 mm[Hg] M EDENT ([facility]) sitting, regular cuff Body weight 171 [lb_av] 171 [lb_av] eCW1 ([facility]) Body height 67 [in_i] 67 [in_i] eCW1 ([facility]) Systolic blood pressure 175 mm[Hg] 175 mm[Hg] e CW1 ([facility]) Body mass index (BMI) [Ratio] 26.78 kg/m2 26.78 kg/m2 eCW1 ([facility]) Heart rate 61 /min 61 /min eCW1 ([facility]) Diastolic blood pressure 94 mm[Hg] 94 mm[Hg] eCW1 ([facility]) Respiratory rate 18 /min 18 /min eCW1 ([facility]) Body temperature 98 [degF] 98 [degF] eCW1 ([facility]) Body weight 162.00 [lb_av] 162.00 [lb_av] MEDEN T ([facility], [facility]) Oxygen saturation in Arterial blood by Pulse oximetry 93 % 93 % MEDENT ([facility], [facility]) Body temperature 97.3 [degF] 97.3 [degF] MEDENT ([facility], [facility]) Body height 67 [in_i] 67 [in_i] MEDENT ([facility], [facility]) 5'7" Body mass index (BMI) [Ratio] 25.4 kg/m2 25.4 k g/m2 MEDENT ([facility], [facility]) Heart rate 60 /min 60 /min MEDENT ([facility], [facility]) Respiratory rate 16 /min 16 /min MEDENT ( [facility], [facility]) Systolic blood pressure 160 mm[Hg] 160 mm[Hg] M EDENT ([facility], [facility]) Diastolic blood pressure 90 mm[Hg] 90 mm[Hg] MEDENT ([facility], [facility]) Body temperature 97.5 [degF] 97.5 [degF] MEDENT ([facility] Systolic blood pressure 130 mm[Hg] 130 mm[Hg] M EDENT ([facility] Diastolic blood pressure 64 mm[Hg] 64 mm[Hg] MEDENT ([facility] Heart rate 77 /min 77 /min MEDENT ([facility] Respiratory rate 16 /min 16 /min MEDENT ( [facility] Body height 67 [in_i] 67 [in_i] MEDENT ([facility] 5'7" Body weight 175.00 [lb_av] 175.00 [lb_av] MEDEN T ([facility] [place] body weight 148 [lb_av] 148 [lb_av] MEDEN T ([facility] Body mass index (BMI) [Ratio] 27.4 kg/m2 27.4 k g/m2 [facility] Oxygen saturation in Arterial blood by Pulse oximetry 96 % 96 % [facility] ([facility] Body weight 75.298 kg 75.298 kg [facility] ([facility]) Body height 67 [in_i] 67 [in_i] MEDENT ([facility]) 5'7" Body weight 166.00 [lb_av] 166.00 [lb_av] MEDEN T ([facility]) Body mass index (BMI) [Ratio] 26.0 kg/m2 26.0 k g/m2 [facility] ([facility]) [place] body weight 148 [lb_av] 148 [lb_av] MEDEN T ([facility]) Body surface area Derived from formula 1.87 m2 1.87 m2 [facility] ([facility]) Diastolic blood pressure 74 mm[Hg] 74 mm[Hg] MEDENT ([facility]) sitting, regular cuff Body weight 173.00 [lb_av] 173.00 [lb_av] MEDEN T ([facility]) Body height 67 [in_i] 67 [in_i] MEDENT ([facility]) 5'7" Body mass index (BMI) [Ratio] 27.1 kg/m2 27.1 k g/m2 MEDENT ([facility]) Heart rate 76 /min 76 /min MEDENT ([facility]) Regular Respiratory rate 16 /min 16 /min [facility] ( [facility]) Systolic blood pressure 124 mm[Hg] 124 mm[Hg] M EDENT ([facility]) sitting, regular cuff Systolic blood pressure 173 mm[Hg] 173 mm[Hg] [facility] Diastolic blood pressure 85 mm[Hg] 85 mm[Hg] [facility] Heart rate 99 /min 99 /min [facility] Body temperature 36.67 Michelle 36.67 Michelle [facility] Respiratory rate 16 /min 16 /min [facility] Oxygen saturation in Arterial blood by Pulse oximetry 95 % 95 % [facility] Body weight 74.39 kg 74.39 kg [facility] Body mass index (BMI) [Ratio] 25.69 kg/m2 25.69 kg/m2 [facility] Body height 170.2 cm 170.2 cm [facility] Body weight 171 [lb_av] 171 [lb_av] eCW1 ([facility]) Body height 67 [in_i] 67 [in_i] eCW1 ([facility]) Body mass index (BMI) [Ratio] 26.78 kg/m2 26.78 kg/m2 eCW1 ([facility]) Heart rate 66 /min 66 /min eCW1 ([facility]) Respiratory rate 18 /min 18 /min eCW1 ([facility]) Body temperature 96.5 [degF] 96.5 [degF] eCW1 ( [facility]) Systolic blood pressure 140 mm[Hg] 140 mm[Hg] e CW1 ([facility]) Diastolic blood pressure 78 mm[Hg] 78 mm[Hg] eCW1 ([facility]) Systolic blood pressure 138 mm[Hg] 138 mm[Hg] [...] Body height 67 [in_i] 67 [in_i] MEDENT ([facility] 5'7" Body weight 171.00 [lb_av] 171.00 [lb_av] MEDEN T ([facility] [place] body weight 148 [lb_av] 148 [lb_av] MEDEN T ([facility] Body mass index (BMI) [Ratio] 26.8 kg/m2 26.8 k g/m2 MEDENT ([facility] Oxygen saturation in Arterial blood by Pulse oximetry 97 % 97 % MEDSAV ([facility] Diastolic blood pressure 78 mm[Hg] 78 mm[Hg] MEDENT ([facility]) sitting, regular cuff Systolic blood pressure 128 mm[Hg] 128 mm[Hg] M EDENT ([facility]) sitting Body weight 161.00 [lb_av] 161.00 [lb_av] MEDEN T ([facility]) Body height 67 [in_i] 67 [in_i] MEDENT ([facility]) 5'7" Body mass index (BMI) [Ratio] 25.2 kg/m2 25.2 k g/m2 MEDENT ([facility]) Heart rate 64 /min 64 /min MEDENT ([facility]) Regular Respiratory rate 16 /min 16 /min MEDENT ( [facility]) Systolic blood pressure 134 mm[Hg] 134 mm[Hg] M EDENT ([facility]) sitting, regular cuff Diastolic blood pressure 76 mm[Hg] 76 mm[Hg] MEDENT ([facility]) sitting Body weight 171 [lb_av] 171 [lb_av] eCW1 ([facility] hospital) Body height 67 [in_i] 67 [in_i] eCW1 ([facility]) Body mass index (BMI) [Ratio] 26.78 kg/m2 26.78 kg/m2 eCW1 ([facility]) Heart rate 57 /min 57 /min eCW1 ([facility]) Respiratory rate 18 /min 18 /min eCW1 ([facility]) Body temperature 96.6 [degF] 96.6 [degF] eCW1 ( [facility]) Systolic blood pressure 142 mm[Hg] 142 mm[Hg] e CW1 ([facility]) Diastolic blood pressure 80 mm[Hg] 80 mm[Hg] eCW1 ([facility]) Body weight 171 [lb_av] 171 [lb_av] eCW1 ([facility]) Body height 67 [in_i] 67 [in_i] eCW1 ([facility]) Body mass index (BMI) [Ratio] 26.78 kg/m2 26.78 kg/m2 eCW1 ([facility]) Heart rate 80 /min 80 /min eCW1 ([facility]) Respiratory rate 18 /min 18 /min eCW1 ([facility]) Body temperature 97.4 [degF] 97.4 [degF] eCW1 ( [facility]) Systolic blood pressure 160 mm[Hg] 160 mm[Hg] e CW1 ([facility]) Diastolic blood pressure 76 mm[Hg] 76 mm[Hg] eCW1 ([facility]) Diastolic blood pressure 68 mm[Hg] 68 mm[Hg] MEDENT ([facility] Systolic blood pressure 126 mm[Hg] 126 mm[Hg] M EDENT ([facility] [place] body weight 148 [lb_av] 148 [lb_av] MEDEN T ([facility] Body temperature 97.4 [degF] 97.4 [degF] MEDENT ([facility] Heart rate 79 /min 79 /min MEDENT ([facility] Respiratory rate 16 /min 16 /min MEDENT ( [facility] Body height 67 [in_i] 67 [in_i] MEDENT ([facility] 5'7" Body mass [...] height 67 [in_i] 67 [in_i] MED[facility] ([facility] 5'7" Body weight 174.00 [lb_av] 174.00 [lb_av] MEDEN T ([facility] Body temperature 98.5 [degF] 98.5 [degF] MEDENT ([facility] [place] body weight 148 [lb_av] 148 [lb_av] MEDEN T ([facility] Body mass index (BMI) [Ratio] 27.2 kg/m2 27.2 k g/m2 MEDENT ([facility] Oxygen saturation in Arterial blood by Pulse oximetry 95 % 95 % MEDENT ([facility] Systolic blood pressure 116 mm[Hg] 116 mm[Hg] M EDENT ([facility] Respiratory rate 16 /min 16 /min MEDENT ( [facility] Body height 67 [in_i] 67 [in_i] MEDENT ([facility] 5'7" Body weight 176.00 [lb_av] 176.00 [lb_av] MEDEN T ([facility] [place] body weight 148 [lb_av] 148 [lb_av] MEDEN T ([facility] Body mass index (BMI) [Ratio] 27.6 kg/m2 27.6 k g/m2 MEDENT ([facility] Oxygen saturation in Arterial blood by Pulse oximetry 97 % 97 % MEDENT ([facility] Diastolic blood pressure 60 mm[Hg] 60 mm[Hg] MEDENT ([facility] Body temperature 98.3 [degF] 98.3 [degF] MEDENT ([facility] Heart rate 92 /min 92 /min MEDENT ([facility] Respiratory rate 16 /min 16 /min MEDENT ( [facility] Body weight 175.00 [lb_av] 175.00 [lb_av] MEDEN T ([facility] [place] body weight 148 [lb_av] 148 [lb_av] MEDEN [...] Body height 67 [in_i] 67 [in_i] MEDENT ([facility] 5'7" Body weight 177 [lb_av] 177 [lb_av] eCW1 ([facility]) Body height 67 [in_i] 67 [in_i] eCW1 ([facility]) Body mass index (BMI) [Ratio] 27.72 kg/m2 27.72 kg/m2 eCW1 ([facility]) Heart rate 59 /min 59 /min eCW1 ([facility]) Respiratory rate 17 /min 17 /min eCW1 ([facility]) Body temperature 97.2 [degF] 97.2 [degF] eCW1 ( [facility]) Systolic blood pressure 118 mm[Hg] 118 mm[Hg] e CW1 ([facility]) Diastolic blood pressure mm[Hg] eCW1 ([facility]) Body height 67 [in_i] 67 [in_i] MEDENT ([facility] 5'7" Respiratory rate 16 /min 16 /min MEDENT ( [facility] Body weight 178.00 [lb_av] 178.00 [lb_av] MEDEN T ([facility] [place] body weight 148 [lb_av] 148 [lb_av] MEDEN T ([facility] Systolic blood pressure 112 mm[Hg] 112 mm[Hg] M EDENT ([facility] Diastolic blood pressure 70 mm[Hg] 70 mm[Hg] MEDENT ([facility] Body temperature 98.2 [degF] 98.2 [degF] MEDENT ([facility] Heart rate 79 /min 79 /min MEDENT ([facility] Body mass index (BMI) [Ratio] 27.9 kg/m2 27.9 k g/m2 MEDENT ([facility] Oxygen saturation in Arterial blood by Pulse oximetry 98 % 98 % MEDENT ([facility] Systolic blood pressure 140 mm[Hg] 140 mm[Hg] M EDENT ([facility] Body weight 178.00 [lb_av] 178.00 [lb_av] MEDEN T ([facility] Diastolic blood pressure 80 mm[Hg] 80 mm[Hg] MEDENT ([facility] Body height 67 [in_i] 67 [in_i] MEDENT ([facility] 5'7" [place] body weight 148 [lb_av] 148 [lb_av] MEDEN T ([facility] Body mass index (BMI) [Ratio] 27.9 kg/m2 27.9 k g/m2 MEDENT ([facility] Oxygen saturation in Arterial blood by Pulse oximetry 97 % 97 % MEDENT ([facility] Body temperature 98.3 [degF] 98.3 [degF] MEDENT ([facility] Heart rate 102 /min 102 /min MEDENT ([facility] Respiratory rate 16 /min 16 /min MEDENT ( [facility] Systolic blood pressure 130 mm[Hg] 130 mm[Hg] M EDENT ([facility] Diastolic blood pressure 70 mm[Hg] 70 mm[Hg] MEDENT ([facility] Body temperature 97.5 [degF] 97.5 [degF] MEDSAV ([facility] Heart rate 74 /min 74 /min MEDSAV ([facility] Respiratory rate 16 /min 16 /min MEDSAV ( [facility] Body height 67 [in_i] 67 [in_i] MEDENT ([facility] 5'7" Body weight 178.00 [lb_av] 178.00 [lb_av] MEDEN T ([facility] Oxygen saturation in Arterial blood by Pulse oximetry 98 % 98 % JOSE ALEJANDRO ([facility] [place] body weight 148 [lb_av] 148 [lb_av] MEDEN T ([facility] Body mass index (BMI) [Ratio] 27.9 kg/m2 27.9 k g/m2 JOSE ALEJANDRO ([facility] ID Date Data Source [id number] 03/26/2020 10:07:28 AM [facility] Name Value Range Interpretation Code Description Data Source(s) WEIGHT RECORDED 181 lb 181 lb [facility] Body height Measured 67 in 67 in [facility] Patient Treatment Plan of Care Planned Activity Planned Date Details Description Data Source (s) Finasteride 5 MG Oral Tablet 11/14/2020 12:00:00 AM EDT [facility] ([facility]) Finasteride 5 MG Oral Tablet 11/14/2020 12:00:00 AM EDT [facility] ([facility]) Finasteride 5 MG Oral Tablet 11/14/2020 12:00:00 AM [place] [id number] ([facility]) atorvastatin 20 MG Oral Tablet 01/17/2020 12:00:00 AM [facility] atorvastatin 20 MG Oral Tablet 12/12/2019 12:00:00 AM [facility]
== END 2021-04-30 23:17 | disposition home or self-care (01) ==
LOC: M ED 22:25
DX: L76.22 Postprocedural hemorrhage of skin and subcutaneous tissue following other procedure (principal); I10 Essential (primary) hypertension; I25.2 Old myocardial infarction; E78.5 Hyperlipidemia, unspecified; K21.9 Gastro-esophageal reflux disease without esophagitis; N40.0 Benign prostatic hyperplasia without lower urinary tract symptoms; Z79.899 Other long term (current) drug therapy; Z79.01 Long term (current) use of anticoagulants

== ENCOUNTER → 2022-04-10 | Outpatient (CLI) | payer MEDICARE | LOC: M WUC 11:01 | PROVIDERS: ATTEND Physician Assistant | DX: S63.8X2A Sprain of other part of left wrist and hand, initial encounter (principal); X58.XXXA Exposure to other specified factors, initial encounter; Y92.9 Unspecified place or not applicable; Y93.9 Activity, unspecified; Y99.9 Unspecified external cause status ==

== ENCOUNTER → 2022-08-20 | Outpatient (CLI) | payer MEDICARE ==
[~2022-08-20] MED LIST changes: -DOXY-350 PO; +DOXY-444 PO
[2022-08-20 16:28] LABS: APPEARANCE, URINE CLEAR (CLEAR); BILIRUBIN, URINE AUTO NEGATIVE (NEGATIVE); BLOOD, URINE BLOOD NEGATIVE (NEGATIVE); COLOR, URINE YELLOW (YELLOW); GLUCOSE, URINE (UA) AUTO NEGATIVE (NEGATIVE); KETONE, URINE AUTO NEGATIVE (NEGATIVE); LEUKOCYTE ESTERASE, URINE AUTO NEGATIVE (NEGATIVE); NITRITE, URINE AUTO NEGATIVE (NEGATIVE); PROTEIN, URINE AUTO NEGATIVE (NEGATIVE); SPECIFIC GRAVITY URINE AUTO 1.017 (1.002-1.035); UROBILINOGEN, URINE AUTO 0.2 mg/dL (0.0-2.0)
[2022-08-20 16:29] LABS: BACTERIA, URINE AUTO NEGATIVE (NEGATIVE); RBC, URINE AUTO 1 /HPF (0-3); SQUAMOUS EPITHELIAL CELL UR AU 0 /HPF (0-6); WBC, URINE AUTO 1 /HPF (0-3)
[2022-08-20 16:34] LABS: BASO # 0.1 10^3/uL (0.0-0.2); BASO % 0.6 % (0.0-1.0); EOS # 0.2 10^3/uL (0.0-0.5); HEMATOCRIT 43.4 % (42.0-52.0); HEMOGLOBIN 14.4 g/dl (13.5-17.5); LYMPH # 1.9 10^3/uL (1.5-5.0); LYMPH % 22.5 % (24.0-44.0); MEAN CORPUSCULAR HGB CONC 33.2 g/dl (32.0-36.5); MEAN CORPUSCULAR VOLUME 96.4 fl (80.0-96.0); MONO # 0.9 10^3/uL (0.0-0.8); MONO % 10.4 % (2.0-8.0); NEUTROPHILS # 5.5 10^3/uL (1.5-8.5); PLATELET COUNT, AUTOMATED 251 10^3/uL (150-450); WHITE BLOOD COUNT 8.5 10^3/uL (4.0-10.0)
[2022-08-20 22:23] LABS: THYROID STIMULATING HORMONE 0.861 uIU/ML (0.55-4.78)
[2022-08-20 22:25] LABS: ALBUMIN 3.5 G/DL (3.2-5.2); BILIRUBIN,TOTAL 0.4 MG/DL (0.3-1.2); CALCIUM LEVEL 9.3 MG/DL (8.3-10.6); CHOLESTEROL RISK RATIO 3.51 (<5); CREATININE FOR GFR 1.26 MG/DL (0.70-1.30); GLOMERULAR FILTRATION RATE 58.3 (>35); HDL CHOLESTEROL 44.1 MG/DL (>40); LDL CHOLESTEROL 54.1 MG/DL (<100); POTASSIUM SERUM 4.1 MMOL/L (3.5-5.1); PROSTATIC SPECIFIC AG MONITOR 4.25 NG/ML (< 4.00); TOTAL PROTEIN 6.5 G/DL (5.7-8.2)
== END ==
LOC: M WUC 11:58
PROVIDERS: ATTEND Physician Assistant
DX: Z00.01 Encounter for general adult medical examination with abnormal findings (principal); E78.2 Mixed hyperlipidemia; Z12.5 Encounter for screening for malignant neoplasm of prostate; R35.1 Nocturia; I25.2 Old myocardial infarction; I25.10 Atherosclerotic heart disease of native coronary artery without angina pectoris

== ENCOUNTER → 2022-10-20 | Outpatient (CLI) | payer MEDICARE ==
[~2022-10-20] MED LIST changes: +ACET-910 PO; +B-12100010 PO; +E-Z-GAS II EFFERVESCENT PACKET (SODIUM BICARB./CITRIC ACID/SIMETHICONE) As Ordered ONE; +E-Z-HD 98% w/w 340GM SUSP BTL As Ordered ONE; +E-Z-PAQUE 96% w/w SUSP 176GM BTL As Ordered ONE; +FAMO40TA3 PO; +SIMV-254 PO; +SUCR1SS PO; -ZOCO40TA PO
== END ==
LOC: M RAD 09:32
PROVIDERS: ATTEND Surgery
DX: K44.9 Diaphragmatic hernia without obstruction or gangrene (principal); K21.9 Gastro-esophageal reflux disease without esophagitis; R13.10 Dysphagia, unspecified

== ENCOUNTER 2022-10-23 09:11 | Day surgery (SDC) | payer MEDICARE ==
[~2022-10-23] VITALS: Ht 167.6 cm; Wt 79.4 kg
[~2022-10-23 09:11] MED LIST changes: -E-Z-GAS II EFFERVESCENT PACKET (SODIUM BICARB./CITRIC ACID/SIMETHICONE) As Ordered ONE; -E-Z-HD 98% w/w 340GM SUSP BTL As Ordered ONE; -E-Z-PAQUE 96% w/w SUSP 176GM BTL As Ordered ONE; +NS 1,000 ML IV ONE
[2022-10-23] MEDS ORDERED: propofoL 200 MG/20 ML VIAL As Ordered ONE ×2 (10:23→10:24)
[2022-10-23] MEDS ORDERED: LIDOCAINE 2% 100MG/5ML SDV (FOR ANES.) As Ordered ONE (10:23)
[2022-10-23 11:20] VITALS: BP 129/61
== END 2022-10-23 11:29 | disposition home or self-care (01) ==
LOC: M OPP 09:11
PROVIDERS: ATTEND Surgery
DX: Z86.010 Personal history of colon polyps (principal); K51.40 Inflammatory polyps of colon without complications; K57.30 Diverticulosis of large intestine without perforation or abscess without bleeding; K21.00 Gastro-esophageal reflux disease with esophagitis, without bleeding; K44.9 Diaphragmatic hernia without obstruction or gangrene; I48.91 Unspecified atrial fibrillation; I25.2 Old myocardial infarction; N40.0 Benign prostatic hyperplasia without lower urinary tract symptoms; Z79.01 Long term (current) use of anticoagulants; Z79.02 Long term (current) use of antithrombotics/antiplatelets; Z79.82 Long term (current) use of aspirin; Z79.899 Other long term (current) drug therapy; Z86.73 Personal history of transient ischemic attack (TIA), and cerebral infarction without residual deficits; Z87.891 Personal history of nicotine dependence

== ENCOUNTER → 2022-11-13 | Outpatient (CLI) | payer MEDICARE ==
[~2022-11-13] MED LIST changes: -NS 1,000 ML IV ONE
[2022-11-13 10:30] LABS: CREATININE FOR GFR 1.24 MG/DL (0.70-1.30); GLOMERULAR FILTRATION RATE 59.4 (>35)
== END ==
LOC: M LAB 09:31
PROVIDERS: ATTEND Physician Assistant
DX: Z01.818 Encounter for other preprocedural examination (principal); K44.9 Diaphragmatic hernia without obstruction or gangrene

== ENCOUNTER → 2022-11-19 | Outpatient (CLI) | payer MEDICARE ==
[~2022-11-19] MED LIST changes: +GASTROGRAFIN SOLUTION 30ML As Ordered ONE; +ISOVUE-370 76% 100ML VIAL As Ordered ONE
== END ==
LOC: M RAD 14:20
PROVIDERS: ATTEND Physician Assistant
DX: K44.9 Diaphragmatic hernia without obstruction or gangrene (principal); K76.0 Fatty (change of) liver, not elsewhere classified; K76.89 Other specified diseases of liver; N42.89 Other specified disorders of prostate
CPT/HCPCS: 74178; Q9963; Q9967

== ENCOUNTER → 2022-11-25 | Outpatient (CLI) | payer MEDICARE ==
[~2022-11-25] MED LIST changes: -GASTROGRAFIN SOLUTION 30ML As Ordered ONE; -ISOVUE-370 76% 100ML VIAL As Ordered ONE
== END ==
LOC: M RAD 10:42
PROVIDERS: ATTEND Surgery
DX: R13.10 Dysphagia, unspecified (principal)

== ENCOUNTER → 2022-12-10 | Outpatient (CLI) | payer MEDICARE | LOC: M WUC 08:46 | PROVIDERS: ATTEND Nurse Practitioner Family | DX: M19.042 Primary osteoarthritis, left hand (principal) ==

== ENCOUNTER 2023-02-26 06:03 | Inpatient (IN) | payer MEDICARE ==
[~2023-02-26] VITALS: Ht 167.6 cm; Wt 72.1 kg
[2023-02-26] VITALS (7 sets, daily range): BP systolic 98–176; BP diastolic 58–97; TEMP 97.7–98.2; O2SAT 95–99
[~2023-02-26 06:03] MED LIST changes: +FAMO20TA PO; +MELA3TAB21 PO; +VITA100093 PO
[2023-02-26 06:46] LABS: HEMATOCRIT 41.1 % (42.0-52.0); HEMOGLOBIN 13.7 g/dl (13.5-17.5); MEAN CORPUSCULAR HEMOGLOBIN 31.1 pg (27.0-33.0); MEAN CORPUSCULAR HGB CONC 33.3 g/dl (32.0-36.5); MEAN CORPUSCULAR VOLUME 93.4 fl (80.0-96.0); PLATELET COUNT, AUTOMATED 208 10^3/uL (150-450); WHITE BLOOD COUNT 6.2 10^3/uL (4.0-10.0)
[2023-02-26] MEDS ORDERED: CelecoXIB 400 MG CAP PO ONE (06:50)
[2023-02-26] MEDS ORDERED: HEPARIN SOD (PORCINE) 5000UNITS/ML 1ML VIAL/SYRINGE SQ ONE (06:50)
[2023-02-26] MEDS ORDERED: LIDOCAINE 1% SDV 30ML VIAL As Ordered ONE (07:14)
[2023-02-26 07:17] LABS: BLOOD UREA NITROGEN 16 MG/DL (9-23); CALCIUM LEVEL 9.3 MG/DL (8.3-10.6); CARBON DIOXIDE LEVEL 28 MMOL/L (20-31); CHLORIDE LEVEL 109 MMOL/L (98-107); CREATININE FOR GFR 1.15 MG/DL (0.70-1.30); GLOMERULAR FILTRATION RATE > 60.0 (>35); GLUCOSE, FASTING 95 MG/DL (74-106); POTASSIUM SERUM 4.1 MMOL/L (3.5-5.1); SODIUM LEVEL 144 MMOL/L (136-145)
[2023-02-26] MEDS: ceFAZolin SOD 2 GM in IV 1 EA IV ONE ×2 (07:51→07:57)
[2023-02-26] MEDS ORDERED: ETOMIDATE INJ 20MG/10ML VIAL As Ordered ONE (07:58)
[2023-02-26] MEDS ORDERED: ONDANSETRON 4MG 2ML VIAL As Ordered ONE (07:58)
[2023-02-26] MEDS ORDERED: SUGAMMADEX SODIUM 500 MG/5 ML VIAL (BRIDION) As Ordered ONE (07:58)
[2023-02-26] MEDS ORDERED: fentaNYL 250 MCG/5 ML INJECTION As Ordered ONE (07:58)
[2023-02-26] MEDS ORDERED: propofoL 200 MG/20 ML VIAL As Ordered ONE (07:58)
[2023-02-26] MEDS ORDERED: LIDOCAINE 2% 100MG/5ML SDV (FOR ANES.) As Ordered ONE (07:58)
[2023-02-26] MEDS ORDERED: ROCURONIUM BROMIDE 50MG/5ML VIAL As Ordered ONE ×2 (07:58→08:37)
[2023-02-26] MEDS ORDERED: GLYCOPYRROLATE INJ 0.2 MG/ML 2 ML VIAL As Ordered ONE (08:11)
[2023-02-26] MEDS ORDERED: ePHEDrine SULFATE 25 MG/5 ML(5MG/ML) SYRINGE As Ordered ONE (08:32)
[2023-02-26] MEDS ORDERED: PHENYLephrine 500MCG 5ML (100MCG/ML) SYRINGE As Ordered ONE (08:49)
[2023-02-26] MEDS ORDERED: ACETAMINOPHEN 1000MG 100ML IV BAG As Ordered ONE (08:52)
[2023-02-26] MEDS ORDERED: HYDROmorphone HCL 2MG/ML 1ML VIAL As Ordered ONE (11:08)
[2023-02-26] MEDS ORDERED: PHENYLEPHRINE 10MG/ML 1ML VIAL As Ordered ONE (11:44)
[2023-02-26] MEDS ORDERED: ceFAZolin 2 GM/D5W 50 ML IV BAG As Ordered ONE (11:51)
[2023-02-26] MEDS ORDERED: oxyCODONE 5MG TAB PO PRN (12:50)
[2023-02-26] MEDS ORDERED: fentaNYL 100 MCG/2 ML INJECTION IV PRN (12:50)
[2023-02-26] MEDS ORDERED: LR 1,000 ML IV SCH (12:50)
[2023-02-26] MEDS ORDERED: HYDROMORPHONE HCL 0.5 MG/ 0.5 ML SYRINGE IV PRN (12:50)
[2023-02-26] MEDS ORDERED: ONDANSETRON 4MG 2ML VIAL IV PRN (12:50)
[2023-02-26] MEDS ORDERED: MORPHINE 4 MG/ML 1ML VIAL IV PRN (12:55)
[2023-02-26] MEDS ORDERED: PERCOCET 5MG/325MG TAB PO PRN ×2 (12:55)
[2023-02-26] MEDS: LR 1,000 ML IV SCH ×2 (15:39→20:55)
[2023-02-26] MEDS: KETOROLAC 30 MG/ML 1ML VIAL IV SCH ×2 (15:40→22:04)
[2023-02-26] MEDS ORDERED: LIDOCAINE 1% MDV 20ML VIAL IM ONE (16:45)
[2023-02-26] MEDS ORDERED: med rec comment (18:08)
[2023-02-26] MEDS ORDERED: HOME MED LIST COMPLETE! XX SCH (18:15)
[2023-02-26] MEDS ORDERED: NS 1,000 ML IV ONE (18:55)
[2023-02-26 19:42] LABS: HEMATOCRIT 37.6 % (42.0-52.0); HEMOGLOBIN 12.4 g/dl (13.5-17.5)
[2023-02-26] MEDS: PANTOPRAZOLE 40MG VIAL IV SCH (22:04)
[2023-02-26] MEDS: ONDANSETRON 4MG 2ML VIAL IV SCH (22:04)
[2023-02-26] MEDS: ramipriL 1.25 MG CAP PO SCH (22:12)
[2023-02-27 00:30] VITALS: BP 110/58; TEMP 98.2; O2SAT 98
[2023-02-27 00:47] LABS: HEMATOCRIT 33.8 % (42.0-52.0); HEMOGLOBIN 11.1 g/dl (13.5-17.5)
[2023-02-27] MEDS: ONDANSETRON 4MG 2ML VIAL IV SCH ×4 (02:12→20:21)
[2023-02-27] MEDS: KETOROLAC 30 MG/ML 1ML VIAL IV SCH ×4 (02:12→20:21)
[2023-02-27 04:30] VITALS: BP 118/52; TEMP 98.2; O2SAT 98
[2023-02-27] MEDS: LR 1,000 ML IV SCH ×3 (04:55→20:21)
[2023-02-27 06:10] LABS: BASO % 0.2 % (0.0-1.0); HEMATOCRIT 31.4 % (42.0-52.0); HEMOGLOBIN 10.4 g/dl (13.5-17.5); LYMPH # 1.2 10^3/uL (1.5-5.0); MEAN CORPUSCULAR HEMOGLOBIN 31.1 pg (27.0-33.0); MEAN CORPUSCULAR HGB CONC 33.1 g/dl (32.0-36.5); MONO # 1.2 10^3/uL (0.0-0.8); MONO % 9.7 % (2.0-8.0); NEUTROPHILS # 9.5 10^3/uL (1.5-8.5); NEUTROPHILS % 79.7 % (36.0-66.0); PLATELET COUNT, AUTOMATED 203 10^3/uL (150-450); RED BLOOD COUNT 3.34 10^6/uL (4.30-6.10); WHITE BLOOD COUNT 11.9 10^3/uL (4.0-10.0)
[2023-02-27 06:43] LABS: ALBUMIN 2.6 G/DL (3.2-5.2); ALKALINE PHOSPHATASE 47 U/L (46-116); ALT/SGPT 21 U/L (7.0-40); AST/SGOT 21 U/L (<34); BILIRUBIN,TOTAL 0.6 MG/DL (0.3-1.2); BLOOD UREA NITROGEN 18 MG/DL (9-23); CALCIUM LEVEL 8.1 MG/DL (8.3-10.6); CARBON DIOXIDE LEVEL 28 MMOL/L (20-31); CHLORIDE LEVEL 106 MMOL/L (98-107); GLOMERULAR FILTRATION RATE > 60.0 (>35); GLUCOSE, FASTING 94 MG/DL (74-106); POTASSIUM SERUM 4.5 MMOL/L (3.5-5.1); SODIUM LEVEL 140 MMOL/L (136-145); TOTAL PROTEIN 4.8 G/DL (5.7-8.2)
[2023-02-27] MEDS: FINASTERIDE 5MG TAB PO SCH (08:28)
[2023-02-27] MEDS: TAMSULOSIN 0.4 MG CAP PO SCH (08:28)
[2023-02-27] MEDS ORDERED: ENOXAPARIN 40MG/0.4ML SYRINGE (J1650 PER 10MG) SC SCH (09:00)
[2023-02-27] MEDS ORDERED: GASTROGRAFIN SOLUTION 30ML As Ordered ONE (09:58)
[2023-02-27 10:00] VITALS: BP 127/60; TEMP 98.2; O2SAT 98
[2023-02-27 11:21] LABS: HEMOGLOBIN 9.8 g/dl (13.5-17.5)
[2023-02-27 14:00] VITALS: BP 139/70; TEMP 97.2; O2SAT 95
[2023-02-27] MEDS ORDERED: LIDOCAINE 2% 100MG/5ML SDV (FOR ANES.) As Ordered ONE (17:08)
[2023-02-27] MEDS ORDERED: propofoL 200 MG/20 ML VIAL As Ordered ONE (17:08)
[2023-02-27] MEDS: PANTOPRAZOLE 40MG VIAL IV SCH (20:20)
[2023-02-27] MEDS: ramipriL 1.25 MG CAP PO SCH (20:20)
[2023-02-27 22:00] VITALS: BP 134/70; TEMP 99.1; O2SAT 96
[2023-02-28] VITALS (9 sets, daily range): BP systolic 118–153; BP diastolic 62–79; TEMP 98.2–99.5; O2SAT 87–96
[2023-02-28] MEDS: KETOROLAC 30 MG/ML 1ML VIAL IV SCH ×4 (02:02→19:41)
[2023-02-28] MEDS: ONDANSETRON 4MG 2ML VIAL IV SCH ×4 (02:02→19:41)
[2023-02-28] MEDS: LR 1,000 ML IV SCH ×3 (03:54→13:13)
[2023-02-28 06:07] LABS: BASO % 0.3 % (0.0-1.0); EOS # 0.1 10^3/uL (0.0-0.5); EOS % 1.3 % (0.0-3.0); HEMATOCRIT 28.6 % (42.0-52.0); HEMOGLOBIN 9.6 g/dl (13.5-17.5); LYMPH # 1.2 10^3/uL (1.5-5.0); LYMPH % 11.6 % (24.0-44.0); MEAN CORPUSCULAR HEMOGLOBIN 31.6 pg (27.0-33.0); MEAN CORPUSCULAR HGB CONC 33.6 g/dl (32.0-36.5); MEAN CORPUSCULAR VOLUME 94.1 fl (80.0-96.0); MONO # 0.9 10^3/uL (0.0-0.8); MONO % 8.2 % (2.0-8.0); NEUTROPHILS # 8.3 10^3/uL (1.5-8.5); NEUTROPHILS % 78.1 % (36.0-66.0); PLATELET COUNT, AUTOMATED 187 10^3/uL (150-450); RED BLOOD COUNT 3.04 10^6/uL (4.30-6.10); WHITE BLOOD COUNT 10.6 10^3/uL (4.0-10.0)
[2023-02-28 06:22] LABS: BLOOD UREA NITROGEN 16 MG/DL (9-23); CALCIUM LEVEL 8.5 MG/DL (8.3-10.6); CARBON DIOXIDE LEVEL 31 MMOL/L (20-31); CHLORIDE LEVEL 107 MMOL/L (98-107); CREATININE FOR GFR 1.11 MG/DL (0.70-1.30); GLOMERULAR FILTRATION RATE > 60.0 (>35); GLUCOSE, FASTING 98 MG/DL (74-106); POTASSIUM SERUM 3.8 MMOL/L (3.5-5.1); SODIUM LEVEL 142 MMOL/L (136-145)
[2023-02-28] MEDS ORDERED: ceFAZolin 2 GM/D5W 50 ML IV BAG As Ordered ONE (10:16)
[2023-02-28] MEDS ORDERED: ePHEDrine SULFATE 25 MG/5 ML(5MG/ML) SYRINGE As Ordered ONE (11:09)
[2023-02-28] MEDS ORDERED: fentaNYL 100 MCG/2 ML INJECTION As Ordered ONE ×2 (11:24→11:26)
[2023-02-28] MEDS ORDERED: propofoL 200 MG/20 ML VIAL As Ordered ONE (11:24)
[2023-02-28] MEDS ORDERED: LIDOCAINE 2% 100MG/5ML SDV (FOR ANES.) As Ordered ONE (11:24)
[2023-02-28] MEDS ORDERED: ONDANSETRON 4MG 2ML VIAL As Ordered ONE (11:24)
[2023-02-28] MEDS ORDERED: fentaNYL 100 MCG/2 ML INJECTION IV PRN (11:45)
[2023-02-28] MEDS ORDERED: HYDROMORPHONE HCL 0.5 MG/ 0.5 ML SYRINGE IV PRN (11:45)
[2023-02-28] MEDS ORDERED: MEPERIDINE 25 MG/ML 1ML VIAL IV PRN (11:45)
[2023-02-28] MEDS ORDERED: oxyCODONE 5MG TAB PO PRN (11:45)
[2023-02-28] MEDS ORDERED: ONDANSETRON 4MG 2ML VIAL IV PRN (11:45)
[2023-02-28] MEDS ORDERED: ESMOLOL INJ 100MG/10ML VIAL As Ordered ONE (11:48)
[2023-02-28] MEDS: FINASTERIDE 5MG TAB PO SCH (15:23)
[2023-02-28] MEDS: TAMSULOSIN 0.4 MG CAP PO SCH (15:23)
[2023-02-28] MEDS: PANTOPRAZOLE 40MG VIAL IV SCH (19:41)
[2023-02-28] MEDS: ramipriL 1.25 MG CAP PO SCH (19:42)
[2023-03-01] VITALS (7 sets, daily range): BP systolic 134–155; BP diastolic 60–81; TEMP 98.2–99; O2SAT 90–94
[2023-03-01] MEDS: KETOROLAC 30 MG/ML 1ML VIAL IV SCH ×4 (03:13→20:10)
[2023-03-01] MEDS: ONDANSETRON 4MG 2ML VIAL IV SCH ×4 (03:14→20:10)
[2023-03-01] MEDS: LR 1,000 ML IV SCH ×2 (03:14→12:55)
[2023-03-01] MEDS: FINASTERIDE 5MG TAB PO SCH (09:28)
[2023-03-01] MEDS: TAMSULOSIN 0.4 MG CAP PO SCH (09:28)
[2023-03-01] MEDS ORDERED: PERCOCET PO (11:28)
[2023-03-01] MEDS: PANTOPRAZOLE 40MG VIAL IV SCH (20:10)
[2023-03-01] MEDS: ramipriL 1.25 MG CAP PO SCH (20:11)
[2023-03-01] MEDS: ENOXAPARIN 80MG/0.8ML SYRINGE (J1650 PER 10MG) SC SCH (20:11)
[2023-03-02] MEDS: KETOROLAC 30 MG/ML 1ML VIAL IV SCH ×2 (03:00→08:08)
[2023-03-02] MEDS: ONDANSETRON 4MG 2ML VIAL IV SCH ×2 (03:00→08:08)
[2023-03-02 04:39] VITALS: BP 128/58; TEMP 98.6; O2SAT 88
[2023-03-02] MEDS: FINASTERIDE 5MG TAB PO SCH (08:08)
[2023-03-02] MEDS: TAMSULOSIN 0.4 MG CAP PO SCH (08:08)
[2023-03-02] MEDS: ENOXAPARIN 80MG/0.8ML SYRINGE (J1650 PER 10MG) SC SCH (08:09)
[2023-03-03] MEDS ORDERED: ELIQ5TAB PO (17:34)
[2023-03-03] MEDS ORDERED: ATOR1TAB21 PO (17:34)
[2023-03-18] MEDS ORDERED: LEVO1TAB38 PO (09:10)
== END 2023-03-02 12:19 | disposition home or self-care (01) | DRG 328 ==
LOC: M OR 06:03 → M MSPAV 15:38
PROVIDERS: ADMIT Surgery; ATTEND Surgery
PROC: 0T9B00Z Drainage of Bladder with Drainage Device, Open Approach (ICD-10-PCS; 2023-02-26)
PROC: 8E0W4CZ Robotic Assisted Procedure of Trunk Region, Percutaneous Endoscopic Approach (ICD-10-PCS; 2023-02-26)
PROC: 0DQ54ZZ Repair Esophagus, Percutaneous Endoscopic Approach (ICD-10-PCS; 2023-02-26)
PROC: 0DH64UZ Insertion of Feeding Device into Stomach, Percutaneous Endoscopic Approach (ICD-10-PCS; 2023-02-26)
PROC: 0DQ44ZZ Repair Esophagogastric Junction, Percutaneous Endoscopic Approach (ICD-10-PCS; principal; 2023-02-26 07:30)
PROC: 0V508ZZ Destruction of Prostate, Via Natural or Artificial Opening Endoscopic (ICD-10-PCS; 2023-02-28)
PROC: 0W3R8ZZ Control Bleeding in Genitourinary Tract, Via Natural or Artificial Opening Endoscopic (ICD-10-PCS; 2023-02-28)
PROC: 0TCB8ZZ Extirpation of Matter from Bladder, Via Natural or Artificial Opening Endoscopic (ICD-10-PCS; 2023-02-28)
DX: K44.9 Diaphragmatic hernia without obstruction or gangrene (principal); K21.9 Gastro-esophageal reflux disease without esophagitis; N40.1 Benign prostatic hyperplasia with lower urinary tract symptoms; R33.9 Retention of urine, unspecified; R31.0 Gross hematuria; Z87.442 Personal history of urinary calculi; Z86.73 Personal history of transient ischemic attack (TIA), and cerebral infarction without residual deficits; Z87.891 Personal history of nicotine dependence

== ENCOUNTER 2023-03-03 10:36 | Inpatient (IN) | payer MEDICARE ==
[~2023-03-03] VITALS: Ht 167.6 cm; Wt 70.5 kg
[2023-03-03] MEDS: VITAMIN D 1,000 INTERNATIONAL UNITS TABLET PO SCH (09:00)
[2023-03-03] MEDS: CYANOCOBALAMIN 500 MCG TAB PO SCH (09:00)
[~2023-03-03 10:36] MED LIST changes: +PERCOCET PO; +med rec comment
[2023-03-03] MEDS ORDERED: ISOVUE-370 76% 100ML VIAL As Ordered ONE (12:24)
[2023-03-03 13:09] LABS: HEMATOCRIT 28.7 % (42.0-52.0); HEMOGLOBIN 9.7 g/dl (13.5-17.5); RED BLOOD COUNT 3.03 10^6/uL (4.30-6.10)
[2023-03-03 13:10] LABS: BASO % 0.3 % (0.0-1.0); EOS # 0.4 10^3/uL (0.0-0.5); EOS % 3.4 % (0.0-3.0); LYMPH # 1.4 10^3/uL (1.5-5.0); LYMPH % 11.8 % (24.0-44.0); MEAN CORPUSCULAR HGB CONC 33.8 g/dl (32.0-36.5); MEAN CORPUSCULAR VOLUME 94.7 fl (80.0-96.0); MONO # 1.1 10^3/uL (0.0-0.8); MONO % 9.3 % (2.0-8.0); NEUTROPHILS # 8.9 10^3/uL (1.5-8.5); NEUTROPHILS % 74.6 % (36.0-66.0); PLATELET COUNT, AUTOMATED 279 10^3/uL (150-450)
[2023-03-03 13:35] LABS: LIPASE 30 U/L (12-53)
[2023-03-03 13:37] LABS: ALBUMIN 2.4 G/DL (3.2-5.2); ALKALINE PHOSPHATASE 58 U/L (46-116); ALT/SGPT 9 U/L (7.0-40); AST/SGOT 14 U/L (<34); BILIRUBIN,DIRECT 0.2 MG/DL (<0.4); BILIRUBIN,TOTAL 0.5 MG/DL (0.3-1.2); BLOOD UREA NITROGEN 14 MG/DL (9-23); CALCIUM LEVEL 8.3 MG/DL (8.3-10.6); CARBON DIOXIDE LEVEL 30 MMOL/L (20-31); CHLORIDE LEVEL 105 MMOL/L (98-107); CK-MB VALUE MASS < 1.0 NG/ML (<3.6); CREATININE FOR GFR 0.97 MG/DL (0.70-1.30); GLOMERULAR FILTRATION RATE > 60.0 (>35); GLUCOSE, FASTING 109 MG/DL (74-106); POTASSIUM SERUM 4.4 MMOL/L (3.5-5.1); SODIUM LEVEL 142 MMOL/L (136-145); TOTAL PROTEIN 5.3 G/DL (5.7-8.2)
[2023-03-03 13:40] LABS: CPK CREATINE PHOSPHOKINASE 54 U/L (46-171); MB/CK RELATIVE INDEX 1.85 (< OR =4)
[2023-03-03 14:15] LABS: INR 1.21
[2023-03-03 14:40] LABS: CK-MB VALUE MASS < 1.0 NG/ML (<3.6)
[2023-03-03 14:41] LABS: CPK CREATINE PHOSPHOKINASE 45 U/L (46-171); MB/CK RELATIVE INDEX 2.22 (< OR =4)
[2023-03-03] MEDS ORDERED: NS 1,000 ML IV SCH (16:15)
[2023-03-03] MEDS ORDERED: MED REC IN PROGRESS XX SCH (16:50)
[2023-03-03] MEDS ORDERED: MED REC CURRENTLY UNOBTAINABLE XX SCH (16:50)
[2023-03-03] MEDS ORDERED: ACETAMINOPHEN TAB 650MG DOSE (2X325MG) PO PRN (17:10)
[2023-03-03] MEDS ORDERED: MOM 30ML SUSPENSION UDC PO PRN (17:10)
[2023-03-03] MEDS: LR 1,000 ML IV SCH (17:24)
[2023-03-03] MEDS ORDERED: ATOR1TAB21 PO (17:34)
[2023-03-03] MEDS ORDERED: ELIQ5TAB PO (17:34)
[2023-03-03] MEDS ORDERED: PERCOCET 5MG/325MG TAB PO PRN (17:35)
[2023-03-03] MEDS ORDERED: HOME MED LIST COMPLETE! XX SCH (17:45)
[2023-03-03 20:17] LABS: RSV AMPLIFICATION NEGATIVE (NEGATIVE)
[2023-03-03] MEDS: PANTOPRAZOLE 40MG TAB (PROTONIX) PO SCH (21:03)
[2023-03-03] MEDS: TAMSULOSIN 0.4 MG CAP PO SCH (21:03)
[2023-03-03] MEDS: ramipriL 1.25 MG CAP PO SCH (21:03)
[2023-03-03] MEDS: RAMELTEON 8 MG TAB (ROZEREM) PO SCH (21:03)
[2023-03-03] MEDS: DOCUSATE SODIUM 100MG CAPSULE PO SCH (21:04)
[2023-03-03 21:41] VITALS: BP 154/68; TEMP 98.2; O2SAT 94
[2023-03-03 23:50] VITALS: O2SAT 93
[2023-03-04 02:47] VITALS: O2SAT 92
[2023-03-04] MEDS: LR 1,000 ML IV SCH ×2 (02:56→12:02)
[2023-03-04 04:44] VITALS: BP 150/80; TEMP 98.2; O2SAT 92
[2023-03-04 06:19] LABS: HEMATOCRIT 26.5 % (42.0-52.0); HEMOGLOBIN 8.9 g/dl (13.5-17.5); MEAN CORPUSCULAR HGB CONC 33.6 g/dl (32.0-36.5); MEAN CORPUSCULAR VOLUME 92.3 fl (80.0-96.0); PLATELET COUNT, AUTOMATED 307 10^3/uL (150-450); RED BLOOD COUNT 2.87 10^6/uL (4.30-6.10); WHITE BLOOD COUNT 9.9 10^3/uL (4.0-10.0)
[2023-03-04 06:30] LABS: INR 1.24; PROTHROMBIN TIME 15.3 SECONDS (12.5-14.5)
[2023-03-04 06:41] LABS: BLOOD UREA NITROGEN 12 MG/DL (9-23); CALCIUM LEVEL 8.2 MG/DL (8.3-10.6); CARBON DIOXIDE LEVEL 28 MMOL/L (20-31); CHLORIDE LEVEL 106 MMOL/L (98-107); CREATININE FOR GFR 0.86 MG/DL (0.70-1.30); GLOMERULAR FILTRATION RATE > 60.0 (>35); GLUCOSE, FASTING 94 MG/DL (74-106); POTASSIUM SERUM 3.7 MMOL/L (3.5-5.1); SODIUM LEVEL 142 MMOL/L (136-145)
[2023-03-04] MEDS: CYANOCOBALAMIN 500 MCG TAB PO SCH (09:18)
[2023-03-04] MEDS: FINASTERIDE 5MG TAB PO SCH (09:19)
[2023-03-04] MEDS: ATORVASTATIN 20 MG TAB PO SCH (09:19)
[2023-03-04] MEDS: VITAMIN D 1,000 INTERNATIONAL UNITS TABLET PO SCH (09:19)
[2023-03-04] MEDS: DOCUSATE SODIUM 100MG CAPSULE PO SCH ×2 (09:21→21:30)
[2023-03-04] MEDS: METOCLOPRAMIDE 5 MG TAB PO SCH ×3 (10:32→21:30)
[2023-03-04 14:00] VITALS: BP 147/81; TEMP 97.3; O2SAT 94
[2023-03-04 20:00] VITALS: BP 174/77; TEMP 98.4; O2SAT 95
[2023-03-04] MEDS: TAMSULOSIN 0.4 MG CAP PO SCH (21:30)
[2023-03-04] MEDS: PANTOPRAZOLE 40MG TAB (PROTONIX) PO SCH (21:30)
[2023-03-04] MEDS: RAMELTEON 8 MG TAB (ROZEREM) PO SCH (21:30)
[2023-03-04 21:31] VITALS: BP 170/77
[2023-03-04] MEDS: ramipriL 1.25 MG CAP PO SCH (21:31)
[2023-03-05 02:35] VITALS: O2SAT 93
[2023-03-05 06:00] VITALS: BP 165/78; TEMP 98.1; O2SAT 93
[2023-03-05 06:43] LABS: HEMATOCRIT 26.8 % (42.0-52.0); MEAN CORPUSCULAR HEMOGLOBIN 30.7 pg (27.0-33.0); MEAN CORPUSCULAR HGB CONC 33.6 g/dl (32.0-36.5); MEAN CORPUSCULAR VOLUME 91.5 fl (80.0-96.0); PLATELET COUNT, AUTOMATED 333 10^3/uL (150-450); RED BLOOD COUNT 2.93 10^6/uL (4.30-6.10); WHITE BLOOD COUNT 8.4 10^3/uL (4.0-10.0)
[2023-03-05 07:12] LABS: BLOOD UREA NITROGEN 9 MG/DL (9-23); CALCIUM LEVEL 8.3 MG/DL (8.3-10.6); CARBON DIOXIDE LEVEL 28 MMOL/L (20-31); CHLORIDE LEVEL 106 MMOL/L (98-107); CREATININE FOR GFR 0.89 MG/DL (0.70-1.30); GLOMERULAR FILTRATION RATE > 60.0 (>35); GLUCOSE, FASTING 97 MG/DL (74-106); POTASSIUM SERUM 3.9 MMOL/L (3.5-5.1); SODIUM LEVEL 143 MMOL/L (136-145)
[2023-03-05] MEDS: VITAMIN D 1,000 INTERNATIONAL UNITS TABLET PO SCH (09:41)
[2023-03-05] MEDS: ATORVASTATIN 20 MG TAB PO SCH (09:41)
[2023-03-05] MEDS: FINASTERIDE 5MG TAB PO SCH (09:41)
[2023-03-05] MEDS: METOCLOPRAMIDE 5 MG TAB PO SCH (09:41)
[2023-03-05] MEDS: CYANOCOBALAMIN 500 MCG TAB PO SCH (09:41)
[2023-03-05] MEDS: DOCUSATE SODIUM 100MG CAPSULE PO SCH (09:41)
[2023-03-05] MEDS ORDERED: METO5TAB2 PO (10:24)
== END 2023-03-05 11:31 | disposition home or self-care (01) | DRG 392 ==
LOC: M ED 10:36 → M ED INP 17:06 → M MSPAV 21:40
PROVIDERS: ADMIT Student in an Organized Health Care Education/Training Program; ATTEND Student in an Organized Health Care Education/Training Program
DX: K30 Functional dyspepsia (principal); I82.611 Acute embolism and thrombosis of superficial veins of right upper extremity; K21.9 Gastro-esophageal reflux disease without esophagitis; N40.0 Benign prostatic hyperplasia without lower urinary tract symptoms; I48.91 Unspecified atrial fibrillation; I25.10 Atherosclerotic heart disease of native coronary artery without angina pectoris; I25.2 Old myocardial infarction; R13.10 Dysphagia, unspecified; K44.9 Diaphragmatic hernia without obstruction or gangrene; I10 Essential (primary) hypertension; E78.5 Hyperlipidemia, unspecified; R31.9 Hematuria, unspecified; R91.8 Other nonspecific abnormal finding of lung field; D73.5 Infarction of spleen; E55.9 Vitamin D deficiency, unspecified; Z79.01 Long term (current) use of anticoagulants; Z79.899 Other long term (current) drug therapy; Z93.1 Gastrostomy status; Z86.73 Personal history of transient ischemic attack (TIA), and cerebral infarction without residual deficits; Z98.890 Other specified postprocedural states; Z90.49 Acquired absence of other specified parts of digestive tract; Z98.49 Cataract extraction status, unspecified eye

== ENCOUNTER 2023-03-16 03:12 | Emergency (ER) | payer MEDICARE ==
[~2023-03-16] VITALS: Ht 165.1 cm; Wt 75.0 kg
[~2023-03-16 03:12] MED LIST changes: +METO5TAB2 PO
[2023-03-16 04:00] VITALS: TEMP 98.4
[2023-03-16 04:38] LABS: BASO # 0.1 10^3/uL (0.0-0.2); BASO % 0.7 % (0.0-1.0); EOS # 0.3 10^3/uL (0.0-0.5); EOS % 3.1 % (0.0-3.0); HEMATOCRIT 27.5 % (42.0-52.0); HEMOGLOBIN 8.9 g/dl (13.5-17.5); LYMPH # 0.7 10^3/uL (1.5-5.0); LYMPH % 8.2 % (24.0-44.0); MEAN CORPUSCULAR HEMOGLOBIN 30.7 pg (27.0-33.0); MEAN CORPUSCULAR HGB CONC 32.4 g/dl (32.0-36.5); MEAN CORPUSCULAR VOLUME 94.8 fl (80.0-96.0); MONO # 1.1 10^3/uL (0.0-0.8); MONO % 11.7 % (2.0-8.0); NEUTROPHILS # 6.9 10^3/uL (1.5-8.5); NEUTROPHILS % 75.5 % (36.0-66.0); PLATELET COUNT, AUTOMATED 519 10^3/uL (150-450); WHITE BLOOD COUNT 9.1 10^3/uL (4.0-10.0)
[2023-03-16 04:50] LABS: INR 1.49; PROTHROMBIN TIME 17.6 SECONDS (12.5-14.5)
[2023-03-16 04:51] LABS: PARTIAL THROMBOPLASTIN TIME 36.6 SECONDS (24.8-34.2)
[2023-03-16 04:55] LABS: ALBUMIN 2.3 G/DL (3.2-5.2); BILIRUBIN,DIRECT 0.2 MG/DL (<0.4); BILIRUBIN,TOTAL 0.4 MG/DL (0.3-1.2); TOTAL PROTEIN 5.1 G/DL (5.7-8.2)
[2023-03-16] MEDS ORDERED: ISOVUE-370 76% 100ML VIAL As Ordered ONE (05:31)
[2023-03-16] MEDS ORDERED: NS 1,000 ML IV ONE (06:40)
[2023-03-16 11:00] VITALS: BP 156/67; O2SAT 97
[2023-03-18] MEDS ORDERED: LEVO1TAB38 PO (09:10)
== END 2023-03-16 12:00 | disposition home or self-care (01) ==
LOC: M ED 03:12
DX: R31.9 Hematuria, unspecified (principal); T45.515A Adverse effect of anticoagulants, initial encounter; K21.9 Gastro-esophageal reflux disease without esophagitis; E78.5 Hyperlipidemia, unspecified; I25.2 Old myocardial infarction; Z86.79 Personal history of other diseases of the circulatory system; Z86.73 Personal history of transient ischemic attack (TIA), and cerebral infarction without residual deficits; Z79.01 Long term (current) use of anticoagulants; Z79.02 Long term (current) use of antithrombotics/antiplatelets; Z79.899 Other long term (current) drug therapy
CPT/HCPCS: 74177; 80047; 80076; 81000; 81015; 83605; 83690; 85025; 85610; 85730; 86850; 86900; 86901; 87088; 87186; 87635; 93041; 96360; 99285; Q9967

== ENCOUNTER → 2023-08-01 | Outpatient (CLI) | payer MEDICARE ==
[~2023-08-01] MED LIST changes: +LEVO1TAB38 PO; -OXYB5TAB10 PO; +OXYB5TAB11 PO
== END ==
LOC: M RAD 10:31
PROVIDERS: ATTEND Physician Assistant
DX: M25.562 Pain in left knee (principal)

== ENCOUNTER → 2023-08-25 | Outpatient (CLI) | payer MEDICARE ==
[~2023-08-25] MED LIST changes: -OXYB5TAB11 PO; +OXYB5TAB14 PO
[2023-08-25 12:53] LABS: HEMATOCRIT 38.8 % (42.0-52.0); HEMOGLOBIN 11.8 g/dl (13.5-17.5); MEAN CORPUSCULAR HEMOGLOBIN 26.7 pg (27.0-33.0); MEAN CORPUSCULAR HGB CONC 30.4 g/dl (32.0-36.5); MEAN CORPUSCULAR VOLUME 87.8 fl (80.0-96.0); PLATELET COUNT, AUTOMATED 296 10^3/uL (150-450); RED BLOOD COUNT 4.42 10^6/uL (4.30-6.10); WHITE BLOOD COUNT 9.1 10^3/uL (4.0-10.0)
[2023-08-25 13:15] LABS: ALBUMIN 3.5 G/DL (3.2-5.2); ALKALINE PHOSPHATASE 90 U/L (46-116); ALT/SGPT 21 U/L (7.0-40); AST/SGOT 18 U/L (<34); BILIRUBIN,TOTAL 0.4 MG/DL (0.3-1.2); BLOOD UREA NITROGEN 21 MG/DL (9-23); CALCIUM LEVEL 9.5 MG/DL (8.3-10.6); CARBON DIOXIDE LEVEL 29 MMOL/L (20-31); CHLORIDE LEVEL 107 MMOL/L (98-107); CHOLESTEROL LEVEL 104 MG/DL (<200); CHOLESTEROL RISK RATIO 2.48 (<5); CREATININE FOR GFR 1.21 MG/DL (0.70-1.30); GLOMERULAR FILTRATION RATE > 60.0 (>35); GLUCOSE, FASTING 117 MG/DL (74-106); HDL CHOLESTEROL 41.9 MG/DL (>40); LDL CHOLESTEROL 43.9 MG/DL (<100); NON-HDL-C 62.1 MG/DL; POTASSIUM SERUM 4.5 MMOL/L (3.5-5.1); SODIUM LEVEL 141 MMOL/L (136-145); TOTAL PROTEIN 6.5 G/DL (5.7-8.2); TRIGLYCERIDES LEVEL 91 MG/DL (<150)
== END ==
LOC: M WUC 08:42
PROVIDERS: ATTEND Physician Assistant
DX: I48.20 Chronic atrial fibrillation, unspecified (principal); E78.2 Mixed hyperlipidemia; I25.2 Old myocardial infarction; G45.9 Transient cerebral ischemic attack, unspecified

== ENCOUNTER → 2024-04-05 | Outpatient (CLI) | payer MEDICARE ==
[~2024-04-05] MED LIST changes: +DOXY-440 PO; -DOXY-444 PO; -RAMI1CAP22 PO; -RAMI1CAP24 PO; +RAMI2.5C42 PO; +RAMI5CAP60 PO
== END ==
LOC: M RAD 08:18
PROVIDERS: ATTEND Surgery
DX: R10.31 Right lower quadrant pain (principal)

== ENCOUNTER → 2024-04-11 | Outpatient (CLI) | payer MEDICARE | LOC: M WUC 12:07 | PROVIDERS: ATTEND Physician Assistant | DX: M25.511 Pain in right shoulder (principal) ==

== ENCOUNTER → 2024-08-15 | Outpatient (CLI) | payer MEDICARE ==
[2024-08-15 18:32] LABS: FOLATE 22.2 NG/ML (>5.4)
== END ==
LOC: M WUC 10:08
PROVIDERS: ATTEND Psychiatry & Neurology Neurology
DX: R41.3 Other amnesia (principal); E03.9 Hypothyroidism, unspecified; E53.8 Deficiency of other specified B group vitamins; Z86.73 Personal history of transient ischemic attack (TIA), and cerebral infarction without residual deficits

== ENCOUNTER 2024-09-19 18:28 | Emergency (ER) | payer MEDICARE ==
[2024-09-19 18:46] VITALS: TEMP 97.6
[2024-09-19] MEDS ORDERED: LIDOCAINE W/EPINEPHRINE 1% 20ML VIAL As Ordered ONE (18:58)
[2024-09-19] MEDS: LIDOCAINE W/EPINEPHRINE 1% 20ML VIAL SC ONE (19:25)
[2024-09-19 19:55] LABS: BASO % 0.7 % (0.0-1.0); EOS # 0.2 10^3/uL (0.0-0.5); EOS % 2.7 % (0.0-3.0); HEMATOCRIT 40.1 % (42.0-52.0); HEMOGLOBIN 13.4 g/dl (13.5-17.5); LYMPH # 1.5 10^3/uL (1.5-5.0); LYMPH % 24.8 % (24.0-44.0); MEAN CORPUSCULAR HEMOGLOBIN 32.1 pg (27.0-33.0); MEAN CORPUSCULAR HGB CONC 33.4 g/dl (32.0-36.5); MEAN CORPUSCULAR VOLUME 96.2 fl (80.0-96.0); MONO # 0.7 10^3/uL (0.0-0.8); MONO % 11.1 % (2.0-8.0); NEUTROPHILS # 3.6 10^3/uL (1.5-8.5); NEUTROPHILS % 60.4 % (36.0-66.0); PLATELET COUNT, AUTOMATED 234 10^3/uL (150-450); RED BLOOD COUNT 4.17 10^6/uL (4.30-6.10); WHITE BLOOD COUNT 5.9 10^3/uL (4.0-10.0)
[2024-09-19 20:00] VITALS: BP 166/78; O2SAT 99
[2024-09-19 20:07] LABS: INR 1.1; PARTIAL THROMBOPLASTIN TIME 34.9 SECONDS (24.8-34.2); PROTHROMBIN TIME 14.5 SECONDS (12.5-14.5)
== END 2024-09-19 20:39 | disposition home or self-care (01) ==
LOC: EDBD 18:28 → M ED 18:28
DX: L76.22 Postprocedural hemorrhage of skin and subcutaneous tissue following other procedure (principal); I48.91 Unspecified atrial fibrillation; I25.119 Atherosclerotic heart disease of native coronary artery with unspecified angina pectoris; I25.2 Old myocardial infarction; N40.0 Benign prostatic hyperplasia without lower urinary tract symptoms; E78.5 Hyperlipidemia, unspecified; K21.9 Gastro-esophageal reflux disease without esophagitis; E55.9 Vitamin D deficiency, unspecified; Z86.73 Personal history of transient ischemic attack (TIA), and cerebral infarction without residual deficits; Z87.891 Personal history of nicotine dependence; Z79.1 Long term (current) use of non-steroidal anti-inflammatories (NSAID); Z79.01 Long term (current) use of anticoagulants; Z79.899 Other long term (current) drug therapy

== ENCOUNTER → 2024-09-30 | Outpatient (CLI) | payer MEDICARE ==
[2024-09-30 13:30] LABS: HEMATOCRIT 39.8 % (42.0-52.0); HEMOGLOBIN 12.7 g/dl (13.5-17.5); MEAN CORPUSCULAR HEMOGLOBIN 31.2 pg (27.0-33.0); MEAN CORPUSCULAR HGB CONC 31.9 g/dl (32.0-36.5); MEAN CORPUSCULAR VOLUME 97.8 fl (80.0-96.0); PLATELET COUNT, AUTOMATED 277 10^3/uL (150-450); RED BLOOD COUNT 4.07 10^6/uL (4.30-6.10)
[2024-09-30 13:31] LABS: ALBUMIN 3.4 G/DL (3.2-5.2); ALKALINE PHOSPHATASE 66 U/L (40-129); ALT/SGPT 13 U/L (7.0-40); AST/SGOT 15 U/L (<34); BILIRUBIN,TOTAL 0.4 MG/DL (0.3-1.2); BLOOD UREA NITROGEN 19 MG/DL (9-23); CARBON DIOXIDE LEVEL 30 MMOL/L (20-31); CHLORIDE LEVEL 106 MMOL/L (98-107); CHOLESTEROL LEVEL 177 MG/DL (<200); CHOLESTEROL RISK RATIO 3.28 (<5); GLOMERULAR FILTRATION RATE > 60.0 (>35); GLUCOSE, FASTING 114 MG/DL (74-106); HDL CHOLESTEROL 53.8 MG/DL (>40); LDL CHOLESTEROL 103.8 MG/DL (<100); NON-HDL-C 123.2 MG/DL; POTASSIUM SERUM 4.3 MMOL/L (3.5-5.1); SODIUM LEVEL 142 MMOL/L (136-145); TOTAL PROTEIN 6.3 G/DL (5.7-8.2); TRIGLYCERIDES LEVEL 97 MG/DL (<150)
[2024-09-30 13:33] LABS: THYROID STIMULATING HORMONE 0.885 uIU/ML (0.55-4.78)
[2024-09-30 13:34] LABS: TOTAL 25(OH) VITAMIN D 45.3 NG/ML (20.0-100.0)
[2024-10-03 07:36] LABS: WHITE BLOOD COUNT 9.4 10^3/uL (4.0-10.0)
== END ==
LOC: M WUC 08:43
PROVIDERS: ATTEND Physician Assistant
DX: E78.2 Mixed hyperlipidemia (principal); E55.9 Vitamin D deficiency, unspecified; I48.20 Chronic atrial fibrillation, unspecified; G45.9 Transient cerebral ischemic attack, unspecified

== ENCOUNTER → 2025-03-29 | Outpatient (CLI) | payer MEDICARE ==
[~2025-03-29] MED LIST changes: -FLOM0.4C39 PO; +TAMS-18 PO
== END ==
LOC: M RAD 11:50
PROVIDERS: ATTEND Surgery
DX: R10.31 Right lower quadrant pain (principal); K40.90 Unilateral inguinal hernia, without obstruction or gangrene, not specified as recurrent